=== PATIENT | male | born 1985 | race Caucasian/White ===

== ENCOUNTER 2023-07-31 19:39 | Emergency (ER) | payer MEDICAID, SELFPAY ==
[2023-07-31 19:40] VITALS: BP 127/81; PULSE 75; RESP 16; TEMP 36.4; O2SAT 100; BMI 28.0
--- NOTE | 2023-07-31 20:11 | EKG12_ITS ---
Test Reason : GEN ILLNESS Blood Pressure : / mmHG Vent. Rate : 063 BPM Atrial Rate : 063 BPM P-R Int : 164 ms QRS Dur : 118 ms QT Int : 404 ms P-R-T Axes : 022 049 043 degrees QTc Int : 413 ms Normal sinus rhythm with sinus arrhythmia Incomplete right bundle branch block Borderline ECG Confirmed by Domenic Ceja ([id number]), market editor BEN CLOUD ([id number]) on 08/04/2023 1:11:04 PM Referred By: EFFIE Confirmed By:Domenic Ceja
[2023-07-31] MEDS: Aspirin 81 MG TAB.CHEW 324 MG PO (20:17)
--- NOTE | 2023-07-31 20:25 | RAD_ITS ---
EXAM: XR CHEST, 1 VIEW CLINICAL INDICATION: chest pain TECHNIQUE: Frontal view of the chest. COMPARISON: 10/26/2014 FINDINGS: LUNGS AND PLEURAL SPACES: Right lower lobe pulmonary opacity may be atelectasis or pneumonia. Possible additional airspace disease in the right middle lobe. No pneumothorax. No effusion. HEART: No significant abnormality. Cardiac silhouette not enlarged. MEDIASTINUM: Central airways and mediastinal contour are unremarkable. BONES/JOINTS: No significant abnormality. No acute fracture. SOFT TISSUES: No significant abnormality. RAD/Chest 1 View (Portable) IMPRESSION: Right lower lobe pulmonary opacity may be atelectasis or pneumonia. Possible additional airspace disease in the right middle lobe. Electronically Signed: Edwar Gaines DO at 20:51 EDT ,
[2023-07-31 20:31] LABS: Absolute Lymphocyte Count 2.47 X10^3/uL (0.83-4.51); Absolute Neutrophil Count 3.4 X10^3/uL (2.0-7.7); Basophil# 0.07 X10^3/uL; Eosinophil# 0.56 X10^3/uL; Eosinophils% 7.8 % (0-5); Hematocrit 41.6 % (40-54); Hemoglobin 14.1 g/dL (13.0-16.5); Lymphocyte # 2.47 X10^3/ul (0.83-4.51); Lymphocyte % 34.5 % (19-41); Mean Corp Hgb Conc 33.9 g/dL (32-36); Mean Corpuscular Hgb 31.8 pg (27.0-32.0); Mean Corpuscular Volume 93.9 fL (80-94); Mean Platelet Vol. 9.6 fl (6.2-12.0); Monocyte# 0.61 X10^3/uL; Monocyte% 8.5 % (0-10); NRBC Flagged by Analyzer 0 % (0-5); Neutrophil # 3.43 X10^3/uL (2.7-7.7); Neutrophil % 48.1 % (47-70); Platelet Count 184 K/mm3 (150-450); RBC Distribution Width CV 12.7 % (11.6-14.6); RBC Distribution Width SD 43.8 fl (35.1-43.9); Red Blood Count 4.43 M/mm3 (4.6-6.2); White Blood Count 7.2 K/mm3 (4.4-11.0)
[2023-07-31 20:56] LABS: Anion Gap 5 (5-15); BUN 19 mg/dL (7-18); BUN/Creat Ratio 17.6 RATIO (10-20); Chloride 110 mmol/L (98-107); Creatinine, Serum 1.08 mg/dL (0.70-1.30); EST Glomerular Filtration Rate 82 mL/min (>60); Est Glom Filt Rate - Afr Amer 99 mL/min (>60); Estimated Creatinine Clearance 102.82 ml/min; Glucose 98 mg/dL (74-106); Potassium 3.5 mmol/L (3.5-5.1); Sodium Level 140 mmol/L (136-145); Troponin-I HS (w/2H Reflex) 5 pg/mL (3.0-78.0)
[2023-07-31 21:39] VITALS: BP 111/71; PULSE 65; RESP 20; O2SAT 96
[2023-07-31 22:26] LABS: Reflex Troponin-HS? (from REC) Y
--- NOTE | 2023-07-31 22:35 | EDS_ITS ---
HPI History of Present Illness Chief Complaint: General Illness Informant: patient Onset/Context/Timing Onset: Weeks (2-3) Activity at onset: gradual Timing: Intermittent Quality: Positive for Pressure Location: Left Chest Worsened By: Nothing Relieved By: Nothing Associated Symptoms: Positive for Diaphoresis, Dyspnea, Lightheadedness and Palpitations; Negative for Nausea, Vomiting, Cough, Fever or Acid Reflux Narrative Narrative: Patient presents with chest pain that has been intermittent over the past 2 to 3 weeks. Patient states he has been feeling lightheaded with it. Patient states that his pain is mainly over the left side of his chest. Patient describes it as a pressure and squeezing. Patient states that he did break out into a sweat at 1 point. Patient denies any nausea or vomiting. Patient states it is worse with breathing and sometimes he becomes short of breath. Patient states that other times he has felt his heart racing. Patient states the pain radiates to the back of his neck. Patient denies any fevers or chills. CVD Risk Factors: Positive for Smoking; Negative for Hypertension, Diabetes, Hypercholesterolemia or Family History 1' </=55 PE Risk Factors: Negative for Recent Travel/Surgery, Recent Immobilization, Prior DVT or PE or Cancer [facility] Medical History GERD (gastroesophageal reflux disease) Home Medications ?Medication ?Instructions ?Recorded ?Last Taken ?Type fpqmjrxsav-vfrntliwrfnps-ywrurpzw 2 ea PO TID ##20 07/19/16 Unknown Rx 50 mg-300 mg-40 mg capsule (Fioricet) cephalexin 500 mg capsule 500 mg PO Q6 ##40 08/01/16 Unknown Rx naproxen 500 mg tablet 500 mg PO BID PRN #20 tabs 08/01/16 Unknown Rx sulfamethoxazole 800 1 tab PO BID ##20 08/01/16 Unknown Rx mg-trimethoprim 160 mg tablet ranitidine HCl 300 mg tablet 300 mg PO DAILY #30 tabs 03/24/17 Unknown Rx (Zantac) azithromycin 250 mg tablet 250 mg PO DAILY #4 TABLETS 07/31/23 Unknown Rx Allergy/AdvReac Type Severity Reaction Status Date / Time Penicillins Allergy Hives Verified 07/31/23 19:39 strawberry Allergy Rash Verified 07/31/23 19:39 tomato Allergy Swelling Verified 07/31/23 19:39 Surgical History no surgical history no surgical history Social History (Updated 07/31/23 @ 22:[address] Wesley Wilson, DO) Smoking Status: Current every day smoker tobacco type: cigarettes substance use type: marijuana ROS ROS ED Constitutional Constitutional ED: Reports sweats; Denies chills or fever(s) Eyes Eyes: Reports blurry vision; Denies diplopia ENT ENT ED: Denies rhinorrhea or sore throat Cardiovascular Cardiovascular: Reports as per HPI, chest pain, palpitations and racing heartbeat Respiratory/Chest Respiratory/Chest: Reports dyspnea; Denies cough Gastrointestinal Gastrointestinal: Denies nausea or vomiting Genitourinary Genitourinary ED: Denies dysuria or hematuria Musculoskeletal Musculoskeletal: Reports neck pain; Denies back pain Integumentary Denies abscess or rash Neurologic Neurologic: Denies headache(s) or weakness Allergic/Immunologic Allergic/Immunologic ED: Denies mouth swelling or urticaria EXAM Physical Exam Const Vital Signs: 07/31/23 19:40 07/31/23 20:19 07/31/23 20:24 Temperature 97.5 F L Temperature Source Temporal Pulse Rate 75 Respiratory Rate 16 Respiratory Effort Normal Non-Labored Respiratory Pattern Normal Blood Pressure 127/81 H Blood Pressure Mean 96 Pulse Ox 100 Oxygen Delivery Method Room Air 07/31/23 21:39 Temperature Temperature Source Pulse Rate 65 Respiratory Rate 20 H Respiratory Effort Respiratory Pattern Blood Pressure 111/71 Blood Pressure Mean 84 Pulse Ox 96 Oxygen Delivery Method Room Air Positive well nourished and well developed General Appearance ED: well developed and NAD HEENT Reports moist mucous membranes Neck supple and no JVD Chest Wall inspection of chest normal and palpation of chest normal Resp normal respiratory effort and clear to auscultation bilaterally Cardio regular rate and regular rhythm GI soft to palpation, non-tender and non-distended Extremity normal to inspection Neuro oriented x3, CN's II-XII intact bilaterally and no sensory deficits noted Sensorium / Orientation: awake and alert Motor Exam: strength 5/5 throughout Heart Score History: Slightly/Non-Suspicious ECG: Normal Age: </= 45 years Risk Factors: 1 or 2 Risk Factors Score: 1 MDM MDM MDM Narrative Medical decision making narrative: Differential diagnosis includes cardiac dysrhythmia, cardiac ischemia, electrolyte abnormality, musculoskeletal pain, pneumonia, pneumothorax, and anxiety. EKG will be obtained to assess for cardiac dysrhythmia and cardiac ischemia. CBC will be obtained to assess for leukocytosis and anemia. Basic metabolic profile will be obtained to assess for electrolyte abnormality and renal function. High-sensitivity troponin will be obtained to assess for cardiac ischemia. 2-hour repeat high-sensitivity troponin will be obtained to assess for ongoing cardiac ischemia. Chest x-ray will be obtained to assess for pneumonia and pneumothorax. Lab Data Attestation: I reviewed the patient's lab results. Lab results narrative: CBC was reviewed and was within normal limits. Basic metabolic profile was reviewed and was within normal limits. Initial high-sensitivity troponin was reviewed and was normal at 5. 2-hour repeat high-sensitivity troponin was re viewed and was normal at 6. Labs: Laboratory Results - last 24 hr 07/31/23 07/31/23 20:20 22:30 WBC 7.2 RBC 4.43 L Hgb 14.1 Hct 41.6 MCV 93.9 MCH 31.8 MCHC 33.9 RDW Std Deviation 43.8 RDW Coeff of Betty 12.7 Plt Count 184 MPV 9.6 Immature Gran % (Auto) 0.100 Neut % (Auto) 48.1 Lymph % (Auto) 34.5 [place] % (Auto) 8.5 Eos % (Auto) 7.8 H Baso % (Auto) 1.0 Absolute Neuts (auto) 3.4 Absolute Lymphs (auto) 2.47 Nucleated RBC % 0 Sodium 140 Potassium 3.5 Chloride 110 H Carbon Dioxide 25.0 Anion Gap 5 BUN 19 H Creatinine 1.08 Estim Creat Clear Calc 102.82 Est GFR (MDRD) Af Amer 99 Est GFR (MDRD) Non-Af 82 BUN/Creatinine Ratio 17.6 Glucose 98 Calcium 9.0 Troponin I High Sens 5 6 Radiography Chest X-Ray - ED: 1 View, Read by ED Physician, Read by Radiologist and Right Infiltrate Diagnostic Testing: Clinical Impression(s) from Imaging Studies Chest X-Ray 07/31/23 20:25 IMPRESSION: Right lower lobe pulmonary opacity may be atelectasis or pneumonia. Possible additional airspace disease in the right middle lobe. Electronically Signed: Edwar Gaines DO at 20:51 EDT , Portable chest x-ray was obtained. There is 1 view. On my independent interpretation, there is a questionable atelectasis versus pneumonia in the right lower lobe. There is a possible infiltrate in the right middle lobe. Radiologist also interpreted the x-ray and agrees. EKG Initial EKG: Attestation: I personally reviewed and interpreted this EKG as follows: Interpretation: Sinus Rhythm (63), RBBB (Incomplete) and Non-Specific ST Changes Comments: EKG was obtained. On my independent interpretation, it showed a normal sinus rhythm with a rate of 63. SC interval, QRS interval, and QTc intervals were all normal. [place] was normal. There is an incomplete right bundle branch block pattern noted. There are no acute ST or T wave changes. Prior EKG tracings: available for review Prior: Unchanged (10/26/2014) Treatment and Re-Evaluation :: Patient was given aspirin and nitroglycerin here. Patient was advised of his findings. Patient was given a dose of Zithromax here. Patient was given a pr escription for Zithromax. Patient had a HEART score of 1. Patient was advised that this is low risk for acute cardiac event. Patient was instructed to follow-up with his primary care physician in 5 to 7 days. Patient understood and was agreeable with the plan. All questions were answered. Discharge Plan Triage Chief Complaint: General Illness ED Provider: Wesley Wilson Dx/Rx/DC Orders Clinical Impression: Pneumonia, Chest pain Instructions: ED Pneumonia (Adult) Prescriptions: New azithromycin 250 mg tablet 250 mg PO DAILY Qty: 4 0RF No Action qdjtzeafje-aopobbwlthojo-tlwj [Fioricet] 1 EACH capsule 2 ea PO TID Qty: 20 0RF sulfamethoxazole-trimethoprim 1 TABLET tablet 1 tab PO BID Qty: 20 0RF cephalexin 500 MG capsule 500 mg PO Q6 Qty: 40 0RF naproxen 500 MG tablet 500 mg PO BID PRN Qty: 20 0RF ranitidine HCl [Zantac] 300 MG tablet 300 mg PO DAILY Qty: 30 0RF Stand Alone Forms: ED Work / School Excuse Primary Care Provider: Yobany Miranda Referrals: Yobany Miranda MD [Primary Care Provider] - 3-5 Days Print Language: Solomon Islander Disposition Disposition: Home, Self Care
[2023-07-31 22:55] LABS: Troponin-I HS 6 pg/mL (3.0-78.0)
[2023-07-31] MEDS: Azithromycin 250 MG Tablet 500 MG PO (23:37)
[2023-07-31 23:39] VITALS: BP 93/57; PULSE 58; RESP 14; O2SAT 98
[2023-07-31 23:43] VITALS: BP 93/57; PULSE 58; RESP 14; TEMP 36.4; O2SAT 98
== END 2023-07-31 23:45 | disposition home or self-care (01) ==
PROVIDERS: Emergency Provider Emergency Medicine; PCP Family Medicine; Visit Provider Emergency Medicine
DX: J18.9 Pneumonia, unspecified organism (principal); F17.210 Nicotine dependence, cigarettes, uncomplicated; R07.9 Chest pain, unspecified; K21.9 Gastro-esophageal reflux disease without esophagitis; Z79.899 Other long term (current) drug therapy
CPT/HCPCS: 71045; 80048; 84484; 85025; 93005; 99284; A4216

== ENCOUNTER 2023-08-01 02:51 | Emergency (ER) | payer MEDICAID, SELFPAY ==
[2023-08-01 02:52] VITALS: BP 121/90; PULSE 63; RESP 18; TEMP 36.2; O2SAT 98; BMI 28.2
--- NOTE | 2023-08-01 03:02 | CT_ITS ---
EXAM: CT HEAD WITHOUT INTRAVENOUS CONTRAST CLINICAL INDICATION: headache, vomitting TECHNIQUE: Multiple axial images were obtained of the head without intravenous contrast. CTDIvol = ( 44.99 ) mGy, DLP = ( 762.36 ) mGycm This CT exam was performed using one or more of the following dose reduction techniques: automated exposure control, adjustment of the mA and/or kV according to patient size, and/or use of iterative reconstruction technique. COMPARISON: No relevant prior studies available. FINDINGS: BRAIN AND EXTRA-AXIAL SPACES: Unremarkable. No intra- or extra-axial hemorrhage. No evidence of acute infarct. No intracranial mass or mass effect. There is preservation of the valencia/white matter interface. Posterior fossa structures are unremarkable. Ventricles are appropriate for age. No hydrocephalus. Basal cisterns are patent. BONES/JOINTS: Unremarkable. No discrete lytic or blastic abnormalities. SINUSES: Unremarkable as visualized. Clear. MASTOID AIR CELLS: Unremarkable. Clear. ORBITS: Visualized globes, extraocular muscles, optic nerves and retrobulbar fat appear unremarkable. CT/Brain/Head without Contrast IMPRESSION: Negative head/brain CT without intravenous contrast. AIDOC was utilized to assist in identifying pertinent positive findings. Electronically Signed: Atif Pineda MD at 4:00 EDT ,
--- NOTE | 2023-08-01 03:04 | EX.ED.DYSGE1 ---
HPI History of Present Illness Chief Complaint: General Illness Detail of Chief Complaint: Headache Informant: patient Narrative Narrative: Patient presents with headache and dizziness. Patient was seen in the emergency department last evening for chest pain and had a workup that included lab work and heart enzymes x 2 that were unremarkable. Patient had a chest x-ray that showed possible atelectasis versus pneumonia and was started on Zithromax. Patient was walking back to the [facility] when he had development of headache and dizziness and vomited for 5 times. He and his significant other tell me he has been having headaches for about 2 weeks off-and-on lasting up to a day or 2. Denies any falls or head injuries. He denies fever or cough or sore throat or bodyaches. No family history of brain tumors or aneurysms. Patient does describe photophobia. [facility] Medical History (Updated 08/01/23 @ 05:[address] Magdalene Ty, DO) Cannabis use disorder Tobacco use GERD (gastroesophageal reflux disease) Allergy/AdvReac Type Severity Reaction Status Date / Time Penicillins Allergy Hives Verified 07/31/23 19:39 strawberry Allergy Rash Verified 07/31/23 19:39 tomato Allergy Swelling Verified 07/31/23 19:39 Social History (Updated 07/31/23 @ 22:[address] Wesley Wilson, DO) Smoking Status: Current every day smoker tobacco type: cigarettes substance use type: marijuana ROS ROS ED Review of Systems ROS Unobtainable: other Constitutional Constitutional ED: Reports lethargy; Denies chills, fever(s), sweats or weight loss Eyes Eyes: Denies blurry vision, change in vision or diplopia ENT ENT ED: Denies rhinorrhea or sore throat Cardiovascular Cardiovascular: Reports chest pain; Denies orthopnea or racing heartbeat Respiratory/Chest Respiratory/Chest: Reports dyspnea and dyspnea on exertion; Denies cough, orthopnea or sputum Gastrointestinal Gastrointestinal: Reports nausea and vomiting; Denies abdominal pain or diarrhea Genitourinary Genitourinary ED: Denies dysuria, hematuria or urinary frequency Musculoskeletal Musculoskeletal: Denies arthralgias, back pain, myalgias or neck pain Integumentary Denies abscess, Abrasions or rash Neurologic Neurologic: Reports headache(s); Denies weakness Psychiatric Psychiatric: Denies anxiety, depression or suicidal thoughts Endocrine Endocrinology: Denies polydipsia, polyphagia or polyuria Hematologic/Lymphatic Hematologic/Lymphatic: Denies easy bleeding, easy bruising or lymphadenopathy Allergic/Immunologic Allergic/Immunologic ED: Denies mouth swelling, tongue swelling or urticaria EXAM Physical Exam Const Vital Signs: 08/01/23 02:52 08/01/23 02:58 08/01/23 04:52 Temperature 97.1 F L Temperature Source Oral Pulse Rate 63 Respiratory Rate 18 Respiratory Effort Normal Respiratory Pattern Normal Blood Pressure 121/90 H Blood Pressure Mean 100 Pulse Ox 98 Oxygen Delivery Method Room Air Room Air 08/01/23 04:56 Temperature 98 F Temperature Source Pulse Rate 62 Respiratory Rate 16 Respiratory Effort Respiratory Pattern Blood Pressure 123/73 H Blood Pressure Mean 89 Pulse Ox 99 Oxygen Delivery Method Positive well nourished and well developed General Appearance ED: well developed and NAD HEENT Reports TM's clear and moist mucous membranes normocephalic and atraumatic; Negative for trauma or tenderness Tympanic Membrane ED: Yes TM's clear Eyes PERRL and EOMs intact bilaterally General Eye ED: Negative for pale conjunctiva or scleral icterus Neck no lymphadenopathy, supple and no JVD General: Negative for tenderness Chest Wall inspection of chest normal and palpation of chest normal Chest: Negative for tenderness Resp normal respiratory effort and clear to auscultation bilaterally Effort and Inspection: Negative for respiratory distress or pain with movement Auscultation: Negative for rhonchi, wheezes or diminished lung sounds Cardio regular rate, regular rhythm, S1 normal heart sound, S2 normal heart sound and no murmurs Peripheral Pulses: pulses 2+ throughout GI normal to inspection, nondistended, normoactive bowel sounds, soft to palpation, non-tender, non-distended and no masses Back/Spine no CVA tenderness and no thoracic nor lumbar tenderness Extremity normal to inspection General Extremety ED: Negative for edema General Extremity: Negative for edema Neuro oriented x3, CN's II-XII intact bilaterally, no sensory deficits noted and gait normal Sensorium / Orientation: awake, alert, oriented to person, oriented to place and oriented to time Motor Exam: strength 5/5 throughout and strength abnormal Psych mental status grossly normal Skin no rashes or lesions noted and no wounds MDM MDM MDM Narrative Medical decision making narrative: Patient presents with dizziness and headache and double vision which her symptoms has had off and on for the last 2 weeks. He was seen earlier in the day for complaint of chest pain and worked up and was thought on x-ray might have pneumonia although he has no URI symptoms. There is no family history of brain tumors or aneurysms. He does not have a history of migraines. IV line established. He was treated with Reglan Benadryl and Toradol. He had very little relief with that and his headache improved to a 8 out of 10 from a 10 out of 10. I did not feel any further blood work was indicated as he just several hours ago had significant workup. I did obtain a CT scan of the brain without contrast that was normal. Patient continues to complain of spinning vertiginous like symptoms and I did Hallpike him but did not appreciate any significant nystagmus. I did give him a milligram of Ativan and he continues to complain of double vision and dizziness. This point case was discussed with hospitalist to evaluate patient for admission. Etiology of symptoms unclear. Patient has capacity and able to understand my concerns. Lab Data Attestation: I reviewed the patient's lab results. Radiography Diagnostic Testing: Clinical Impression(s) from Imaging Studies Brain CT 08/01/23 03:02 IMPRESSION: Negative head/brain CT without intravenous contrast. AIDOC was utilized to assist in identifying pertinent positive findings. Electronically Signed: tAif Pineda MD at 4:00 EDT , Discharge Plan Triage Chief Complaint: General Illness ED Provider: Magdalene Ty Dx/Rx/DC Orders Clinical Impression: Headache, Dizziness, Diplopia Instructions: ED Double Vision (Diplopia), ED Dizziness, Uncertain Cause Primary Care Provider: Yobany Miranda Referrals: Yobany Miranda MD [Primary Care Provider] - As soon as possible Activity Restrictions/Additional Instructions: Because of your headache and dizziness and double vision is unclear. I recommended admission to evaluate further. Possible risk of intracranial hemorrhage or stroke or MS that could lead to disability or . You are choosing to be discharged AGAINST MEDICAL ADVICE. Print Language: [place]an Disposition Disposition: Against Medical Advice Capacity Capacity Assessment Tool Patient lacks Decision Making Capacity: unable to understand, reason and deliberate health related choices: No Risk to self and or others?: No Risk of leaving the patient care unit and or hospital?: Yes
[2023-08-01] MEDS: 0.9% Normal Saline (1000mL) 1,000 ML 1000 ML IV (03:19)
[2023-08-01] MEDS: Ketorolac 30 MG/ML Syringe IV (03:20)
[2023-08-01] MEDS: Metoclopramide 10 MG/2 ML Vial IV (03:20)
[2023-08-01] MEDS: DiphenhydrAMINE 50 MG/ML Syringe 25 MG IV (03:20)
[2023-08-01] MEDS: LORazepam 2 MG/ML Syringe 1 MG IV (04:31)
[2023-08-01 04:56] VITALS: BP 123/73; PULSE 62; RESP 16; TEMP 36.6; O2SAT 99
--- NOTE | 2023-08-01 05:00 | ED.RN ---
This RN informed the patient of the visiting hours. The fiance stated I was allowed upstairs before and was getting agitated. This RN informed them that it is 0500 and visiting hours begin at 0800. The fiance stated she has no ride home and this RN apologized. This RN attempted to verify meds with the patient but the patient does not know his iron dosage. The fiance will call later with the dosage.
--- NOTE | 2023-08-01 05:00 | PCM.HP.STD ---
HPI - General General Date of Admission: 08/01/23 Date of Service: 08/01/23 Chief Complaint: Headache, lightheadedness, chest pain, photophobia. HPI Narrative The patient is a 37 y/o M w/ PMHx: GERD, Tobacco use, Chronic cannabis usage, recent 07/31/2023 evaluation for intermittent chest discomfort ongoing for 2 to 3 weeks with lightheadedness noting the discomfort primarily over the last chest described as a pressure and squeezing sensation with occasional diaphoresis with no nausea or emesis with dyspnea associated however his discomfort does become worse with deep inspiratory effort with occasional palpitation and occasional radiation of the discomfort to his neck with no recent fevers or chills prompting ED evaluation at that time with unremarkable CBC, BMP also unremarkable and high-sensitivity troponin obtained noted to be normal at 5 with repeat delta 6 with chest x-ray with right lower lobe opacity possibly atelectasis versus pneumonia with also possible additional airspace disease in the right middle lobe, EKG with sinus rhythm with incomplete right bundle branch block with no acute evidence of ischemia unchanged from previous discharged to home at that time with oral azithromycin regimen who now represents to the [facility] ED on 08/01/2023 secondary to ongoing dizziness and bout of emesis in addition to a headache upon walking home with no improvement since his visit earlier the evening prior prompting ED return. Patient reports headache intermittently for the last 2 weeks lasting up to 1 to 2 days at a time with photophobia. Current workup in the ED included T97.1, heart rate 63, BP 121/90, respiratory rate 18, 98% on room air, CT of the brain with no acute intracranial findings. In the ED patient ministered 1 L normal saline, Benadryl 25 mg IV x 1, Toradol 30 mg IV x 1, Ativan 1 mg IV x 1 as well as Reglan 10 mg IV x 1. [facility] Medical History (Updated 08/01/23 @ 05:[address] Magdalene Ty DO) Cannabis use disorder Tobacco use GERD (gastroesophageal reflux disease) Allergy/AdvReac Type Severity Reaction Status Date / Time Penicillins Allergy Hives Verified 07/31/23 19:39 strawberry Allergy Rash Verified 07/31/23 19:39 tomato Allergy Swelling Verified 07/31/23 19:39 Social History (Updated 07/31/23 @ 22:[address] Wesley Schwiger, DO) Smoking Status: Current every day smoker tobacco type: cigarettes substance use type: marijuana Vital Signs Vital Signs Vital Signs: 08/01/23 02:52 08/01/23 02:58 08/01/23 04:52 Temperature 97.1 F L Temperature Source Oral Pulse Rate 63 Respiratory Rate 18 Respiratory Effort Normal Respiratory Pattern Normal Blood Pressure 121/90 H Blood Pressure Mean 100 Pulse Ox 98 Oxygen Delivery Method Room Air Room Air 08/01/23 04:56 Temperature 98 F Temperature Source Pulse Rate 62 Respiratory Rate 16 Respiratory Effort Respiratory Pattern Blood Pressure 123/73 H Blood Pressure Mean 89 Pulse Ox 99 Oxygen Delivery Method Weight Weight: 191 lb 2.252 oz Body Mass Index (BMI) 28.2 Results Imaging Radiology Impression Brain CT 08/01/23 03:02 IMPRESSION: Negative head/brain CT without intravenous contrast. AIDOC was utilized to assist in identifying pertinent positive findings. Electronically Signed: Atif Pineda MD at 4:00 EDT , Assessment & Plan Assessment/Plan PLAN: Plan The patient is a 37 y/o M w/ PMHx: GERD, Tobacco use, Chronic cannabis usage, recent 07/31/2023 evaluation for intermittent chest discomfort ongoing for 2 to 3 weeks with lightheadedness noting the discomfort primarily over the last chest described as a pressure and squeezing sensation with occasional diaphoresis with no nausea or emesis with dyspnea associated however his discomfort does become worse with deep inspiratory effort with occasional palpitation and occasional radiation seen 07/31/2023 and diagnosed with possible pneumonia at that time discharged on antibiotic therapy who now represents to the [facility] ED on 08/01/2023 secondary to ongoing dizziness and bout of emesis in addition to a ongoing persistent headache. #1. Questionable Community Acquired Pneumonia: CXR in the ED w/ right lower lobe pneumonia. Will admit to [facility], upon presentation patient maintaining appropriate oxygenation at 98% on room air this at this time requiring no oxygen, will maintain on ATC budesonide therapy, PRN albuterol, maintain on IV Rocephin and Azithromycin but lower suspicion for PNA, could certainly be atelectasis, HOB, IS parameters w/ pending sputum cultures, full respiratory viral panel and urine antigens. Will obtain procalcitonin. If findings are less consistent with PNA will de-escalate off abx therapy. #2. Suspected Acute Persistent Intractable Migraine: Will hold narcotic therapy give this may exacerbate migraine, initiate IV VPA 500 mg Q6 hours, IV Decadron 4mg Q6 hours, IV Toradol 30mg Q6 hours x 5 doses, Neurontin 100 mg TID with meals. If patient CAMPBELL does not improve may need to consider MRI of brain with MRA of head. UDS pending. #3. Tobacco Abuse: Encouraged cessation, inpatient consultation per RT, NR if desired. #4. GERD: Will maintain on home ranitidine regimen and will have as needed Mylanta regimen. #5. Chronic cannabis usage: Encourage clean status. #6. DVT prophylaxis: Low risk for type of admission, encourage ambulation.
--- NOTE | 2023-08-01 05:15 | ED.RN ---
This RN discussed with the patient AMA forms because the patient requested them. The patient signed the AMA form and this RN provided the discharge instructions.
== END 2023-08-01 05:18 | disposition left against medical advice (07) ==
PROVIDERS: Emergency Provider Emergency Medicine; PCP Family Medicine; Visit Provider Emergency Medicine
DX: R51.9 Headache, unspecified (principal); R42 Dizziness and giddiness; H53.2 Diplopia; F17.210 Nicotine dependence, cigarettes, uncomplicated
CPT/HCPCS: 70450; 96361; 96374; 96375; 99284; J7030; A4216

== ENCOUNTER 2023-09-25 21:07 | Emergency (ER) | payer MEDICAID, SELFPAY ==
[2023-09-25 21:09] VITALS: BP 121/72; PULSE 71; RESP 16; TEMP 36.4; O2SAT 97; BMI 25.9
[2023-09-25] MEDS: 0.9% Normal Saline (1000mL) 1,000 ML 999 ML IV (22:33)
[2023-09-25 22:37] LABS: Absolute Lymphocyte Count 2.51 X10^3/uL (0.83-4.51); Absolute Neutrophil Count 3.2 X10^3/uL (2.0-7.7); Basophil# 0.06 X10^3/uL; Basophil% 0.9 % (0-1); Eosinophil# 0.39 X10^3/uL; Eosinophils% 5.6 % (0-5); Hemoglobin 14.8 g/dL (13.0-16.5); Lymphocyte # 2.51 X10^3/ul (0.83-4.51); Lymphocyte % 36.1 % (19-41); Mean Corp Hgb Conc 32.9 g/dL (32-36); Mean Corpuscular Hgb 30.6 pg (27.0-32.0); Mean Corpuscular Volume 93.2 fL (80-94); Mean Platelet Vol. 10.5 fl (6.2-12.0); Monocyte# 0.78 X10^3/uL; Monocyte% 11.2 % (0-10); NRBC Flagged by Analyzer 0 % (0-5); Neutrophil % 46.1 % (47-70); Platelet Count 205 K/mm3 (150-450); RBC Distribution Width CV 12.9 % (11.6-14.6); RBC Distribution Width SD 43.8 fl (35.1-43.9); Red Blood Count 4.83 M/mm3 (4.6-6.2)
[2023-09-25 22:39] LABS: Bacteria 0 SEEN /hpf (None Seen); Mucous, Urine 0 SEEN /hpf (<or=2+); Red Blood Cells-Urine 0 SEEN /hpf (0-5); White Blood Cells 0 SEEN /hpf (0-5)
[2023-09-25 22:52] LABS: Color, Urine Yellow (Yellow); Glucose, Dipstick Normal (Normal); Ketone-Dipstick 5 mg/dl (Negative); Leukocyte Esterase-Dipstick Negative /ul (Negative); Nitrite-Dipstick Negative (Negative); Occult Blood-Urine Negative /ul (Negative); Protein-Dipstick 15 mg/dl (Negative); Urine Bilirubin Dipstick Negative (Negative); Urine Clarity Sl. Cloudy (Clear); Urine Urobilinogen 1 mg/dl (Normal)
[2023-09-25 23:05] LABS: AST(SGOT) 39 U/L (15-37); Alanine Aminotransfer ALT/SGPT 83 U/L (16-61); Albumin, Serum 3.4 g/dL (3.2-5.0); Alkaline Phosphatase 33 U/L (45-117); Anion Gap 5 (5-15); BUN 23 mg/dL (7-18); BUN/Creat Ratio 20.9 RATIO (10-20); Bilirubin, Direct 0.09 mg/dL (0.00-0.30); Calcium,Total 8.6 mg/dL (8.5-10.1); Chloride 110 mmol/L (98-107); EST Glomerular Filtration Rate 80 mL/min (>60); Est Glom Filt Rate - Afr Amer 97 mL/min (>60); Estimated Creatinine Clearance 89.82 ml/min; Globulin 2.8 g/dL (2.2-4.2); Glucose 105 mg/dL (74-106); Potassium 3.5 mmol/L (3.5-5.1); Protein, Total 6.2 g/dL (6.4-8.2); Sodium Level 141 mmol/L (136-145); Thyroid Stim Hormone (TSH) 3.45 uIU/mL (0.358-3.74)
[2023-09-25 23:14] VITALS: BP 100/70; PULSE 54; RESP 18; O2SAT 98
[2023-09-25 23:18] LABS: Amorphous Sediment 1+ URATE; Squamous Epithelial Cells - UA 0-5 SEEN /hpf (0-5)
--- NOTE | 2023-09-26 00:07 | EX.ED.DYSGE1 ---
HPI History of Present Illness Chief Complaint: Flank Pain Informant: patient Narrative Narrative: Patient is a 37-year-old male who reports a past medical history of GERD as well as tobacco and cannabis use. He states that he feels like he needs to drink water all the time and despite this is still thirsty. He also states he has had painful urination and has noticed that his urine is dark and/or bloody. He states that both parents have a history of diabetes as well as kidney disease. The patient also reports he feels constantly tired with minimal activity. he states he is concerned he may have developed this based on his symptoms and family history and therefore comes in for evaluation [facility] Medical History (Updated 09/26/23 @ 04:[address] Atif Ennsi, DO) Cannabis use disorder Tobacco use GERD (gastroesophageal reflux disease) Home Medications ?Medication ?Instructions ?Recorded ?Last Taken ?Type NK 09/26/23 Unknown History Allergy/AdvReac Type Severity Reaction Status Date / Time Penicillins Allergy Hives Verified 09/25/23 21:08 strawberry Allergy Rash Verified 09/25/23 21:08 tomato Allergy Swelling Verified 09/25/23 21:08 Social History (Updated 07/31/23 @ 22:[address] Wesley Wilson, DO) Smoking Status: Current every day smoker tobacco type: cigarettes substance use type: marijuana ROS ROS ED Constitutional Constitutional ED: Reports other Details: Positive fatigue ; Denies chills or fever(s) ENT ENT ED: Denies sore throat Cardiovascular Cardiovascular: Denies chest pain Respiratory/Chest Respiratory/Chest: Denies cough or dyspnea Gastrointestinal Gastrointestinal: Denies abdominal pain, diarrhea, nausea or vomiting Genitourinary Genitourinary ED: Reports hematuria; Denies dysuria Musculoskeletal Musculoskeletal: Reports back pain Integumentary Denies rash Neurologic Neurologic: Denies headache(s) Hematologic/Lymphatic Hematologic/Lymphatic: Denies easy bleeding or easy bruising EXAM Physical Exam Const Vital Signs: 09/25/23 21:09 09/25/23 23:14 09/26/23 00:17 Temperature 97.6 F L 97.4 F L Temperature Source Temporal Pulse Rate 71 54 L 71 Respiratory Rate 16 18 18 Blood Pressure 121/72 H 100/70 94/67 Blood Pressure Mean 88 80 76 Pulse Ox 97 98 96 Oxygen Delivery Method Room Air Room Air Positive well nourished and well developed General Appearance ED: well developed; Negative for pallor HEENT Reports moist mucous membranes HEENT Narrative: No tongue or lip swelling no oral lesions no airway edema or compromise Eyes PERRL and EOMs intact bilaterally General Eye ED: Negative for scleral icterus Neck supple Resp normal respiratory effort and clear to auscultation bilaterally Cardio regular rate and regular rhythm Rate: other Other Details: Heart is regular rate and rhythm without murmurs rubs or gallop Radial and carotid pulses are equal and symmetric GI normal to inspection, nondistended, normoactive bowel sounds, non-tender, non-distended and no masses GI Narrative: No voluntary guarding or rigidity No pulsatile mass or fluid wave Auscultation: normoactive bowel sounds Palpation: soft Back/Spine Back/Spine Narrative: Mild bilateral CVA pain/paralumbar tenderness is present Extremity normal to inspection Extremity Narrative: No asymmetric edema no pitting edema negative Homans' sign bilaterally Neuro oriented x3, CN's II-XII intact bilaterally and no sensory deficits noted Sensorium / Orientation: alert Motor Exam: strength 5/5 throughout Psych mental status grossly normal Skin no rashes or lesions noted, no wounds and skin turgor normal General Skin Exam: Negative for jaundice or pallor MDM MDM MDM Narrative Medical decision making narrative: Patient presented to ER with stable vitals and in no acute distress. He reported his symptoms have been ongoing for weeks to months. However as she reports a persistent thirst despite adequate hydration there is concern that he is new onset diabetes and as he does have mild back pain and reports hematuria there is concern for UTI versus pyelonephritis versus kidney stone. There is also concern for liver disease based on his report of dark urine. Secondary to this basic labs and a urine sample were obtained. White count is normal going against infection H&H are stable going against acute blood loss anemia as a cause of reported fatigue. Urine sample shows no blood going against kidney stone or infectious process and there is no bacteria reported as well. Patient also has a normal glucose level and normal kidney function. Liver enzymes are slightly deranged but this is only minimally and not clinically significant and most likely related to fatty liver disease not secondary hepatitis/liver infection. Therefore at this time as patient's labs revealed no signs of acute kidney injury or new onset diabetes or potential infection such as UTI or pyelonephritis and there is no blood to suggest potential kidney stone I do not feel the need for imaging patient is safe for discharge with outpatient follow-up. History & Record Review Discussion w/independent historian: Patient Lab Data Attestation: I reviewed the patient's lab results. Labs: Laboratory Results - last 24 hr 09/25/23 09/25/23 22:02 22:35 WBC 7.0 RBC 4.83 Hgb 14.8 Hct 45.0 MCV 93.2 MCH 30.6 MCHC 32.9 RDW Std Deviation 43.8 RDW Coeff of Betty 12.9 Plt Count 205 MPV 10.5 Immature Gran % (Auto) 0.100 Neut % (Auto) 46.1 L Lymph % (Auto) 36.1 [place] % (Auto) 11.2 H Eos % (Auto) 5.6 H Baso % (Auto) 0.9 Absolute Neuts (auto) 3.2 Absolute Lymphs (auto) 2.51 Nucleated RBC % 0 Sodium 141 Potassium 3.5 Chloride 110 H Carbon Dioxide 26.0 Anion Gap 5 BUN 23 H Creatinine 1.10 Estim Creat Clear Calc 89.82 Est GFR (MDRD) Af Amer 97 Est GFR (MDRD) Non-Af 80 BUN/Creatinine Ratio 20.9 H Glucose 105 Calcium 8.6 Total Bilirubin 0.40 Direct Bilirubin 0.09 AST 39 H ALT 83 H Alkaline Phosphatase 33 L Total Protein 6.2 L Albumin 3.4 Globulin 2.8 TSH 3.45 Urine Color Yellow Urine Clarity Sl. Cloudy Urine pH 6.0 Ur Specific [place] 1.020 Urine Protein 15 H Urine Glucose (UA) Normal Urine Ketones 5 H Urine Occult Blood Negative Urine Nitrite Negative Urine Bilirubin Negative Urine Urobilinogen 1 H Ur Leukocyte Esterase Negative Urine RBC 0 SEEN Urine WBC 0 SEEN Ur Squamous Epith Cells 0-5 SEEN Amorphous Sediment 1+ URATE Urine Bacteria 0 SEEN Urine Mucus 0 SEEN Discharge Plan Triage Chief Complaint: Flank Pain ED Provider: Atif Ennis Dx/Rx/DC Orders Clinical Impression: Proteinuria, Polydipsia, GERD (gastroesophageal reflux disease), Tobacco use Instructions: ED Proteinuria Prescriptions: No Action NK Primary Care Provider: Yobany Miranda Referrals: Yobany Miranda MD [Primary Care Provider] - Activity Restrictions/Additional Instructions: Your workup today showed no signs of urinary tract or kidney infection and no signs of kidney damage. Follow-up with your family doctor to discuss further testing on outpatient basis and return to the ER should you have any further concerns Print Language: Yoruba Disposition Disposition: Home, Self Care Discharge Date/Time: 09/26/23 00:18
[2023-09-26 00:17] VITALS: BP 94/67; PULSE 71; RESP 18; TEMP 36.3; O2SAT 96
== END 2023-09-26 00:18 | disposition home or self-care (01) ==
PROVIDERS: Emergency Provider Emergency Medicine; PCP Family Medicine; Visit Provider Emergency Medicine
DX: R80.9 Proteinuria, unspecified (principal); K21.9 Gastro-esophageal reflux disease without esophagitis; R63.1 Polydipsia; F17.210 Nicotine dependence, cigarettes, uncomplicated
CPT/HCPCS: 80048; 80076; 81001; 84443; 85025; 96360; 99282; J7030; A4216

== ENCOUNTER 2023-12-22 19:47 | Emergency (ER) | payer MEDICAID, SELFPAY ==
[2023-12-22 19:48] VITALS: BP 118/79; PULSE 72; RESP 16; TEMP 36.6; O2SAT 97; BMI 28.9
--- NOTE | 2023-12-22 19:51 | RAD_ITS ---
INDICATION: INJURY EXAMINATION/TECHNIQUE: X-RAY - LEFT XR Hand Min 3 Views 3 VIEWS COMPARISON: No relevant prior comparison study available FINDINGS: SOFT TISSUES: No soft tissue swelling or gas. Rings are present on the 3rd and 4th digits obscuring metadiaphysis of the proximal phalanges. BONES/JOINTS: No acute fracture or subluxation.. Normal alignment. Preservation of the joint space.. No sclerotic or destructive changes observed. RAD/Hand Min 3 Views IMPRESSION: 1. No evidence fracture, malalignment or focal bony or joint space abnormality. 2. Rings are present on the 3rd and 4th digit obscuring the metadiaphysis of the proximal 3rd and 4th phalanx. Electronically Signed: Zay Salamanca MD at 20:18 EDT ,
--- NOTE | 2023-12-22 22:34 | EX.ED.UPPERE ---
HPI History of Present Illness Chief Complaint: Upper Extremity Injury [facility] Medical History Cannabis use disorder Tobacco use GERD (gastroesophageal reflux disease) Home Medications ?Medication ?Instructions ?Recorded ?Last Taken ?Type NK 09/26/23 Unknown History Allergy/AdvReac Type Severity Reaction Status Date / Time Penicillins Allergy Hives Verified 12/22/23 19:51 strawberry Allergy Rash Verified 12/22/23 19:51 tomato Allergy Swelling Verified 12/22/23 19:51 Social History (Updated 07/31/23 @ 22:[address] Wesley Wilson, DO) Smoking Status: Current every day smoker tobacco type: cigarettes substance use type: marijuana EXAM Physical Exam Const Vital Signs: 12/22/23 19:48 Temperature 97.9 F Temperature Source Oral Pulse Rate 72 Respiratory Rate 16 Blood Pressure 118/79 Blood Pressure Mean 92 Pulse Ox 97 Oxygen Delivery Method Room Air MDM MDM MDM Narrative Medical decision making narrative: HISTORY OF PRESENT ILLNESS: 38-year-old male presents with concern for left middle finger pain after getting smashed at work. REVIEW OF SYSTEMS: Pertinent positives: Finger pain Pertinent negatives: Numbness tingling or loss of sensation PHYSICAL EXAM: Nursing triage notes reviewed, Vital signs reviewed Constitutional: please see mdm Extremities: No edema Neuro: Intact 5/5 strength with ok sign (median), intact finger abduction (ulnar) intact wrist extension (radial n). Intact sensation in the radial, ulnar, and median nerve distributions. Skin: No rash or lesions noted MEDICAL DECISION MAKING: Chief Complaint: Finger pain External records reviewed: Reviewed prior imaging studies Factors affecting care: none Social determinants of health: none History obtained from others: none Consults: none [facility] Narrative: Patient was hemodynamically stable, afebrile and nontoxic-appearing. Left upper extremity is neurovascularly intact. Intact pulse and intact radial, median, ulnar nerve sensory and motor distributions. I considered the following differential diagnosis: Finger fracture, dislocation, contusion ALL IMAGES (IF OBTAINED) HAVE BEEN PERSONALLY REVIEWED AND INTERPRETED BY MYSELF. X-ray was obtained in triage per protocol secondary to high-volume high acuity. X-ray was read reviewed personally by myself. It shows no evidence of obvious fracture dislocation however he does have rings over the third and fourth digit which obscures view. Will clinically correlate. There is no tenderness over the proximal third or fourth digit. Tenderness and trauma was noted to the distal third digit. The patient's point for discharge home with a work note and close PCP follow-up. The patient and/or family, caregivers express understanding. The patient and/or family, caregivers agrees with the plan. Shared decision making: I will have a discussion with the patient and or visitors regarding risk/benefits of further testing or admission. They will be made aware of of the risk/benefits inherent in this decision they will be given the opportunity to voice understanding. Total critical care time today provided was at least 0 minutes. This excludes separately billable procedures. Critical care time (if documented) is secondary to the patient having high probability of clinically significant/life threatening deterioration in the patient's condition which required my urgent intervention. Impression: 1. Acute finger pain 2. Acute finger contusion Dispo: discharge home This note was generated with [employer] dictation software. It may contain incorrect words, spelling, and punctuation that were not noted in review of the chart prior to signing. Radiography Diagnostic Testing: Clinical Impression(s) from Imaging Studies Hand X-Ray 12/22/23 19:51 IMPRESSION: 1. No evidence fracture, malalignment or focal bony or joint space abnormality. 2. Rings are present on the 3rd and 4th digit obscuring the metadiaphysis of the proximal 3rd and 4th phalanx. Electronically Signed: Zay Salamanca MD at 20:18 EDT , Discharge Plan Triage Chief Complaint: Upper Extremity Injury ED Provider: Benny Bone Dx/Rx/DC Orders Instructions: ED Finger Contusion Prescriptions: No Action NK Stand Alone Forms: ED Work / School Excuse Primary Care Provider: Yobany Miranda Referrals: Yobany Miranda MD [Primary Care Provider] - Activity Restrictions/Additional Instructions: Thank you for trusting us with your care today! Imaging of your hand was negative for acute fracture or dislocation in the area of most tenderness. Please ice regularly Please take Tylenol (2 pills, 650 mg), ibuprofen (2 pills, 400 mg) every 6 hours as needed for pain and fever control. Please return to the emergency department if your symptoms change or worsen. Please follow with your primary care physician for further outpatient evaluation and management. Print Language: Citizen Of [place] Disposition Disposition: Home, Self Care
[2023-12-22] MEDS: Acetaminophen 325 MG Tablet 650 MG PO (23:22)
[2023-12-22] MEDS: Ibuprofen 200 MG Tablet 400 MG PO (23:22)
--- NOTE | 2023-12-22 23:26 | ED.RN ---
pt. 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 Educated on need to file paperwork at time of first injury, pt. denied again.
== END 2023-12-22 23:28 | disposition home or self-care (01) ==
PROVIDERS: Emergency Provider Emergency Medicine; PCP Family Medicine; Visit Provider Emergency Medicine
DX: S60.032A Contusion of left middle finger without damage to nail, initial encounter (principal); F17.210 Nicotine dependence, cigarettes, uncomplicated; X58.XXXA Exposure to other specified factors, initial encounter; Y92.89 Other specified places as the place of occurrence of the external cause
CPT/HCPCS: 73130; 99283

== ENCOUNTER 2024-08-17 23:31 | Emergency (ER) | payer OTHER, SELFPAY ==
--- NOTE | 2024-08-17 00:15 | RAD_ITS ---
PROCEDURE: CHEST PA AND LATERAL 08/18/2024 REASON FOR EXAM: CHEST PAIN TECHNIQUE: CHEST PA AND LATERAL COMPARISON: 07/31/2023. FINDINGS: The lungs are expanded. There is no demonstrated parenchymal abnormality. There is no demonstrated pleural abnormality. Normal heart and pericardium. Normal mediastinum and marlon. Normal visualized pulmonary arteries. Normal visualized aortic arch and descending thoracic aorta. Normal visualized thoracic spine. Normal visualized ribs, clavicles, and shoulders. There is no demonstrated abnormality of the visualized soft tissue structures of the upper abdomen. RAD/Chest PA and Lateral IMPRESSION: No radiographic evidence of an acute abnormality. Reading Location: [facility]
[2024-08-17 23:32] VITALS: BP 110/74; PULSE 91; RESP 23; TEMP 36.7; O2SAT 97; BMI 32.8
--- NOTE | 2024-08-17 23:48 | EKG12_ITS ---
Test Reason : CP Blood Pressure : */* mmHG Vent. Rate : 85 BPM Atrial Rate : 85 BPM P-R Int : 160 ms QRS Dur : 116 ms QT Int : 364 ms P-R-T Axes : 34 28 39 degrees QTcB Int : 433 ms Normal sinus rhythm Normal ECG Confirmed by OLEG BALDERRAMA, JOIE ([id number]), editorial writer JUANPABLO BENOIT ([id number]) on 08/18/2024 8:29:55 AM Referred By: ZACARIAS Confirmed By: JOIE DEJESUS MD
[2024-08-17 23:59] LABS: Absolute Lymphocyte Count 1.91 X10^3/uL (0.83-4.51); Absolute Neutrophil Count 4.7 X10^3/uL (2.0-7.7); Basophil# 0.05 X10^3/uL; Basophil% 0.6 % (0-1); Eosinophil# 0.45 X10^3/uL; Eosinophils% 5.8 % (0-5); Hematocrit 42.7 % (40-54); Hemoglobin 15.1 g/dL (13.0-16.5); Lymphocyte # 1.91 X10^3/ul (0.83-4.51); Lymphocyte % 24.7 % (19-41); Mean Corp Hgb Conc 35.4 g/dL (32-36); Mean Corpuscular Hgb 31.3 pg (27.0-32.0); Mean Corpuscular Volume 88.6 fL (80-94); Mean Platelet Vol. 9.8 fl (6.2-12.0); Monocyte% 7.8 % (0-10); NRBC Flagged by Analyzer 0 % (0-5); Neutrophil # 4.69 X10^3/uL (2.7-7.7); Neutrophil % 60.7 % (47-70); Platelet Count 198 K/mm3 (150-450); RBC Distribution Width SD 42.1 fl (35.1-43.9); Red Blood Count 4.82 M/mm3 (4.6-6.2); White Blood Count 7.7 K/mm3 (4.4-11.0)
[2024-08-18 00:32] VITALS: BP 128/85; PULSE 72; RESP 24; O2SAT 97
[2024-08-18 01:00] VITALS: BP 119/82; PULSE 67; RESP 19; O2SAT 98
--- OUTSIDE RECORDS SUMMARY | 2024-08-18 01:05 | XMS RPT_ITS | CCD ---
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 Normal kidney function or >=90 normal kindney function with possible kidney damage (ex. Proteinuria) CKD 2 Kidney damage with mild loss 60-89 of kidney function CKD 3a Mild to moderate loss of kidney 45-59 function CKD 3b Moderate to severe loss of 30-44 of kindey function CKD 4 Severe loss of kidney function 15-29 CKD 5 Kidney failure <15 Note: (go live 2024) the eGFR calculation was updated to the 2020 CKD-EPI creatinine equation without a race factor to calculate the eGFR results. Performed By: #### T ROPHS, GFR, CMP, ANEU, ADIFF, CBC, FEDE #### [phone] [place], [place] [address] .MDWon 08-11-2024 Monocyte Distribution Width 17.88 Normal 0.00-20.00 [facility] Comment on above: Result Comment: For ED adult patients suspected of sepsis, MDW<=20.0 does not rule out sepsis or risk of sepsis Performed By: #### T ARTIE, GFR, CMP, ANEU, ADIFF, CBC, FEDE #### [address] [address] .NEUABSon 08-11-2024 Neutrophil, Absolute 4.7 10 3/mcL Normal 2.3-8.1 [facility] Comment on above: Performed By: #### T ARTIE, GFR, CMP, ANEU, ADIFF, CBC, FEDE #### [address] [address] CBCon 08-11-2024 Erythrocyte distribution width (RBC) [Ratio] 13.5 % Normal 11.5-15.5 [facility] Comment on above: Performed By: #### T ARTIE, GFR, CMP, ANEU, ADIFF, CBC, FEDE #### [address] [address] Hematocrit (Bld) [Volume fraction] 46.9 % Normal 40.0-52.0 [facility] Comment on above: Performed By: #### T ARTIE, GFR, CMP, ANEU, ADIFF, CBC, FEDE #### [address] [address] Hgb 16.4 G/dL Normal 13.0-17.5 [facility] Comment on above: Performed By: #### T ARTIE, GFR, CMP, ANEU, ADIFF, CBC, FEDE #### [address] [address] MCH (RBC) [Entitic mass] 31.7 pg Normal 27.0-33.0 [facility] Comment on above: Performed By: #### T ARTIE, GFR, CMP, ANEU, ADIFF, CBC, FEDE #### [address] [address] MCHC 35.0 G/dL Normal 32.0-36.0 [facility] Comment on above: Performed By: #### T ROPHS, GFR, CMP, ANEU, ADIFF, CBC, W #### [address] [address] MCV (RBC) [Entitic vol] 90.5 fL Normal 81.0-100.0 [facility] Comment on above: Performed By: #### T ROPHS, GFR, CMP, ANEU, ADIFF, CBC, W #### [address] [address] Platelet 199 10 3/mcL Normal 150-450 [facility] Comment on above: Performed By: #### T ROPHS, GFR, CMP, ANEU, ADIFF, CBC, FEDE #### [address] [address] Platelet mean volume (Bld) [Entitic vol] 7.5 fL Normal 6.4-10.5 [facility] Comment on above: Performed By: #### T ROPHS, GFR, CMP, ANEU, ADIFF, CBC, FEDE #### [address] [address] RBC 5.18 10 6/mcL Normal 4.50-6.00 [facility] Comment on above: Performed By: #### T ROPHS, GFR, CMP, ANEU, ADIFF, CBC, FEDE #### [address] [address] WBC 8.0 10 3/mcL Normal 4.5-10.8 [facility] Comment on above: Performed By: #### T ROPHS, GFR, CMP, ANEU, ADIFF, CBC, FEDE #### [address] [address] CMPon 08-11-2024 Albumin Level 4.2 G/dL Normal 3.5-5.0 [facility] Comment on above: Performed By: #### T ROPHS, GFR, CMP, ANEU, ADIFF, CBC, FEDE #### [address] [address] Albumin/Globulin [Mass ratio] 1.3 {ratio} Normal 1.1-2.5 [facility] Comment on above: Performed By: #### T ROPHS, GFR, CMP, ANEU, ADIFF, FEDE SMITH #### [address] [address] ALP [Catalytic activity/Vol] 35 U/L Low 40-135 [facility] Comment on above: Performed By: #### T ROPHS, GFR, CMP, ANEU, ADIFF, CBCFEDE #### [address] [address] ALT [Catalytic activity/Vol] 28 U/L Normal 16-63 [facility] Comment on above: Performed By: #### T ROPHS, GFR, CMP, ANEU, ADIFF, FEDE SMITH #### [address] [address] AST [Catalytic activity/Vol] 23 U/L Normal 10-40 [facility] Comment on above: Performed By: #### T ROPHS, GFR, CMP, ANEU, ADIFF, FEDE SMITH #### [address] [address] Bili Total 0.4 mg/dL Normal 0.2-1.0 [facility] Comment on above: Result Comment: Use of this assay is not recommended for patients undergoing treatment with eltrombopag due to the potential for falsely elevated results. Performed By: #### T ROPHS, GFR, CMP, ANEU, ADIFF, FEDE SMITH #### [address] [address] BUN/Creatinine Ratio 16 ratio Normal 7-27 [facility] Comment on above: Performed By: #### T ROPHS, GFR, CMP, ANEU, ADIFF, FEDE SMITH #### [id number] Calcium [Mass/Vol] 9.0 mg/dL Normal 8.4-10.2 [facility] Comment on above: Performed By: #### T ROPHS, GFR, CMP, ANEU, ADIFF, FEDE SMITH #### [address] [address] Chloride [Moles/Vol] 106 mmol/L Normal 98-107 [facility] Comment on above: Performed By: #### T ROPHS, GFR, CMP, ANEU, ADIFF, CBC, W #### [address] [address] CO2 [Moles/Vol] 26 mmol/L Normal 22-29 [facility] Comment on above: Performed By: #### T ROPHS, GFR, CMP, ANEU, ADIFF, CBC, W #### [address] [address] Creatinine [Mass/Vol] 0.93 mg/dL Normal 0.67-1.17 [facility] Comment on above: Performed By: #### T ROPSEAN, GFR, CMP, ANEU, ADIFF, CBC, FEDE #### [address] [address] Electrolyte Balance 7.0 mEq/L Normal 4.0-15.0 [facility] Comment on above: Performed By: #### T ARTIE, GFR, CMP, ANEU, ADIFF, CBC, FEDE #### [address] [address] Globulin 3.2 G/dL Normal 2.7-4.4 [facility] Comment on above: Performed By: #### T ROPSEAN, GFR, CMP, ANEU, ADIFF, CBC, FEDE #### [address] [address] Glucose [Mass/Vol] 100 mg/dL Normal 70-105 [facility] Comment on above: Performed By: #### T ROPHS, GFR, CMP, ANEU, ADIFF, CBC, FEDE #### [address] [address] Potassium [Moles/Vol] 4.1 mmol/L Normal 3.5-5.1 [facility] Comment on above: Performed By: #### T ROPHS, GFR, CMP, ANEU, ADIFF, CBC, W #### [address] [place], [place] [address] Sodium [Moles/Vol] 139 mmol/L Normal 136-145 [facility] Comment on above: Performed By: #### T ARTIE, GFR, CMP, ANEU, ADIFF, CBC, MDW #### [phone] [place], [place] [address] Total Protein 7.4 G/dL Normal 6.4-8.2 [facility] Comment on above: Performed By: #### T ARTIE, GFR, CMP, ANEU, ADIFF, CBC, MDW #### [phone] [place], [place] [address] Urea nitrogen [Mass/Vol] 15 mg/dL Normal 7-18 [facility] Comment on above: Performed By: #### T ARTIE, GFR, CMP, ANEU, ADIFF, CBC, MDW #### [phone] [place], [place] [address] CNOVon 08-11-2024 CNOV Office Visit (UCTR ) STEPHAN ZAMARRIPA ([id number]) 1985 M Date Time Provider Department 08/11/24 3:30 PM MARCELLE STORM [facility] During your visit today, we recorded the following information about you: Marcelle Storm APRN.CNP 08/11/2024 4:13 PM Signed Patient triaged at [facility]. Here today with severe headache, dizzy, light headed for 2 days. I will refer to ER, family to drive pov. Denies wheelchair and squad. Allergies As of Date: 08/11/2024 Noted Allergy Reaction PENICILLINS 10/09/2016 4 - Hives Comments: Other reaction(s): AOF STRAWBERRY 07/05/2016 2 - Rash Comments: Other reaction(s): RASH TOMATO 07/05/2016 7 - Swelling Comments: Other reaction(s): AOF Date Reviewed: 08/29/2023 Reviewed by: Viji Joyce MA - Fully Assessed Primary Visit Diagnosis:Light headed [R42] Prescriptions as of 08/11/2024 - pantoprazole DR (PROTONIX) 40 mg tablet Take 1 tablet by mouth every afternoon. - ALBUTEROL SULFATE HFA INHALATION Inhale as instructed. - omeprazole (PRILOSEC) 40 mg capsule Take 1 capsule by mouth twice daily. - lansoprazole (PREVACID) 30 mg capsule Take 1 capsule by mouth twice daily. - sucralfate (CARAFATE) 1 gram tablet Take 1 tablet by mouth four times daily. Dissolve in one tablespoon of water Problem List As Of Date 08/11/2024 Noted Resolved Cigarette nicotine dependence without complicat*03/30/2021 Oral phase dysphagia [R13.11] 03/30/2021 Encounter for immunization [Z23] 03/30/2021 GERD without esophagitis [K21.9] 03/30/2021 Special screening examination for viral disease*03/30/2021 Chronic vomiting [R11.10] 03/30/2021 Sebaceous cyst [L72.3] 03/30/2021 Encounter Status:Closed by MARCELLE STORM on 08/11/24 Normal [facility] LABORATORYOrdered By: SYSTEM SYSTEM on 08-11-2024 Albumin BCP dye [Mass/Vol] 4.2 G/dL Normal 3.5 - 5.0 G/dL AO ADM SS Albumin/Globulin [Mass ratio] 1.3 {ratio} Normal 1.1 - 2.5 ratio AO ADM SS ALP [Catalytic activity/Vol] 35 U/L Low 40 - 135 U/L AO ADM SS ALT With P-5'-P [Catalytic activity/Vol] 28 U/L Normal 16 - 63 U/L AO ADM SS AST With P-5'-P [Catalytic activity/Vol] 23 U/L Normal 10 - 40 U/L AO ADM SS Basophils (Bld) [#/Vol] 0.1 103/mcL Normal 0.0 - 0.3 10^3/mcL AO Workflow SS Basophils/100 WBC (Bld) 1.3 % Normal 0.0 - 2.5 % AO Workflow SS Bilirubin [Mass/Vol] 0.4 mg/dL Normal 0.2 - 1.0 mg/dL AO ADM SS Comment on above: Interpretive Data: U se of this assay is not recommended for patients undergoing treatment with eltrombopag due to the potential for falsely elevated results. Calcium [Mass/Vol] 9.0 mg/dL Normal 8.4 - 10. 2 mg/dL AO ADM SS Chloride [Moles/Vol] 106 mmol/L Normal 98 - 107 mmol/L AO ADM SS CO2 [Moles/Vol] 26 mmol/L Normal 22 - 29 mmol/L AO AD M SS Creatinine [Mass/Vol] 0.93 mg/dL Normal 0.67 - 1.17 mg/dL AO ADM SS Electrolyte Balance 7.0 mEq/L Normal 4.0 - 15 .0 mEq/L AO ADM SS Eosinophil, Absolute 0.6 103/mcL Normal 0.0 - 0 .7 10^3/mcL AO Workflow SS Eosinophils/100 WBC (Bld) 6.9 % High 0.0 - 6.0 % AO Workflow SS Erythrocyte distribution width (RBC) [Ratio] 13.5 % Normal 11.5 - 15.5 % AO Workflow SS Estimated Glomerular Filtration Rate 108 ml/min/1.73sqm Invalid Interpretation Code AO Chemistry S Comment on above: Interpretive Data: Stages of Chronic Kidney Disease (CKD) Stage Description eGFR(ml/min/1.73 sq.m.) CKD 1 Normal kidney function or >=90 normal kindney function with possible kidney damage (ex. Proteinuria) CKD 2 Kidney damage with mild loss 60-89 of kidney function CKD 3a Mild to moderate loss of kidney 45-59 function CKD 3b Moderate to severe loss of 30-44 of kindey function CKD 4 Severe loss of kidney function 15-29 CKD 5 Kidney failure <15 Note: (go live 2024) the eGFR calculation was updated to the 2020 CKD-EPI creatinine equation without a race factor to calculate the eGFR results. Globulin 3.2 G/dL Normal 2.7 - 4.4 G/dL AO ADM SS Glucose [Mass/Vol] 100 mg/dL Normal 70 - 105 mg/dL AO ADM SS Hematocrit (Bld) [Volume fraction] 46.9 % Normal 40.0 - 52.0 % AO Workflow SS Hemoglobin (Bld) [Mass/Vol] 16.4 G/dL Normal 13.0 - 17.5 G/dL AO Workflow SS Lymphocytes (Bld) [#/Vol] 2.1 103/mcL Normal 0.9 - 4.3 10^3/mcL AO Workflow SS Lymphocytes/100 WBC (Bld) 26.6 % Normal 20.0 - 40.0 % AO Workflow SS MCH (RBC) [Entitic mass] 31.7 pg Normal 27.0 - 33.0 pg AO Workflow SS MCHC 35.0 G/dL Normal 32.0 - 36.0 G/dL AO Workflow SS MCV (RBC) [Entitic vol] 90.5 fL Normal 81.0 - 100.0 fL AO Workflow SS Monocyte distribution width Auto (Bld) [Entitic vol] 17.88 1 Normal 0.00 - 20.00 AO Workflow SS Comment on above: Result Comment: For ED adult patients suspected of sepsis, MDW<=20.0 does not rule out sepsis or risk of sepsis Monocytes (Bld) [#/Vol] 0.5 103/mcL Normal 0.1 - 1.4 10^3/mcL AO Workflow SS Monocytes/100 WBC (Bld) 6.4 % Normal 2.0 - 13.0 % AO Workflow SS Neutrophils (Bld) [#/Vol] 4.7 103/mcL Normal 2.3 - 8.1 10^3/mcL AO Workflow SS Neutrophils/100 WBC (Bld) 58.8 % Normal 50.0 - 75.0 % AO Workflow SS Platelet mean volume (Bld) [Entitic vol] 7.5 fL Normal 6.4 - 10.5 fL AO Workflow SS Platelets (Bld) [#/Vol] 199 103/mcL Normal 150 - 450 10^3/mcL AO Workflow SS Potassium [Moles/Vol] 4.1 mmol/L Normal 3.5 - 5.1 mmol/L AO ADM SS Protein [Mass/Vol] 7.4 G/dL Normal 6.4 - 8.2 G/dL AO ADM SS RBC (Bld) [#/Vol] 5.18 106/mcL Normal 4.50 - 6.0 0 10^6/mcL AO Workflow SS Sodium [Moles/Vol] 139 mmol/L Normal 136 - 145 mmol/L AO ADM SS Troponin I.cardiac DL <= 0.01 ng/mL [Mass/Vol] 4 ng/L Normal 0 - 76 ng/L AO ADM SS Comment on above: Interpretive Data: H igh Sensitive Troponin I Reference Ranges: Female: 0-51 ng/L Male: 0-76 ng/L Testing performed on Dimension EXL using a homogeneous sandwich chemiluminescent immunoassay based on [employer] technology. Urea nitrogen [Mass/Vol] 15 mg/dL Normal 7 - 18 mg/dL AO ADM SS Urea nitrogen/Creatinine [Mass ratio] 16 ratio Normal 7 - 27 ratio AO ADM SS WBC (Bld) [#/Vol] 8.0 103/mcL Normal 4.5 - 10.8 10^3/mcL AO Workflow SS TROPHSon 08-11-2024 High Sensitivity Troponin I 4 ng/L Normal 0-76 [facility] Comment on above: Result Comment: High Sensitive Troponin I Reference Ranges: Female: 0-51 ng/L Male: 0-76 ng/L Testing performed on Dimension EXL using a homogeneous sandwich chemiluminescent immunoassay based on [employer] technology. Performed By: #### T ROPHS, GFR, CMP, ANEU, ADIFF, CBC, MDW #### [id number] [place], [place] [address] XR FINGER 3RD DIGIT 3 VIEWS RIGHTon 06-30-2024 XR FINGER 3RD DIGIT 3 VIEWS RIGHT ORIGINAL EXAMINATION: THREE XRAY VIEWS OF THE RIGHT FINGERS 06/30/2024 6:37 pm COMPARISON: None. HISTORY: ORDERING SYSTEM PROVIDED HISTORY: Reason for Exam: pain FINDINGS: No acute fracture or dislocation. The joint spaces are maintained. No radiopaque retained foreign body or appreciable soft tissue swelling. IMPRESSION: No definite acute traumatic findings by radiograph. I have personally reviewed the images of this examination and agree with the resident's findings and interpretation. Interpreted by: Wojciech Vieira Preliminary Report By: Ricardo Aguirre Electronically signed By Wojciech Vieira Dictated Date: 06/30/2024 7:10:20 PM Prelim Date: 06/30/2024 7:11:16 PM Sign Date: 06/30/2024 8:45:21 PM Ordering Provider: KAYLI Ngo [facility] COMPREHENSIVE METABOLIC PANE L, NON-FASTINGon 04-26-2024 Albumin [Mass/Vol] 4.6 g/dL Normal 3.5-5.0 [facility] Comment on above: Performed By: #### L [id number] #### [facility] [address] [place] [address] [place] Albumin/Globulin [Mass ratio] 1.6 {ratio} Normal 1.5-2.5 [facility] Comment on above: Performed By: #### L [id number] #### [facility] [address] [place] [address] [place] ALP [Catalytic activity/Vol] 42 U/L Normal 38-126 [facility] Comment on above: Performed By: #### L [id number] #### [facility] [address] [place] [address] [place] ALT [Catalytic activity/Vol] 44 U/L Normal <50 [facility] Comment on above: Performed By: #### L [id number] #### [facility] [address] [place] [address] [place] Anion gap [Moles/Vol] 9 mmol/L Normal 5-19 [facility] Comment on above: Performed By: #### L [id number] #### [facility] [address] [place] [address] [place] AST [Catalytic activity/Vol] 45 U/L Normal 17-59 [facility] Comment on above: Performed By: #### L [id number] #### [facility] [address] [place] [address] [place] Bilirubin [Mass/Vol] 0.6 mg/dL Normal 0.2-1.3 [facility] Comment on above: Performed By: #### L [id number] #### [facility] [address] [place] [address] [place] Calcium [Mass/Vol] 9.5 mg/dL Normal 8.4-10.2 [facility] Comment on above: Performed By: #### L [id number] #### [facility] [address] [place] [address] [place] Chloride [Moles/Vol] 106 mmol/L Normal 98-107 [facility] Comment on above: Performed By: #### L [id number] #### [facility] [address] [place] [address] [place] CO2 [Moles/Vol] 24 mmol/L Normal 22-30 [facility] Comment on above: Performed By: #### L [id number] #### [facility] [address] [place] [address] [place] Creatinine [Mass/Vol] 0.87 mg/dL Normal 0.66-1.20 [facility] Comment on above: Performed By: #### L [id number] #### [facility] [address] [place] [address] [place] GFR/1.73 sq M.predicted MDRD (S/P/Bld) [Vol rate/Area] mL/min/{1.73_m2} Normal >60 [facility] Comment on above: Performed By: #### L [id number] #### [facility] [address] [place] [address] [place] Glucose [Mass/Vol] 82 mg/dL Normal 74-106 [facility] Comment on above: Performed By: #### L [id number] #### [facility] [address] [place] [address] [place] Narrative Estimated Glomerular Filtration Rate (eGFR) is calculated using the CKD-EPI (2020) equation, intended for patients 18 years of age and older. If gender is not documented or unknown, there will be no eGFR calculation. Normal [facility] Comment on above: Performed By: #### L [id number] #### [facility] [address] [place] [address] [place] Potassium [Moles/Vol] 4.6 mmol/L Normal 3.5-5.1 [facility] Comment on above: Performed By: #### L [id number] #### [facility] [address] [place] [address] [place] Protein [Mass/Vol] 7.5 g/dL Normal 6.3-8.2 [facility] Comment on above: Performed By: #### L [id number] #### [facility] [address] [place] [address] [place] Sodium [Moles/Vol] 139 mmol/L Normal 137-145 [facility] Comment on above: Performed By: #### L [id number] #### [facility] [address] [place] [address] [place] Urea nitrogen [Mass/Vol] 16 mg/dL Normal 9-20 [facility] Comment on above: Performed By: #### L [id number] #### [facility] [address] [place] [address] [place] Urea nitrogen/Creatinine [Mass ratio] 18 mg/mg Normal 6-20 [facility] Comment on above: Performed By: #### L [id number] #### [facility] [address] [place] [address] [place] CBC WITH DIFFon 04-23-2024 BASOPHIL # 0.10 x10???3/uL Normal 0.00-0.20 [facility] Comment on above: Performed By: #### L [id number] #### [facility] [address] [place] [address] [place] Basophils/100 WBC (Bld) 1 % Normal 0-2 [facility] Comment on above: Performed By: #### L [id number] #### [facility] [address] [place] [address] [place] EOSINOPHIL # 0.70 x10???3/uL High 0.00-0.60 [facility] Comment on above: Performed By: #### L [id number] #### [facility] [address] [place] [address] [place] Eosinophils/100 WBC (Bld) 6 % High 0-5 [facility] Comment on above: Performed By: #### L [id number] #### [facility] [address] [place] [address] [place] Erythrocyte distribution width (RBC) [Ratio] 12.8 % Normal 11.5-14.0 [facility] Comment on above: Performed By: #### L [id number] #### [facility] [address] [place] [address] [place] Hematocrit (Bld) [Volume fraction] 45.3 % Normal 36.0-46.0 [facility] Comment on above: Performed By: #### L [id number] #### [facility] [address] [place] [address] [place] Hemoglobin (Bld) [Mass/Vol] 15.5 g/dL Normal 13.9-16.3 [facility] Comment on above: Performed By: #### L [id number] #### [facility] [address] [place] [address] US LYMPHOCYTE # 3.60 x10???3/uL Normal 1.10-3.80 [facility] Comment on above: Performed By: #### L [id number] #### [facility] [address] [place] [address] [place] Lymphocytes/100 WBC (Bld) 32 % Normal 19-46 [facility] Comment on above: Performed By: #### L [id number] #### [facility] [address] [place] [address] US MCH (RBC) [Entitic mass] 31.3 pg Normal 25.4-34.0 [facility] Comment on above: Performed By: #### L [id number] #### [facility] [address] [place] [address] US MCHC (RBC) [Mass/Vol] 34.2 g/dL Normal 30.0-37.0 [facility] Comment on above: Performed By: #### L [id number] #### [facility] [address] [place] [address] US MCV (RBC) [Entitic vol] 91.7 fL Normal 80.0-100.0 [facility] Comment on above: Performed By: #### L [id number] #### [facility] [address] [place] [address] [place] MONOCYTE # 0.90 x10???3/uL High 0.10-0.80 [facility] Comment on above: Performed By: #### L [id number] #### [facility] [address] [place] [address] [place] Monocytes/100 WBC (Bld) 8 % Normal 4-12 [facility] Comment on above: Performed By: #### L [id number] #### [facility] [address] [place] [address] US NEUTROPHIL # 6.10 x10???3/uL Normal 1.80-7.50 [facility] Comment on above: Performed By: #### L [id number] #### [facility] [address] [place] [address] [place] Neutrophils/100 WBC (Bld) 54 % Normal 41-69 [facility] Comment on above: Performed By: #### L [id number] #### [facility] [address] [place] [address] [place] Platelet mean volume (Bld) [Entitic vol] 8.4 fL Normal 7.5-11.5 [facility] Comment on above: Performed By: #### L [id number] #### [facility] [address] [facility] [place] [place] [address] [place] PLATELETS AUTOMATED 286 x10???3/uL Normal 130-400 [facility] Comment on above: Performed By: #### L [id number] #### [facility] [address] [place] [address] [place] RBC AUTOMATED 4.94 x10???6/uL Normal 4.30-5.90 [facility] Comment on above: Performed By: #### L [id number] #### [facility] [address] [place] [address] US WBC AUTOMATED CORRECTED 11.2 x10???3/uL Normal 4.5-11.5 [facility] Comment on above: Performed By: #### L [id number] #### [facility] [address] [place] [address] [place] COMPREHENSIVE METABOLIC PANE L, NON-FASTINGon 04-23-2024 Albumin [Mass/Vol] 4.9 g/dL Normal 3.5-5.0 [facility] Comment on above: Result Comment: Resu lts are affected by hemolysis. Performed By: #### L [id number] #### [facility] [address] [place] [address] US Albumin/Globulin [Mass ratio] 1.5 {ratio} Normal 1.5-2.5 [facility] Comment on above: Performed By: #### L [id number] #### [facility] [address] [place] [address] US ALP [Catalytic activity/Vol] U/L Low 38-126 [facility] Comment on above: Result Comment: Resu lts are affected by hemolysis. Performed By: #### L [id number] #### [facility] [address] [place] [address] US ALT [Catalytic activity/Vol] 67 U/L High <50 [facility] Comment on above: Performed By: #### L [id number] #### [facility] [address] [place] [address] [place] Anion gap [Moles/Vol] 7 mmol/L Normal 5-19 [facility] Comment on above: Performed By: #### L [id number] #### [facility] [address] [place] [address] US AST [Catalytic activity/Vol] 69 U/L High 17-59 [facility] Comment on above: Result Comment: Resu lts are affected by hemolysis. Performed By: #### L [id number] #### [facility] [address] [place] [address] US Bilirubin [Mass/Vol] 1.1 mg/dL Normal 0.2-1.3 [facility] Comment on above: Result Comment: Resu lts are affected by hemolysis. Performed By: #### L [id number] #### [facility] [address] [place] [address] [place] Calcium [Mass/Vol] 10.5 mg/dL High 8.4-10.2 [facility] Comment on above: Performed By: #### L [id number] #### [facility] [address] [place] [address] [place] Chloride [Moles/Vol] 104 mmol/L Normal 98-107 [facility] Comment on above: Performed By: #### L [id number] #### [facility] [address] [place] [address] [place] CO2 [Moles/Vol] 27 mmol/L Normal 22-30 [facility] Comment on above: Performed By: #### L [id number] #### [facility] [address] [place] [address] [place] Creatinine [Mass/Vol] 0.94 mg/dL Normal 0.66-1.20 [facility] Comment on above: Performed By: #### L [id number] #### [facility] [address] [place] [address] [place] GFR/1.73 sq M.predicted MDRD (S/P/Bld) [Vol rate/Area] mL/min/{1.73_m2} Normal >60 [facility] Comment on above: Performed By: #### L [id number] #### [facility] [address] [place] [address] [place] Glucose [Mass/Vol] 98 mg/dL Normal 74-106 [facility] Comment on above: Performed By: #### L [id number] #### [facility] [address] [place] [address] [place] Narrative Estimated Glomerular Filtration Rate (eGFR) is calculated using the CKD-EPI (2020) equation, intended for patients 18 years of age and older. If gender is not documented or unknown, there will be no eGFR calculation. Abnormal [facility] Comment on above: Performed By: #### L [id number] #### [facility] [address] [place] [address] [place] Potassium [Moles/Vol] 5.5 mmol/L High 3.5-5.1 [facility] Comment on above: Result Comment: Resu lts are affected by hemolysis. Performed By: #### L [id number] #### [facility] [address] [place] [address] [place] Protein [Mass/Vol] 8.1 g/dL Normal 6.3-8.2 [facility] Comment on above: Result Comment: Resu lts are affected by hemolysis. Performed By: #### L [id number] #### [facility] [address] [place] [address] [place] Sodium [Moles/Vol] 138 mmol/L Normal 137-145 [facility] Comment on above: Performed By: #### L [id number] #### [facility] [address] [place] [address] [place] Urea nitrogen [Mass/Vol] 22 mg/dL High - [facility] Comment on above: Performed By: #### L [id number] #### [facility] [address] [place] [address] US Urea nitrogen/Creatinine [Mass ratio] 23 mg/mg High 08-20 [facility] Comment on above: Performed By: #### L [id number] #### [facility] [address] [place] [address] US CBC WITH DIFFon 03-16-2024 BASOPHIL # 0.10 x10???3/uL Normal 0.00-0.20 [facility] Comment on above: Performed By: #### L [id number] #### [facility] [address] [place] [address] US Basophils/100 WBC (Bld) 1 % Normal 0-2 [facility] Comment on above: Performed By: #### L [id number] #### [facility] [address] [place] [address] US EOSINOPHIL # 0.50 x10???3/uL Normal 0.00-0.60 [facility] Comment on above: Performed By: #### L [id number] #### [facility] [address] [place] [address] [place] Eosinophils/100 WBC (Bld) 8 % High 0-5 [facility] Comment on above: Performed By: #### L [id number] #### [facility] [address] [place] [address] [place] Erythrocyte distribution width (RBC) [Ratio] 13.0 % Normal 11.5-14.0 [facility] Comment on above: Performed By: #### L [id number] #### [facility] [address] [place] [address] [place] Hematocrit (Bld) [Volume fraction] 48.3 % High 36.0-46.0 [facility] Comment on above: Performed By: #### L [id number] #### [facility] [address] [place] [address] US Hemoglobin (Bld) [Mass/Vol] 16.4 g/dL High 13.9-16.3 [facility] Comment on above: Performed By: #### L [id number] #### [facility] [address] [place] [address] [place] LYMPHOCYTE # 1.60 x10???3/uL Normal 1.10-3.80 [facility] Comment on above: Performed By: #### L [id number] #### [facility] [address] [place] [address] US Lymphocytes/100 WBC (Bld) 23 % Normal 19-46 [facility] Comment on above: Performed By: #### L [id number] #### [facility] [address] [place] [address] US MCH (RBC) [Entitic mass] 31.6 pg Normal 25.4-34.0 [facility] Comment on above: Performed By: #### L [id number] #### [facility] [address] [place] [address] US MCHC (RBC) [Mass/Vol] 34.0 g/dL Normal 30.0-37.0 [facility] Comment on above: Performed By: #### L [id number] #### [facility] [address] [place] MCV (RBC) [Entitic vol] 92.8 fL Normal 80.0-100.0 [facility] Comment on above: Performed By: #### L [id number] #### [facility] [address] [place] [address] US MONOCYTE # 0.60 x10???3/uL Normal 0.10-0.80 [facility] Comment on above: Performed By: #### L [id number] #### [facility] [address] [place] [address] US Monocytes/100 WBC (Bld) 8 % Normal 4-12 [facility] Comment on above: Performed By: #### L [id number] #### [facility] [address] [place] [address] US NEUTROPHIL # 4.00 x10???3/uL Normal 1.80-7.50 [facility] Comment on above: Performed By: #### L [id number] #### [facility] [address] [place] [address] US Neutrophils/100 WBC (Bld) 59 % Normal 41-69 [facility] Comment on above: Performed By: #### L [id number] #### [facility] [place] [address] [place] Platelet mean volume (Bld) [Entitic vol] 8.2 fL Normal 7.5-11.5 [facility] Comment on above: Performed By: #### L [id number] #### [facility] [address] [place] [address] [place] PLATELETS AUTOMATED 232 x10???3/uL Normal 130-400 [facility] Comment on above: Performed By: #### L [id number] #### [facility] [address] [place] [address] [place] RBC AUTOMATED 5.20 x10???6/uL Normal 4.30-5.90 [facility] Comment on above: Performed By: #### L [id number] #### [facility] [address] [place] [address] US WBC AUTOMATED CORRECTED 6.8 x10???3/uL Normal 4.5-11.5 [facility] Comment on above: Performed By: #### L [id number] #### [facility] [address] [place] [address] [place] COM[facility] Albumin [Mass/Vol] 4.8 g/dL Normal 3.5-5.0 [facility] Comment on above: Performed By: #### L [id number] #### [facility] [address] [place] [address] US Albumin/Globulin [Mass ratio] 1.5 {ratio} Normal 1.5-2.5 [facility] Comment on above: Performed By: #### L [id number] #### [facility] [address] [place] [address] US ALP [Catalytic activity/Vol] 39 U/L Normal 38-126 [facility] Comment on above: Performed By: #### L [id number] #### [facility] [address] [place] [address] US ALT [Catalytic activity/Vol] 24 U/L Normal <50 [facility] Comment on above: Performed By: #### L [id number] #### [facility] [address] [place] [address] US Anion gap [Moles/Vol] 8 mmol/L Normal 5-19 [facility] Comment on above: Performed By: #### L [id number] #### [facility] [address] [place] [address] US AST [Catalytic activity/Vol] 36 U/L Normal 17-59 [facility] Comment on above: Performed By: #### L [id number] #### [facility] [address] [place] [address] [place] Bilirubin [Mass/Vol] 0.8 mg/dL Normal 0.2-1.3 [facility] Comment on above: Performed By: #### L [id number] #### [facility] [address] [place] [address] US Calcium [Mass/Vol] 9.9 mg/dL Normal 8.4-10.2 [facility] Comment on above: Performed By: #### L [id number] #### [facility] [address] [place] [address] US Chloride [Moles/Vol] 106 mmol/L Normal 98-107 [facility] Comment on above: Performed By: #### L [id number] #### [facility] [address] [place] [address] US CO2 [Moles/Vol] 27 mmol/L Normal 22-30 [facility] Comment on above: Performed By: #### L [id number] #### [facility] [address] [place] [address] US Creatinine [Mass/Vol] 0.98 mg/dL Normal 0.66-1.20 [facility] Comment on above: Performed By: #### L [id number] #### [facility] [address] [place] [address] US GFR/1.73 sq M.predicted MDRD (S/P/Bld) [Vol rate/Area] mL/min/{1.73_m2} Normal >60 [facility] Comment on above: Performed By: #### L [id number] #### [facility] [address] [place] [address] US Glucose [Mass/Vol] 91 mg/dL Normal 74-106 [facility] Comment on above: Performed By: #### L [id number] #### [facility] [address] [place] [address] [place] Narrative Estimated Glomerular Filtration Rate (eGFR) is calculated using the CKD-EPI (2020) equation, intended for patients 18 years of age and older. If gender is not documented or unknown, there will be no eGFR calculation. Normal [facility] Comment on above: Performed By: #### L [id number] #### [facility] [address] [place] [address] US Potassium [Moles/Vol] 5.0 mmol/L Normal 3.5-5.1 [facility] Comment on above: Performed By: #### L [id number] #### [facility] [address] [place] [address] [place] Protein [Mass/Vol] 7.9 g/dL Normal 6.3-8.2 [facility] Comment on above: Performed By: #### L [id number] #### [facility] [address] [place] [address] US Sodium [Moles/Vol] 141 mmol/L Normal 137-145 [facility] Comment on above: Performed By: #### L [id number] #### [facility] [address] [place] [address] US Urea nitrogen [Mass/Vol] 16 mg/dL Normal 9-20 [facility] Comment on above: Performed By: #### L [id number] #### [facility] [address] [place] [address] US Urea nitrogen/Creatinine [Mass ratio] 16 mg/mg Normal 6-20 [facility] Comment on above: Performed By: #### L [id number] #### [facility] [address] [place] [address] US HEPATITIS C ANTIBODY SCREEN WITH REFLEX TO HCV PCRon 03-16-2024 HCV ANTIBODY QUALITATIVE Negative Normal Negative [facility] Comment on above: Performed By: #### L [id number] #### [facility] [address] [place] [address] US HIV1/HIV2 SCREEN, COMBINED A NTIGEN AND ANTIBODYon 03-16-2024 HIV ANTIBODIES QUALITATIVE (NAHUM/[facility]/FMT/WHL) Negative Normal Negative [facility] Comment on above: Result Comment: Refe rence range: Negative Sample is negative for anti-HIV-1 (including Group O), anti-HIV-2 and p24 antigen. Performed By: #### L [id number] #### [facility] [address] [place] [address] US LIPID PANELon 03-16-2024 Cholesterol [Mass/Vol] 187 mg/dL Normal 0-200 [facility] Comment on above: Performed By: #### L [id number] #### [facility] [address] [place] [address] US Cholesterol in HDL [Mass/Vol] 50 mg/dL Normal >40 [facility] Comment on above: Performed By: #### L [id number] #### [facility] [address] [place] [address] US Cholesterol in LDL [Mass/Vol] 119 mg/dL High <100 [facility] Comment on above: Performed By: #### L [id number] #### [facility] [address] [place] [address] US Triglyceride [Mass/Vol] 89 mg/dL Normal <150 [facility] Comment on above: Performed By: #### L [id number] #### [facility] [address] [place] [address] US THYROID STIMULATING HORMONE (SENSITIVE TSH)on 03-16-2024 TSH 2.150 uIU/mL Normal 0.465-4.680 [facility] Comment on above: Performed By: #### L [id number] #### [facility] [address] [place] [address] US VITAMIN B12on 03-16-2024 Cobalamin (Vitamin B12) [Mass/Vol] 706 pg/mL Normal 239-931 [facility] Comment on above: Performed By: #### L [id number] #### [facility] [address] [place] [address] US VITAMIN D 25 TOTALon 025 VITAMIN D ANALYTE (UHC/STJ/BRN/HRS/WHL /PRN) 38 ng/mL Normal 20-100 [facility] Comment on above: Result Comment: <10 ng/mL: severe deficiency, could be associated with osteomalacia or rickets 10-19 ng/mL: mild to moderate deficiency, might be associated with increased risk of osteoporosis or secondary hyperparathyroidism >100 ng/mL: toxicity possible, most patients with toxicity have levels >150 ng/mL The optimal levels of vitamin D are not well established and remain controversial. The 2023 Endocrine Society Clinical Practice Guideline no longer considers 25(OH)D levels of 20-29 ng/mL insufficient for generally healthy individuals (PMID: 24979715 and [id number]). Desirable vitamin D levels may differ in those with disorders of calcium homeostasis and/or metabolic bone disease. Performed By: #### L [id number] #### [facility] [address] [place] [address] Emergency Department Summary on 12-22-2023 Emergency Department Summary [facility] Medical Records Department [address] [place] [address] Emergency Department Summary 12/22/23 MR#: [id number] Acct: [id number] Name: STEPHAN ZAMARRIPA Rep #: [id number] : 1985 38 From: Benny Bone DO PCP: Dr. Yobany Castellanos MD Status:[facility] ER Location: ED HPI History of Present Illness Chief Complaint: Upper Extremity Injury [facility] Medical History Cannabis use disorder Tobacco use GERD (gastroesophageal reflux disease) Home Medications ???Medication ???Instructions ???Recorded ???Last Taken ???Type NK 09/26/23 Unknown History Allergy/AdvReac Type Severity Reaction Status Date / Time Penicillins Allergy Hives Verified 12/22/23 19:51 strawberry Allergy Rash Verified 12/22/23 19:51 tomato Allergy Swelling Verified 12/22/23 19:51 Social History (Updated 07/31/23 @ 22:[address] Wesley Wilson DO) Smoking Status: Current every day smoker tobacco type: cigarettes substance use type: marijuana EXAM Physical Exam Const Vital Signs: 12/22/23 19:48 Temperature 97.9 F Temperature Source Oral Pulse Rate 72 Respiratory Rate 16 Blood Pressure 118/79 Blood Pressure Mean 92 Pulse Ox 97 Oxygen Delivery Method Room Air [facility] Narrative Medical decision making narrative: HISTORY OF PRESENT ILLNESS: 38-year-old male presents with concern for left middle finger pain after getting smashed at work. REVIEW OF SYSTEMS: Pertinent positives: Finger pain Pertinent negatives: Numbness tingling or loss of sensation PHYSICAL EXAM: Nursing triage notes reviewed, Vital signs reviewed Constitutional: please see mdm Extremities: No edema Neuro: Intact 5/5 strength with ok sign (median), intact finger abduction (ulnar) intact wrist extension (radial n). Intact sensation in the radial, ulnar, and median nerve distributions. Skin: No rash or lesions noted MEDICAL DECISION MAKING: Chief Complaint: Finger pain External records reviewed: Reviewed prior imaging studies Factors affecting care: none Social determinants of health: none History obtained from others: none Consults: none [facility] Narrative: Patient was hemodynamically stable, afebrile and nontoxic-appearing. Left upper extremity is neurovascularly intact. Intact pulse and intact radial, median, ulnar nerve sensory and motor dis tributions. I considered the following differential diagnosis: Finger fracture, dislocation, contusion ALL IMAGES (IF OBTAINED) HAVE BEEN PERSONALLY REVIEWED AND INTERPRETED BY MYSELF. X-ray was obtained in triage per protocol secondary to high-volume high acuity. X-ray was read reviewed personally by myself. It shows no evidence of obvious fracture dislocation however he does have rings over the third and fourth digit which obscures view. Will clinically correlate. There is no tenderness over the proximal third or fourth digit. Tenderness and trauma was noted to the distal third digit. The patient's point for discharge home with a work note and close PCP follow-up. The patient and/or family, caregivers express understanding. The patient and/or family, caregivers agrees with the plan. Shared decision making: I will have a discussion with the patient and or visitors regarding risk/benefits of further testing or admission. They will be made aware of of the risk/benefits inherent in this decision they will be given the opportunity to voice understanding. Total critical care time today provided was at least 0 minutes. This excludes separately billable procedures. Critical care time (if documented) is secondary to the patient having high probability of clinically significant/life threatening deterioration in the patient's condition which required my urgent intervention. Impression: 1. Acute finger pain 2. Acute finger contusion Dispo: discharge home This note was generated with [employer] dictation software. It may contain incorrect words, spelling, and punctuation that were not noted in review of the chart prior to signing. Radiography Diagnostic Testing: Clinical Impression(s) from Imaging Studies Hand X-Ray 12/22/23 19:51 IMPRESSION: 1. No evidence fracture, malalignment or focal bony or joint space abnormality. 2. Rings are present on the 3rd and 4th digit obscuring the metadiaphysis of the proximal 3rd and 4th phalanx. Electronically Signed: Zay Salamanca MD at 20:18 EDT , Discharge Plan Triage Chief Complaint: Upper Extremity Injury ED Provider: Benny Bone Dx/Rx/DC Orders Instructions: ED Finger Contusion Prescriptions: No Action NK Garth (more content not included)... Normal [facility] Hand Min 3 Viewson 4 Hand Min 3 Views [facility] Imaging Services [address] [place] [id number] Hand Min 3 Views MR#: [id number] Acct: [id number] Name: STEPHAN ZAMARRIPA Rep #: [id number] : 1985 M 38 From: Zay Ayala PCP: Dr. Yobany Castellanos MD Status: PRE ER Study: Hand Min 3 Views Date of Exam: 12/22/23 Exam# [id number] Ordering Dr: Provider,Ed P. [id number] INDICATION: INJURY EXAMINATION/TECHNIQUE: X-RAY - LEFT XR Hand Min 3 Views 3 VIEWS COMPARISON: No relevant prior comparison study available FINDINGS: SOFT TISSUES: No soft tissue swelling or gas. Rings are present on the 3rd and 4th digits obscuring metadiaphysis of the proximal phalanges. BONES/JOINTS: No acute fracture or subluxation.. Normal alignment. Preservation of the joint space.. No sclerotic or destructive changes observed. RAD/Hand Min 3 Views IMPRESSION: 1. No evidence fracture, malalignment or focal bony or joint space abnormality. 2. Rings are present on the 3rd and 4th digit obscuring the metadiaphysis of the proximal 3rd and 4th phalanx. Electronically Signed: Zay Salamanca MD at 20:18 EDT , CC: Dr. Yobany Castellanos MD; ED PHYSICIAN PROVIDER Epitaxial Reactor Operator: Signed Normal [facility] Emergency Department Summary on 09-26-2023 Emergency Department Summary [facility] Medical Records Department [address] [place] [address] Emergency Department Summary 09/26/23 MR#: [id number] Acct: [id number] Name: STEPHAN ZAMARRIPA Rep #: [id number] : 1985 37 From: Atif Ennis DO PCP: Dr. Yobany Castellanos MD Status:DEP ER Location: ED HPI History of Present Illness Chief Complaint: Flank Pain Informant: patient Narrative Narrative: Patient is a 37-year-old male who reports a past medical history of GERD as well as tobacco and cannabis use. He states that he feels like he needs to drink water all the time and despite this is still thirsty. He also states he has had painful urination and has noticed that his urine is dark and/or bloody. He states that both parents have a history of diabetes as well as kidney disease. The patient also reports he feels constantly tired with minimal activity. he states he is concerned he may have developed this based on his symptoms and family history and therefore comes in for evaluation [facility] Medical History (Updated 09/26/23 @ 04:[address] Atif Ennis DO) Cannabis use disorder Tobacco use GERD (gastroesophageal reflux disease) Home Medications ???Medication ???Instructions ???Recorded ???Last Taken ???Type NK 09/26/23 Unknown History Allergy/AdvReac Type Severity Reaction Status Date / Time Penicillins Allergy Hives Verified 09/25/23 21:08 strawberry Allergy Rash Verified 09/25/23 21:08 tomato Allergy Swelling Verified 09/25/23 21:08 Social History (Updated 07/31/23 @ 22:[address] Wesley Wilson, DO) Smoking Status: Current every day smoker tobacco type: cigarettes substance use type: marijuana ROS ROS ED Constitutional Constitutional ED: Reports other Details: Positive fatigue ; Denies chills or fever(s) ENT ENT ED: Denies sore throat Cardiovascular Cardiovascular: Denies chest pain Respiratory/Chest Respiratory/Chest: Denies cough or dyspnea Gastrointestinal Gastrointestinal: Denies abdominal pain, diarrhea, nausea or vomiting Genitourinary Genitourinary ED: Reports hematuria; Denies dysuria Musculoskeletal Musculoskeletal: Reports back pain Integumentary Denies rash Neurologic Neurologic: Denies headache(s) Hematologic/Lymphatic Hematologic/Lymphatic: Denies easy bleeding or easy bruising EXAM Physical Exam Const Vital Signs: 09/25/23 21:09 09/25/23 23:14 09/26/23 00:17 Temperature 97.6 F L 97.4 F L Temperature Source Temporal Pulse Rate 71 54 L 71 Respiratory Rate 16 18 18 Blood Pressure 121/72 H 100/70 94/67 Blood Pressure Mean 88 80 76 Pulse Ox 97 98 96 Oxygen Delivery Method Room Air Room Air Positive well nourished and well developed General Appearance ED: well developed; Negative for pallor HEENT Reports moist mucous membranes HEENT Narrative: No tongue or lip swelling no oral lesions no airway edema or compromise Eyes PERRL and EOMs intact bilaterally General Eye ED: Negative for scleral icterus Neck supple Resp normal respiratory effort and clear to auscultation bilaterally Cardio regular rate and regular rhythm Rate: other Other Details: Heart is regular rate and rhythm without murmurs rubs or gallop Radial and carotid pulses are equal and symmetric GI normal to inspection, nondistended, normoactive bowel sounds, non-tender, non-distended and no masses GI Narrative: No voluntary guarding or rigidity No pulsatile mass or fluid wave Auscultation: normoactive bowel sounds Palpation: soft Back/Spine Back/Spine Narrative: Mild bilateral CVA pain/paralumbar tenderness is present Extremity normal to inspection Extremity Narrative: No asymmetric edema no pitting edema negative Homans' sign bilaterally Neuro oriented x3, CN's II-XII intact bilaterally and no sensory deficits noted Sensorium / Orientation: alert Motor Exam: strength 5/5 throughout Psych mental status grossly normal Skin no rashes or lesions noted, no wounds and skin turgor normal General Skin Exam: Negative for jaundice or pallor MDM MDM MDM Narrative Medical decision making narrative: Patient presented to ER with stable vitals and in no acute distress. He reported his symptoms have been ongoing for weeks to months. However as she reports a persistent thirst despite adequate hydration there is concern that he is new onset diabetes and as he does have mild back pain and reports hematuria there is concern for UTI versus pyelonephritis versus kidney stone. There is also concern for liver disease based on his report of dark urine. Secondary to this basic labs and a urine sample were obtained. White count is normal going against infection H H are stable going against acute blood loss anemia as a cause of reported fatigue. Urine sample shows no blood going against kidney sto (more content not included)... Normal [facility] Basic Metabolic Profile (BMP )on 09-25-2023 BUN/CRE 20.9 RATIO High 10-20 [facility] Comment on above: Performed By: #### L 500.3400, L500.2500, L501.9520 ####[facility] [address] [place], [address] CA,Total 8.6 mg/dL Normal 8.5-10.1 [facility] Comment on above: Performed By: #### L 500.3400, L500.2500, L501.9520 ####[facility] [address] [place], [address] Chloride [Moles/Vol] 110 mmol/L High 98-107 [facility] Comment on above: Performed By: #### L 500.3400, L500.2500, L501.9520 ####[facility] [address] [place], [address] CO2 [Moles/Vol] 26.0 mmol/L Normal 21.0-32.0 [facility] Comment on above: Performed By: #### L 500.3400, L500.2500, L501.9520 ####[facility] [address] [place], [address] Creatinine [Mass/Vol] 1.10 mg/dL Normal 0.70-1.30 [facility] Comment on above: Result Comment: The validity of the calculated GFR GFRAA in patients over 70 years has not been determined. Clinical correlation is essential. Performed By: #### L 500.3400, L500.2500, L501.9520 ####[facility] [address] [place], [address] ECRCL 89.82 ml/min Normal [facility] Comment on above: Performed By: #### L 500.3400, L500.2500, L501.9520 ####[facility] [address] [place], [address] EST GFR - AA 97 mL/min Normal >60 [facility] Comment on above: Result Comment: Afri can Guinean GFR Calc Performed By: #### L 500.3400, L500.2500, L501.9520 ####[facility] [address] [place], [address] GAP 5 Normal 5-15 [facility] Comment on above: Performed By: #### L 500.3400, L500.2500, L501.9520 ####[facility] [address] [place], [address] GFR/1.73 sq M.predicted among non-blacks MDRD (S/P/Bld) [Vol rate/Area] 80 mL/min/{1.73_m2} Normal >60 [facility] Comment on above: Result Comment: Non- GFR Calc Performed By: #### L 500.3400, L500.2500, L501.9520 ####[facility] [address] [place], [address] Glucose [Mass/Vol] 105 mg/dL Normal 74-106 [facility] Comment on above: Result Comment: Fast ing Glucose result from 100 to 125 mg/dL suggests IMPAIRED HOMEOSTASIS per A.D.A. criteria. Performed By: #### L 500.3400, L500.2500, L501.9520 ####[facility] [address] [place], [address] Potassium [Moles/Vol] 3.5 mmol/L Normal 3.5-5.1 [facility] Comment on above: Performed By: #### L 500.3400, L500.2500, L501.9520 ####[facility] [address] [place], [address] Sodium [Moles/Vol] 141 mmol/L Normal 136-145 [facility] Comment on above: Performed By: #### L 500.3400, L500.2500, L501.9520 ####[facility] [address] [place], [address] Urea nitrogen [Mass/Vol] 23 mg/dL High 7-18 [facility] Comment on above: Performed By: #### L 500.3400, L500.2500, L501.9520 ####[facility] [address] [place], [address] CBC W/Diff, Automatedon 07-2 -2023 Absolute Lymph 2.51 X10 3/uL Normal 0.83-4.51 [facility] Comment on above: Performed By: #### L 100.0100 #### [facility] [address] [place], [address] Absolute Neut 3.2 X10 3/uL Normal 2.0-7.7 [facility] Comment on above: Performed By: #### L 100.0100 #### [facility] [address] [place], [address] Basophils/100 WBC (Bld) 0.9 % Normal 0-1 [facility] Comment on above: Performed By: #### L 100.0100 #### [facility] [address] [place], [address] Eosinophils/100 WBC (Bld) 5.6 % High 0-5 [facility] Comment on above: Performed By: #### L 100.0100 #### [facility] [address] [place], [address] Erythrocyte distribution width (RBC) [Ratio] 12.9 % Normal 11.6-14.6 [facility] Comment on above: Performed By: #### L 100.0100 #### [facility] [address] [place], [address] Hematocrit (Bld) [Volume fraction] 45.0 % Normal 40-54 [facility] Comment on above: Performed By: #### L 100.0100 #### [facility] [address] [place], [address] Hemoglobin (Bld) [Mass/Vol] 14.8 g/dL Normal 13.0-16.5 [facility] Comment on above: Performed By: #### L 100.0100 #### [facility] [address] [place], [address] IG% 0.100 Normal 0.0-0.9 [facility] Comment on above: Result Comment: IG% - Immature Granulocytes (promyelocytes, myelocytes and metamyelocytes) > 1% indicates that a LEFT SHIFT is Present. Performed By: #### L 100.0100 #### [facility] [address] [place], [address] Lymphocytes/100 WBC (Bld) 36.1 % Normal 19-41 [facility] Comment on above: Performed By: #### L 100.0100 #### [facility] [address] [place], [address] MCH (RBC) [Entitic mass] 30.6 pg Normal 27.0-32.0 [facility] Comment on above: Performed By: #### L 100.0100 #### [facility] [address] [place], [address] MCHC (RBC) [Mass/Vol] 32.9 g/dL Normal 32-36 [facility] Comment on above: Performed By: #### L 100.0100 #### [facility] [address] [place], [address] MCV (RBC) [Entitic vol] 93.2 fL Normal 80-94 [facility] Comment on above: Performed By: #### L 100.0100 #### [facility] [address] [place], [address] Monocytes/100 WBC (Bld) 11.2 % High 0-10 [facility] Comment on above: Performed By: #### L 100.0100 #### [facility] [address] [place], [address] Neutrophils/100 WBC (Bld) 46.1 % Low 47-70 [facility] Comment on above: Performed By: #### L 100.0100 #### [facility] [address] [place], [address] Nucleated RBC (Bld) [#/Vol] 0 10*3/uL Normal 0-5 [facility] Comment on above: Performed By: #### L 100.0100 #### [facility] [address] [place], [address] Platelet mean volume (Bld) [Entitic vol] 10.5 fL Normal 6.2-12.0 [facility] Comment on above: Performed By: #### L 100.0100 #### [facility] [address] [place], [address] Platelets (Bld) [#/Vol] 205 10*3/uL Normal 150-450 [facility] Comment on above: Performed By: #### L 100.0100 #### [facility] [address] [place], [address] RBC (Bld) [#/Vol] 4.83 10*6/uL Normal 4.6-6.2 [facility] Comment on above: Performed By: #### L 100.0100 #### [facility] [address] [place], [address] RDW SD 43.8 fl Normal 35.1-43.9 [facility] Comment on above: Performed By: #### L 100.0100 #### [facility] [address] [place], [address] WBC (Bld) [#/Vol] 7.0 10*3/uL Normal 4.4-11.0 [facility] Comment on above: Performed By: #### L 100.0100 #### [facility] [address] [place], [address] Liver Profileon 09-25-2023 Albumin [Mass/Vol] 3.4 g/dL Normal 3.2-5.0 [facility] Comment on above: Performed By: #### L 500.3400, L500.2500, L501.9520 ####[facility] [address] [place], [address] ALK P 33 U/L Low 45-117 [facility] Comment on above: Performed By: #### L 500.3400, L500.2500, L501.9520 ####[facility] [address] [place], [address] ALT [Catalytic activity/Vol] 83 U/L High 16-61 [facility] Comment on above: Performed By: #### L 500.3400, L500.2500, L501.9520 ####[facility] [address] [place], [address] AST [Catalytic activity/Vol] 39 U/L High 15-37 [facility] Comment on above: Performed By: #### L 500.3400, L500.2500, L501.9520 ####[facility] [address] [place], [address] Bilirubin [Mass/Vol] 0.40 mg/dL Normal 0.20-1.00 [facility] Comment on above: Result Comment: For patients on eltrombopag therapy, use of Dimension [place] TBIL is not recommended. Performed By: #### L 500.3400, L500.2500, L501.9520 ####[facility] [address] [place], [address] Bilirubin.direct [Mass/Vol] 0.09 mg/dL Normal 0.00-0.30 [facility] Comment on above: Performed By: #### L 500.3400, L500.2500, L501.9520 ####[facility] [address] [place], [address] Globulin (S) [Mass/Vol] 2.8 g/dL Normal 2.2-4.2 [facility] Comment on above: Performed By: #### L 500.3400, L500.2500, L501.9520 ####[facility] [address] [place], [address] T PROT 6.2 g/dL Low 6.4-8.2 [facility] Comment on above: Performed By: #### L 500.3400, L500.2500, L501.9520 ####[facility] [address] [place], [address] Thyroid Stim Hormone (TSH)on 09-25-2023 TSH 3.45 uIU/mL Normal 0.358-3.74 [facility] Comment on above: Performed By: #### L 500.3400, L500.2500, L501.9520 ####[facility] [address] [place], [address] Urinalysis, Completeon 09-24 AMORPHOUS 1+ URATE Normal [facility] Comment on above: Order Comment: JOSE CTOR TO SPECIFY Performed By: #### L 400.0001 #### [facility] [address] [place], [address] EPI,SQUAMOUS 0-5 SEEN Normal 0-5 [facility] Comment on above: Order Comment: JOSE CTOR TO SPECIFY Performed By: #### L 400.0001 #### [facility] [address] [place], [address] BACTERIA 0 SEEN Normal None Seen [facility] Comment on above: Order Comment: JOSE CTOR TO SPECIFY Performed By: #### L 400.0001 #### [facility] [address] [place], [address] Mucus Ql (Urine sed) 0 SEEN Normal [facility] Comment on above: Order Comment: JOSE CTOR TO SPECIFY Performed By: #### L 400.0001 #### [facility] [address] [place], [address] RBC 0 SEEN Normal 0-5 [facility] Comment on above: Order Comment: JOSE CTOR TO SPECIFY Performed By: #### L 400.0001 #### [facility] [address] [place], [address] WBC 0 SEEN Normal 0-5 [facility] Comment on above: Order Comment: JOSE CTOR TO SPECIFY Performed By: #### L 400.0001 #### [facility] [address] [place], [address] CNPNon 08-30-2023 CNPN Telephone ([facility]) MARILOUSTEPHAN ([id number]) 1985 M Date Time Provider Department 08/30/23 MARCELLE STORM [facility] During your visit today, we recorded the following information about you: Marcelle Storm APRN.CRAP SHOOTER 08/30/2023 11:02 AM Signed Notified of positive hsv 1 and 2. Discussed course and contagiousness. Reports never having oral or genital rashes. F/u for any rash. Notified all other labs negative. Allergies As of Date: 08/30/2023 Noted Allergy Reaction PENICILLINS 10/09/2016 4 - Hives Comments: Other reaction(s): AOF STRAWBERRY 07/05/2016 2 - Rash Comments: Other reaction(s): RASH TOMATO 07/05/2016 7 - Swelling Comments: Other reaction(s): AOF Date Reviewed: 08/29/2023 Reviewed by: Viji Joyce MA - Fully Assessed Reason for Visit: Results [95] Prescriptions as of 08/30/2023 - pantoprazole DR (PROTONIX) 40 mg tablet Take 1 tablet by mouth every afternoon. - ALBUTEROL SULFATE HFA INHALATION Inhale as instructed. - omeprazole (PRILOSEC) 40 mg capsule Take 1 capsule by mouth twice daily. - lansoprazole (PREVACID) 30 mg capsule Take 1 capsule by mouth twice daily. - sucralfate (CARAFATE) 1 gram tablet Take 1 tablet by mouth four times daily. Dissolve in one tablespoon of water Problem List As Of Date 08/30/2023 Noted Resolved Cigarette nicotine dependence without complicat*03/30/2021 Oral phase dysphagia [R13.11] 03/30/2021 Encounter for immunization [Z23] 03/30/2021 GERD without esophagitis [K21.9] 03/30/2021 Special screening examination for viral disease*03/30/2021 Chronic vomiting [R11.10] 03/30/2021 Sebaceous cyst [L72.3] 03/30/2021 Encounter Status:Closed by MARCELLE STORM on 08/30/23 [facility] Telephone ([facility]) ANTIONETTESTEPHAN SANTA ([id number]) 1985 M Date Time Provider Department 08/30/23 DHRUV SMITH [facility] During your visit today, we recorded the following information about you: Clau Shin MA 08/30/2023 8:18 AM Signed ----- Message from Dhruv Smith MD sent at 08/30/2023 8:05 AM EDT ----- Negative for gonorrhea and chlamydia. Clau Shin MA 08/30/2023 8:19 AM Signed Unable to reach patient. Mailbox full/Mailbox not set up/ Number incorrect. Please try again later. SALLY Light Melissa, [place] 08/30/2023 8:31 AM Signed Patient given results and verbalized understanding of instructions given. Clau Shin MA Allergies As of Date: 08/30/2023 Noted Allergy Reaction PENICILLINS 10/09/2016 4 - Hives Comments: Other reaction(s): AOF STRAWBERRY 07/05/2016 2 - Rash Comments: Other reaction(s): RASH TOMATO 07/05/2016 7 - Swelling Comments: Other reaction(s): AOF Date Reviewed: 08/29/2023 Reviewed by: Viji Joyce MA - Fully Assessed Reason for Visit: Results [95] Prescriptions as of 08/30/2023 - pantoprazole DR (PROTONIX) 40 mg tablet Take 1 tablet by mouth every afternoon. - ALBUTEROL SULFATE HFA INHALATION Inhale as instructed. - omeprazole (PRILOSEC) 40 mg capsule Take 1 capsule by mouth twice daily. - lansoprazole (PREVACID) 30 mg capsule Take 1 capsule by mouth twice daily. - sucralfate (CARAFATE) 1 gram tablet Take 1 tablet by mouth four times daily. Dissolve in one tablespoon of water Problem List As Of Date 08/30/2023 Noted Resolved Cigarette nicotine dependence without complicat*03/30/2021 Oral phase dysphagia [R13.11] 03/30/2021 Encounter for immunization [Z23] 03/30/2021 GERD without esophagitis [K21.9] 03/30/2021 Special screening examination for viral disease*03/30/2021 Chronic vomiting [R11.10] 03/30/2021 Sebaceous cyst [L72.3] 03/30/2021 Encounter Status:Closed by CLAU SHIN on 08/30/23 Normal [facility] 36on 08-29-2023 36 Spoke to patient, no questions. Normal [facility] 36 We did not do any testing for that. Normal [facility] 36 He states after his daughter Annmarie tested positive, he was tested, states his blood was drawn after he discussed this with you. States it was December or January. Normal [facility] C. trachomatis+N. gonorrhoea e DNA RAIZA+probe Ql (Unsp spec)on 08-29-2023 C. trachomatis rRNA RAIZA+probe Ql (Unsp spec) Negative Normal Negative for Chlamydia trachomatis by amplificaton [facility] Comment on above: Order Comment: Speci men Type: URINE SPECIMEN Ordering Facility: [facility] Address: [address] [place] [address] Performed By: #### 3 6902-5 #### [facility] CLIA [id number] [address] [place] [address] [place] N. gonorrhoeae rRNA RAIZA+probe Ql (Unsp spec) Negative Normal Negative for Neisseria gonorrhoeae by amplification [facility] Comment on above: Order Comment: Speci men Type: URINE SPECIMEN Ordering Facility: [facility] Address: [address] [place] [address] Performed By: #### 3 6902-5 #### [facility] CLIA [id number] [address] [place] [address] OF [facility] CNOVon 08-29-2023 CNOV Office Visit ([facility] ) LOLASTEPHAN Ayala ([id number]) 1985 M Date Time Provider Department 08/29/23 4:15 PM MARCELLE STORM [facility] During your visit today, we recorded the following information about you: Temperature Pulse Respiration Blood pressure 98.4 degrees 68/minute 18/minute 125/86 Weight 82 kg Marcelle Storm APRN.CRAP SHOOTER 08/29/2023 4:48 PM Signed Subjective HPI HPI Stephan Zamarripa is a 37 year old male who presents today for CC of possible std exposure by ex girlfriend, reports possible urinary frequency. Denies current symptoms. Denies penile rash/drainage, testicular pain, abd pain. 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 ALBUTEROL SULFATE HFA INHALATION Inhale as instructed. sucralfate (CARAFATE) 1 gram tablet Take 1 tablet by mouth four times daily. Dissolve in one tablespoon of water omeprazole (PRILOSEC) 40 mg capsule Take 1 capsule by mouth twice daily. (Patient not taking: Reported on 08/29/2023) lansoprazole (PREVACID) 30 mg capsule Take 1 capsule by mouth twice daily. (Patient not taking: Reported on 08/29/2023) FAMILY HISTORY Problem Relation Age of Onset Diabetes Mother Hypertension Mother Heart disease Mother Cancer Mother No Known Problems Father Vertigo Sister Ovarian cancer Sister Social History Tobacco Use Smoking status: Every Day Packs/day: .25 Types: Cigarettes Smokeless tobacco: Never Vaping Use Vaping Use: current everyday user Substances: Nicotine Substance Use Topics Alcohol use: Yes Comment: occasionally Drug use: Not Currently ROS Objective Blood pressure 125/86, pulse 68, temperature 36.9 ?C (98.4 ?F), resp. rate 18, weight 82 kg (180 lb 12.4 oz), SpO2 98%. Physical Exam Constitutional: General: He is not in acute distress. Appearance: Normal appearance. He is not toxic-appearing. Cardiovascular: Rate and Rhythm: Normal rate and regular rhythm. Heart sounds: Normal heart sounds. Pulmonary: Effort: Pulmonary effort is normal. Breath sounds: Normal breath sounds. Abdominal: General: Bowel sounds are normal. Palpations: Abdomen is soft. Tenderness: There is no abdominal tenderness. Skin: General: Skin is warm and dry. ASSESSMENT/PLAN: 1. Possible exposure to STD - ICD9: V01.6, ICD10: Z20.2 (primary diagnosis) Treat or refer per results. 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 Urinary frequency - ICD9: 788.41, ICD10: R35.0 Pos for ket/pro No treatment today. - UA DIP, URINE (POC) - URINE CULTURE Marcelle Storm APRN.CRAP SHOOTER Allergies As of Date: 08/29/2023 Noted Allergy Reaction PENICILLINS 10/09/2016 4 - Hives Comments: Other reaction(s): AOF STRAWBERRY 07/05/2016 2 - Rash Comments: Other reaction(s): RASH TOMATO 07/05/2016 7 - Swelling Comments: Other reaction(s): AOF Date Reviewed: 08/29/2023 Reviewed by: Viji Joyce MA - Fully Assessed Reason for Visit: STD [102] Cmt: Requesting full panel Primary Visit Diagnosis:Possible exposure to STD [Z20.2] Other Visit Diagnosis:Urinary frequency [R35.0] Order(s):UA DIP, URINE (POC) [9052425] Order #: [id number]. #:[id number] SYPHILIS TOTAL W/REFLEX [SQSYPHTX] Order #: [id number] FUTURE HIV 1/2 COMBO WITH REFLEX TO DIFFERENTIATION [SQHIV12] Order #: [id number] FUTURE HEPATITIS C ANTIBODY IA WITH CONFIRMATION [JRMPDN2V] Order #: [id number] FUTURE HEPATITIS B SURFACE ANTIGEN [SQHBSAG] Order #: [id number] FUTURE GONORRHEA/CHLAMYDIA NAAT [SQGCCT] Order #: [id number] FUTURE HERPES SIMPLEX TYPE 1 AND 2 IG [YQOORO10] Order #: [id number] FUTURE GONORRHEA/CHLAMYDIA NAAT [SQGCCT] Order #: [id number]. #:[id number] Prescriptions as of 08/29/2023 - pantoprazole DR (PROTONIX) 40 mg tablet Take 1 tablet by mouth every afternoon. - ALBUTEROL SULFATE HFA INHALATION Inhale as instructed. - omeprazole (PRILOSEC) 40 mg capsule Take 1 capsule by mouth twice daily. - lansoprazole (PREVACID) 30 mg capsule Take 1 capsule by mouth twice daily. - sucralfate (CARAFATE) 1 gram tablet Take 1 tablet by mouth four times daily. Dissolve in one tablespoon of water Problem List As Of Date 08/29/2023 Noted Resolved Cigarette nicotine dependence without complicat*03/30/2021 Oral phase dysphagia [R13.11] 03/30/2021 Encounter for immunization [Z23] 03/30/2021 GERD without esoph (more content not included)... Normal [facility] HBV surface Ag Ser Qlon 08-02 HBV surface Ag Ql (S) Negative Normal Negative [facility] Comment on above: Order Comment: Speci men Type: BLOOD SPECIMEN Ordering Facility: [facility] Address: [address] [place] [address] Performed By: #### 5 195-3, 84236-1, 20581-8 #### [facility] CLIA [id number] [address] [place] [address] [place] HCV Ab Ser Qlon 08-29-2023 HCV Ab Ql (S) Negative Normal Negative [facility] Comment on above: Order Comment: Speci men Type: BLOOD SPECIMEN Ordering Facility: [facility] Address: [address] [place] [address] Result Comment: The result suggests no evidence of active infection with Hepatitis C virus. Should recent infection be suspected, repeat testing may be considered 4-6 weeks after this draw. Performed By: #### 1 6128-1 #### [facility] CLIA [id number] [address] [place] [address] [place] HERPES SIMPLEX TYPE 1 AND 2 IGon 08-29-2023 HSV IGG 1 QUALITATIVE Positive Abnormal Negative [facility] Comment on above: Order Comment: Speci men Type: BLOOD SPECIMEN Ordering Facility: [facility] Address: [address] [place] [address] Result Comment: The result suggests recent or past infection with HSV-1. Performed By: #### H SVG12 #### [facility] CLIA [id number] [address] [place] [address] [place] HSV IGG 2 QUALITATIVE Positive Abnormal Negative [facility] Comment on above: Order Comment: Speci men Type: BLOOD SPECIMEN Ordering Facility: [facility] Address: [address] [place] [address] Result Comment: The result suggests recent or past infection with HSV-2. Performed By: #### H SVG12 #### [facility] CLIA [id number] [address] [place] [address] [place] HIV 1+2 Ab IA Qlon HIV 1 and 2 Ab IA.rapid Nom (S/P/Bld) Normal [facility] Comment on above: Order Comment: Speci men Type: BLOOD SPECIMEN Ordering Facility: [facility] Address: [address] [place] [address] Result Comment: Test not indicated. Performed By: #### 5 195-3, 15279-9, 62792-9 #### [facility] CLIA [id number] [address] [place] [address] [place] HIV 1+2 Ab+HIV1 p24 Ag IA Ql Non-Reactive Normal Nonreactive [facility] Comment on above: Order Comment: Speci men Type: BLOOD SPECIMEN Ordering Facility: [facility] Address: [address] [place] [address] Performed By: #### 5 195-3, 72799-8, 82963-6 #### [facility] CLIA [id number] [address] [place] [address] [place] HIV immunoassay testing algorithm interpretation (S/P/Bld) [Interp] Normal [facility] Comment on above: Order Comment: Speci men Type: BLOOD SPECIMEN Ordering Facility: [facility] Address: [address] [place] [address] Result Comment: No e vidence of HIV-1 or HIV-2 infection. Should recent infection be suspected, repeat testing may be considered 2-3 weeks after this draw. [place] Rev. Code 3701.243(E): This information has been disclosed to you from confidential records protected from disclosure by state law. ???You shall make no further disclosure of this information without the specific, written, and informed release of the individual to whom it pertains or as otherwise permitted by state law. A general authorization for the release of medical or other information is not sufficient for the purpose of the release of HIV test results or diagnoses. Performed By: #### 5 195-3, 17181-4, 17339-8 #### [facility] CLIA [id number] [address] [place] [address] [place] Reagin and Treponema pallidu m IgG and IgM [Interp]on 08-29-2023 T. pallidum IgG+IgM IA Ql (S) Non-Reactive Normal Nonreactive [facility] Comment on above: Order Comment: Neda nur Type: BLOOD SPECIMEN Ordering Facility: [facility] Address: [address] [place] [address] Performed By: #### 5 195-3, 64778-6, 88557-3 #### [facility] CLIA [id number] [address] [place] [address] [place] Reagin+T pallidum IgG+IgM Se rPl-Impon 08-29-2023 Reagin and Treponema pallidum IgG and IgM [Interp] Cannot exclude recent Treponemal infection if specimen collected within 7-10 days after appearance of suspect lesions or 2-3 weeks after an exposure. Clinical correlation is required. Normal [facility] Comment on above: Order Comment: Speci men Type: BLOOD SPECIMEN Ordering Facility: [facility] Address: [address] [place] [address] Performed By: #### 5 195-3, 44301-4, 60100-1 #### [facility] CLIA [id number] [address] [place] [address] [place] [address] [place] UA DIP, URINE (POC)on 2023 BILIRUBIN UA (POCT) Negative Negative [facility] CLARITY UA (POCT) Clear [facility] COLOR UA (POCT) Yellow [facility] GLUCOSE UA (POCT) Negative Negative mg/dL [facility] Hemoglobin Ql (U) Negative Negative [facility] Interpretation and review of laboratory results Abnormal [facility] KETONE UA (POCT) Trace Negative mg/dL [facility] LEUKOCYTES UA (POCT) Negative Negative [facility] NITRITE UA (POCT) Negative Negative [facility] PH UA (POCT) 7.0 4.5 - 8.0 [facility] Protein Ql (U) 30 mg/dL Abnormal Negative [facility] SPECIFIC GRAVITY UA (POCT) 1.025 1.005 - 1.030 [facility] UROBILINOGEN UA (POCT) 0.2 Normal E.U./dL [facility] Location:[address], [place], [place], [address] [place] [address] POINT OF CARE [facility] 08-27-2023 37 JUANCARLOS Armenta CNP You2 minutes ago (3:00 PM) I do not see that we ever did any STD testing for him, nor was it discussed during visits. Called pt, no answer and no vm. Normal [facility] 08-26-2023 37 JUANCARLOS Armenta CNP You2 minutes ago (3:00 PM) I do not see that we ever did any STD testing for him, nor was it discussed during visits. Left a message to return call. [facility] 36 I do not see that we ever did any STD testing for him, nor was it discussed during visits. [facility] 36 Name of caller: stephan Contact phone number: [phone] Relationship to Patient: patient Provider: Dr. Castellnaos Practice: [facility] Chief Complaint/Reason for Call: pt called in, states never received results of a std test from last year (herpes) wants result today by 7pm, very aggitated, please call and advise Best time of day caller can be reached: AM Patient advised that office/PCP has 24-48 business hours to return their call: Yes [facility] CBC + DIFFon 08-10-2023 Baso # 0.02 x10EE3/UL Normal 0.00 - 0.10 [facility] Comment on above: Performed By: #### 2 90963 #### [facility],[address] [place] [address]3215 Basophils/100 WBC (Bld) 0.3 % Normal 0.0 - 2.0 [facility] Comment on above: Performed By: #### 2 51970 #### [facility],[address] [place] [address] CBC + DIFF Normal [facility] Comment on above: Result Comment: CBC- COMPLETE BLOOD COUNT Performed By: #### 2 94099 #### [facility],[address] [place] [address] 86197 EO # 0.24 x10EE3/UL Normal 0.00 - 0.50 [facility] Comment on above: Performed By: #### 2 70464 #### [facility],[address] [place] [address] 02785 Eosinophils/100 WBC (Bld) 4.3 % Normal 0.0 - 7.0 [facility] Comment on above: Performed By: #### 2 71135 #### [facility],[address] [place] [address] Erythrocyte distribution width (RBC) [Ratio] 13.3 % Normal 12.0 - 15.6 [facility] Comment on above: Performed By: #### 2 40495 #### [facility],[address] [place] [address] Hematocrit (Bld) [Volume fraction] 41.7 % Normal 40.0 - 52.0 [facility] Comment on above: Performed By: #### 2 12873 #### [facility],[address] [place] [address] Hemoglobin (Bld) [Mass/Vol] 14.5 g/dL Normal 13.0 - 17.5 [facility] Comment on above: Performed By: #### 2 52753 #### [facility],[address] [place] [address] Lymph # 1.79 x10EE3/UL Normal 0.80 - 2.80 [facility] Comment on above: Performed By: #### 2 53259 #### [facility],[address] [place], [place] [id number] Lymphocytes/100 WBC (Bld) 31.6 % Normal 20.0 - 45.0 [facility] Comment on above: Performed By: #### 2 58648 #### [facility],[address] [place], [place] [id number] MANUAL DIFF N/A Normal [facility] Comment on above: Performed By: #### 2 70413 #### [facility],[address] [place] [address] MCH (RBC) [Entitic mass] 33 pg Normal 27 - 33 [facility] Comment on above: Performed By: #### 2 73880 #### [place] [id number] MCHC 35 X10 3 Normal 32 - 36 [facility] Comment on above: Performed By: #### 2 72773 #### [facility],[address] [place], [place] [id number] MCV (RBC) [Entitic vol] 94 fL Normal 81 - 98 [facility] Comment on above: Performed By: #### 2 76052 #### [facility],[address] [place] [address] Miner # 0.50 x10EE3/UL Normal 0.20 - 1.00 [facility] Comment on above: Performed By: #### 2 77067 #### [facility],[address] [place] [address] MONOS % 8.8 % Normal 0.0 - 10.0 [facility] Comment on above: Performed By: #### 2 87197 #### [facility],[address] [place] [address] Morphology Yfn (Bld) [Interp] N/A Normal [facility] Comment on above: Performed By: #### 2 09537 #### [facility],[address] [place] [address] Neut # 3.12 x10EE3/UL Normal 1.50 - 7.10 [facility] Comment on above: Performed By: #### 2 76693 #### [place] [address] Neutrophils/100 WBC (Bld) 55.1 % Normal 46.0 - 76.0 [facility] Comment on above: Performed By: #### 2 29313 #### [place] [address] PLATELET 168 x10EE3/UL Normal 150 - 450 [facility] Comment on above: Performed By: #### 2 71196 #### [place] [address] Platelet mean volume (Bld) [Entitic vol] 7.7 fL Normal 6.4 - 10.5 [facility] Comment on above: Result Comment: AUTO MATED DIFFERENTIAL Performed By: #### 2 54245 #### [place] [address] RBC 4.45 x 10EE6/UL Low 4.50 - 6.00 [facility] Comment on above: Performed By: #### 2 90950 #### [facility],[address] [place] [address]3310 WBC 5.7 x 10EE3/UL Normal 4.5 - 10.8 [facility] Comment on above: Performed By: #### 2 58354 #### [facility],[address] [place] [address] 26258 CHEST 1 VIEWon 08-10-2023 CHEST 1 VIEW [place] [address] Patient: STEPHAN ZAMARRIPA Phone#: : 1985 Age: 37 Gender: M Pt. Type: ER Account: [id number] Location: [facility] Ordering: FOZIA HU Exam Date: 08/10/2023/14:53 Family Phys: MARIO VEGA Charge Code: 886061 Physician: Yauco Order #: [id number] Dose#: PROCEDURE: X-RAY CHEST 1 VIEW COMPARISON: None. INDICATIONS: Chest pain. FINDINGS: LUNGS: There is hazy increased density in the right lower thorax suspicious for infiltrate. VASCULATURE: Normal. Unremarkable pulmonary vasculature. CARDIAC: Normal. No cardiac silhouette abnormality or cardiomegaly. MEDIASTINUM: Normal. No visible mass or adenopathy. PLEURA: Normal. No effusion or pleural thickening. BONES: Normal. No fracture or visible bony lesion. OTHER: Negative. CONCLUSION: 1. Findings suspicious for right lower lobe infiltrate. Dictated by: Roxie Shaw MD on 08/10/2023 at 16:23 Approved by: Roxie Shaw MD on 08/10/2023 at 16:24 Normal [facility] CMP with eGFRon 08-10-2023 AGE 37 years Normal [facility] Comment on above: Performed By: #### 2 10573 #### [facility],[address] [place] [address] 27432 Albumin [Mass/Vol] 3.9 g/dL Normal 3.4 - 5.0 [facility] Comment on above: Performed By: #### 2 31227 #### [facility],[address] [place] [address] 75191 Albumin/Globulin [Mass ratio] 1.2 {ratio} Normal 0.9 - 1.6 [facility] Comment on above: Performed By: #### 2 33753 #### [facility],[address] [place] [address] 55427 ALK PHOS 36 U/L Low 46 - 116 [facility] Comment on above: Performed By: #### 2 24887 #### [facility],[address] [place] [address] 92856 ALT [Catalytic activity/Vol] 34 U/L Normal 16 - 63 [facility] Comment on above: Performed By: #### 2 05452 #### [facility],[address] [place] [address] 55440 Anion gap [Moles/Vol] 9 mmol/L Low 10 - 20 [facility] Comment on above: Performed By: #### 2 92934 #### [facility],[address] [place] [address] 05439 AST [Catalytic activity/Vol] 37 U/L Normal 15 - 37 [facility] Comment on above: Performed By: #### 2 19182 #### [facility],[address] [place] [address] 03588 B/C RATIO 12 ratio Normal 0 - 30 [facility] Comment on above: Performed By: #### 2 53976 #### [facility],[address] [place] [address] 86774 Bilirubin [Mass/Vol] 0.4 mg/dL Normal 0.2 - 1.0 [facility] Comment on above: Performed By: #### 2 76102 #### [facility],[address] [place] [address] 27975 Calcium [Mass/Vol] 8.7 mg/dL Normal 8.5 - 10.1 [facility] Comment on above: Performed By: #### 2 72336 #### [facility],[address] [place] [address] 47409 Chloride [Moles/Vol] 106 mmol/L Normal 98 - 107 [facility] Comment on above: Performed By: #### 2 83266 #### [facility],[address] [place] [address] 53588 CMP with eGFR Normal [facility] Comment on above: Result Comment: COMP REHENSIVE METABOLIC PANEL Performed By: #### 2 56981 #### [facility],[address] [place] [address] 28300 CO2 [Moles/Vol] 28.9 mmol/L Normal 21.0 - 32.0 [facility] Comment on above: Performed By: #### 2 44109 #### [facility],[address] [place] [address] 80488 Creatinine [Mass/Vol] 0.99 mg/dL Normal 0.70 - 1.30 [facility] Comment on above: Performed By: #### 2 52821 #### [facility],[address] [place] [address] 29110 GFR/1.73 sq M.predicted among non-blacks MDRD (S/P/Bld) [Vol rate/Area] mL/min/{1.73_m2} Normal 60 - 999 [facility] Comment on above: Performed By: #### 2 38387 #### [facility],[address] [place] [address] 30331 Result Comment: ACCO RDING TO THE NATIONAL KIDNEY DISEASE EDUCATION PROGRAM(NKDE), A NORMAL eGFR IS A VALUE GREATER THAN OR EQUAL TO 60 ML/MIN/1.73 SQ METERS. CHRONIC KIDNEY DISEASE: <60mL/MIN/1.73 SQ METERS KIDNEY FAILURE: <15mL/MIN/1.73 SQ METERS THIS TEST SHOULD ONLY BE USED FOR PATIENTS 18 YEARS OF AGE AND OLDER. Globulin (S) [Mass/Vol] 3.2 g/dL Normal 1.5 - 3.8 [facility] Comment on above: Performed By: #### 2 69584 #### [facility],[address] [place] [address] 27882 Glucose [Mass/Vol] 89 mg/dL Normal 74 - 106 [facility] Comment on above: Performed By: #### 2 38339 #### [facility],[address] [place] [address] 96763 Potassium [Moles/Vol] 3.5 mmol/L Normal 3.5 - 5.1 [facility] Comment on above: Performed By: #### 2 96784 #### [facility],[address] [place] [address] 77846 Protein [Mass/Vol] 7.1 g/dL Normal 6.4 - 8.2 [facility] Comment on above: Performed By: #### 2 11953 #### [facility],[address] [place] [address] 78464 Sodium [Moles/Vol] 140 mmol/L Normal 136 - 145 [facility] Comment on above: Performed By: #### 2 17818 #### [facility],[address] [place] [address] 15436 Urea nitrogen [Mass/Vol] 12 mg/dL Normal 7 - 18 [facility] Comment on above: Performed By: #### 2 78266 #### [facility],[address] [place] [address] CHEST (PE PROTOCOL)on CT CHEST (PE PROTOCOL) [place] [address] Patient: STEPHAN ZAMARRIPA Phone#: : 1985 Age: 37 Gender: M Pt. Type: ER Account: [id number] Location: 052 Ordering: FOZIA BLAIRISINGER Exam Date: 08/10/2023/16:35 Family Phys: Charge Code: [id number] Physician: Yauco Order #: [id number] Dose#: 4.9 mGy PROCEDURE: CT CHEST WITH CONTRAST FOR PE COMPARISON: None. INDICATIONS: Chest pain. TECHNIQUE: After obtaining the patient's consent, CT images were obtained with non-ionic intravenous contrast material. Multi-planar images were created to optimize visualization of vascular anatomy with MPR/MIPS and 3D imaging. All CT scans at this facility use dose modulation, iterative reconstruction, and/or weight based dosing when appropriate to reduce radiation dose to as low as reasonably achievable. IV CONTRAST: Omnipaque 350,100ml TOTAL DOSE: 4.9 CTDIvol(mGy) FINDINGS: VASCULATURE: Normal. No visible pulmonary arterial thrombus or attenuation. AORTA: Normal. No aneurysm or dissection. LUNGS: Normal. No visible pulmonary disease. DEMI: Normal. No mass or adenopathy. MEDIASTINUM: Distal esophageal mucosa appears to thickened. Possibility esophagitis is raised.. No mass or adenopathy. CARDIAC: Normal. No enlargement, pericardial thickening, or significant calcification. PLEURA: Normal. No mass or effusion. CHEST WALL: Normal. No mass or axillary adenopathy. LIMITED ABDOMEN: Normal. Limited images of the upper abdomen are unremarkable. BONES: Normal. No bony lesion or fracture. OTHER: Negative. CONCLUSION: 1. There is no evidence of pulmonary embolus. 2. There is no evidence acute pulmonary abnormality. 3. Distal esophageal mucosa appears to be thickened. Correlate with possible esophagitis. [place] [address] Patient: STEPHAN ZAMARRIPA Phone#: : 1985 Age: 37 Gender: M Pt. Type: ER Account: [id number] Location: 052 Ordering: FOZIA MAYTE Exam Date: 08/10/2023/16:35 Family Phys: Charge Code: [id number] Physician: Yauco Order #: [id number] Dose#: 4.9 mGy Dictated by: Roxie Shaw MD on 08/10/2023 at 17:10 Approved by: Roxie Shaw MD on 08/10/2023 at 17:15 Normal [facility] D-DIMER, QUANTITATIVEon 06-0 D-DIMER QUANT <200 Normal 0 - 230 [facility] Comment on above: Performed By: #### 2 00766 #### [facility],[address] [place] [address] 19161 D-DIMER, QUANTITATIVE Normal [facility] Comment on above: Result Comment: YELENA T D-DIMER Performed By: #### 2 71852 #### [facility],[address] [place] [address] 32743 TROPONIN I, HIGH SENSITIVITY on 08-10-2023 HS TROPONIN 5.7 pg/mL Normal 0.0 - 76.2 [facility] Comment on above: Performed By: #### 2 29358 #### [facility],[address] [place] [address] 14293 HS TROPONIN 6.3 pg/mL Normal 0.0 - 76.2 [facility] Comment on above: Performed By: #### 2 68955 #### [facility],[address] [place], [place] [address] ED Nursing Noteon 08-03-2023 ED Nursing Note This RN has discusse d discharge instructions with pt and his at . Pt has no questions or concerns about follow-up and prescriptions that Dr. Warren wrote. Steady gait, IV removed with no bleeding and cannula intact. VSS. Dinora Moyer RN 08/03/[address] [facility] Laboratory - Chemistry and C hemistry - challengeon 08-03-2023 Troponin I.cardiac [Mass/Vol] ng/mL NINF - 0.034 ng/mL [facility] TROPONIN Ion 08-03-2023 Troponin I.cardiac [Mass/Vol] ng/mL Normal <0.[address] [facility] Comment on above: Result Comment: ORDE R COMMENTS: Patients with high levels of Biotin oral intake (ie >5 mg/day) may have falsely decreased Troponin levels. Performed By: #### L [id number] ####Gynecologist: SHEEBA BURNS ([id number])[facility] ASTORGAT[facility] (SWRLAB)[address] [place] [address] [place] Troponin I.cardiac [Mass/Vol ]on 08-03-2023 Interpretation and review of laboratory results Normal [facility] Patients with high levels of Biotin oral intake (ie >5 mg/day) may have falsely decreased Troponin levels. [facility] BASIC METABOLIC PANELon 06- Anion gap [Moles/Vol] 7 mmol/L Normal 3-[address] [facility] Comment on above: Performed By: #### L [id number], LAB15 ####Gynecologist: SHEEBA BURNS ([id number])[facility] ASTORGATMAN (SWRLAB)[address] [place] [address] Calcium [Mass/Vol] 9.4 mg/dL Normal 8.4-10.[address] [facility] Comment on above: Performed By: #### L [id number], LAB15 ####Gynecologist: SHEEBA BURNS ([id number])[facility] MATHEWS RITTMAN (SWRLAB)[address] [place] [address] [place] Chloride [Moles/Vol] 109 mmol/L High 98-107 [facility] Comment on above: Performed By: #### L [id number], LAB15 ####Gynecologist: SHEEBA BURNS ([id number])[facility] MATHEWS RITTMAN (SWRLAB)[address] [place] [address] [place] CO2 [Moles/Vol] 22 mmol/L Normal 22-30 [facility] Comment on above: Performed By: #### L [id number], LAB15 ####Gynecologist: SHEEBA BURNS ([id number])[facility] MATHEWS RITTMAN (SWRLAB)[address] [place] [address] [place] Creatinine [Mass/Vol] 0.83 mg/dL Normal 0.66-1.[address] [facility] Comment on above: Performed By: #### L [id number], LAB15 ####Gynecologist: SHEEBA BURNS ([id number])[facility] BENTLEYREID RITTMAN (SWRLAB)[address] [place] [address] GLOMERULAR FILTRATION RATE ML/MIN/1.73 SQ M.PREDICTED >90.0 Normal >60.[address] [facility] Comment on above: Result Comment: Calc ulation based on the Chronic Kidney Disease Epidemiology Collaboration (CKD-EPI) equation refit without adjustment for race Performed By: #### L [id number], LAB15 ####Gynecologist: SHEEBA BURNS ([id number])[facility] REID RITTMAN (SWRLAB)[address] [place] [address] [place] Glucose [Mass/Vol] 114 mg/dL High 70-[address] [facility] Comment on above: Performed By: #### L [id number], LAB15 ####Gynecologist: SHEEBA BURNS ([id number])[facility] RE[facility]IT[facility] (SWRLAB)[address] [place] [address] [place] Potassium [Moles/Vol] 3.6 mmol/L Normal 3.5-5.[address] [facility] Comment on above: Performed By: #### L [id number], LAB15 ####Gynecologist: SHEEBA BURNS ([id number])[facility] BENTLEYREID RITTMAN (SWRLAB)[address] [place] [address] [place] Sodium [Moles/Vol] 138 mmol/L Normal 135-[address] [facility] Comment on above: Performed By: #### L [id number], LAB15 ####Gynecologist: SHEEBA BURNS ([id number])[facility] RE[facility] (SWRLAB)[address] [place] [address] [place] Urea nitrogen [Mass/Vol] 13 mg/dL Normal 9-[address] [facility] Comment on above: Performed By: #### L [id number], LAB15 ####Gynecologist: SHEEBA BURNS ([id number])[facility] REID RITTMAN (SWRLAB)[address] Basic metabolic 1998 panelon 08-02-2023 Anion gap [Moles/Vol] 7 mmol/L 3 - 13 mmol/L [facility] Calcium [Mass/Vol] 9.4 mg/dL 8.4 - 10. 4 mg/dL [facility] Chloride [Moles/Vol] 109 mmol/L High 98 - 107 mmol/L [facility] CO2 [Moles/Vol] 22 mmol/L 22 - 30 mmol/L [facility] Creatinine [Mass/Vol] 0.83 mg/dL 0.66 - 1.25 mg/dL [facility] GFR/1.73 sq M.predicted MDRD (S/P/Bld) [Vol rate/Area] - PINF [facility] Comment on above: Calculation based on the Chronic Kidney Disease Epidemiology Collaboration (CKD-EPI) equation refit without adjustment for race Glucose [Mass/Vol] 114 mg/dL High 70 - 100 mg/dL [facility] Interpretation and review of laboratory results Abnormal [facility] Potassium [Moles/Vol] 3.6 mmol/L 3.5 - 5.1 mmol/L [facility] Sodium [Moles/Vol] 138 mmol/L 135 - 145 mmol/L [facility] Urea nitrogen [Mass/Vol] 13 mg/dL 9 - 20 mg/dL [facility] ECG 12-LEADon 08-02-2023 ECG 12-LEAD IMPRESSION: Sinus rhythm rate 65 RBBB, old No acute ischemic changes No right heart strain Similar to previous EKG Electronically Signed On 08-02-2023 22:36:32 EDT by Zoltan Warren Normal [facility] ED Provider Noteon ED Provider Note EMERGENCY DEPARTMENT ENCOUNTER Pt Name: Stephan Zamarripa Birthdate 1985 Date of evaluation: 08/02/2023 ED Provider: Zoltan Warren DO CHIEF COMPLAINT Chief Complaint Patient presents with Chest Pain 10/10 L-sided CP that radiates into L arm numbness and SOB since 1pm this afternoon. Pt's at states that pt left [facility] with an Acute MS and a partially collapsed lung4 days ago. Pt A+O, answering questions appropriately, 97% on RA. HISTORY OF PRESENT ILLNESS (Location/Symptom, Timing/Onset, Context/Setting, Quality, Duration, Modifying Factors, Severity) Note limiting factors. HPI Stephan Zamarripa is a 37 y.o. male who presents to the emergency department with chest pain. Also complaining of shortness of breath. Has been constant for least a week. Was seen at [facility] and per the report of his significant other at bedside, he was discharged, then vomited and passed out while walking home, and when he went back they wanted to admit him but he left the hospital AGAINST MEDICAL ADVICE. Pain and shortness of breath is continued. They were walking to get a pizza tonight and he clutched his chest and went down to his knees. The significant other reported to medics and to me that he had had a heart attack and that he was told he had a collapsed lung, maybe pneumonia. Patient states he has not had a cough. He has not had fever. No recent travel, trauma, surgery or hospitalizations. No history of DVT, PE or cancer. No fever, cough or hemoptysis. No hypertension, diabetes or dyslipidemia. He is a smoker. Positive first-degree relatives with early onset coronary disease. Nursing Notes were reviewed. REVIEW OF SYSTEMS All systems reviewed and negative except as noted above. PAST MEDICAL HISTORY Past Medical History: Diagnosis Date Drug abuse ([facility]) ([facility]) 03/19/2022 SURGICAL HISTORY No past surgical history on file. CURRENT MEDICATIONS Discharge Medication List as of 08/02/2023 11:22 PM ALLERGIES Penicillins, [place] extract, and Tomato FAMILY HISTORY Family History Problem Relation Name Age of Onset Diabetes Mother Heart failure Mother Hypertension Mother Diabetes Father estranged No Known Problems Sister Other (vertigo) Sister No Known Problems Sister No Known Problems Sister No Known Problems Sister No Known Problems Sister No Known Problems Sister No Known Problems Sister No Known Problems Sister Cardiomyopathy Brother Other (ashberger) Son Diabetes Mother's Sister Cancer Mother's Sister No Known Problems Mother's Brother No Known Problems Maternal Grandmother Diabetes Maternal Grandfather SOCIAL HISTORY Social History Socioeconomic History Marital status: Single Number of children: 2 Tobacco Use Smoking status: Every Day Packs/day: 0.50 Years: 22.00 Additional pack years: 0.00 Total pack years: 11.00 Types: Cigarettes Smokeless tobacco: Never Vaping Use Vaping Use: Every day Substances: Nicotine, Flavoring Substance and Sexual Activity Alcohol use: Yes Comment: 8-9 beer a month Drug use: Yes Types: Heroin, 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 Sexual activity: Yes Partners: Female Social History Narrative Lives with fiance and daughter, 4 yo. Works at [employer]- 2 months Social Determinants of Health Food Insecurity: No Food Insecurity (07/10/2023) Hunger Vital Sign Worried About Running Out of Food in the Last Year: Never true Ran Out of Food in the Last Year: Never true Transportation Needs: No Transportation Needs (07/10/2023) PRAPARE - Transportation Lack of Transportation (Medical): No Lack of Transportation (Non-Medical): No Physical Activity: Inactive (07/10/2023) Exercise Vital Sign Days of Exercise per Week: 0 days Minutes of Exercise per Session: 0 min Stress: No Stress Concern Present (07/10/2023) [employer] - Occupational Stress Questionnaire Feeling of Stress : Only a little Social Connections: Moderately Isolated (07/10/2023) Social Connection and Isolation Panel [NHANES] Frequency of Communication with Friends and Family: Three times a week Frequency of Social Gatherings with Friends and Family: Three times a week Attends Sabianist Services: Never Active Member of Clubs or Organizations: No Attends Club or Organization Meetings: Never Marital Status: Living with partner Intimate Partner Violence: Not At Risk (07/10/2023) Humiliation, Afraid, Rape, and Kick questionnaire Fear of Current or Ex-Partner: No Emotionally Abused: No Physically Abused: No Sexually Abused: No Housing Stability: Low Risk (07/10/2023) Housing Stability Vital Sign Unable to Pay for Housing in the Last Year: No Number of Places Lived in the Last Year: 1 Unstable Housing in the Last Year: No PHYSICAL EXAM ED Triage Vitals [08/02/238] Temp Heart Rate Resp BP -- 70 20 116/77 SpO2 (more content not included)... Normal [facility] HEMOGLOBINon 08-02-2023 Hemoglobin (Bld) [Mass/Vol] 14.4 g/dL Normal 13.0-18.[address] [facility] Comment on above: Performed By: #### L [id number] ####Gynecologist: SHEEBA BURNS ([id number])DAHIANA ROBLES (SWHarmonyLAB)[address] [place] [address] [place] Hemoglobin (Bld) [Mass/Vol]o n 08-02-2023 Interpretation and review of laboratory results Normal [facility] Laboratory - Chemistry and C hemistry - challengeon 08-02-2023 Troponin I.cardiac [Mass/Vol] ng/mL NINF - 0.034 ng/mL [facility] Laboratory - Hematology and Cell countson 08-02-2023 Hemoglobin (Bld) [Mass/Vol] 14.4 g/dL 13.0 - 18.0 g/dL [facility] No Panel Informationon 08-01 P [place] -14 degrees [facility] CT Interval 176 ms [facility] QRS [place] -20 degrees [facility] QRSD Interval 123 ms [facility]val 383 ms [facility] QTC Interval 398 ms [facility] T Wave [place] 49 degrees [facility] Sinus rhythm rate 65 RBBB, old No acute ischemic changes No right heart strain Similar to previous EKG Electronically Signed On 08-02-2023 22:36:32 EDT by Zoltan Araujo, - 08/02/2023 IMPRESSION: Sinus rhythm rate 65 RBBB, old No acute ischemic changes No right heart strain Similar to previous EKG Electronically Signed On 08-02-2023 22:36:32 EDT by Zoltan Warren [facility] TROPONIN, WITH SERIAL REFLEX on 08-02-2023 Troponin I.cardiac [Mass/Vol] ng/mL Normal <0.[address] [facility] Comment on above: Result Comment: CRISTINA Antunez COMMENTS: Patients with high levels of Biotin oral intake (ie >5 mg/day) may have falsely decreased Troponin levels. Performed By: #### L [id number], [id number] ####Gynecologist: SHEEBA BURNS ([id number])[facility]ITAL[facility] ROBL[facility] (SWRL[facility])[address] Troponin I.cardiac [Mass/Vol ]on 08-02-2023 Interpretation and review of laboratory results Normal [facility] Patients with high levels of Biotin oral intake (ie >5 mg/day) may have falsely decreased Troponin levels. [facility] Vital signson 08-02-2023 Heart rate 65 /min bpm [facility] XR Chest Single viewon 08-01 Possible bronchitis or viral infection. Report Dictated on Electronically Signed By: Howard Mcarthur MD Electronically Signed Date/Time: 08/02/2023 11:18 PM EDT [facility] Name[facility]ILLATORO [facility] 1985 [id number] Exam Date/Time: 08/02/2023 23:12 Procedure: XR CHEST 1 VIEW Ordering Provider: WARREN MICHAEL Reason For Exam: CHEST PAIN AP CHEST X-RAY CLINICAL INDICATION: CHEST PAIN TECHNIQUE: AP portable x-ray of the chest. COMPARISON: 05/07/2021 FINDINGS: Heart/Mediastinum: Within normal limits Lungs: Streaky perihilar opacities bilaterally and mild bronchial wall thickening. No airspace consolidation, pneumothorax or pleural effusion. Bones: Unremarkable [facility] Howard Mcarthur M D - 08/02/2023 Patient Name: STEPHAN [facility]AMARRIPA [facility] 1985 [id number] Exam Date/Time: 08/02/2023 23:12 Procedure: XR CHEST 1 VIEW Ordering Provider: WARREN MICHAEL Reason For Exam: CHEST PAIN AP CHEST X-RAY CLINICAL INDICATION: CHEST PAIN TECHNIQUE: AP portable x-ray of the chest. COMPARISON: 05/07/2021 FINDINGS: Heart/Mediastinum: Within normal limits Lungs: Streaky perihilar opacities bilaterally and mild bronchial wall thickening. No airspace consolidation, pneumothorax or pleural effusion. Bones: Unremarkable IMPRESSION: Possible bronchitis or viral infection. Report Dictated on Electronically Signed By: Howard Mcarthur MD Electronically Signed Date/Time: 08/02/2023 11:18 PM EDT [facility] Radiology Study observation (narrative) [facility] XR Chest Single viewOrdered By: Howard Mcarthur on 08-02-2023 [facility] [employer] Work Phone: 36on 08-01-2023 36 Agree, thank you Normal [facility] Brain/Head without Contrasto n 08-01-2023 Brain/Head without Contrast [facility] Imaging Services Christel GAMBINO [place], [place] [address] Brain/Head without Contrast MR#: [id number] Acct: [id number] Name: STEPHAN ZAMARRIPA Rep #: [id number] : 1985 M 37 From: Atif Pineda MD PCP: Dr. Yobany Castellanos MD Status: REG ER Study: Brain/Head without Contrast Date of Exam: 07/03 03/26 Exam# [id number] Ordering Dr: Magdalene Ty DO [id number] EXAM: CT HEAD WITHOUT INTRAVENOUS CONTRAST CLINICAL INDICATION: headache, vomitting TECHNIQUE: Multiple axial images were obtained of the head without intravenous contrast. CTDIvol = ( 44.99 ) mGy, DLP = ( 762.36 ) mGycm This CT exam was performed using one or more of the following dose reduction techniques: automated exposure control, adjustment of the mA and/or kV according to patient size, and/or use of iterative reconstruction technique. COMPARISON: No relevant prior studies available. FINDINGS: BRAIN AND EXTRA-AXIAL SPACES: Unremarkable. No intra- or extra-axial hemorrhage. No evidence of acute infarct. No intracranial mass or mass effect. There is preservation of the valencia/white matter interface. Posterior fossa structures are unremarkable. Ventricles are appropriate for age. No hydrocephalus. Basal cisterns are patent. BONES/JOINTS: Unremarkable. No discrete lytic or blastic abnormalities. SINUSES: Unremarkable as visualized. Clear. MASTOID AIR CELLS: Unremarkable. Clear. ORBITS: Visualized globes, extraocular muscles, optic nerves and retrobulbar fat appear unremarkable. CT/Brain/Head without Contrast IMPRESSION: Negative head/brain CT without intravenous contrast. AIDOC was utilized to assist in identifying pertinent positive findings. Electronically Signed: Atif Pineda MD at 4:00 EDT , CC: Dr. Yobany Castellanos MD; Dr. 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 Yobany Castellanos MD Status:DEP ER Location: ED HPI History of Present Illness Chief Complaint: General Illness Detail of Chief Complaint: Headache Informant: patient Narrative Narrative: Patient presents with headache and dizziness. Patient was seen in the emergency department last evening for chest pain and had a workup that included lab work and heart enzymes x 2 that were unremarkable. Patient had a chest x-ray that showed possible atelectasis versus pneumonia and was started on Zithromax. Patient was walking back to the [facility] when he had development of headache and dizziness and vomited for 5 times. He and his significant other tell me he has been having headaches for about 2 weeks off-and-on lasting up to a day or 2. Denies any falls or head injuries. He denies fever or cough or sore throat or bodyaches. No family history of brain tumors or aneurysms. Patient does describe photophobia. [facility] Medical History (Updated 08/01/23 @ 05:[address] Magdalene Ty DO) Cannabis use disorder Tobacco use GERD (gastroesophageal reflux disease) Allergy/AdvReac Type Severity Reaction Status Date / Time Penicillins Allergy Hives Verified 07/31/23 19:39 strawberry Allergy Rash Verified 07/31/23 19:39 tomato Allergy Swelling Verified 07/31/23 19:39 Social History (Updated 07/31/23 @ 22:[address] Wesley Wilson DO) Smoking Status: Current every day smoker tobacco type: cigarettes substance use type: marijuana ROS ROS ED Review of Systems ROS Unobtainable: other Constitutional Constitutional ED: Reports lethargy; Denies chills, fever(s), sweats or weight loss Eyes Eyes: Denies blurry vision, change in vision or diplopia ENT ENT ED: Denies rhinorrhea or sore throat Cardiovascular Cardiovascular: Reports chest pain; Denies orthopnea or racing heartbeat Respiratory/Chest Respiratory/Chest: Reports dyspnea and dyspnea on exertion; Denies cough, orthopnea or sputum Gastrointestinal Gastrointestinal: Reports nausea and vomiting; Denies abdominal pain or diarrhea Genitourinary Genitourinary ED: Denies dysuria, hematuria or urinary frequency Musculoskeletal Musculoskeletal: Denies arthralgias, back pain, myalgias or neck pain Integumentary Denies abscess, Abrasions or rash Neurologic Neurologic: Reports headache(s); Denies weakness Psychiatric Psychiatric: Denies anxiety, depression or suicidal thoughts Endocrine Endocrinology: Denies polydipsia, polyphagia or polyuria Hematologic/Lymphatic Hematologic/Lymphatic: Denies easy bleeding, easy bruising or lymphadenopathy Allergic/Immunologic Allergic/Immunologic ED: Denies mouth swelling, tongue swelling or urticaria EXAM Physical Exam Const Vital Signs: 08/01/23 02:52 08/01/23 02:58 08/01/23 04:52 Temperature 97.1 F L Temperature Source Oral Pulse Rate 63 Respiratory Rate 18 Respiratory Effort Normal Respiratory Pattern Normal Blood Pressure 121/90 H Blood Pressure Mean 100 Pulse Ox 98 Oxygen Delivery Method Room Air Room Air 08/01/23 04:56 Temperature 98 F Temperature Source Pulse Rate 62 Respiratory Rate 16 Respiratory Effort Respiratory Pattern Blood Pressure 123/73 H Blood Pressure Mean 89 Pulse Ox 99 Oxygen Delivery Method Positive well nourished and well developed General Appearance ED: well developed and NAD HEENT Reports TM's clear and moist mucous membranes normocephalic and atraumatic; Negative for trauma or tenderness Tympanic Membrane ED: Yes TM's clear Eyes PERRL and EOMs intact bilaterally General Eye ED: Negative for pale conjunctiva or scleral icterus Neck no lymphadenopathy, supple and no JVD General: Negative for tenderness Chest Wall inspection of chest normal and palpation of chest normal Chest: Negative for tenderness Resp normal respiratory effort and clear to auscultation bilaterally Effort and Inspection: Negative for respiratory distress or pain with movement Auscultation: Negative for rhonchi, wheezes or diminished lung sounds Cardio regular rate, regular rhythm, S1 normal heart sound, S2 normal heart sound and no murmurs Peripheral Pulses: pulses 2+ throughout GI normal to inspection, nondistended, normoactive bowel sounds, soft to palpation, non-tender, non- distended and no masses Back/Spine no CVA tenderness and no thoracic nor lumbar tenderness Extremity normal to inspection General Extremety ED: Negative for edema General Extremity: Negative for edema Neuro oriented x3,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 Gatherings with Friends and Family: Three times a week Attends Sabianist Services: Never Active Member of Clubs or Organizations: No Attends Club or Organization Meetings: Never Marital Status: Living with partner Intimate Partner Violence: Not At Risk (07/10/2023) Humiliation, Afraid, Rape, and Kick questionnaire Fear of Current or Ex-Partner: No Emotionally Abused: No Physically Abused: No Sexually Abused: No Housing Stability: Low Risk (07/10/2023) Housing Stability Vital Sign Unable to Pay for Housing in the Last Year: No Number of Places Lived in the Last Year: 1 Unstable Housing in the Last Year: No SCREENINGS PHYSICAL EXAM ED Triage Vitals Temp Pulse Resp BP -- -- -- -- SpO2 Temp src Heart Rate Source Patient Position -- -- -- -- BP Location FiO2 (%) -- -- Physical Exam Vitals and nursing note reviewed. Constitutional: General: He is not in acute distress. Appearance: He is well-developed. Comments: Tearful, jittery HENT: Head: Normocephalic and atraumatic. Eyes: Conjunctiva/sclera: Conjunctivae normal. Cardiovascular: Rate and Rhythm: Normal rate and regular rhythm. Heart sounds: No murmur heard. Pulmonary: Effort: Pulmonary effort is normal. No respiratory distress. Breath sounds: Normal breath sounds. Abdominal: Palpations: Abdomen is soft. Tenderness: There is no abdominal tenderness. (more content not included)... Normal [facility] - Drug toxicology Ordered By: Wojciech Daily on 07-19-2023 Amphetamines Screen method >1000 ng/mL Ql (U) Negative [facility] Barbiturates Screen method >200 ng/mL Ql (U) Negative [facility] Benzodiazepines Ql (U) Negative [facility] Methadone Screen Ql (U) Negative [facility] Opiates Screen Ql (U) Negative [facility] oxyCODONE Ql (U) Negative [facility] alth Phencyclidine Ql (U) Negative [facility] No Panel InformationOrdered By: Wojciech Daily on 07-19-2023 COCAINE METAB. SCREEN Negative [facility] The expected value f or all of the drugs listed above is Negative. The following drugs or drug groups have been screened for by Immunoassay at the following thresholds: Amphetamine class (1000 ng/mL) Barbiturates (200 ng/mL) Benzodiazepines (200 ng/mL) Cocaine (300 ng/mL) Methadone (300 ng/mL) Opiates (300 ng/mL) Oxycodone (100 ng/mL) PCP (25 ng/mL) NOTE: These results are for medical treatment only. Analysis performed using non-forensic procedures. POSITIVE results are NOT confirmed by a more specific alternative method unless requested. If confirmation is needed, request confirmation under separate order. [facility] 36on 07-17-2023 36 S: pt calling [facility] d/ t chest pain B: Symptoms started 3 days A: states that over the last couple of days costello been having pressure on left side of chest that comes and goes. States has feeling like heart is racing and shortness of breath. Pt is talking Current heart rate on phone leslie is 97 R: Pt is going to look for a ride to the ed. Pt advised to call back with worsening of symptoms, concern or questions. Pt verbalized understanding. Reason for Disposition Difficulty breathing Protocols used: Chest Stog-AJDMA-SF Normal [facility] CBC W Auto Differential pane l (Bld)on 07-10-2023 Basophils (Bld) [#/Vol] 0.1 10*3/uL 0.0 - 0.2 10*3/uL [facility] Basophils/100 WBC (Bld) 0.9 % 0.0 - 2.0 % [facility] Eosinophils (Bld) [#/Vol] 0.3 10*3/uL 0.0 - 0.5 10*3/uL [facility] Eosinophils/100 WBC (Bld) 5.1 % 0.0 - 6.0 % [facility] Erythrocyte distribution width (RBC) [Ratio] 12.4 % 11.5 - 15.0 % [facility] Hematocrit (Bld) [Volume fraction] 44.2 % 40.0 - 52.0 % [facility] Hemoglobin (Bld) [Mass/Vol] 15.4 g/dL 13.0 - 18.0 g/dL [facility] Immature granulocytes (Bld) [#/Vol] 0.0 10*3/uL NINF - 0.1 10*3/uL [facility] Immature granulocytes/100 WBC (Bld) 0.2 % 0.0 - 2.0 % [facility] Interpretation and review of laboratory results Normal [facility] Lymphocytes (Bld) [#/Vol] 1.5 10*3/uL 1.0 - 4.3 10*3/uL [facility] Lymphocytes/100 WBC (Bld) 26.1 % 15.0 - 45.0 % [facility] MCH (RBC) [Entitic mass] 31.9 pg 26.0 - 34.0 pg [facility] MCHC (RBC) [Mass/Vol] 34.8 % 30.5 - 36.0 % [facility] MCV (RBC) [Entitic vol] 91.5 fL 77.0 - 99.0 fL [facility] Monocytes (Bld) [#/Vol] 0.5 10*3/uL 0.0 - 0.9 10*3/uL [facility] Monocytes/100 WBC (Bld) 8.3 % 5.0 - 13.0 % [facility] Neutrophils (Bld) [#/Vol] 3.4 10*3/uL 1.8 - 7.5 10*3/uL [facility] Neutrophils/100 WBC (Bld) 59.4 % 38.0 - 82.0 % [facility] [employer] Nucleated RBC/100 WBC (Bld) [Ratio] 0.0 % [facility] Platelet mean volume (Bld) [Entitic vol] 9.3 fL 9.0 - 12.7 fL [facility] Comment on above: MPV is a calculated measurement using platelet volume ratio Platelets (Bld) [#/Vol] 200 10*3/uL 140 - 440 10*3/uL [facility] RBC (Bld) [#/Vol] 4.83 10*6/uL 4.40 - 5.9 0 10*6/uL [facility] WBC (Bld) [#/Vol] 5.7 10*3/uL 3.6 - 10.7 10*3/uL [facility] CBC WITH AUTO DIFFERENTIALon 07-10-2023 Basophils (Bld) [#/Vol] 0.1 10*3/uL Normal 0.0-0.2 [facility] Comment on above: Performed By: #### L [id number] ####Gynecologist: SHEEBA BURNS ([id number])[facility] [place] [address] [place] Basophils/100 WBC (Bld) 0.9 % Normal 0.0-2.0 [facility] Comment on above: Performed By: #### L [id number] ####Gynecologist: SHEEBA BURNS ([id number])[facility] ([facility])[address] [place] [address] [place] Eosinophils (Bld) [#/Vol] 0.3 10*3/uL Normal 0.0-0.5 [facility] Comment on above: Performed By: #### L [id number] ####Gynecologist: SHEEBA BURNS ([id number])[facility] ([facility] [place] [address] [place] Eosinophils/100 WBC (Bld) 5.1 % Normal 0.0-6.0 [facility] Comment on above: Performed By: #### L [id number] ####Gynecologist: SHEEBA BURNS ([id number])[facility] (SWRL[place])[address] [place] [address] Erythrocyte distribution width (RBC) [Ratio] 12.4 % Normal 11.5-15.[address] [facility] Comment on above: Performed By: #### L [id number] ####Gynecologist: SHEEBA BURNS ([id number])[facility] [place] ([place])[address] [place] [address] Hematocrit (Bld) [Volume fraction] 44.2 % Normal 40.0-52.[address] [facility] Comment on above: Performed By: #### L [id number] ####Gynecologist: SHEEBA BURNS ([id number])[facility] ([place])[address] [place] [address] Hemoglobin (Bld) [Mass/Vol] 15.4 g/dL Normal 13.0-18.[address] [facility] Comment on above: Performed By: #### L [id number] ####Gynecologist: SHEEBA BURNS ([id number])[facility] ([place])[address] [place] [address] IMMATURE GRANS % 0.2 % Normal 0.0-2.0 [facility] Comment on above: Performed By: #### L [id number] ####Gynecologist: SHEEBA BURNS ([id number])[facility] ([place])[address] [place] [address] IMMATURE GRANS ABSOLUTE 0.0 10*3/uL Normal <0.1 [facility] Comment on above: Performed By: #### L [id number] ####Gynecologist: SHEEBA BURNS ([id number])[facility] ([place])[address] [place] [address] Lymphocytes (Bld) [#/Vol] 1.5 10*3/uL Normal 1.0-4.3 [facility] Comment on above: Performed By: #### L [id number] ####Gynecologist: SHEEBA BURNS ([id number])[facility] ([place])[address] [place] [address] [place] Lymphocytes/100 WBC (Bld) 26.1 % Normal 15.0-45.0 [facility] Comment on above: Performed By: #### L [id number] ####Gynecologist: SHEEBA BURNS ([id number])[facility] ([place])[address] [place] [address] MCH (RBC) [Entitic mass] 31.9 pg Normal 26.0-34.0 [facility] [facility] Comment on above: Performed By: #### L [id number] ####Gynecologist: SHEEBA BURNS ([id number])[facility] [place] (SWRLAB)[address] [place] [address] MCHC 34.8 % Normal 30.5-36.0 [facility] Comment on above: Performed By: #### L [id number] ####Gynecologist: SHEEBA BURNS ([id number])[facility] [place] (SWRLAB)[address] [place] [address] MCV (RBC) [Entitic vol] 91.5 fL Normal 77.0-99.0 [facility] Comment on above: Performed By: #### L [id number] ####Gynecologist: SHEEBA BURNS ([id number])[facility] [place] (SWRLAB)[address] [place] [address] [place] Monocytes (Bld) [#/Vol] 0.5 10*3/uL Normal 0.0-0.9 [facility] Comment on above: Performed By: #### L [id number] ####Gynecologist: SHEEBA BURNS ([id number])[facility] [place] (SWRLAB)[address] [place] [address] [place] Monocytes/100 WBC (Bld) 8.3 % Normal 5.0-13.[address] [facility] Comment on above: Performed By: #### L [id number] ####Gynecologist: SHEEBA BURNS ([id number])[facility] [place] (SWRLAB)[address] [place] [address] NEUTROPHILS ABSOLUTE 3.4 10*3/uL Normal 1.8-7.5 [facility] Comment on above: Performed By: #### L [id number] ####Gynecologist: SHEEBA BURNS ([id number])[facility] [place] (SWRLAB)[address] [place] [address] Neutrophils/100 WBC (Bld) 59.4 % Normal 38.0-82.[address] [facility] Comment on above: Performed By: #### L [id number] ####Gynecologist: SHEEBA BURNS ([id number])[facility] [place] (SWRLAB)[address] [place] [address] NRBC 0.0 /100 WBCs Normal 0.0-2.0 [facility] Comment on above: Performed By: #### L [id number] ####Gynecologist: SHEEBA BURNS ([id number])[facility] [place] (SWRLAB)[address] [place] [address] Platelet mean volume (Bld) [Entitic vol] 9.3 fL Normal 9.0-12.[address] [facility] Comment on above: Result Comment: MPV is a calculated measurement using platelet volume ratio Performed By: #### L [id number] ####Gynecologist: SHEEBA BURNS ([id number])[facility] [place] (SWRLAB)[address] [place] [address] Platelets (Bld) [#/Vol] 200 10*3/uL Normal 140-[address] [facility] Comment on above: Performed By: #### L [id number] ####Gynecologist: SHEEBA BURNS ([id number])[facility] [place] (SWRLAB)[address] [place] [address] RBC (Bld) [#/Vol] 4.83 10*6/uL Normal 4.40-5.[address] [facility] Comment on above: Performed By: #### L [id number] ####Gynecologist: SHEEBA BURNS ([id number])[facility] [place] (SWRLAB)[address] [place] [address] WBC (Bld) [#/Vol] 5.7 10*3/uL Normal 3.6-10.[address] [facility] Comment on above: Performed By: #### L [id number] ####Gynecologist: SHEEBA BURNS ([id number])[facility] [place] (SWRLAB)[address] [place] [address] COMPREHENSIVE METABOLIC PANE Inderjit 07-10-2023 Albumin [Mass/Vol] 4.0 g/dL Normal 3.5-5.[address] [facility] Comment on above: Performed By: #### Dread AB17, [id number] ####Gynecologist: SHEEBA BURNS ([id number])[facility] [place] (SWRLAB)[address] [place] [address] ALP [Catalytic activity/Vol] 38 U/L Normal 38-[address] [facility] Comment on above: Performed By: #### L AB17, [id number] ####Gynecologist: SHEEBA BURNS ([id number])[facility] [place] (SWRLAB)[address] [place] [address] ALT [Catalytic activity/Vol] 22 U/L Normal 0-49 [facility] Comment on above: Performed By: #### L AB17, [id number] ####Gynecologist: SHEEBA BURNS ([id number])[facility] [place] (SWRLAB)[address] [place] [address] Anion gap [Moles/Vol] 7 mmol/L Normal 3-13 [facility] Comment on above: Performed By: #### L AB17, [id number] ####Gynecologist: SHEEBA BURNS ([id number])[facility] [place] (SWRLAB)[address] [place] [address] [place] AST [Catalytic activity/Vol] 29 U/L Normal 15-[address] [facility] Comment on above: Performed By: #### Dread AB17, [id number] ####Gynecologist: SHEEBA BURNS ([id number])[facility] [place] (SWRLAB)[address] [place] [address] [place] Bilirubin [Mass/Vol] 0.4 mg/dL Normal 0.2-1.3 [facility] Comment on above: Performed By: #### Dread TOMLINSON, [id number] ####Gynecologist: SHEEBA BURNS ([id number])[facility] [place] (SWRLAB)[address] [place] [address] [place] Calcium [Mass/Vol] 9.1 mg/dL Normal 8.4-10.[address] [facility] Comment on above: Performed By: #### Dread TOMLINSON, [id number] ####Gynecologist: SHEEBA BURNS ([id number])[facility] [place]WS RITTMAN (SWRLAB)[address] [place] [address] [place] Chloride [Moles/Vol] 105 mmol/L Normal 98-107 [facility] Comment on above: Performed By: #### Dread AB17, [id number] ####Gynecologist: SHEEBA BURNS ([id number])[facility] [place] (SWRLAB)[address] [place] [address] [place] CO2 [Moles/Vol] 22 mmol/L Normal 22-30 [facility] Comment on above: Performed By: #### L AB17, [id number] ####Gynecologist: SHEEBA BURNS ([id number])[facility] [place] (SWRLAB)[address] [place] [address] [place] Creatinine [Mass/Vol] 0.88 mg/dL Normal 0.66-1.[address] [facility] Comment on above: Performed By: #### L AB17, [id number] ####Gynecologist: SHEEBA BURNS ([id number])[facility] [place] (SWRLAB)[address] [place] [address] [place] GLOMERULAR FILTRATION RATE ML/MIN/1.73 SQ M.PREDICTED >90.0 Normal >60.[address] [facility] Comment on above: Result Comment: Calc ulation based on the Chronic Kidney Disease Epidemiology Collaboration (CKD-EPI) equation refit without adjustment for race Performed By: #### Dread TOMLINSON, [id number] ####Gynecologist: SHEEBA BURNS ([id number])[facility]ITALA REID RITTMAN (SWRLAB)[address] [place] [address] [place] Glucose [Mass/Vol] 98 mg/dL Normal 70-[address] [facility] Comment on above: Performed By: #### Dread TOMLINSON, [id number] ####Gynecologist: SHEEBA BURNS ([id number])[facility] (SWRLAB)[address] [place] [address] [place] Potassium [Moles/Vol] 4.0 mmol/L Normal 3.5-5.[address] [facility] Comment on above: Performed By: #### Dread TOMLINSON, [id number] ####Gynecologist: SHEEBA BURNS ([id number])[facility] BENTLEYREID RITTMAN (SWRLAB)[address] [place] [address] [place] Protein [Mass/Vol] 7.0 g/dL Normal 6.3-8.[address] [facility] Comment on above: Performed By: #### Dread LEON17, [id number] ####Gynecologist: SHEEBA BURNS ([id number])[facility] [place] RITTM[place] (SWRLAB)[address] [place] [address] [place] Sodium [Moles/Vol] 134 mmol/L Low 135-[address] [facility] Comment on above: Performed By: #### Dread TOMLINSON, [id number] ####Gynecologist: SHEEBA BURNS ([id number])[facility] RE[place] (SWRLAB)[address] Urea nitrogen [Mass/Vol] 16 mg/dL Normal 9-[address] [facility] Comment on above: Performed By: #### L AB17, [id number] ####Gynecologist: SHEEBA BURNS ([id number])[facility] JESSICA (SWRLAB)[address] HEAD NECK ANGIO W AND WO IV CONTRASTon 07-10-2023 CT HEAD NECK ANGIO W AND WO IV CONTRAST Patient Name: [facility]PH[facility]IPA [facility] 1985 [id number] Exam Date/Time: 07/10/2023 13:28 Procedure: CT HEAD NECK ANGIO W AND WO IV CONTRAST Ordering Provider: BAEZ NISHIT Reason For Exam: Diplopia CEREBRAL PERFUSION AND CT ANGIOGRAPHY HEAD AND NECK: Indication: Stroke protocol. 37-year-old male. Neck pain. Scan Parameters: CTA head and neck: Multiple axial CT images were obtained of the head and neck after administration of IV contrast with coronal and sagittal reconstructs. The CT angiographic studies of the extracranial vessels were post processed with MIP imaging. Measurement of carotid stenosis is a ratio based on conventional angiographic data from the NASCET trials with the smallest caliber of the internal carotid as the numerator and normal post-stenotic internal carotid caliber as denominator. Dose reduction was employed with automated exposure control. Contrast: 75 mL of Isovue-370 IV contrast Comparison: CT head noncontrast same day Findings: Aortic arch: The aortic arch demonstrates normal caliber. Normal three-vessel takeoff at the aortic arch. Right carotid: No significant atherosclerotic disease. The right internal carotid artery demonstrates minimal stenosis near the origin in the range of less than 30 percent. Patent flow extends into the intracranial circulation. Left carotid: No significant atherosclerotic disease. The left internal carotid artery demonstrates minimal stenosis near the origin in the range of less than 30 percent. Patent flow extends into the intracranial circulation. Vertebral arteries: There is patent antegrade flow noted within the vertebral arteries. Intracranial arteries: Patent flow is identified throughout the anterior, middle and posterior cerebral arteries. No vascular malformation or aneurysm above 3 mm in caliber is identified. The regions of the anterior and posterior communicating arteries are unremarkable. Neck: There is no evidence for cystic or solid mass within the deep or superficial spaces of the neck. The salivary glands and thyroid are unremarkable. There is no evidence for lymphadenopathy. The airway structures demonstrate no abnormality. Lung apices: There is thickening of the interstitium of the lung apices. Osseous structures: The osseous structures are unremarkable. IMPRESSION: No acute large vessel vascular occlusion. Report Dictated on Electronically Signed By: Jessica Cyr MD Electronically Signed Date/Time: 07/10/2023 1:54 PM EDT presents to the ED with c/o 10/10 neck pain since last night worsening since waking up. Pt states he took (2) 650 mg tylenol, 600 mgm Ibuprofen, and 10 mg flexeril with no relief. Pt states he has issues with his neck but never experienced pain like this. [facility] CT HEAD WO IV CONTRASTon CT HEAD WO IV CONTRAST Patient Name: STEPHAN [facility]AMARRIPA [facility] 1985 [id number] Exam Date/Time: 07/10/2023 13:27 Procedure: CT HEAD WO IV CONTRAST Ordering Provider: BAEZ NISHIT Reason For Exam: dizziness CT HEAD: Clinical Indication: 37-year-old male; dizziness; RIGHT neck pain present since this morning Imaging Technique: Multiple axial 3mm CT images of the head were obtained from the skull base to the vertex. Coronal and sagittal reconstructs were rendered. Dose reduction was employed with automated exposure control. Comparison: none FINDINGS: There is no intracranial hemorrhage. There is no extra-axial subdural hematoma. The brain parenchyma and ventricular morphology are within normal limits. The calvarium is intact. There is mucosal wall thickening involving the left maxillary sinus. The mastoid sinuses are pneumatized. IMPRESSION: No acute intracranial process. CTR: I notified Dr. Baez via SECURE CHAT around 1:39pm with immediate confirmed receipt. ASPECTS: 10 Report Dictated on Electronically Signed By: Jessica Cyr MD Electronically Signed Date/Time: 07/10/2023 1:48 PM EDT PT presents to the ED with c/o 10/10 neck pain since last night worsening since waking up. Pt states he took (2) 650 mg tylenol, 600 mgm Ibuprofen, and 10 mg flexeril with no relief. Pt states he has issues with his neck but never experienced pain like this. Normal [facility] CT Head WO contraston 2023 No acute intracrania l process. CTR: I notified Dr. Baez via SECURE CHAT around 1:39pm with immediate confirmed receipt. ASPECTS: 10 Report Dictated on Electronically Signed By: Jessica Cyr MD Electronically Signed Date/Time: 07/10/2023 1:48 PM EDT [facility] Patient Name: STEPHAN VILLATORO : 1985 Exam Date/Time: 07/10/2023 13:27 Procedure: CT HEAD WO IV CONTRAST Ordering Provider: BAEZ NISHIT Reason For Exam: dizziness CT HEAD: Clinical Indication: 37-year-old male; dizziness; RIGHT neck pain present since this morning Imaging Technique: Multiple axial 3mm CT images of the head were obtained from the skull base to the vertex. Coronal and sagittal reconstructs were rendered. Dose reduction was employed with automated exposure control. Comparison: none FINDINGS: There is no intracranial hemorrhage. There is no extra-axial subdural hematoma. The brain parenchyma and ventricular morphology are within normal limits. The calvarium is intact. There is mucosal wall thickening involving the left maxillary sinus. The mastoid sinuses are pneumatized. [facility] Jessica Cyr MD - 07/10/2023 Patient Name: STEPHAN ZAMARRIPA : 1985 Exam Date/Time: 07/10/2023 13:27 Procedure: CT HEAD WO IV CONTRAST Ordering Provider: BAEZ NISHIT Reason For Exam: dizziness CT HEAD: Clinical Indication: 37-year-old male; dizziness; RIGHT neck pain present since this morning Imaging Technique: Multiple axial 3mm CT images of the head were obtained from the skull base to the vertex. Coronal and sagittal reconstructs were rendered. Dose reduction was employed with automated exposure control. Comparison: none FINDINGS: There is no intracranial hemorrhage. There is no extra-axial subdural hematoma. The brain parenchyma and ventricular morphology are within normal limits. The calvarium is intact. There is mucosal wall thickening involving the left maxillary sinus. The mastoid sinuses are pneumatized. IMPRESSION: No acute intracranial process. CTR: I notified Dr. Baez via SECURE CHAT around 1:39pm with immediate confirmed receipt. ASPECTS: 10 Report Dictated on Electronically Signed By: Jessica Cyr MD Electronically Signed Date/Time: 07/10/2023 1:48 PM EDT [employer] Radiology Study observation (narrative) [employer] CT Head WO contrastOrdered B y: Jessica Cyr on 07-10-2023 [employer] Work Phone: CTA Head vessels and Neck ve ssels WO and W contrast Theodore 07-10-2023 No acute large vesse l vascular occlusion. Report Dictated on Electronically Signed By: Jessica Cyr MD Electronically Signed Date/Time: 07/10/2023 1:54 PM EDT [facility] Patient Name: STEPHAN [facility]ILLATORO [facility] 1985 [id number] Exam Date/Time: 07/10/2023 13:28 Procedure: CT HEAD NECK ANGIO W AND WO IV CONTRAST Ordering Provider: BAEZ NISHIT Reason For Exam: Diplopia CEREBRAL PERFUSION AND CT ANGIOGRAPHY HEAD AND NECK: Indication: Stroke protocol. 37-year-old male. Neck pain. Scan Parameters: CTA head and neck: Multiple axial CT images were obtained of the head and neck after administration of IV contrast with coronal and sagittal reconstructs. The CT angiographic studies of the extracranial vessels were post processed with MIP imaging. Measurement of carotid stenosis is a ratio based on conventional angiographic data from the NASCET trials with the smallest caliber of the internal carotid as the numerator and normal post-stenotic internal carotid caliber as denominator. Dose reduction was employed with automated exposure control. Contrast: 75 mL of Isovue-370 IV contrast Comparison: CT head noncontrast same day Findings: Aortic arch: The aortic arch demonstrates normal caliber. Normal three-vessel takeoff at the aortic arch. Right carotid: No significant atherosclerotic disease. The right internal carotid artery demonstrates minimal stenosis near the origin in the range of less than 30 percent. Patent flow extends into the intracranial circulation. Left carotid: No significant atherosclerotic disease. The left internal carotid artery demonstrates minimal stenosis near the origin in the range of less than 30 percent. Patent flow extends into the intracranial circulation. Vertebral arteries: There is patent antegrade flow noted within the vertebral arteries. Intracranial arteries: Patent flow is identified throughout the anterior, middle and posterior cerebral arteries. No vascular malformation or aneurysm above 3 mm in caliber is identified. The regions of the anterior and posterior communicating arteries are unremarkable. Neck: There is no evidence for cystic or solid mass within the deep or superficial spaces of the neck. The salivary glands and thyroid are unremarkable. There is no evidence for lymphadenopathy. The airway structures demonstrate no abnormality. Lung apices: There is thickening of the interstitium of the lung apices. Osseous structures: The osseous structures are unremarkable. [facility] Jessica Cyr MD - 07/10/2023 Patient Name: STEPHAN [facility]AMARRIPA [facility] 1985 [id number] Exam Date/Time: 07/10/2023 13:28 Procedure: CT HEAD NECK ANGIO W AND WO IV CONTRAST Ordering Provider: BAEZ NISHIT Reason For Exam: Diplopia CEREBRAL PERFUSION AND CT ANGIOGRAPHY HEAD AND NECK: Indication: Stroke protocol. 37-year-old male. Neck pain. Scan Parameters: CTA head and neck: Multiple axial CT images were obtained of the head and neck after administration of IV contrast with coronal and sagittal reconstructs. The CT angiographic studies of the extracranial vessels were post processed with MIP imaging. Measurement of carotid stenosis is a ratio based on conventional angiographic data from the NASCET trials with the smallest caliber of the internal carotid as the numerator and normal post-stenotic internal carotid caliber as denominator. Dose reduction was employed with automated exposure control. Contrast: 75 mL of Isovue-370 IV contrast Comparison: CT head noncontrast same day Findings: Aortic arch: The aortic arch demonstrates normal caliber. Normal three-vessel takeoff at the aortic arch. Right carotid: No significant atherosclerotic disease. The right internal carotid artery demonstrates minimal stenosis near the origin in the range of less than 30 percent. Patent flow extends into the intracranial circulation. Left carotid: No significant atherosclerotic disease. The left internal carotid artery demonstrates minimal stenosis near the origin in the range of less than 30 percent. Patent flow extends into the intracranial circulation. Vertebral arteries: There is patent antegrade flow noted within the vertebral arteries. Intracranial arteries: Patent flow is identified throughout the anterior, middle and posterior cerebral arteries. No vascular malformation or aneurysm above 3 mm in caliber is identified. The regions of the anterior and posterior communicating arteries are unremarkable. Neck: There is no evidence for cystic or solid mass within the deep or superficial spaces of the neck. The salivary glands and thyroid are unremarkable. There is no evidence for lymphadenopathy. The airway structures demonstrate no abnormality. Lung apices: There is thickening of the interstitium of the lung apices. Osseous structures: The osseous structures are unremarkable. IMPRESSION: No acute large vessel vascular occlusion. Report Dictated on Electronically Signed By: Jessica Cyr MD Electronically Signed Date/Time: 07/10/2023 1:54 PM EDT [facility] Radiology Study observation (narrative) [facility] Comprehensive metabolic 1998 panelon 07-10-2023 Albumin [Mass/Vol] 4.0 g/dL 3.5 - 5.0 g/dL [facility] ALP [Catalytic activity/Vol] 38 U/L 38 - 126 U/L [facility] ALT [Catalytic activity/Vol] 22 U/L 0 - 49 U/L [facility] Anion gap [Moles/Vol] 7 mmol/L 3 - 13 mmol/L [facility] AST [Catalytic activity/Vol] 29 U/L 15 - 46 U/L [facility] Bilirubin [Mass/Vol] 0.4 mg/dL 0.2 - 1.3 mg/dL [facility] Calcium [Mass/Vol] 9.1 mg/dL 8.4 - 10. 4 mg/dL [facility] Chloride [Moles/Vol] 105 mmol/L 98 - 107 mmol/L [facility] CO2 [Moles/Vol] 22 mmol/L 22 - 30 mmol/L [facility] Creatinine [Mass/Vol] 0.88 mg/dL 0.66 - 1.25 mg/dL [facility] GFR/1.73 sq M.predicted MDRD (S/P/Bld) [Vol rate/Area] - PINF [facility] Comment on above: Calculation based on the Chronic Kidney Disease Epidemiology Collaboration (CKD-EPI) equation refit without adjustment for race Glucose [Mass/Vol] 98 mg/dL 70 - 100 mg/dL [facility] Interpretation and review of laboratory results Abnormal [facility] Potassium [Moles/Vol] 4.0 mmol/L 3.5 - 5.1 mmol/L [facility] Protein [Mass/Vol] 7.0 g/dL 6.3 - 8.2 g/dL [facility] Sodium [Moles/Vol] 134 mmol/L Low 135 - 145 mmol/L [facility] Urea nitrogen [Mass/Vol] 16 mg/dL 9 - 20 mg/dL [facility] ECG 12-LEADon 07-10-2023 ECG 12-LEAD IMPRESSION: Sinus rhythm IVCD, consider RBBB ST elev, probable normal early repol pattern Electronically Signed On 07-10-2023 22:48:21 EDT by Clari Venegas Normal [facility] ECG 12-LEAD IMPRESSION: Sinus rhythm Nonspecific intraventricular conduction delay ST elev, probable normal early repol pattern Electronically Signed On 07-10-2023 14:49:36 EDT by Iraj Baez [facility] ED Nursing Noteon 07-10-2023 ED Nursing Note Transfer consent signed. [facility] Chart to them for Tiffanie ELISEU. Report called to [facility] ANGELA Cruz RN 07/10/23 1714 [facility] ED Nursing Note Phoned [facility] for transport after 15 minute wait. ETA [id number] Yasmin Aguirre RN 07/10/23 1633 [facility] ED Nursing Note Pt presents to the E D with c/o 10/10 neck pain since last night worsening since waking up. Pt states he took (2) 650 mg tylenol, 600 mgm Ibuprofen, and 10 mg flexeril with no relief. Pt states he has issues with his neck but never experienced pain like this. Normal [facility] ED Provider Noteon ED Provider Note EMERGENCY DEPARTMENT ENCOUNTER Pt Name: Stephan Zamarripa Birthdate 1985 Date of evaluation: 07/10/2023 CHIEF COMPLAINT Chief Complaint Patient presents with Neck Pain HISTORY OF PRESENT ILLNESS HPI Stephan Zamarripa is a 37 y.o. male who presents to the emergency department with neck pain, dizziness. He reports dizziness started when he woke up. Last normal date was July 09, 2023 last known well time was 2300 approximately 14 hours ago.. He has had neck pain chronically. Decreased rom of neck. Tried ibuprofen, flexeril. REVIEW OF SYSTEMS Review of Systems Patient Active Problem List Diagnosis Chronic pain of right knee Cigarette nicotine dependence without complication GERD without esophagitis Oral phase dysphagia Navarro's esophagus with dysplasia Dizziness Nausea and vomiting Neck strain, initial encounter Second degree burn of right forearm Pes planus of both feet CURRENT MEDICATIONS Previous Medications SUCRALFATE (CARAFATE) 1 GM/10ML SUSPENSION Take 1 g by mouth. TIZANIDINE (ZANAFLEX) 4 MG CAPSULE Take 1 capsule (4 mg) by mouth 3 times daily for 7 days. ALLERGIES Penicillins, [place] extract, and Tomato FAMILY HISTORY Family History Problem Relation Name Age of Onset Diabetes Mother Heart failure Mother Hypertension Mother Diabetes Father estranged No Known Problems Sister Other (vertigo) Sister No Known Problems Sister No Known Problems Sister No Known Problems Sister No Known Problems Sister No Known Problems Sister No Known Problems Sister No Known Problems Sister Cardiomyopathy Brother Other (ashberger) Son Diabetes Mother's Sister Cancer Mother's Sister No Known Problems Mother's Brother No Known Problems Maternal Grandmother Diabetes Maternal Grandfather SOCIAL HISTORY Social History Socioeconomic History Marital status: Single Number of children: 2 Tobacco Use Smoking status: Every Day Years: 23 Types: Cigarettes Smokeless tobacco: Never Vaping Use Vaping Use: Every day Substances: Nicotine, Flavoring Substance and Sexual Activity Alcohol use: Yes Comment: 8-9 beer a month Drug use: Not 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 Sexual activity: Yes Partners: Female Social History Narrative Lives with fiance and daughter, 4 yo. Works at [employer]- 2 months Social Determinants of Health Tobacco Use: High Risk (07/01/2023) Patient History Smoking Tobacco Use: Every Day Smokeless Tobacco Use: Never Passive Exposure: Not on file Alcohol Use: Not on file Financial Resource Strain: Not on file Food Insecurity: Not on file Transportation Needs: Not on file Physical Activity: Not on file Stress: Not on file Social Connections: Not on file Intimate Partner Violence: Not on file Depression: Not at risk (07/01/2023) PHQ-2 PHQ-2 Score: 0 Housing Stability: Not on file Utilities: Not on file PHYSICAL EXAM Vitals: 07/10/23 1246 07/10/23 1343 07/10/23 1512 07/10/23 1621 BP: (!) 134/96 119/82 (!) 143/89 115/84 BP Location: Right arm Right arm Left arm Left arm Patient Position: Sitting Sitting Lying Lying Pulse: 78 64 59 54 Resp: 16 14 14 14 Temp: 36.8 ?C (98.2 ?F) TempSrc: Oral SpO2: 100% 99% 100% Weight: 88 kg (194 lb) Height: 1.727 m (5' 8) Physical Exam Vitals and nursing note reviewed. Constitutional: Appearance: He is normal weight. He is not toxic-appearing. Eyes: Extraocular Movements: Extraocular movements intact. Pupils: Pupils are equal, round, and reactive to light. Neck: Musculoskeletal: Cervical back: Muscular tenderness present. Skin: General: Skin is warm. Coloration: Skin is not jaundiced. Neurological: Mental Status: He is alert and oriented to person, place, and time. Sensory: Sensation is intact. Motor: Motor function is intact. Coordination: Nekowl-Nifn-Xcjzat Test and Heel to Pelletier Test normal. Deep Tendon Reflexes: Reflexes are normal and symmetric. Comments: Nihss=0 Psychiatric: Mood and Affect: Mood is anxious. Affect is tearful. SCREENINGS NIH Stroke Scale 1A. Level of Consciousness: Alert, Keenly Responsive 1B. Ask Month and Age: Both Questions Right 1C. Blink Eyes & Squeeze Hands: Performs Both Tasks 2. Best Gaze: Normal 3. Visual: No Visual Loss 4. Facial Palsy: Normal Symmetrical Movements 5A. Motor - Left Arm: No Drift 5B. Motor - Right Arm: No Drift 6B. Motor - Right Leg: No Drift 7. Limb Ataxia: Absent 8. Sensory Loss: Normal 9. Best Language: No Aphasia 10. Dysarthria: Normal 11. Extinction and Inattention: No Abnormality Medical decision making Medical Decision Making Problems Addressed: Dizziness: complicated acute illness or injury Amount and/or Complexity of Data Reviewed Labs: ordered. Decision-making details documented in ED Course. Radiology: ordered. Decision-making details documented in ED Course. ECG/medicine test (more content not included)... Normal [facility] [employer] [facility] Laboratory - Chemistry and C hemistry - challengeon 07-10-2023 Troponin I.cardiac [Mass/Vol] ng/mL BANNER - 0.034 ng/mL [facility] Troponin I.cardiac [Mass/Vol] ng/mL BANNER - 0.034 ng/mL [facility] Laboratory - CoagulationOrde red By: Larissa Leon on 07-10-2023 aPTT Coag (PPP) [Time] 24.1 s 20.0 - 30.5 s [facility] INR Coag (PPP) [Relative time] Low 0.9 - 1.1 [facility] Comment on above: Recommended Anticoag ulant Therapy: SEE BELOW ----- INR of 2.0 - 3.0 : - Prophylaxis of Venous Thrombosis (high-risk surgery) - Treatment of Venous Thrombosis - Treatment of Pulmonary Embolism (Includes tissue heart valves, Acute Myocardial Infarction to prevent systemic embolism, Valvular Heart Disease, and Atrial Fibrillation) ----- INR of 2.5 - 3.5 : - Mechanical Prosthetic Valves (high risk) - If oral anticoagulant therapy is used to prevent Myocardial Infarction PT Coag (Bld) [Time] 9.9 s 9.0 - 12.0 s [facility] No Panel InformationOrdered By: Clari Venegas on 07-10-2023 P [place] 10 degrees [facility] Work Phone: CT Interval 187 ms [facility] Work Phone: QRS [place] 55 degrees [facility] [employer] Work Phone: QRSD Interval 126 ms [facility] [employer] Work Phone: QT Interval 397 ms [facility] Work Phone: QTC Interval 382 ms [facility] [employer] Work Phone: T Wave [place] 50 degrees [facility] [employer] Work Phone: [facility] Work Phone: No Panel Informationon 07-09 Sinus rhythm IVCD, consider RBBB ST elev, probable normal early repol pattern Electronically Signed On 07-10-2023 22:48:21 EDT by Clari Venegas Clari Ugalde MD - 07/10/2023 IMPRESSION: Sinus rhythm IVCD, consider RBBB ST elev, probable normal early repol pattern Electronically Signed On 07-10-2023 22:48:21 EDT by Clari Venegas [facility] Heart Rate 70 bpm [facility] P [place] 10 degrees [facility] CT Interval 161 ms [facility] QRS [place] -26 degrees [facility] QRSD Interval 127 ms [facility] Interval 388 ms [facility] QTC Interval 419 ms [facility] T Wave [place] 48 degrees [facility] Sinus rhythm Nonspecific intraventricular conduction delay ST elev, probable normal early repol pattern Electronically Signed On 07-10-2023 14:49:36 EDT by Iraj Rich MD - 07/10/2023 IMPRESSION: Sinus rhythm Nonspecific intraventricular conduction delay ST elev, probable normal early repol pattern Electronically Signed On 07-10-2023 14:49:36 EDT by Iraj Lópezhta [facility] No Panel InformationOrdered By: Larissa Leon on 07-10-2023 Interpretation and review of laboratory results Abnormal [facility] PROTIME AND APTTon aPTT Coag (Bld) [Time] 24.1 s Normal 20.0-30.[address] [facility] Comment on above: Performed By: #### L [id number] ####Gynecologist: SHEEBA BURNS ([id number])[facility] ([address] INR Coag (PPP) [Relative time] {INR} Low 0.9-1.[address] [facility] Comment on above: Result Comment: Juan Pablo mmended Anticoagulant Therapy: SEE BELOW ----- INR of 2.0 - 3.0 : - Prophylaxis of Venous Thrombosis (high-risk surgery) - Treatment of Venous Thrombosis - Treatment of Pulmonary Embolism (Includes tissue heart valves, Acute Myocardial Infarction to prevent systemic embolism, Valvular Heart Disease, and Atrial Fibrillation) ----- INR of 2.5 - 3.5 : - Mechanical Prosthetic Valves (high risk) - If oral anticoagulant therapy is used to prevent Myocardial Infarction Performed By: #### L [id number] ####Gynecologist: SHEEBA BURNS ([id number])[facility] VELASQUEZAN (SWRLAB)[address] [place] [address] PT Coag (PPP) [Time] 9.9 s Normal 9.0-12.0 [facility] Comment on above: Performed By: #### L [id number] ####Gynecologist: SHEEBA BURNS ([id number])[facility]ENTER[facility]ID[facility]JIT VELASQUEZAN (SWRLAB)[address] [place] [address] [place] TROPONIN Ion 07-10-2023 Troponin I.cardiac [Mass/Vol] ng/mL Normal <0.[address] [facility] Comment on above: Result Comment: CRISTINA Antunez COMMENTS: Patients with high levels of Biotin oral intake (ie >5 mg/day) may have falsely decreased Troponin levels. Performed By: #### L [id number] ####Gynecologist: LELO ORTA ([id number])[facility] (SBHLAB)[address] [place] [address] TROPONIN, WITH SERIAL REFLEX on 07-10-2023 Troponin I.cardiac [Mass/Vol] ng/mL Normal <0.[address] [facility] Comment on above: Result Comment: CRISTINA Antunez COMMENTS: Patients with high levels of Biotin oral intake (ie >5 mg/day) may have falsely decreased Troponin levels. Performed By: #### L [id number], [id number] ####Gynecologist: SHEEBA BURNS ([id number])[facility] REID VELASQUEZAN (SWRLAB)[address] [place] [address] [place] Troponin I.cardiac [Mass/Vol ]on 07-10-2023 Interpretation and review of laboratory results Normal [facility] Patients with high levels of Biotin oral intake (ie >5 mg/day) may have falsely decreased Troponin levels. [facility] Interpretation and review of laboratory results Normal [facility] Patients with high levels of Biotin oral intake (ie >5 mg/day) may have falsely decreased Troponin levels. [facility] Vital signsOrdered By: Clari Venegas on 07-10-2023 Heart rate 56 /min bpm [facility] Work Phone: Office Visiton 07-01-2023 Follow-up visit [id number] Ej Zamarripa 1985 M Date Provider Department Center 07/01/2023 [id number] CASTELLANOS [facility] Family History Problem Relation Age of Onset Diabetes Mother Heart failure Mother Hypertension Mother Diabetes Father Comments: estranged No Known Problems Sister Other Sister No Known Problems Sister No Known Problems Sister No Known Problems Sister No Known Problems Sister No Known Problems Sister No Known Problems Sister No Known Problems Sister Cardiomyopathy Brother Other Son Diabetes Mother's Sister Cancer Mother's Sister No Known Problems Mother's Brother No Known Problems Maternal Grandmother Diabetes Maternal Grandfather Family Status - Relation Status Age at Mother Alive Father Other Sister Alive Sister Alive Sister Alive Sister Alive Sister Alive Sister Alive Sister Alive Sister Alive Sister Alive Brother Brother Alive Daughter Alive Son Alive Mother's Sister Mother's Brother Alive Maternal Grandmother Maternal Grandfather Level of Service:62879 CT OFFICE/OUTPATIENT ESTABLISHED SF MDM 10 MIN Reason for Visit and Comments: ER Follow-up [831] - [facility] Ed 06/26/23 burn right arm Normal [facility] Progress Noteon 07-01-2023 Progress Note Healing well, contin ue bacitracin twice a day and watch for worsening signs Normal [facility] Progress Note encouraged patient t o get arch supports for his shoes to wear at all times, when he does buy new shoes he needs to make sure that he has good arch support in his shoes themselves. Normal [facility] Progress Note Patient verified by last name and date of . Normal [facility] Progress Note 07/01/2023 Stephan Zamarripa (: 1985) is a 37 y.o. male , Established patient, here for evaluation of the following chief complaint(s): ER Follow-[facility] ([facility] Ed 06/26/23 burn right arm ) ASSESSMENT/PLAN: 1. Partial thickness burn of right forearm, initial encounter Assessment & Plan: Healing well, continue bacitracin twice a day and watch for worsening signs 2. Pes planus of both feet Assessment & Plan: encouraged patient to get arch supports for his shoes to wear at all times, when he does buy new shoes he needs to make sure that he has good arch support in his shoes themselves. Follow up if symptoms worsen or fail to improve. SUBJECTIVE/OBJECTIVE: NEGRITA Magallanes comes in today for follow-up on a burn that he received on a grill about a week ago. Said has been putting back straits none and he was seen in the emergency room and is here for follow-up. He did have some green drainage but that has since resolved. He also is complaining of some pain across the arch of his foot and the dorsum he says he is flatfoot and he walks 9 miles to work every day, he is shoes that he has on do not look like they are very good for arch support. Review of Systems Musculoskeletal: Positive for gait problem. Negative for arthralgias and myalgias. Skin: Positive for wound. Neurological: Negative for weakness and numbness. Vitals: 07/01/23 0708 BP: 110/72 Pulse: 62 SpO2: 98% Weight: 192 lb 6.4 oz (87.3 kg) Height: 5' 9.5 (1.765 m) Physical Exam Vitals and nursing note reviewed. Constitutional: General: He is not in acute distress. Appearance: Normal appearance. Musculoskeletal: Comments: Feet with fallen arches, he has some tenderness across the dorsum of the medial aspect of the foot over the arch bilateral Skin: General: Skin is warm and dry. Comments: 2 small scabby lesions on his right forearm there is some mild erythema around them but nothing significant he has minimal tenderness to touch and no drainage. Neurological: Mental Status: He is alert. An electronic signature was used to authenticate this note. Yobany Castellanos MD 07/01/2023 7:[address] [facility] Progress Noteon 06-30-2023 Progress Note Chart reviewed of ED follow up Seen in [facility] ED on 06/26/23 Reason: Superficial burn of right forearm, initial encounter Discharge instructions: Follow up with PCP as needed I work with JUANCARLOS Armenta CNP's office. We received notice you were in the ED recently and wanted to ask some questions to see how you are doing. This should only take a few minutes. According to ER notes you were there for burn to forearm. Is that correct?Yes How are your symptoms now? better Slow healing. Still has a burning sensation. Has yellowish/greenish color. Using Bacitracin but doesn't seem to be helping much. Scheduled for follow up with Dr. Castellanos 07/01/23 at 7:15 a.m. Any questions about the instructions the emergency department gave you?No Have you picked up the medication prescribed by ED and taking as prescribed? yes Are there any other concerns I can help you with today?No Normal [facility] ED Nursing Noteon 06-26-2023 ED Nursing Note Pt presents to the E D with acute burn on the right forearm that happened while at work. Pt states he touched his arm the grill and states pain is 8/10. Pt states he does not want to file workercomp. Pt was able to walk back to the unit without any difficulty and call light is within reach Normal [facility] ED Provider Noteon ED Provider Note EMERGENCY DEPARTMENT ENCOUNTER Pt Name: Stephan Zamarripa Birthdate 1985 Date of evaluation: 06/26/2023 ED Provider: Saturnino Soto MD CHIEF COMPLAINT No chief complaint on file. HISTORY OF PRESENT ILLNESS (Location/Symptom, Timing/Onset, Context/Setting, Quality, Duration, Modifying Factors, Severity) Note limiting factors. I wore appropriate PPE for the entirety of this encounter. HPI Stephan Zamarripa is a 37 y.o. who presents to the emergency department with a superficial burn to the right forearm 3 days ago, he went to work today and they told him he could not work without a work note, has some pain in the forearm, no signs of infection, has been putting peroxide on it for the past 3 days Nursing Notes were reviewed. Limitations to history: None Outside historians: None REVIEW OF SYSTEMS Review of Systems Pertinent positives and negatives as per HPI PAST MEDICAL HISTORY Past Medical History: Diagnosis Date Drug abuse ([facility]) ([facility]) 03/19/2022 SURGICAL HISTORY No past surgical history on file. CURRENT MEDICATIONS Previous Medications ONDANSETRON (ZOFRAN) 4 MG TABLET Take by mouth every 8 hours as needed for nausea or vomiting. SUCRALFATE (CARAFATE) 1 GM/10ML SUSPENSION Take 1 g by mouth. TIZANIDINE (ZANAFLEX) 4 MG CAPSULE Take 1 capsule (4 mg) by mouth 3 times daily for 7 days. ALLERGIES Penicillins, [place] extract, and Tomato FAMILY HISTORY Family History Problem Relation Name Age of Onset Diabetes Mother Heart failure Mother Hypertension Mother Diabetes Father estranged No Known Problems Sister Other (vertigo) Sister No Known Problems Sister No Known Problems Sister No Known Problems Sister No Known Problems Sister No Known Problems Sister No Known Problems Sister No Known Problems Sister Cardiomyopathy Brother Other (ashberger) Son Diabetes Mother's Sister Cancer Mother's Sister No Known Problems Mother's Brother No Known Problems Maternal Grandmother Diabetes Maternal Grandfather SOCIAL HISTORY Social History Socioeconomic History Marital status: Single Number of children: 2 Tobacco Use Smoking status: Every Day Years: 23 Types: Cigarettes Smokeless tobacco: Never Vaping Use Vaping Use: Every day Substances: Nicotine, Flavoring Substance and Sexual Activity Alcohol use: Yes Comment: 8-9 beer a month Drug use: Not 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 Sexual activity: Yes Partners: Female Social History Narrative Lives with bart and daughter, 4 yo. Works at [employer]- 2 months PHYSICAL EXAM ED Triage Vitals Temp Pulse Resp BP -- -- -- -- SpO2 Temp src Heart Rate Source Patient Position -- -- -- -- BP Location FiO2 (%) -- -- Physical Exam Wound appears to be in normal healing stages but it is dried out from the peroxide, no surrounding erythema or warmth, no purulent drainage DIAGNOSTIC RESULTS RADIOLOGY (Per Emergency Physician): Interpretation per the Radiologist below, if available at the time of this note: No orders to display LABS: Labs Reviewed - No data to display All other labs were within normal range or not returned as of this dictation. EMERGENCY DEPARTMENT COURSE and DIFFERENTIAL DIAGNOSIS/MDM: Vitals: There were no vitals filed for this visit. Medications bacitracin ointment (has no administration in time range) SCREENINGS MDM elements: The patient presented with chief complaint of with a first-degree burn to the right forearm 3 days ago on a grill, no signs of infection at this time, told him to stop the peroxide, gave him bacitracin, okay to return to work tomorrow. The differential diagnosis associated with this patient's presentation includes first-degree burn, infection. Our workup consisted of ordering/reviewing: No need for imaging or labs, given bacitracin, discharged with follow-up as needed. The patient will be Discharged. Patient is in agreement with this plan. PROCEDURES: Unless otherwise noted below, none Procedures CRITICAL CARE TIME None FINAL IMPRESSION 1. Superficial burn of right forearm, initial encounter DISPOSITION Discharge 06/26/2023 03:54:03 PM PATIENT REFERRED TO: Yobany Castellanos MD [address] [place] [address], [address] [facility] [phone] As needed DISCHARGE MEDICATIONS: New Prescriptions No medications on file (Comment: Please note this report has been produced using speech recognition software and may contain errors related to that system including errors in grammar, punctuation, and spelling, as well as words and phrases that may be inappropriate. If there are any questions or concerns please feel free to contact the dictating provider for clarification.) Saturnino Soto MD (electronically signed) Emergency Medicine Provider Saturnino Soto MD 06/26/23 1555 [facility] XR HAND AND WRIST 6 VIEWS [facility] 05-07-2023 XR HAND AND WRIST 6 VIEWS RIGHT ORIGINAL EXAMINATION: 6XRAY VIEWS OF THE RIGHT HAND AND WRIST 05/07/2023 12:38 am COMPARISON: None. HISTORY: ORDERING SYSTEM PROVIDED HISTORY: Reason for Exam: pain, injury FINDINGS: No acute fracture or dislocation. The joint spaces are maintained. No acute abnormality visualized at the 3rd MCP joint. There is mild soft tissue swelling of the dorsal hand. No radiopaque foreign body. IMPRESSION: Mild soft tissue swelling of the dorsal hand. No acute osseous abnormality. I have personally reviewed the images of this examination, and agree with the resident's findings and interpretation. Interpreted by: Bari Rodriguez MD Preliminary Report By: Ciera Yoon Electronically signed By Bari Rodriguez MD Dictated Date: 05/07/2023 12:40:51 AM Prelim Date: 05/07/2023 12:45:28 AM Sign Date: 05/07/2023 12:48:52 AM Ordering Provider: RAYNE EDGAR [facility] ([place]) 36on 03-13-2023 36 Noted. Agree with disposition. [facility] 36 S: Patient spoke wit h CAC nurse regarding neck pain. B: Onset of symptoms/concern 2 days. A: Patient reports trying to put on hoodie two days ago, heard pop in back of neck. Reports back of neck is swollen, cannot turn his head, cannot touch chin to chest, severe headache. Denies chest pain, difficulty breathing/swallowing, fever, chills,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 SYSTEM on 02-03-2022 GFR 107 ml/min/1.73sqm Invalid Interpretation Code AO Chemistry S GFR Non- 88 ml/min/1.73sqm Invalid Interpretation Code AO Chemistry S EGD - THERAPEUTIC, EUS, OR T UBE INTERVENTIONSon 06-18-2021 [facility] LABORATORYOrdered By: Martha Do on 05-08-2021 Basophil, Absolute 0.00 103/mcL Invalid Interpretation Code 0.00 - 0.19 10^3/mcL AO Auto Heme SS Basophils/100 WBC (Bld) 0.9 % Invalid Interpretation Code 0.0 - 2.5 % AO Auto Heme SS Eosinophil, Absolute 0.20 103/mcL Invalid Interpretation Code 0.00 - 0.40 10^3/mcL AO Auto Heme SS Eosinophils/100 WBC (Bld) 3.1 % Invalid Interpretation Code 0.0 - 7.0 % AO Auto Heme SS Erythrocyte distribution width (RBC) [Ratio] 13.2 % Invalid Interpretation Code 11.5 - 14.5 % AO Auto Heme SS Hematocrit (Bld) [Volume fraction] 48.3 % Invalid Interpretation Code 42.0 - 52.0 % AO Auto Heme SS Hemoglobin (Bld) [Mass/Vol] 16.7 G/dL Invalid Interpretation Code 14.0 - 18.0 G/dL AO Auto Heme SS Lymphocyte, Absolute 1.90 103/mcL Invalid Interpretation Code 0.77 - 3.85 10^3/mcL AO Auto Heme SS Lymphocytes/100 WBC (Bld) 35.2 % Invalid Interpretation Code 10.0 - 50.0 % AO Auto Heme SS MCH (RBC) [Entitic mass] 31.7 pg Invalid Interpretation Code 27.0 - 31.2 pg AO Auto Heme SS MCHC (RBC) [Mass/Vol] 34.5 G/dL Invalid Interpretation Code 31.8 - 35.4 G/dL AO Auto Heme SS MCV (RBC) [Entitic vol] 91.8 fL Invalid Interpretation Code 80.0 - 94.0 fL AO Auto Heme SS Monocyte, Absolute 0.70 103/mcL Invalid Interpretation Code 0.15 - 1.00 10^3/mcL AO Auto Heme SS Monocytes/100 WBC (Bld) 12.7 % Invalid Interpretation Code 1.7 - 13.0 % AO Auto Heme SS Neutrophil, Absolute 2.60 103/mcL Invalid Interpretation Code 2.85 - 6.16 10^3/mcL AO Auto Heme SS Neutrophils/100 WBC (Bld) 48.1 % Invalid Interpretation Code 37.0 - 80.0 % AO Auto Heme SS Platelet mean volume (Bld) [Entitic vol] 7.8 fL Invalid Interpretation Code 7.4 - 10.4 fL AO Auto Heme SS Platelets (Bld) [#/Vol] 180 103/mcL Invalid Interpretation Code 130 - 400 10^3/mcL AO Auto Heme SS RBC (Bld) [#/Vol] 5.26 106/mcL Invalid Interpretation Code 4.04 - 6.13 10^6/mcL AO Auto Heme SS WBC (Bld) [#/Vol] 5.40 103/mcL Invalid Interpretation Code 4.60 - 10.80 10^3/mcL AO Auto Heme SS COVID-19, Flu A/B, and RSV C omboon 05-07-2021 Influenza A by PCR Not detected SUMM A Influenza B by PCR Not detected SUMM A RSV PCR Not Detected. Expected Result: Not Detected _ Method: Real-time, RT-PCR This assay was developed by [employer] and distributed under an Emergency Use Authorization (EUA) granted by the FDA for the qualitative detection of nucleic acids from SARS-CoV-2, Influenza A, Influenza B, and Respiratory Syncytial Virus. Provider and patient fact sheets can be found at https://www.fda.gov/al javier/944069/download and https://www.fda.gov/al javier/872891/download. [facility] SARS-CoV-2 (COVID-19) RNA RAIZA+probe Ql (Unsp spec) Not detected [facility] Test Performed by [facility], [address] [place] [address]. [address] LAB [facility] CR Chest Portableon 05-08-19 22 CR Chest Portable Patient Name: STEPHAN VILLATORO Diagnostic Radiology ACCESSION EXAM DATE/TIME PROCEDURE ORDERING PROVIDER [id number] 05/07/2021 17:56 EST CR Chest Portable [id number] -[place] CPT code 17611 Reason For Exam (CR Chest Portable) cough Report Portable upright AP view of the chest, 05/07/2021. Reason for examination: Cough. COMPARISON: None available. FINDINGS: Cardiac size is within normal limits. Pulmonary vasculature is mildly prominent. There are mild perihilar infiltrates with mild reticulonodular interstitial prominence No pleural effusion or pneumothorax is identified. IMPRESSION: Mild pulmonary venous congestion and mild perihilar infiltrates. Report Dictated on Final Dictating Physician: MD SARAVIA JOE M Signed Date and Time: 05/07/2021 6:07 pm Signed by: MD SARAVIA JOE M Transcribed Date and Time: 05/07/2021 6:08 Normal [facility] SARS-CoV-2, Flu A/B and RSVo n 05-07-2021 SARS-CoV-2 (COVID-19) RNA RAIZA+probe Ql (Unsp spec) SARS-CoV-2 --> Status: F Not Detected. Flu A PCR --> Status: F Not Detected. Flu B PCR --> Status: F Not Detected. RSV PCR --> Status: F Not Detected. Expected Result: Not Detected _ Method: Real-time, RT-PCR This assay was developed by [employer] and distributed under an Emergency Use Authorization (EUA) granted by the FDA for the qualitative detection of nucleic acids from SARS-CoV-2, Influenza A, Influenza B, and Respiratory Syncytial Virus. Provider and patient fact sheets can be found at https://www.fda.gov/me javier/635284/download and https://www.fda.gov/al javier/714758/download. Expected Result: Not Detected _ Method: Real-time, RT-PCR This assay was developed by [employer] and distributed under an Emergency Use Authorization (EUA) granted by the FDA for the qualitative detection of nucleic acids from SARS-CoV-2, Influenza A, Influenza B, and Respiratory Syncytial Virus. Provider and patient fact sheets can be found at https://www.fda.gov/al javier/228928/download and https://www.fda.gov/al javier/061899/download. [facility] Comment on above: Performed By: #### C VF #### [facility] [address] [place] [address] , [id number] XR CHEST PORTABLEon 05-08-19 Patient Name: STEPHAN VILLATORO Diagnostic Radiology ACCESSION EXAM DATE/TIME PROCEDURE ORDERING PROVIDER [id number] 05/07/2021 17:56 EST CR Chest Portable [id number] -[place], LOW CPT code 74436 Reason For Exam (CR Chest Portable) cough Report Portable upright AP view of the chest, 05/07/2021. Reason for examination: Cough. COMPARISON: None available. FINDINGS: Cardiac size is within normal limits. Pulmonary vasculature is mildly prominent. There are mild perihilar infiltrates with mild reticulonodular interstitial prominence No pleural effusion or pneumothorax is identified. IMPRESSION: Mild pulmonary venous congestion and mild perihilar infiltrates. Report Dictated on --- Final --- Dictating Physician: MD SARAVIA JOE M Signed Date and Time: 05/07/2021 6:07 pm Signed by: MD SARAVIA JOE M Transcribed Date and Time: 05/07/2021 6:08 [facility] Johnny Saravia MD - 05/07/2021 Patient Name: STEPHAN ZAMARRIPA Diagnostic Radiology ACCESSION EXAM DATE/TIME PROCEDURE ORDERING PROVIDER [id number] 05/07/2021 17:56 EST CR Chest Portable [id number] -[place], LOW CPT code 17912 Reason For Exam (CR Chest Portable) cough Report Portable upright AP view of the chest, 05/07/2021. Reason for examination: Cough. COMPARISON: None available. FINDINGS: Cardiac size is within normal limits. Pulmonary vasculature is mildly prominent. There are mild perihilar infiltrates with mild reticulonodular interstitial prominence No pleural effusion or pneumothorax is identified. IMPRESSION: Mild pulmonary venous congestion and mild perihilar infiltrates. Report Dictated on --- Final --- Dictating Physician: MD SARAVIA JOE M Signed Date and Time: 05/07/2021 6:07 pm Signed by: MD SARAVIA JOE M Transcribed Date and Time: 05/07/2021 6:08 [employer] Work Phone: Radiology Study observation (narrative) [employer] Work Phone: XR CHEST PORTABLEOrdered By: Johnny Saravia on 05-07-2021 [employer] Work Phone: CNPNon 04-04-2021 CNPN Telephone (FPDOYL) STEPHAN ZAMARRIPA ([id number]) 1985 M Date Time Provider Department 04/04/21 EBONIE COLEMAN During your visit today, we recorded the following information about you: Janae James LPN 04/04/2021 1:43 PM Signed ----- Message from Ebonie Coleman DO sent at 04/04/2021 12:56 PM EST ----- Hiv neg Janae James LPN 04/04/2021 1:44 PM Signed Patient advised Allergies As of Date: 04/04/2021 Noted Allergy Reaction PENICILLINS 10/09/2016 4 - Hives Comments: Other reaction(s): AOF STRAWBERRY 07/05/2016 2 - Rash Comments: Other reaction(s): RASH TOMATO 07/05/2016 7 - Swelling Comments: Other reaction(s): AOF Date Reviewed: 04/03/2021 Reviewed by: Jennifer Finch PA-C - Fully Assessed Reason for Visit: Results [95] Prescriptions as of 04/04/2021 - sucralfate (CARAFATE) 1 gram tablet Take 1 tablet by mouth four times daily. Dissolve in one tablespoon of water - lansoprazole (PREVACID) 30 mg capsule Take 1 capsule by mouth once daily. Problem List As Of Date 04/04/2021 Noted Resolved Cigarette nicotine dependence without complicat*03/30/2021 Oral phase dysphagia [R13.11] 03/30/2021 Encounter for immunization [Z23] 03/30/2021 GERD without esophagitis [K21.9] 03/30/2021 Special screening examination for viral disease*03/30/2021 Chronic vomiting [R11.10] 03/30/2021 Sebaceous cyst [L72.3] 03/30/2021 Encounter Status:Closed by JANAE JAMES on 04/04/21 [facility] Susi 04-03-2021 CNPN Telephone (ENOCDOYL) STEPHAN ZAMARRIPA ([id number]) 1985 M Date Time Provider Department 04/03/21 EBONIE COLEMAN During your visit today, we recorded the following information about you: Janae James LPN 04/03/2021 1:41 PM Signed ----- Message from Ebonie Coleman DO sent at 04/03/2021 11:12 AM EST ----- Don James LPN 04/03/2021 1:42 PM Signed Patient advised Allergies As of Date: 04/03/2021 Noted Allergy Reaction PENICILLINS 10/09/2016 4 - Hives Comments: Other reaction(s): AOF STRAWBERRY 07/05/2016 2 - Rash Comments: Other reaction(s): RASH TOMATO 07/05/2016 7 - Swelling Comments: Other reaction(s): AOF Date Reviewed: 03/30/2021 Reviewed by: Ebonie Coleman DO - Fully Assessed Reason for Visit: Results [95] Prescriptions as of 04/03/2021 - lansoprazole (PREVACID) 30 mg capsule Take 1 capsule by mouth once daily. Problem List As Of Date 04/03/2021 Noted Resolved Cigarette nicotine dependence without complicat*03/30/2021 Oral phase dysphagia [R13.11] 03/30/2021 Encounter for immunization [Z23] 03/30/2021 GERD without esophagitis [K21.9] 03/30/2021 Special screening examination for viral disease*03/30/2021 Chronic vomiting [R11.10] 03/30/2021 Sebaceous cyst [L72.3] 03/30/2021 Encounter Status:Closed by JANAE JAMES on 04/03/21 Normal [facility] CBC W Auto Differential pane l (Bld)on 03-30-2021 Basophils (Bld) [#/Vol] 0.06 10*3/uL Normal <0.11 [facility] Comment on above: Order Comment: Speci men Type: BLOOD SPECIMEN Performed By: #### 2 4322-8, LIPAmanda, 3015-05 #### [facility] CLIA [id number] [address] [place] [address] STATES [facility] #### HIV12C #### [facility] CLIA [id number] [address] [place] Basophils/100 WBC (Bld) 1.0 % Normal [facility] Comment on above: Order Comment: Speci men Type: BLOOD SPECIMEN Performed By: #### 2 4328, LIPAmanda, 3015-05 #### [facility] CLIA [id number] [address] [place] #### HIV12C #### [facility] CLIA [id number] [address] [place] Differential cell count method Nom (Bld) Auto Normal [facility] Comment on above: Order Comment: Speci men Type: BLOOD SPECIMEN Performed By: #### 2 432-8, LIPB, 3015- #### [facility] CLIA [id number] [address] [place] #### HIV12C #### [facility] CLIA [id number] [address] [place] Eosinophils (Bld) [#/Vol] 0.58 10*3/uL High <0.46 [facility] Comment on above: Order Comment: Speci men Type: BLOOD SPECIMEN Performed By: #### 2 4323-8, LIPB, 3015-3 #### [facility] CLIA [id number] [address] #### HIV12C #### [facility] CLIA [id number] [address] Eosinophils/100 WBC (Bld) 9.4 % Normal [facility] Comment on above: Order Comment: Speci men Type: BLOOD SPECIMEN Performed By: #### 2 432-8, LIPB, 3015-3 #### [facility] CLIA [id number] [address] #### HIV12C #### [facility] CLIA [id number] [address] [place] Erythrocyte distribution width (RBC) [Ratio] 12.6 % Normal 11.5-15.0 [facility] Comment on above: Order Comment: Speci men Type: BLOOD SPECIMEN Performed By: #### 2 4323-8, LIPB, 3015-3 #### [facility] CLIA [id number] [address] #### HIV12C #### [facility] CLIA [id number] [address] [place] Hematocrit (Bld) [Volume fraction] 46.3 % Normal 39.0-51.0 [facility] Comment on above: Order Comment: Speci men Type: BLOOD SPECIMEN Performed By: #### 2 4323-8, LIPB, 3015-3 #### [facility] CLIA [id number] [address] #### HIV12C #### [facility] CLIA [id number] [address] [place] Hemoglobin (Bld) [Mass/Vol] 15.5 g/dL Normal 13.0-17.0 [facility] Comment on above: Order Comment: Speci men Type: BLOOD SPECIMEN Performed By: #### 2 4328, LIPB, 3015-3 #### [facility] CLIA [id number] [address] [place] #### HIV12C #### [facility] CLIA [id number] [address] [place] IMMATURE GRAN % 0.2 % Normal [facility] Comment on above: Order Comment: Speci men Type: BLOOD SPECIMEN Performed By: #### 2 8, LIPB, 3015- #### [facility] CLIA [id number] [address] [place] #### HIV12C #### [facility] CLIA [id number] [address] [place] IMMATURE GRAN ABS <0.03 Normal <0.10 [facility] Comment on above: Order Comment: Speci men Type: BLOOD SPECIMEN Performed By: #### 2 4328, LIPB, 3015- #### [facility] CLIA [id number] [address] [place] #### HIV12C #### [facility] CLIA [id number] [address] [place] Lymphocytes (Bld) [#/Vol] 1.94 10*3/uL Normal 1.00-4.00 [facility] Comment on above: Order Comment: Speci men Type: BLOOD SPECIMEN Performed By: #### 2 4322-8, LIPB, 3015-3 #### [facility] CLIA [id number] [address] #### HIV12C #### [facility] CLIA [id number] [address] [place] Lymphocytes/100 WBC (Bld) 31.4 % Normal [facility] Comment on above: Order Comment: Speci men Type: BLOOD SPECIMEN Performed By: #### 2 4322-8, LIPB, 3015- #### [facility] CLIA [id number] [address] #### HIV12C #### [facility] CLIA [id number] [address] [place] MCH (RBC) [Entitic mass] 32.4 pg Normal 26.0-34.0 [facility] Comment on above: Order Comment: Speci men Type: BLOOD SPECIMEN Performed By: #### 2 8, LIPB, 3015-05 #### [facility] CLIA [id number] [address] #### HIV12C #### [facility] CLIA [id number] [address] [place] MCHC (RBC) [Mass/Vol] 33.5 g/dL Normal 30.5-36.0 [facility] Comment on above: Order Comment: Speci men Type: BLOOD SPECIMEN Performed By: #### 2 4322-8, LIPB, 3015- #### [facility] CLIA [id number] [address] #### HIV12C #### [facility] CLIA [id number] [id number] [place] MCV (RBC) [Entitic vol] 96.9 fL Normal 80.0-100.0 [facility] Comment on above: Order Comment: Speci men Type: BLOOD SPECIMEN Performed By: #### 2 4323-8, LIPB, 3015-3 #### [facility] CLIA [id number] [address] #### HIV12C #### [facility] CLIA [id number] [address] [place] [address] [place] Monocytes (Bld) [#/Vol] 0.58 10*3/uL Normal <0.87 [facility] Comment on above: Order Comment: Speci men Type: BLOOD SPECIMEN Performed By: #### 2 4328, LIPB, 3015-3 #### [facility] CLIA [id number] [address] #### HIV12C #### [facility] CLIA [id number] [address] [place] Monocytes/100 WBC (Bld) 9.4 % Normal [facility] Comment on above: Order Comment: Speci men Type: BLOOD SPECIMEN Performed By: #### 2 4328, LIPB, 3015-3 #### [facility] CLIA [id number] [address] #### HIV12C #### [facility] CLIA [id number] [address] [place] [id number] [place] Neutrophils (Bld) [#/Vol] 3.00 10*3/uL Normal 1.45-7.50 [facility] Comment on above: Order Comment: Speci men Type: BLOOD SPECIMEN Performed By: #### 2 432-8, LIPB, 3015-3 #### [facility] CLIA [id number] [address] #### HIV12C #### [facility] CLIA [id number] [address] [place] Neutrophils/100 WBC (Bld) 48.6 % Normal [facility] Comment on above: Order Comment: Speci men Type: BLOOD SPECIMEN Performed By: #### 2 432-8, LIPB, 6-3 #### [facility] CLIA [id number] [address] #### HIV12C #### [facility] CLIA [id number] [address] [place] Nucleated RBC (Bld) [#/Vol] 10*3/uL Normal <0.01 [facility] Comment on above: Order Comment: Speci men Type: BLOOD SPECIMEN Performed By: #### 2 4328, LIPB, 3015-3 #### [facility] CLIA [id number] [address] #### HIV12C #### [facility] CLIA [id number] [address] [place] Nucleated RBC/100 WBC (Bld) [Ratio] 0.0 /100 WBC Normal 0.0 [facility] Comment on above: Order Comment: Speci men Type: BLOOD SPECIMEN Performed By: #### 2 432-8, LIPB, 3015-3 #### [facility] CLIA [id number] [address] [place] #### HIV12C #### [facility] CLIA [id number] [address] [place] Platelet mean volume (Bld) [Entitic vol] 10.4 fL Normal 9.0-12.7 [facility] Comment on above: Order Comment: Speci men Type: BLOOD SPECIMEN Performed By: #### 2 4322-8, LIPB, 3015-3 #### [facility] CLIA [id number] [address] #### HIV12C #### [facility] CLIA [id number] [address] [place] [id number] [place] Platelets (Bld) [#/Vol] 231 10*3/uL Normal 150-400 [facility] Comment on above: Order Comment: Speci men Type: BLOOD SPECIMEN Performed By: #### 2 8, LIPB, 3015- #### [facility] CLIA [id number] [address] #### HIV12C #### [facility] CLIA [id number] [address] [place] RBC (Bld) [#/Vol] 4.78 10*6/uL Normal 4.20-6.00 [facility] Comment on above: Order Comment: Speci men Type: BLOOD SPECIMEN Performed By: #### 2 8, LIPB, 3015-3 #### [facility] CLIA [id number] [address] #### HIV12C #### [facility] CLIA [id number] [address] [place] WBC (Bld) [#/Vol] 6.17 10*3/uL Normal 3.70-11.00 [facility] Comment on above: Order Comment: Speci men Type: BLOOD SPECIMEN Performed By: #### 2 4322-8, LIPB, 6-3 #### [facility] CLIA [id number] [address] #### HIV12C #### [facility] CLIA [id number] [address] [id number] [address] [facility] CNOVon 03-30-2021 CNOV Office Visit (SHELTONYL ) STEPHAN ZAMARRIPA ([id number]) 1985 M Date Time Provider Department 03/30/21 9:30 AM EBONIE COLEMAN During your visit today, we recorded the following information about you: Temperature Pulse Blood pressure Weight 97 degrees 69/minute 120/84 90.7 kg Height 1.778 m Ebonie Coleman DO 04/09/2021 8:26 PM Signed [facility] [place] Ebonie Coleman DO [address] [place] [address] Date of Evaluation: 03/30/2021 Patient Name: Stephan Zamarripa : 1985 Chief Complaint: Patient presents with: Vomiting: in the mornings for years Nursing Intake: There are no exam notes on file for this visit. Subjective Mr. Zamarripa is a 35 year old male who presents with the following complaint(s): The history is provided by the patient. No medical language specialist was used. Vomiting This is a chronic problem. The current episode started more than 1 week ago. The problem occurs 2 to 4 times per day (First thing in the morning ). The problem has not changed since onset.The emesis has an appearance of stomach contents. There has been no fever. Pertinent negatives include no cough and no headaches. GERD He complains of heartburn. He reports no chest pain or no coughing. This is a chronic problem. The current episode started more than 1 year ago. The problem has been rapidly worsening. The heartburn is of severe intensity. The heartburn wakes him from sleep. The symptoms are aggravated by certain foods. Pertinent negatives include no fatigue. He has tried an antacid for the symptoms. The treatment provided no relief. Review of Systems Constitutional: Negative for fatigue and unexpected weight change. HENT: Negative for nosebleeds. Eyes: Negative for redness and visual disturbance. Respiratory: Negative for apnea, cough and shortness of breath. Cardiovascular: Negative for chest pain, palpitations and leg swelling. Gastrointestinal: Positive for heartburn and vomiting. Genitourinary: Negative for hematuria. Neurological: Negative for dizziness, weakness, light-headedness, numbness and headaches. Hematological: Does not bruise/bleed easily. Psychiatric/Behavioral : The patient is not nervous/anxious. 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 PAST SURGICAL HISTORY Procedure Laterality Date - CYST/MOLE REMOVAL 1996 from neck FAMILY HISTORY Problem Relation Age of Onset - Diabetes Mother - Hypertension Mother - Heart disease Mother - No Known Problems Father - Vertigo Sister - Ovarian cancer Sister Social History Tobacco Use - Smoking status: Current Every Day Smoker Packs/day: 0.25 Types: Cigarettes - Smokeless tobacco: Never Used Vaping Use - Vaping Use: current everyday user Substance Use Topics - Alcohol use: Yes Comment: occasionally - Drug use: Not Currently Current Medications lansoprazole (PREVACID) 30 mg capsule Take 1 capsule by mouth once daily. I have confirmed and edited as necessary the past medical, family and social histories, HPI, and ROS obtained by others. Objective BP 120/84 Pulse 69 Temp 97 Ht 5' 10 (1.78m) Wt 200 lb (90.7kg) SpO2 96% BMI 28.70 kg/(m2). Physical Exam Vitals and nursing note reviewed. Constitutional: General: He is not in acute distress. Appearance: Normal appearance. He is well-developed. He is not ill-appearing. HENT: Head: Normocephalic. Right Ear: Tympanic membrane, ear canal and external ear normal. There is no impacted cerumen. Left Ear: Tympanic membrane, ear canal and external ear normal. There is no impacted cerumen. Nose: Nose normal. Mouth/Throat: Mouth: Mucous membranes are moist. Pharynx: Oropharynx is clear. Uvula midline. No oropharyngeal exudate or posterior oropharyngeal erythema. Eyes: General: Lids are normal. Vision grossly intact. Gaze aligned appropriately. No scleral icterus. Right eye: No discharge. Left eye: No discharge. Extraocular Movements: Extraocular movements intact. Conjunctiva/sclera: Conjunctivae normal. Pupils: Pupils are equal, round, and reactive to light. Neck: Thyroid: No thyroid mass, thyromegaly or thyroid tenderness. Vascular: No carotid bruit. Trachea: Trachea and phonation normal. Cardiovascular: Rate and Rhythm: Normal rate and regular rhythm. Pulses: Normal pulses. Heart sounds: Normal heart sounds. Pulmonary: Effort: Pulmonary effort is normal. Breath sounds: Normal breath sounds. Abdominal: General: Abdomen is flat. Bowel sounds are normal. Palpations: Abdomen is soft. Musculoskeletal: General: Normal range of motion. Right shoulder: Normal. Left shoulder: Normal. Cervical back: Normal, full passive range o (more content not included)... Normal [facility] Comprehensive metabolic 2000 panelon 03-30-2021 Albumin [Mass/Vol] 4.8 g/dL Normal 3.9-4.9 [facility] Comment on above: Order Comment: Speci men Type: BLOOD SPECIMEN Performed By: #### 2 4323-8, LIPB, 3016-3 #### [facility] CLIA [id number] 1 [place] [address] [place] #### HIV12C #### [facility] CLIA [id number] [address] [place] [address] [place] ALP [Catalytic activity/Vol] 38 U/L Normal 38-113 [facility] Comment on above: Order Comment: Speci men Type: BLOOD SPECIMEN Performed By: #### 2 4323-8, LIPB, 3016-3 #### [facility] CLIA [id number] 1 [place] [address] [place] #### HIV12C #### [facility] CLIA [id number] [address] [place] [address] [place] ALT With P-5'-P [Catalytic activity/Vol] 18 U/L Normal 10-54 [facility] Comment on above: Order Comment: Speci men Type: BLOOD SPECIMEN Performed By: #### 2 4322-8, LIPB, 3015-05 #### [facility] CLIA [id number] [address] #### [id number] #### [facility] CLIA [id number] [address] Anion gap [Moles/Vol] 10 mmol/L Normal 9-18 [facility] Comment on above: Order Comment: Speci men Type: BLOOD SPECIMEN Performed By: #### 2 8, LIPB, 3015-05 #### [facility] CLIA [id number] [address] #### [id number] #### [facility] CLIA [id number] [address] [place] AST With P-5'-P [Catalytic activity/Vol] 30 U/L Normal 14-40 [facility] Comment on above: Order Comment: Speci men Type: BLOOD SPECIMEN Performed By: #### 2 8, LIPB, 3015-05 #### [facility] CLIA [id number] [address] [place] #### [id number] #### [facility] CLIA [id number] [address] [place] Bilirubin [Mass/Vol] 0.5 mg/dL Normal 0.2-1.3 [facility] Comment on above: Order Comment: Speci men Type: BLOOD SPECIMEN Performed By: #### 2 4322-8, LIPB, 3015-05 #### [facility] CLIA [id number] [address] [place] #### [id number] #### [facility] CLIA [id number] [address] [address] [place] Calcium [Mass/Vol] 9.4 mg/dL Normal 8.5-10.2 [facility] Comment on above: Order Comment: Speci men Type: BLOOD SPECIMEN Performed By: #### 2 4323-8, LIPB, 3016-3 #### [facility] CLIA [id number] [address] [place] #### [id number] #### [facility] CLIA [id number] [address] [place] [id number] [place] Chloride [Moles/Vol] 105 mmol/L Normal 97-105 [facility] Comment on above: Order Comment: Speci men Type: BLOOD SPECIMEN Performed By: #### 2 4323-8, LIPB, 6-3 #### [facility] CLIA [id number] [address] #### [id number] #### [facility] CLIA [id number] [address] [place] [address] [place] CO2 [Moles/Vol] 27 mmol/L Normal 22-30 [facility] Comment on above: Order Comment: Speci men Type: BLOOD SPECIMEN Performed By: #### 2 4323-8, LIPB, 6-3 #### [facility] CLIA [id number] [address] #### HIV12C #### [facility] CLIA [id number] [address] [place] [address] [place] Creatinine [Mass/Vol] 0.97 mg/dL Normal 0.73-1.22 [facility] Comment on above: Order Comment: Speci men Type: BLOOD SPECIMEN Performed By: #### 2 4323-8, LIPB, 6-3 #### [facility] CLIA [id number] [address] #### HIV12C #### [facility] CLIA [id number] [address] [place] [id number] [place] GFR/1.73 sq M.predicted MDRD (S/P/Bld) [Vol rate/Area] mL/min/{1.73_m2} Normal [facility] Comment on above: Order Comment: Speci men Type: BLOOD SPECIMEN Result Comment: >60 eGFR (Estimated GFR) Units of measure: mL/min/1.73 meters squared eGFR is derived from the reexpressed MDRD Study equation using the following parameters: serum creatinine, age, gender and race. The creatinine assay has been calibrated to be traceable to IDMS. An eGFR <60 mL/min/1.73m2 for >3 months is consistent with chronic kidney disease. Refer to KDOQI guidelines for clinical interpretation. In patients with unstable renal function, e.g. those with acute kidney injury, the eGFR may not accurately reflect actual GFR. Performed By: #### 2 4323-8, LIPB, 3016-3 #### [facility] CLIA [id number] [address] #### HIV12C #### [facility] CLIA [id number] [address] [place] [id number] [place] Glucose [Mass/Vol] 82 mg/dL Normal 74-99 [facility] Comment on above: Order Comment: Speci men Type: BLOOD SPECIMEN Result Comment: The [place] Diabetes Association (ADA) provides guidance for cutoff values for fasting glucose and random glucose. The ADA defines fasting as no caloric intake for at least 8 hours. Fasting plasma glucose results between 100 to 125 mg/dL indicate increased risk for diabetes (prediabetes). Fasting plasma glucose results greater than or equal to 126 mg/dL meet the criteria for diagnosis of diabetes. In the absence of unequivocal hyperglycemia, results should be confirmed by repeat testing. In a patient with classic symptoms of hyperglycemia or hyperglycemic crisis, random plasma glucose results greater than or equal to 200 mg/dL meet the criteria for diagnosis of diabetes. Reference: Standards of Medical Care in Diabetes 2016, [place] [employer] Association. Diabetes Care. 2016.39(Suppl 1). Performed By: #### 2 4322-8, LIPB, 3015-3 #### [facility] CLIA [id number] [address] #### HIV12C #### [facility] CLIA [id number] [address] [place] Potassium [Moles/Vol] 4.6 mmol/L Normal 3.7-5.1 [facility] Comment on above: Order Comment: Speci men Type: BLOOD SPECIMEN Performed By: #### 2 4322-8, LIPB, 3015-05 #### [facility] CLIA [id number] [address] #### HIV12C #### [facility] CLIA [id number] [address] [place] Protein [Mass/Vol] 7.1 g/dL Normal 6.3-8.0 [facility] Comment on above: Order Comment: Speci men Type: BLOOD SPECIMEN Performed By: #### 2 8, LIPB, 3015-05 #### [facility] CLIA [id number] [address] [place] #### HIV12C #### [facility] CLIA [id number] [address] [place] [address] [place] Sodium [Moles/Vol] 142 mmol/L Normal 136-144 [facility] Comment on above: Order Comment: Speci men Type: BLOOD SPECIMEN Performed By: #### 2 4322-8, LIPB, 3015-05 #### [facility] CLIA [id number] [address] [place] #### HIV12C #### [facility] CLIA [id number] [address] [place] [address] [place] Urea nitrogen [Mass/Vol] 15 mg/dL Normal 9-24 [facility] Comment on above: Order Comment: Speci men Type: BLOOD SPECIMEN Performed By: #### 2 4323-8, LIPB, 6-3 #### [facility] CLIA [id number] [address] [place] #### HIV12C #### [facility] CLIA [id number] [address] [place] [address] [place] HEP C AB IA W/CONF SCRNon HCV Ab Ql (S) Negative Normal NEGAT [facility] Comment on above: Order Comment: Speci men Type: BLOOD SPECIMEN Performed By: #### A HCV1B #### [facility] CLIA [id number] [address] [place] [address] [place] HIV 1 2 COMBO(AG/AB),WITH RE FLEX TO DIFFERENTIATIONon 03-30-2021 HIV 1 and 2 Ab IA.rapid Nom Normal [facility] Comment on above: Order Comment: Speci men Type: BLOOD SPECIMEN Result Comment: Test Not Indicated Negative No evidence of HIV-1 or HIV-2 infection. Should recent infection be suspected, repeat testing may be considered 2-3 weeks after this draw. HIV Information: [place] Rev. Code 3701.243(E): This information has been disclosed to you from confidential records protected from disclosure by state law. You shall make no further disclosure of this information without the specific, written, and informed release of the individual to whom it pertains or as otherwise permitted by state law. A general authorization for the release of medical or other information is not sufficient for the purpose of the release of HIV test results or diagnoses. Performed By: #### 2 4323-8, LIPB, 6-3 #### [facility] CLIA [id number] [address] [place] #### HIV12C #### [facility] CLIA [id number] [address] [place] HIV 1+2 Ab+HIV1 p24 Ag IA Ql Non-Reactive Normal NR [facility] Comment on above: Order Comment: Speci men Type: BLOOD SPECIMEN Performed By: #### 2 4323-8, LIPB, 3016-3 #### [facility] CLIA [id number] [address] [place] #### HIV12C #### [facility] CLIA [id number] [address] OF [facility] LIPID PANEL BASICon 03-30-19 22 Cholesterol [Mass/Vol] 161 mg/dL Normal <200 [facility] Comment on above: Order Comment: Speci men Type: BLOOD SPECIMEN Result Comment: <200 mg/dL, Desirable 200-239 mg/dL, Borderline high >239 mg/dL, High Performed By: #### 2 432-8, LIPB, 6-3 #### [facility] CLIA [id number] [address] #### HIV12C #### [facility] CLIA [id number] [address] [place] Cholesterol in HDL [Mass/Vol] 48 mg/dL Normal >39 [facility] Comment on above: Order Comment: Speci men Type: BLOOD SPECIMEN Result Comment: 40-5 9 mg/dL, Acceptable >59 mg/dL, High: Negative risk factor for coronary heart disease <40 mg/dL, Low: Positive risk factor for coronary heart disease Performed By: #### 2 4323-8, LIPB, 6-3 #### [facility] CLIA [id number] [address] [place] #### HIV12C #### [facility] CLIA [id number] [address] [place] Cholesterol in LDL [Mass/Vol] 96 mg/dL Normal <100 [facility] Comment on above: Order Comment: Speci men Type: BLOOD SPECIMEN Result Comment: <100 mg/dL, Optimal 100-129 mg/dL, Near optimal/above optimal 130-159 mg/dL, Borderline high 160-189 mg/dL, High >189 mg/dL, Very high Secondary prevention optimal LDL Cholesterol levels are recommended to be < 70 mg/dL Performed By: #### 2 4323-8, LIPB, 3015-3 #### [facility] CLIA [id number] [address] #### HIV12C #### [facility] CLIA [id number] [address] [place] Cholesterol in LDL/Cholesterol in HDL [Mass ratio] 2.00 {ratio} Normal <2.54 [facility] Comment on above: Order Comment: Speci men Type: BLOOD SPECIMEN Result Comment: Refe rence: 1. National Cholesterol Education Program ATP III Guideline At-A-Glance Quick Desk Reference: National Heart, Lung, and Blood Astor. National Institutes of Health. 2001: NIH Publication No. 01-3305. 2. An International Atherosclerosis Society position paper: global recommendations for the management of dyslipidemia: executive summary, Atherosclerosis. 2014: 232(2):410-413. Performed By: #### 2 4323-8, LIPB, 3015-3 #### [facility] CLIA [id number] [address] #### HIV12C #### [facility] CLIA [id number] [address] [place] Cholesterol in VLDL [Mass/Vol] 17 mg/dL Normal <30 [facility] Comment on above: Order Comment: Speci men Type: BLOOD SPECIMEN Performed By: #### 2 4323-8, LIPB, 3015-3 #### [facility] CLIA [id number] [address] #### HIV12C #### [facility] CLIA [id number] [address] [place] Cholesterol non HDL [Mass/Vol] 113 mg/dL Normal <130 [facility] Comment on above: Order Comment: Speci men Type: BLOOD SPECIMEN Result Comment: <130 mg/dL, Optimal 130-159 mg/dL, Near optimal/above optimal 160-189 mg/dL, Borderline high 190-219 mg/dL, High >219 mg/dL, Very high Secondary prevention optimal non HDL Cholesterol levels are recommended to be <100 mg/dL Performed By: #### 2 3-8, LIPB, 3015-3 #### [facility] CLIA [id number] [address] #### HIV12C #### [facility] CLIA [id number] [address] [place] Cholesterol.total/Ch olesterol in HDL [Mass ratio] 3.35 {ratio} Normal <5.10 [facility] Comment on above: Order Comment: Speci men Type: BLOOD SPECIMEN Performed By: #### 2 4322-8, LIPB, 3015-3 #### [facility] CLIA [id number] [address] [place] #### HIV12C #### [facility] CLIA [id number] [address] [place] FASTING TIME 12 hrs Normal [facility] Comment on above: Order Comment: Speci men Type: BLOOD SPECIMEN Performed By: #### 2 3-8, LIPB, 3015-3 #### [facility] CLIA [id number] [address] [place] #### HIV12C #### [facility] CLIA [id number] [address] STATES [facility] Triglyceride [Mass/Vol] 87 mg/dL Normal <150 [facility] Comment on above: Order Comment: Speci men Type: BLOOD SPECIMEN Result Comment: <150 mg/dL, Normal 150-199 mg/dL, Borderline high 200-499 mg/dL, High >499 mg/dL, Very high Performed By: #### 2 4323-8, LIPB, 3016-3 #### [facility] CLIA [id number] [address] #### HIV12C #### [facility] CLIA [id number] [address] [place] TSH SerPl-aCncon 03-30-2021 TSH Qn 1.630 m[IU]/L Normal 0.270-4.200 [facility] Comment on above: Order Comment: Speci men Type: BLOOD SPECIMEN Performed By: #### 2 4323-8, LIPB, 3016-3 #### [facility] CLIA [id number] [address] #### HIV12C #### [facility] CLIA [id number] [address] [place] Urinalysis complete panel (U )on 03-30-2021 Bacteria LM.HPF (Urine sed) [#/Area] None Seen Normal None Seen [facility] Comment on above: Order Comment: Speci men Type: URINE SPECIMEN Performed By: #### 2 4356-8 #### [facility] CLIA [id number] [address] Bilirubin Ql (U) Negative Normal Negative [facility] Comment on above: Order Comment: Speci men Type: URINE SPECIMEN Performed By: #### 2 4356-8 #### [facility] CLIA [id number] [address] Clarity (Unsp spec) Turbid Abnormal Clear [facility] Comment on above: Order Comment: Speci men Type: URINE SPECIMEN Performed By: #### 2 4356-8 #### [facility] CLIA [id number] [address] Color (U) Yellow Normal Yellow [facility] Comment on above: Order Comment: Speci men Type: URINE SPECIMEN Performed By: #### 2 4356-8 #### [facility] CLIA [id number] [address] Epithelial cells LM.HPF (Urine sed) [#/Area] 0.4 /[HPF] Normal [facility] Comment on above: Order Comment: Speci men Type: URINE SPECIMEN Performed By: #### 2 4356-8 #### [facility] CLIA [id number] [address] Glucose Test strip (U) [Mass/Vol] Negative Normal Negative [facility] Comment on above: Order Comment: Speci men Type: URINE SPECIMEN Performed By: #### 2 4356-8 #### [facility] CLIA [id number] [address] Hemoglobin Ql (U) Negative Normal Negative [facility] Comment on above: Order Comment: Speci men Type: URINE SPECIMEN Performed By: #### 2 4356-8 #### [facility] CLIA [id number] [address] Hyaline casts (Urine sed) [#/Area] 0 /[LPF] Normal 0 /LPF [facility] Comment on above: Order Comment: Speci men Type: URINE SPECIMEN Performed By: #### 2 4356-8 #### [facility] CLIA [id number] [address] Ketones Ql (U) Negative Normal Negative [facility] Comment on above: Order Comment: Speci men Type: URINE SPECIMEN Performed By: #### 2 4356-8 #### [facility] CLIA [id number] [address] Leukocyte esterase Test strip Ql (U) Negative Normal Negative [facility] Comment on above: Order Comment: Speci men Type: URINE SPECIMEN Performed By: #### 2 4356-8 #### [facility] CLIA [id number] [address] Nitrite Ql (U) Negative Normal Negative [facility] Comment on above: Order Comment: Speci men Type: URINE SPECIMEN Performed By: #### 2 4356-8 #### [facility] CLIA [id number] [address] pH (U) 7.5 [pH] Normal 5.0-8.0 [facility] Comment on above: Order Comment: Speci men Type: URINE SPECIMEN Performed By: #### 2 4356-8 #### [facility] CLIA [id number] [address] Protein (U) [Mass/Vol] Trace Abnormal Negative [facility] Comment on above: Order Comment: Speci men Type: URINE SPECIMEN Performed By: #### 2 4356-8 #### [facility] CLIA [id number] [address] RBC LM.HPF (Urine sed) [#/Area] 0-3 /HPF Normal 0-3 /HPF [facility] Comment on above: Order Comment: Speci men Type: URINE SPECIMEN Performed By: #### 2 4356-8 #### [facility] CLIA [id number] [address] Specific gravity (U) [Rel density] 1.029 Normal 1.005-1.030 [facility] Comment on above: Order Comment: Speci men Type: URINE SPECIMEN Performed By: #### 2 4356-8 #### [facility] CLIA [id number] [address] OF [facility] Urobilinogen Ql (U) 1.0 EU/dL Normal 0.2-1.0 EU/dL [facility] Comment on above: Order Comment: Speci men Type: URINE SPECIMEN Performed By: #### 2 4356-8 #### [facility] CLIA [id number] [address] WBC LM.HPF (Urine sed) [#/Area] 0-5 /HPF Normal 0-5 /HPF [facility] Comment on above: Order Comment: Speci men Type: URINE SPECIMEN Performed By: #### 2 4356-8 #### [facility] CLIA [id number] [address] LABORATORYOrdered By: Denise Gastelum on 02-12-2021 ADMITTED TO INTENSIVE CARE UNIT FOR CONDITION OF INTEREST:FIND:PT:^PA TIENT:ORD: No (02/12/21 4:43 AM) Invalid Interpretation Code AO Auto Urine SS EMPLOYED IN A HEALTHCARE SETTING:FIND:PT:^PAT IENT:ORD: No (02/12/21 4:43 AM) Invalid Interpretation Code AO Auto Urine SS FIRST TEST FOR CONDITION OF INTEREST:FIND:PT:^PA TIENT:ORD: No (02/12/21 4:43 AM) Invalid Interpretation Code AO Auto Urine SS HAS SYMPTOMS RELATED TO CONDITION OF INTEREST:FIND:PT:^PA TIENT:ORD: Yes (02/12/21 4:43 AM) Invalid Interpretation Code AO Auto Urine SS Illness or injury onset date and time 20210212 Invalid Interpretation Code AO Auto Urine SS Patient was hospitalized because of this condition No (02/12/21 4:43 AM) Invalid Interpretation Code AO Auto Urine SS status Not (02/12/21 4:43 AM) Invalid Interpretation Code AO Auto Urine SS RESIDES IN A CONGREGATE CARE SETTING:FIND:PT:^PAT IENT:ORD: No (02/12/21 4:43 AM) Invalid Interpretation Code AO Auto Urine SS SARS-CoV-2 (COVID-19) RNA RAIZA+probe Ql (Resp) Negative (02/12/21 4:43 AM) Invalid Interpretation Code Negative AO Auto Urine SS SARS-CoV-2 (COVID-19) RNA RAIZA+probe Ql (Unsp spec) Negative results do not preclude SARS-CoV-2 infection and should not be used as the sole basis for patient management decisions. Negative results must be combined with clinical observations, patient history, and epidemiological information.There is a risk of false negative values resulting from improperly collected, transported, or handled specimens.There is a risk of false negative values due to the presence of sequence variants in the pathogen targets of the assay, procedural errors, amplification inhibitors in specimens, or inadequate numbers of organisms for amplification.DON SARS-CoV-2 Assay is a Real-Time reverse-transcriptase polymerase chain reaction (RT-PCR) based qualitative in vitro diagnostic test intended for the qualitative detection of nucleic acid from the SARS-CoV-2 in nasopharyngeal swab specimens collected from individuals suspected of COVID-19 by their healthcare provider. Testing is limited to laboratories certified under the Clinical Laboratory Improvement Amendments of 1988 (CLIA), 42 U.S.C. 263a, to perform moderate and high complexity tests. Invalid Interpretation Code AO Auto Urine SS Basic Metabolic Profon 10-15 (cont.) Normal [facility] Comment on above: Result Comment: Aver age GFR for 20-29 years old: 116 mL/min/1.73sq mChronic Kidney Disease: <60 mL/min/1.73sq mKidney failure: <15 mL/min/1.73sq meGFR calculated using average adult body mass. Additional eGFR calculator available at:[email or web address] at [facility] [address] [place] [address] (579) Performed By: #### C DP, BMP, LIP, LIVP ####[place] [address] [place] [address] Anion gap 8 mmol/L Low 9-17 [facility] Comment on above: Performed By: #### C DP, BMP, LIP, LIVP ####[place] [address] [facility] [place] [address](393) BUN/CRE Ratio 13 Normal - [facility] Comment on above: Performed By: #### C DP, BMP, LIP, LIVP ####[place] [address] [place] [address] Calcium 9.3 mg/dL Normal 8.6-10.4 [facility] Comment on above: Performed By: #### C DP, BMP, LIP, LIVP ####[facility] [place] [address] Chloride 103 mmol/L Normal 98-107 [facility] Comment on above: Performed By: #### C DP, BMP, LIP, LIVP ####[address] [place] [address] CO2 27 mmol/L Normal 20-31 [facility] Comment on above: Performed By: #### C DP, BMP, LIP, LIVP ####[place] [address] [place] [address] Creatinine 0.91 mg/dL Normal 0.70-1.20 [facility] Comment on above: Performed By: #### C DP, BMP, LIP, LIVP ####[address] [place] [address] eGFR (non-black) mL/min/{1.73_m2} Normal >60 [facility] Comment on above: Performed By: #### C DP, BMP, LIP, LIVP ####[address] [place] [address] Glucose mass conc 101 mg/dL High 70-99 [facility] Comment on above: Performed By: #### C DP, BMP, LIP, LIVP ####[place] [address] [place] [address] Potassium molar conc 4.4 mmol/L Normal 3.7-5.3 [facility] Comment on above: Performed By: #### C DP, BMP, LIP, LIVP ####[place] [address] [place] [address] Sodium 138 mmol/L Normal 135-144 [facility] Comment on above: Performed By: #### C DP, BMP, LIP, LIVP ####[facility] [place] [address] Urea nitrogen 12 mg/dL Normal 6-20 [facility] Comment on above: Performed By: #### C DP, BMP, LIP, LIVP ####[place] [address] [place] [place] [address] Staging: NOT REPORTED Normal [facility] Comment on above: Performed By: #### C DP, BMP, LIP, LIVP ####[place] [address] [place] [place] [address] CBC with Diffon 10-15-2016 Abs. Basophil 0.10 k/uL Normal 0.0-0.2 [facility] Comment on above: Result Comment: Perf ormed at [facility] [address] [facility] [place] [address] Performed By: #### C DP, BMP, LIP, LIVP ####[place] [address] [facility] [place] [address] Abs.Neutrophil (Seg) 3.10 k/uL Normal 2.1-6.5 [facility] Comment on above: Performed By: #### C DP, BMP, LIP, LIVP ####[address] [place] [address] Auto Diff Performed YES Normal [facility] Comment on above: Performed By: #### C DP, BMP, LIP, LIVP ####[place] [address] [facility] [place] [address] Basophils/100 WBC Auto (Bld) 1 % Normal [facility] Comment on above: Performed By: #### C DP, BMP, LIP, LIVP ####[place] [id number] [place] [address] Eosinophils 0.40 10*3/uL Normal 0.0-0.4 [facility] Comment on above: Performed By: #### C DP, BMP, LIP, LIVP ####[facility] [place] [address] Eosinophils/100 leukocytes 6 % Normal [facility] Comment on above: Performed By: #### C DP, BMP, LIP, LIVP ####[facility] [place] [address] Erythrocyte distribution width Auto Ratio (RBC) 12.9 % Normal 12.1-15.2 [facility] Comment on above: Performed By: #### C DP, BMP, LIP, LIVP ####[facility] [place] [address] Erythrocytes (RBC) 5.15 10*6/uL Normal 4.5-5.9 [facility] Comment on above: Performed By: #### C DP, BMP, LIP, LIVP ####[facility] [place] [address] Hematocrit (HCT) 48.0 % Normal 41-53 [facility] Comment on above: Performed By: #### C DP, BMP, LIP, LIVP ####[facility] [place] [address] Hemoglobin mass conc (Bld) 16.1 g/dL Normal 13.5-17.5 [facility] Comment on above: Performed By: #### C DP, BMP, LIP, LIVP ####[facility] [place] [address] Lymphocytes 2.50 10*3/uL Normal 0.9-2.5 [facility] Comment on above: Performed By: #### C DP, BMP, LIP, LIVP ####[facility] [place] [address] Lymphocytes/100 leukocytes 38 % Normal [facility] Comment on above: Performed By: #### C DP, BMP, LIP, LIVP ####[address] [place] [address] MCH 31.4 pg Normal 26-34 [facility] Comment on above: Performed By: #### C DP, BMP, LIP, LIVP ####[address] [place] [address] MCHC mass conc (RBC) 33.7 g/dL Normal 31-37 [facility] Comment on above: Performed By: #### C DP, BMP, LIP, LIVP ####[address] [place] [address] MCV 93.2 fL Normal 80-100 [facility] Comment on above: Performed By: #### C DP, BMP, LIP, LIVP ####[address] [place] [address] Monocytes 0.50 10*3/uL Normal 0.0-1.0 [facility] Comment on above: Performed By: #### C DP, BMP, LIP, LIVP ####[address] [place] [address] Monocytes/100 leukocytes 7 % Normal [facility] Comment on above: Performed By: #### C DP, BMP, LIP, LIVP ####[address] [place] [address] Neutrophil (Seg) 48 % Normal [facility] Comment on above: Performed By: #### C DP, BMP, LIP, LIVP ####[address] [place] [address] Platelets 184 10*3/uL Normal 140-450 [facility] Comment on above: Performed By: #### C DP, BMP, LIP, LIVP ####[address] [place] [address] WBC (Leukocytes) 6.5 10*3/uL Normal 3.5-11.0 [facility] Comment on above: Performed By: #### C DP, BMP, LIP, LIVP ####[facility] [place] [address] Erythrocyte morphology NOT REPORTED Normal [facility] Comment on above: Performed By: #### C DP, BMP, LIP, LIVP ####[facility] [place] [place] [address] Platelet mean volume (PMV) NOT REPORTED Normal 6.0-12.0 [facility] Comment on above: Performed By: #### C DP, BMP, LIP, LIVP ####[facility] [facility] [place] [address] Platelets NOT REPORTED Normal [facility] Comment on above: Performed By: #### C DP, BMP, LIP, LIVP ####[facility] [facility] [place] [address] WBC Morphology NOT REPORTED Normal [facility] Comment on above: Performed By: #### C DP, BMP, LIP, LIVP ####[place] [address] [facility] [place] [address] ED Provider Noteon 7 HIM IP Note OR Artificial Intelligence Specialist Normal [facility] Lipaseon 10-15-2016 Lipase 23 U/L Normal 13-60 [facility] Comment on above: Result Comment: Perf ormed at [facility] [address] [facility] [place] [address] [phone] Performed By: #### C DP, BMP, LIP, LIVP ####[facility] [facility] [place] [phone] Liver Profileon 10-15-2016 Alanine aminotransferase (ALT) 20 U/L Normal 5-41 [facility] Comment on above: Performed By: #### C DP, BMP, LIP, LIVP ####[facility] [place] [place] [address] Albumin 4.6 g/dL Normal 3.5-5.2 [facility] Comment on above: Performed By: #### C DP, BMP, LIP, LIVP ####[place] [address] [place] [place] [address] Alkaline Phos 38 U/L Low 40-129 [facility] Comment on above: Performed By: #### C DP, BMP, LIP, LIVP ####[place] [address] [facility] [place] [address] Aspartate aminotransferase (AST) 24 U/L Normal <40 [facility] Comment on above: Performed By: #### C DP, BMP, LIP, LIVP ####[address] [place] [address] Bilirubin (direct) mg/dL Normal <0.31 [facility] Comment on above: Performed By: #### C DP, BMP, LIP, LIVP ####[place] [address] [facility] [place] [address] Bilirubin Ql (U) 0.30 mg/dL Normal 0.3-1.2 [facility] Comment on above: Performed By: #### C DP, BMP, LIP, LIVP ####[place] [address] [facility] [place] [address] Bilirubin, Indirect CANNOT BE CALCULATED Normal 0.00-1 .00 [facility] Comment on above: Performed By: #### C DP, BMP, LIP, LIVP ####[place] [address] [facility] [place] [address] Protein 7.4 g/dL Normal 6.4-8.3 [facility] Comment on above: Result Comment: Perf ormed at [facility] [address] [facility] [place] [address] Performed By: #### C DP, BMP, LIP, LIVP ####[facility] [place] [address] Albumin/Globulin Ratio NOT REPORTED Normal 1.0-2.5 [facility] Comment on above: Performed By: #### C DP, BMP, LIP, LIVP ####[facility] [place] [address] Globulin NOT REPORTED Normal 1.5-3.8 [facility] Comment on above: Performed By: #### C DP, BMP, LIP, LIVP ####[facility] [place] [address] ED Noteon 10-09-2016 HIM IP Note OR Artificial Intelligence Specialist Normal [facility] Vital Signs Date Time Vital Sign Value Performing Clinician Facility 06-30-2024 18:18-0400 Body height 172.7 cm NIDAL CHOUJAA DO [facility] 06-30-2024 18:18-0400 Body temperature 98.6 [degF] NIDAL CHOUJAA DO [facility] 06-30-2024 18:18-0400 [facility].2 [facility] 06-30-2024 18:18-0400 Diastolic Blood Pressure Non-Invasive 81 mm[Hg] [facility] 06-30-2024 18:18-0400 Heart rate 98 /min NIDAL CHOUJAA DO [facility] 06-30-2024 18:18-0400 Respiratory rate 16 /min [facility] 06-30-2024 18:18-0400 Systolic Blood Pressure Non-Invasive 123 mm[Hg] JUMA FONSECA DO [facility] 08-29-2023 16:19-0400 Body mass index (BMI) [Ratio] 25.94 kg/m2 Marcelle Storm DISPATCHER SERVICE.[employer] Work Phone: [facility] 08-29-2023 16:19-0400 Body temperature 98.4 [degF] Marcelle Storm DISPATCHER SERVICE.[employer]ER Work Phone: [facility] 08-29-2023 16:19-0400 Body weight 82 kg Marcelle Storm DISPATCHER SERVICE.[employer]ER Work Phone: [facility] 08-29-2023 16:19-0400 Diastolic blood pressure 86 mm[Hg] Marcelle Storm DISPATCHER SERVICE.[employer]ER Work Phone: [facility] 08-29-2023 16:19-0400 Heart rate 68 /min Marcelle Storm DISPATCHER SERVICE.[employer]ER Work Phone: [facility] 08-29-2023 16:19-0400 Respiratory rate 18 /min Marcelle Storm DISPATCHER SERVICE.[employer] SH[employer]ER Work Phone: [facility] 08-29-2023 16:19-0400 SaO2% (BldA) [Mass fraction] 98 % Marcelle Storm DISPATCHER SERVICE.[employer] SHO[employer]ER Work Phone: [facility] 08-29-2023 16:19-0400 Systolic blood pressure 125 mm[Hg] Marcelle Storm DISPATCHER SERVICE.[employer]ER Work Phone: [facility] 08-03-2023 01:30-0400 Heart rate 62 /min Zoltan Warren DO Work Phone: [facility] [employer] 08-03-2023 01:30-0400 Respiratory rate 20 /min Zoltan Warren DO Work Phone: [facility] 08-03-2023 01:30-0400 SaO2% (BldA) [Mass fraction] 97 % Zoltan Warren DO Work Phone: [facility] [employer] 08-02-2023 23:45-0400 Diastolic blood pressure 57 mm[Hg] Zoltan Warren DO Work Phone: [facility] [employer] 08-02-2023 23:45-0400 Systolic blood pressure 107 mm[Hg] Zoltan Warren DO Work Phone: [facility] [employer] 08-02-2023 22:08-0400 Body height 172.7 cm Zoltan Warren DO Work Phone: [facility] [employer] 08-02-2023 22:08-0400 Body mass index (BMI) [Ratio] 28.74 kg/m2 Zoltan Warren DO Work Phone: [facility] [employer] 08-02-2023 22:08-0400 Body weight 85.73 kg Zoltan Warren DO Work Phone: [facility] [employer] 07-19-2023 03:42-0400 Diastolic blood pressure 88 mm[Hg] David Jaffe MD Work Phone: [facility] [employer] 07-19-2023 03:42-0400 Heart rate 73 /min David Jaffe MD Work Phone: [facility] [employer] 07-19-2023 03:42-0400 Respiratory rate 18 /min David Jaffe MD Work Phone: [facility] [employer] 07-19-2023 03:42-0400 SaO2% (BldA) [Mass fraction] 100 % David Jaffe MD Work Phone: [facility] [employer] 07-19-2023 03:42-0400 Systolic blood pressure 119 mm[Hg] David Jaffe MD Work Phone: [facility] [employer] 07-19-2023 02:15-0400 Body mass index (BMI) [Ratio] 29.5 kg/m2 David Jaffe MD Work Phone: [facility] [employer] 07-19-2023 02:15-0400 Body temperature 97.7 [degF] David Jaffe MD Work Phone: [facility] [employer] 07-19-2023 02:15-0400 Body weight 88 kg David Jaffe MD Work Phone: [facility] [employer] 07-10-2023 19:23-0400 Body temperature 97.7 [degF] Iraj Baez MD Work Phone: [facility] [employer] 07-10-2023 19:23-0400 Diastolic blood pressure 70 mm[Hg] Iraj Baez MD Work Phone: [facility] [employer] 07-10-2023 19:23-0400 Heart rate 62 /min Iraj Baez MD Work Phone: [facility] [employer] 07-10-2023 19:23-0400 Respiratory rate 18 /min Iraj Baez MD Work Phone: [facility] [employer] 07-10-2023 19:23-0400 SaO2% (BldA) [Mass fraction] 97 % Iraj Baez MD Work Phone: [facility] [employer] 07-10-2023 19:23-0400 Systolic blood pressure 112 mm[Hg] Iraj Baez MD Work Phone: [facility] [employer] 07-10-2023 12:46-0400 Body height 172.7 cm Iraj Baez MD Work Phone: [facility] [employer] 07-10-2023 12:46-0400 Body mass index (BMI) [Ratio] 29.5 kg/m2 Iraj Baez MD Work Phone: [facility] [employer] 07-10-2023 12:46-0400 Body weight 88 kg Iraj Baez MD Work Phone: [facility] [employer] 07-01-2023 07:08-0400 Body height 176.5 cm Yobany Castellanos MD Work Phone: [employer] 07-01-2023 07:08-0400 Body mass index (BMI) [Ratio] 28.01 kg/m2 Yobany Castellanos MD Work Phone: [employer] 07-01-2023 07:08-0400 Body weight 87.27 kg Yobany Castellanos MD Work Phone: [facility] [employer] 07-01-2023 07:08-0400 Diastolic blood pressure 72 mm[Hg] Yobany Castellanos MD Work Phone: [facility] [employer] 07-01-2023 07:08-0400 Heart rate 62 /min Yobany Castellanos MD Work Phone: [facility] [employer] 07-01-2023 07:08-0400 SaO2% (BldA) [Mass fraction] 98 % Yobany Castellanos MD Work Phone: [facility] [employer] 07-01-2023 07:08-0400 Systolic blood pressure 110 mm[Hg] Yobany Castellanos MD Work Phone: [facility] [employer] 06-26-2023 15:56-0400 Body temperature 98.2 [degF] Saturnino Soto MD Work Phone: [facility] [employer] 06-26-2023 15:56-0400 Diastolic blood pressure 96 mm[Hg] Saturnino Soto MD Work Phone: [facility] [employer] 06-26-2023 15:56-0400 Heart rate 75 /min Saturnino Soto MD Work Phone: [facility] [employer] 06-26-2023 15:56-0400 Respiratory rate 16 /min Saturnino Soto MD Work Phone: [facility] [employer] 06-26-2023 15:56-0400 SaO2% (BldA) [Mass fraction] 100 % Saturnino Soto MD Work Phone: [facility] [employer] 06-26-2023 15:56-0400 Systolic blood pressure 114 mm[Hg] Saturnino Soto MD Work Phone: [facility] 05-20-2023 00:26-0400 Body temperature 98.24 [degF] DR WILL QUEVEDO DO [facility] 05-20-2023 00:26-0400 Diastolic Blood Pressure Non-Invasive 86 mm[Hg] DR WILL QUEVEDO DO [facility] 05-20-2023 00:26-0400 Heart rate 85 /min DR WILL QUEVEDO DO [facility] 05-20-2023 00:26-0400 Respiratory rate 18 /min DR WILL QUEVEDO DO [facility] 05-20-2023 00:26-0400 Systolic Blood Pressure Non-Invasive 145 mm[Hg] DR WILL QUEVEDO DO [facility] 05-07-2023 00:21-0500 Blood Pressure Cuff Size RAYNE REICHFIELD DO [facility] 05-07-2023 00:21-0500 Blood Pressure Location RAYNE REICHFIELD DO [facility] 05-07-2023 00:21-0500 Blood Pressure Method RAYNE REICHFIELD D O [facility] 05-07-2023 00:21-0500 Body height 175.3 cm RAYNE REICHFIELD DO [facility] 05-07-2023 00:21-0500 Body temperature 97.52 [degF] RAYNE REICHFIELD DO [facility] 05-07-2023 00:21-0500 Body weight 96 kg RAYNE REICHFIELD DO [facility] 05-07-2023 00:21-0500 Diastolic Blood Pressure Non-Invasive 82 mm[Hg] RAYNE REICHFIELD DO [facility] 05-07-2023 00:21-0500 Heart rate 73 /min RAYNE REICHFIELD DO [facility] 05-07-2023 00:21-0500 Reason For Taking VItal Signs RAYNE REICHFIELD DO [facility] 05-07-2023 00:21-0500 Respiratory rate 18 /min RAYNE REICHFIELD DO [facility] 05-07-2023 00:21-0500 Systolic Blood Pressure Non-Invasive 129 mm[Hg] RAYNE EDGAR DO [facility] 03-13-2023 13:16-0500 Body temperature 98.2 [degF] Nehal Bridenthal DISPATCHER SERVICE - [employer]ER Work Phone: [facility] [employer] 03-13-2023 13:16-0500 Body weight 81.38 kg Nehal Bridenthal DISPATCHER SERVICE - [employer]ER Work Phone: [facility] [employer] 03-13-2023 13:16-0500 Diastolic blood pressure 79 mm[Hg] Nehal Bridenthal DISPATCHER SERVICE - [employer]AP SHOOTER Work Phone: [facility] [employer] 03-13-2023 13:16-0500 Heart rate 95 /min Nehal Bridenthal DISPATCHER SERVICE - [employer]AP SHO[employer]ER Work Phone: [facility] [employer] 03-13-2023 13:16-0500 Respiratory rate 14 /min Nehal Bridenthal DISPATCHER SERVICE - [employer]AP SHO[employer]ER Work Phone: [facility] [employer] 03-13-2023 13:16-0500 SaO2% (BldA) [Mass fraction] 96 % Nehal Bridenthal DISPATCHER SERVICE - [employer] SH[employer]ER Work Phone: [facility] [employer] 03-13-2023 13:16-0500 Systolic blood pressure 118 mm[Hg] Nehal Bridenthal DISPATCHER SERVICE - CRAP SHOOTER Work Phone: [facility] [employer] 02-26-2023 11:06-0500 Body temperature 97.7 [degF] Nehal Bridenthal DISPATCHER SERVICE - [employer]AP SHOOTER Work Phone: [facility] [employer] 02-26-2023 11:06-0500 Body weight 84.37 kg Nehal Bridenthal DISPATCHER SERVICE - [employer] SHO[employer]ER Work Phone: [facility] [employer] 02-26-2023 11:06-0500 Diastolic blood pressure 71 mm[Hg] Nehal Bridenthal DISPATCHER SERVICE - [employer]AP SHOOTER Work Phone: [facility] 02-26-2023 11:06-0500 Heart rate 79 /min Nehal Bridenthal DISPATCHER SERVICE - CRAP SHOOTER Work Phone: [facility] 02-26-2023 11:06-0500 Respiratory rate 24 /min Nehal Bridenthal DISPATCHER SERVICE - CRAP SHOOTER Work Phone: [facility] 02-26-2023 11:06-0500 SaO2% (BldA) [Mass fraction] 98 % Nehal Bridenthal DISPATCHER SERVICE - CRAP SHOOTER Work Phone: [facility] 02-26-2023 11:06-0500 Systolic blood pressure 107 mm[Hg] Nehal Bridenthal DISPATCHER SERVICE - [employer]AP SHOOTER Work Phone: [facility] 05-28-2022 11:28-0400 Body height 177.8 cm Tasha Noguera MD Work Phone: [facility] 05-28-2022 11:28-0400 Body temperature 98.01 [degF] Tasha Noguera MD Work Phone: [facility] 05-28-2022 11:28-0400 Body weight 85.73 kg Tasha Noguera MD Work Phone: [facility] 05-28-2022 11:28-0400 Diastolic blood pressure 72 mm[Hg] Tasha Noguera MD Work Phone: [facility] 05-28-2022 11:28-0400 Heart rate 60 /min Tasha Noguera MD Work Phone: [facility] 05-28-2022 11:28-0400 Respiratory rate 12 /min Tasha Noguera MD Work Phone: [facility] 05-28-2022 11:28-0400 SaO2% (BldA) [Mass fraction] 97 % Tasha Noguera MD Work Phone: [facility] 05-28-2022 11:28-0400 Systolic blood pressure 127 mm[Hg] Tasha Noguera MD Work Phone: [facility] 03-19-2022 15:40-0500 Diastolic blood pressure 84 mm[Hg] Nehal Bridenthal DISPATCHER SERVICE - [employer]AP SHOOTER Work Phone: [facility] [employer] 03-19-2022 15:40-0500 Systolic blood pressure 120 mm[Hg] Nehal Bridenthal DISPATCHER SERVICE - [employer]AP SH[employer]ER Work Phone: [facility] [employer] 03-19-2022 14:23-0500 Body temperature 97.9 [degF] Nehal Bridenthal DISPATCHER SERVICE - [employer]AP SHOOTER Work Phone: [facility] [employer] 03-19-2022 14:23-0500 Body weight 86.46 kg Nehal Bridenthal DISPATCHER SERVICE - [employer] SHOOTER Work Phone: [facility] [employer] 03-19-2022 14:23-0500 Heart rate 100 /min Nehal Bridenthal DISPATCHER SERVICE - CRAP SHOOTER Work Phone: [facility] [employer] 03-19-2022 14:23-0500 Respiratory rate 20 /min Nehal Bridenthal DISPATCHER SERVICE - [employer]AP SHOOTER Work Phone: [facility] [employer] 03-19-2022 14:23-0500 SaO2% (BldA) [Mass fraction] 96 % Nehal Bridenthal DISPATCHER SERVICE - [employer] SH[employer]ER Work Phone: [facility] [employer] 02-03-2022 10:37-0500 Body temperature 97.7 [degF] RAYNE REICHFIELD DO [facility] 02-03-2022 10:37-0500 Diastolic Blood Pressure Non-Invasive 94 1 RAYNE REICHFIELD DO [facility] 02-03-2022 10:37-0500 Heart rate 96 /min RAYNE REICHFIELD DO [facility] 02-03-2022 10:37-0500 Respiratory rate 18 /min RAYNE REICHFIELD DO [facility] 02-03-2022 10:37-0500 Systolic Blood Pressure Non-Invasive 136 1 RAYNE EDGAR DO [facility] 07-02-2021 12:56-0400 Body height 177.8 cm Jennifer Stef PA-C Work Phone: [facility] 07-02-2021 12:56-0400 Body weight 91.17 kg Jennifer Stef PA-C Work Phone: [facility] 07-02-2021 12:56-0400 Diastolic blood pressure 76 mm[Hg] Jennifer Stef PA-C Work Phone: [facility] 07-02-2021 12:56-0400 Heart rate 79 /min Jennifer Stef PA-C Work Phone: [facility] 07-02-2021 12:56-0400 Systolic blood pressure 128 mm[Hg] Jennifer Stef PA-C Work Phone: [facility] 06-18-2021 09:31-0400 Diastolic blood pressure 69 mm[Hg] Grace Martinez MD Work Phone: [facility] 06-18-2021 09:31-0400 Heart rate 71 /min Grace Martinez MD Work Phone: [facility] 06-18-2021 09:31-0400 Respiratory rate 18 /min Grace Martinez MD Work Phone: [facility] 06-18-2021 09:31-0400 SaO2% (BldA) [Mass fraction] 98 % Grace Martinez MD Work Phone: [facility] 06-18-2021 09:31-0400 Systolic blood pressure 108 mm[Hg] Grace Martinez MD Work Phone: [facility] 06-18-2021 09:15-0400 Body temperature 97.9 [degF] Grace Martinez MD Work Phone: [facility] 06-18-2021 08:45-0400 Body height 177.8 cm Grace Martinez MD Work Phone: [facility] 06-18-2021 08:45-0400 Body weight 90.72 kg Grace Martinez MD Work Phone: [facility] 05-09-2021 00:00-0500 Diastolic blood pressure 80 mm[Hg] DR YAQUELIN SCHULER MD [facility] 05-09-2021 00:00-0500 Heart rate 89 /min DR YAQUELIN SCHULER MD [facility] 05-09-2021 00:00-0500 Systolic blood pressure 113 mm[Hg] DR YAQUELIN SCHULER MD [facility] 05-08-2021 22:02-0500 Heart rate 92 /min DR YAQUELIN SCHULER MD [facility] 05-08-2021 22:02-0500 Respiratory rate 18 /min DR YAQUELIN SCHULER MD [facility] 05-08-2021 21:30-0500 Body temperature 97.7 [degF] DR YAQUELIN SCHULER MD [facility] 05-08-2021 21:30-0500 Diastolic blood pressure 84 mm[Hg] DR YAQUELIN SCHULER MD [facility] 05-08-2021 21:30-0500 Heart rate 91 /min DR YAQUELIN SCHULER MD [facility] 05-08-2021 21:30-0500 Systolic blood pressure 134 mm[Hg] DR YAQUELIN SCHULER MD [facility] 05-07-2021 18:48-0500 Diastolic blood pressure 74 mm[Hg] Low Nesheim DO Work Phone: [facility] 05-07-2021 18:48-0500 Heart rate 80 /min Low Nesheim DO Work Phone: [facility] 05-07-2021 18:48-0500 Respiratory rate 14 /min Low Nesheim DO Work Phone: [facility] 05-07-2021 18:48-0500 SaO2% (BldA) [Mass fraction] 98 % Low Nesheim DO Work Phone: [facility] 05-07-2021 18:48-0500 Systolic blood pressure 127 mm[Hg] Low Nesheim DO Work Phone: [facility] 05-07-2021 17:28-0500 Body temperature 100.4 [degF] Low Nesheim DO Work Phone: [facility] 02-12-2021 04:21-0500 Body height 177.8 cm PENNIE MOHAMUD MD [facility] 02-12-2021 04:21-0500 Body temperature 98.24 [degF] PENNIE MOHAMUD MD [facility] 02-12-2021 04:21-0500 Body weight 84.6 kg PENNIE MOHAMUD MD [facility] 02-12-2021 04:21-0500 Diastolic blood pressure 92 mm[Hg] PENNIE MOHAMUD MD [facility] 12-13-2021 04:21-0500 Heart rate 86 /min PENNIE MOHAMUD MD [facility] 02-12-2021 04:21-0500 Respiratory rate 20 /min PENNIE MOHAMUD MD [facility] 02-12-2021 04:21-0500 Systolic blood pressure 135 mm[Hg] PENNIE MOHAMUD MD [facility] Encounters Encounter Date Encounter Type Care Provider Facility Start: 08-11-2024 End: 08-11-2024 Emergency department patient visit RAYNE EDGAR DO [facility] Start: 08-11-2024 End: 08-11-2024 Patient encounter procedure Marcelle Storm DISPATCHER SERVICE.CRAP SHO[employer]ER Work Phone: [facility] Comment on above: Light headed (Primar y Dx) Start: 08-11-2024 End: 08-11-2024 ambulatory MARCELLE STORM Facility:[facility] Start: 06-30-2024 End: 06-30-2024 Emergency department patient visit JUMA FONSECA DO [facility] Start: 05-31-2024 End: 05-31-2024 ambulatory [facility] Start: 04-26-2024 End: 04-26-2024 [facility] Start: 04-22-2024 End: 04-23-2024 Emergency department patient visit [facility] Start: 04-16-2024 End: 04-16-2024 ambulatory [facility] Start: 03-16-2024 [facility] Start: 03-16-2024 End: 03-16-2024 [facility] Start: 03-16-2024 Encounter for genera l adult medical examination without abnormal findings [facility]ef[facility] Start: 01-25-2024 End: 01-25-2024 [facility] Start: 12-22-2023 End: 12-22-2023 Emergency department patient visit Benny Bone Facility:[facility] Start: 09-25-2023 End: 09-26-2023 Emergency department patient visit Yob[facility] Facility:[facility] Start: 08-30-2023 ambulatory Melony Rocha RN NURSE GENERAL WAREHOUSE ASSOCIATE Comment on above: Results, Lab Start: 08-30-2023 Telephone encounter Dhruv Chu MD Work Phone: [facility] [employer] [facility] Comment on above: Results Start: 08-29-2023 End: 08-29-2023 ambulatory MARCELLE KING Facility:[facility] Start: 08-29-2023 End: 08-29-2023 Patient encounter procedure Marcelle Storm DISPATCHER SERVICE.CRAP SHOOTER Work Phone: [facility] [employer] [facility] Comment on above: Possible exposure to STD (Primary Dx); Urinary frequency Start: 08-10-2023 End: 08-10-2023 Emergency department patient visit FOZIA Mac MAYTE [facility] Start: 08-02-2023 End: 08-02-2023 Subsequent hospital visit by physician [facility] Xr Portable [facility] Radiology Comment on above: Arrived Start: 08-02-2023 End: 08-03-2023 Emergency department patient visit Zoltan Warren DO Work Phone: [facility] ED Comment on above: Chest pain, unspecif ied type (Primary Dx); Acute bronchitis, unspecified organism; Anxiety Start: 08-01-2023 End: 08-01-2023 Emergency department patient visit Magdalene Ty Facility:[facility] Start: 07-31-2023 End: 07-31-2023 Emergency department patient visit Yobany Emanuel Facility:[facility] Start: 07-19-2023 End: 07-19-2023 Emergency department patient visit David Jaffe MD Work Phone: [facility] ED Comment on above: Drug ingestion, acci dental or unintentional, initial encounter (Primary Dx) Start: 07-10-2023 End: 07-10-2023 Subsequent hospital visit by physician [facility] Ct Exam Room [address] [facility] [address] Comment on above: Arrived Start: 07-10-2023 End: 07-10-2023 ambulatory [facility] Start: 07-10-2023 End: 07-10-2023 Emergency department patient visit Iraj Baez MD Work Phone: [facility] Clinical Decision Unit CDU Comment on above: Dizziness (Primary D x) Start: 07-01-2023 End: 07-01-2023 Office outpatient visit 10 minutes Yobany Castellanos MD Work Phone: [facility] Family Medicine Comment on above: Partial thickness bu rn of right forearm, initial encounter (Primary Dx); Pes planus of both feet Start: 07-01-2023 End: 07-01-2023 ambulatory [facility] Start: 06-26-2023 End: 06-26-2023 Emergency department patient visit Saturnino Soto MD Work Phone: [facility] ED Comment on above: Superficial burn of right forearm, initial encounter (Primary Dx) Start: 05-20-2023 End: 05-20-2023 Emergency department patient visit DR WILL QUEVEDO DO [facility] Start: 05-07-2023 End: 05-07-2023 Emergency department patient visit RAYNE EDGAR DO [facility] Start: 03-13-2023 End: 03-13-2023 ambulatory Taryn Martinez Clinical Communication Start: 03-13-2023 Patient encounter procedure Taryn Martinez Clinical Communication Start: 03-13-2023 End: 03-13-2023 Office outpatient visit 15 minutes Nehal Duron DISPATCHER SERVICE - CRAP SHOOTER Work Phone: [facility] Family Medicine Comment on above: Neck strain, initial encounter (Primary Dx); Acute diffuse otitis externa of right ear Start: 03-13-2023 End: 03-13-2023 Office outpatient visit 25 minutes Nehal Sandraenthal DISPATCHER SERVICE - CRAP SHOOTER Work Phone: [facility] Comment on above: Neck strain, initial encounter (Primary Dx); Acute diffuse otitis externa of right ear Start: 02-26-2023 End: 02-26-2023 ambulatory NEHAL SANDRAENTHAL [facility] Start: 02-26-2023 End: 02-26-2023 Office outpatient visit 15 minutes Nehal Sandraenthal DISPATCHER SERVICE - CRAP SHOOTER Work Phone: [facility] Comment on above: Acute otitis media w ith effusion of right ear (Primary Dx) Start: 10-28-2022 ambulatory Kia Srinivasan RN [facility] C linical Communication Start: 10-28-2022 Patient encounter procedure [facility] Start: 05-28-2022 End: 05-28-2022 ambulatory Pulm J-1 [facility] Comment on above: Spirometry Start: 05-28-2022 End: 05-28-2022 Patient encounter procedure Pulm Fct Lab J-1 [facility] Comment on above: Dysphagia, unspecifi ed type (Primary Dx) Start: 05-28-2022 End: 05-28-2022 Subsequent hospital visit by physician [facility] Qb1 (I-Stat) Radiology Comment on above: Gastroesophageal ref lux disease, unspecified whether esophagitis present [K21.9] Start: 03-19-2022 End: 03-19-2022 Office outpatient new 45 minutes Nehal Bridenthal DISPATCHER SERVICE - CRAP SHOOTER Work Phone: [facility] Comment on above: GERD without esophag itis (Primary Dx); Navarro's esophagus with dysplasia; Non-recurrent acute suppurative otitis media of right ear without spontaneous rupture of tympanic membrane; Dizziness; Nausea and vomiting, unspecified vomiting type Start: 02-03-2022 End: 02-03-2022 Emergency department patient visit RAYNE EDGAR DO [facility] Start: 07-03-2021 Telephone encounter Hvi Thorac ic Surg [facility] Comment on above: Consult (Internal : Esophagitis with Barretts esophagus) Start: 07-02-2021 End: 07-02-2021 Patient encounter procedure Jennifer Finch PA-C [facility] Comment on above: Esophagitis, [place] grade C (Primary Dx); Acute esophagitis; Hiatal hernia; Long-segment Navarro's esophagus Start: 06-22-2021 Telephone encounter Jennifer Finch PA-C [facility] Comment on above: Results Start: 06-18-2021 End: 06-18-2021 Subsequent hospital visit by physician Grace Martinez MD Work Phone: Ambulatory Surgery Comment on above: Esophagitis, [place] grade C [K20.80] Start: 06-11-2021 ambulatory Grace Martinez MD Work Phone: Ambulatory Surgery Start: 05-08-2021 End: 05-09-2021 Emergency department patient visit DR YAQUELIN SCHULER MD [facility] Start: 05-07-2021 End: 05-07-2021 Emergency department patient visit Low Marley DO Work Phone: [facility] ED Comment on above: Pneumonia due to inf ectious organism, unspecified laterality, unspecified part of lung (Primary Dx) Start: 02-12-2021 End: 02-12-2021 Emergency department patient visit PENNIE MOHAMUD MD [facility] Start: 10-15-2016 End: 10-16-2016 Emergency department patient visit JULIET MARTÍNEZ [facility] Start: 10-09-2016 End: 10-09-2016 Emergency department patient visit POP MARQUEZ [facility] Procedures Date Procedure Procedure Detail Performing Clinician Start: 03-16-2024 Lipid 1996 panel - S drew or Plasma Marcelle Storm APRN.CNP Work Phone: Start: 08-29-2023 Urnls dip stick/tabl et rgnt auto w/o microscopy Marcelle Storm APRN.CRAP SHOOTER Work Phone: Start: 08-03-2023 Assay of troponin quantitative Zoltan Warren DO Work Phone: Start: 08-02-2023 Radiologic exam ches t single view Zoltan Warren DO Work Phone: Start: 08-02-2023 Basic metabolic pane l calcium total Zoltan Warren DO Work Phone: Start: 08-02-2023 Ecg routine ecg w/le ast 12 lds trcg only w/o i&r Zoltan Warren DO Work Phone: Start: 07-19-2023 Drug tst prsmv instr mnt chem analyzers pr date David Jaffe MD Work Phone: Start: 07-10-2023 Assay of troponin quantitative Iraj Baez MD Work Phone: Start: 07-10-2023 Ecg routine ecg w/le ast 12 lds trcg only w/o i&r Iraj Baez MD Work Phone: Start: 07-10-2023 Prothrombin time Iraj Baez MD Work Phone: Start: 07-10-2023 Ecg routine ecg w/le ast 12 lds trcg only w/o i&r Iraj Baez MD Work Phone: Start: 07-10-2023 Comprehensive metabo lic panel Irja Baez MD Work Phone: Start: 07-10-2023 End: 07-10-2023 Ct angiography head w/contrast/noncontrast Iraj Baez MD Work Phone: Start: 07-01-2023 Adult depression scr eening assessment Yobany Castellanos MD Work Phone: Start: 05-28-2022 Co diffusing capacity M izzy Noguera MD Work Phone: Start: 05-28-2022 Radiologic exam esop hagus single contrast study Tasha Noguera MD Work Phone: Start: 03-19-2022 Complete blood count with white cell differential, automated Nehal Duron DISPATCHER SERVICE - CRAP SHOOTER Work Phone: Start: 03-19-2022 Comprehensive metabo lic panel Nehaladrien Duron DISPATCHER SERVICE - CRAP SHOOTER Work Phone: Start: 06-18-2021 Esophagoscp rig winter soral hypopharynx crv esoph Jennifer Finch PA-C Work Phone: Start: 05-07-2021 Radiologic exam ches t single view Low G Nesheim DO Work Phone: Start: 05-07-2021 COVID-19, FLU A/B, A ND RSV COMBO Low G Nesheim DO Work Phone: Start: 03-30-2021 Adult depression scr eening assessment Grace Martinez MD Work Phone: Start: 03-30-2021 Lipid 1996 panel - S drew or Plasma Marcelle Storm DISPATCHER SERVICE.CRAP SHOOTER Work Phone: Start: 10-16-2016 ED NURSING COMMUNICATION POP MARQUEZ Start: 10-15-2016 BASIC METABOLIC PANEL Bill MARQUEZ Start: 10-15-2016 CBC WITH AUTO DIFFERENTIAL POP MARQUEZ Start: 10-15-2016 HEPATIC FUNCTION PANEL POP MARQUEZ Start: 10-15-2016 LIPASE POP FISH Start: 10-15-2016 CULTURE STOOL POP HDEZ Start: 10-15-2016 INSERT PERIPHERAL IV JE STEPHEN MARQUEZ Tonsillectomy PENNIE MOHAMUD MD Plan of Treatment Date Care Activity Detail Author Start: 2046 RSV Immunization age d 60 or older (1 - 1-dose 60+ series) RSV Immunization aged 60 or older (1 - 1-dose 60+ series) [facility] [employer] Start: 2036 Zoster Vaccines (1 o f 2) Zoster Vaccines (1 of 2) [facility] Start: 03-16-2029 Lipid panel Lipid Screening [facility] Start: 07-09-2028 DTaP/Tdap/Td Vaccine s (2 - Td or Tdap) DTaP/Tdap/Td Vaccines (2 - Td or Tdap) [facility] Start: 07-09-2028 Urine microalbumin profile [facility] Start: 03-30-2026 Lipid panel Lipid Screening [facility] Start: 03-30-2026 LIPID SCREEN LIPID SCREEN [facility] Start: 11-01-2024 Influenza vaccination Influenz a Vaccine (Season Ended) [facility] Start: 06-30-2024 Depression Screening Depression Scre ening [facility] Start: 11-02-2023 Covid-19 Vaccine ( season) Covid-19 Vaccine () [facility] Start: 11-02-2023 Influenza vaccination Influenz a Vaccine (Season Ended) [facility] Start: 08-29-2023 End: 11-28-2023 Chlamydia trachomatis+Neisseria gonorrhoeae DNA [Presence] in Unspecified specimen by RAIZA with probe detection GONORRHEA/CHLAMYDIA NAAT Lab Routine Possible exposure to STD Expected: 08/29/2023, Expires: 11/28/2023 [facility] Comment on above: Expected: 08/29/2023 , Expires: 11/28/2023 Start: 08-29-2023 End: 11-28-2023 Hepatitis B virus surface Ag [Presence] in Serum [facility] Comment on above: Expected: 08/29/2023 , Expires: 11/28/2023 Start: 08-29-2023 End: 11-28-2023 Hepatitis C virus Ab [Presence] in Serum [facility] Comment on above: Expected: 08/29/2023 , Expires: 11/28/2023 Start: 08-29-2023 End: 11-28-2023 HERPES SIMPLEX TYPE 1 AND 2 IG [facility] Comment on above: Expected: 08/29/2023 , Expires: 11/28/2023 Start: 08-29-2023 End: 11-28-2023 HIV 1+2 Ab [Presence] in Serum or Plasma by Immunoassay [facility] Comment on above: Expected: 08/29/2023 , Expires: 11/28/2023 Start: 08-29-2023 End: 09-27-2024 SYPHILIS TOTAL W/REFLEX [facility] Work Phone: Comment on above: Expected: 08/29/2023 , Expires: 11/28/2023 Start: 08-05-2023 End: 08-05-2023 Patient encounter procedure 08/05/2023 2:30 PM EDT Office Visit [facility] [address] [place] [address] [place] [address] Yobany Castellanos MD [address] [place] [address] [place] [address] [facility] Start: 03-20-2023 End: 03-20-2023 Patient encounter procedure 03/20/2023 10:00 AM EST Office Visit [address] [place] [address] [place] [address] Nehal Duron, DISPATCHER SERVICE - CRAP SHOOTER [address] [facility] [place] [address] [facility] Start: 03-03-2023 Behavioral Health Screening Behavioral Health Screening [facility] Start: 11-01-2022 COVID-19 Vaccine ( season) COVID-19 Vaccine ( season) [facility] Start: 11-01-2022 Covid-19 Vaccine ( season) Covid-19 Vaccine ( season) [facility] Start: 11-01-2022 Influenza vaccination Influenza Vacc ine (#1) [facility] Start: 10-29-2022 End: 10-29-2022 Patient encounter procedure 10/29/2022 8:20 AM EDT Office Visit [facility] [address] [facility] [place] [address] BridenthNehal corbett, DISPATCHER SERVICE - CRAP SHOOTER [address] [place] [address] [facility] Start: 03-30-2022 Adult depression screening assessment DEPRESSION SCREENING [facility] Start: 03-26-2022 End: 03-26-2022 Patient encounter procedure 03/26/2022 Office Visit Family Medicine Nehal Duron, DISPATCHER SERVICE - CRAP SHOOTER [address] [facility] [place] [address] [facility] Start: 03-03-2022 DEPRESSION ASSESSMENT DEPRESSION ASS ESSMENT [facility] Start: 11-01-2021 Influenza vaccination [facility] Start: 08-30-2021 COVID-19 VACCINE (3 - Booster for Moderna series) COVID-19 VACCINE (3 - Booster for Moderna series) [facility] Start: 05-28-2021 COVID-19 VACCINE (3 - Booster for Moderna series) COVID-19 VACCINE (3 - Booster for Moderna series) [facility] Start: 11-01-2020 Influenza vaccination Flu vaccine (# 1) [facility] Start: 12-25-2016 PNEUMOCOCCAL (2 - PCV) PNEUMOCOCCAL (2 - PCV) [facility] Start: 12-25-2016 Pneumococcal vaccination Pneumococcal Vaccine (2 of 2 - PCV) [facility] Start: 12-25-2016 Pneumococcal Vaccine : Pediatrics (0 to 5 Years) and At-Risk Patients (6 to 64 Years) (2 - PCV) Pneumococcal Vaccine: Pediatrics (0 to 5 Years) and At-Risk Patients (6 to 64 Years) (2 - PCV) [facility] Start: 12-25-2016 Pneumococcal Vaccine : Pediatrics (0 to 5 Years) and At-Risk Patients (6 to 64 Years) (2 of 2 - PCV) Pneumococcal Vaccine: Pediatrics (0 to 5 Years) and At-Risk Patients (6 to 64 Years) (2 of 2 - PCV) [facility] Start: 2005 Hepatitis B Vaccine (1 of 3 - 19+ 3-dose series) Hepatitis B Vaccine (1 of 3 - 19+ 3-dose series) [facility] Start: 2005 Hepatitis B Vaccines (1 of 3 - 19+ 3-dose series) Hepatitis B Vaccines (1 of 3 - 19+ 3-dose series) [facility] Start: 2005 ONE PNEUMOVAX PRIOR TO AGE 65 ONE PNEUMOVAX PRIOR TO AGE 65 [facility] Start: 2004 Anxiety Screening Anxiety Screening [facility] Start: 2004 Depression Screening Depression Scre ening [facility] Start: 2004 Diabetes mellitus screening Diabetes Screening [facility] Start: 2004 Hepatitis C screening Hepatitis C Sc reening [facility] Start: 11-05-1999 Varicella vaccination Varicell a Vaccines (1 of 2 - 13+ 2-dose series) [facility] Start: 1998 Depression Screening Depression Scre ening [facility] Start: 1992 Pneumococcal Vaccine : Pediatrics (0 to 5 Years) and At-Risk Patients (6 to 64 Years) (1 - PCV) Pneumococcal Vaccine: Pediatrics (0 to 5 Years) and At-Risk Patients (6 to 64 Years) (1 - PCV) [facility] Start: 11-05-1991 COVID-19 Vaccine (1) COVID-19 Vaccin e (1) [facility] Start: 11-05-1987 MMR Vaccines (1 of 1 - Standard series) MMR Vaccines (1 of 1 - Standard series) [facility] Start: 11-05-1987 Varicella vaccination Varicell a Vaccines (1 of 2 - 2-dose childhood series) [facility] Start: 05-05-1987 COVID-19 Vaccine (#1) COVID-19 Vacci ne (#1) [facility] Start: 1986 HEPATITIS B (1 of 3 - 3-dose series) HEPATITIS B (1 of 3 - 3-dose series) [facility] Start: 1986 Hepatitis B Vaccines (1 of 3 - 3-dose series) Hepatitis B Vaccines (1 of 3 - 3-dose series) [facility] Start: 1986 HIV screening HIV Screening [facility] Start: 1986 Lipid panel Lipid Panel [facility] End: 08-02-2022 LUNG DIFFUSION CAPACITY (DLCO) LUNG DIFFUSION CAPACITY (DLCO) PFT Routine Gastroesophageal reflux disease, unspecified whether esophagitis present Hiatal hernia 1 Occurrences starting 07/03/2021 until 08/02/2022 [facility] Work Phone: Comment on above: 1 Occurrences starti ng 07/03/2021 until 08/02/2022 LUNG DIFFUSION CAPACITY (DLCO) LUNG DIFFUSION CAPACITY (DLCO) PFT Routine Gastroesophageal reflux disease, unspecified whether esophagitis present Hiatal hernia 05/28/2022 10:58 AM EDT [facility] Work Phone: End: 08-02-2022 Radiologic exam esophagus single contrast study XR ESOPHAGRAM Radiology Routine Gastroesophageal reflux disease, unspecified whether esophagitis present Hiatal hernia 1 Occurrences starting 07/03/2021 until 08/02/2022 [facility] Work Phone: Comment on above: 1 Occurrences starti ng 07/03/2021 until 08/02/2022 End: 08-02-2022 SPIROMETRY WITH DILATOR IF OBSTRUCTED SPIROMETRY WITH DILATOR IF OBSTRUCTED PFT Routine Gastroesophageal reflux disease, unspecified whether esophagitis present Hiatal hernia 1 Occurrences starting 07/03/2021 until 08/02/2022 [facility] Work Phone: Comment on above: 1 Occurrences starti ng 07/03/2021 until 08/02/2022 SURGICAL PATHOLOGY [facility] Work Phone: Comment on above: Release Upon Orderin g for 1 Occurrences starting 06/18/2021, 1 completed [facility] Immunizations Immunization Date Immunization Notes Care Provider Fa [facility] 03-30-2021 influenza, injectabl e, quadrivalent, contains preservative Grace Martinez MD Work Phone: [facility] 03-30-2021 influenza virus vacc ine, unspecified formulation Kia Srinivasan RN [facility] 07-09-2018 tetanus toxoid, redu bebeto diphtheria toxoid, and acellular pertussis vaccine, adsorbed; Translations: [Boostrix (Tdap)] PENNIE MOHAMUD MD [facility] 12-26-2015 influenza, seasonal, injectable, preservative free Pulm J-1 [facility] 12-26-2015 pneumococcal polysaccharide vaccine, 23 valent Pulm J-1 [facility] 05-30-2015 influenza, seasonal, injectable Pulm J-1 [facility] 05-30-2015 pneumococcal polysaccharide vaccine, 23 valent Pulm J-1 [facility] Payers Date Payer Category Payer Unknown [id number] 2023 Unknown [id number] 2023 Private Health Insurance [id number] 2022 Unknown [id number] 2019 Unknown [id number] 2019 Medicaid [id number] 2019 Medicaid [employer] [id number] 2019-Present [phone] [address] [place] [address] Medicaid [id number] 2017 Self-pay 1986 Unknown [id number] 1986 Unknown [id number] 1986 Unknown [id number] 1986 Unknown [id number] 1986 Unknown [id number] 1963 Unknown [id number] Unknown [id number] Unknown [id number] Unknown [id number] Unknown [id number] Unknown [id number] Social History Date Type Detail Facility Start: 07-04-2018 Heavy tobacco smoker (finding) [facility]igned At [facility] Start: 05-07-2021 Tobacco smoking stat us NHIS Never smoked tobacco [employer] Work Phone: Start: 05-07-2021 End: 05-28-2022 Tobacco use and exposure Smokeless tobacco non-user [employer] Work Phone: Start: 05-07-2021 Alcohol intake Lifetime non-d milly (finding) [employer] Work Phone: Start: 05-07-2021 History SDOH Alcohol Frequency 1 [employer] Work Phone: Start: 1985 Sex Assigned At Not on file [facility] [place] Work Phone: Start: 12-29-2019 End: 05-28-2022 Tobacco smoking status NHIS Smokes tobacco daily [facility] History of tobacco use Cigarette Smoker C [facility] Start: 12-29-2019 End: 03-15-2022 Cigarettes smoked current (pack per day) - Reported 0.25 [facility] Start: 04-16-2021 End: 08-29-2023 Alcohol intake Current drinker of alcohol (finding) [facility] Start: 03-30-2021 History SDOH Alcohol Comment occasionally [facility] Start: 1986 Sex Assigned At Male C [facility] Start: 06-08-2021 End: 03-19-2022 Exposure to SARS-CoV-2 (event) Not sure [facility] Start: 03-15-2022 End: 03-19-2022 Tobacco use panel [facility] Start: 03-19-2022 Alcohol Comment 8-9 beer a month [facility] Has the [employer], or [employer] threatened to shut off services in your home in past 12Mo No [facility] Are you now , , , , never or living with a partner? Living with partner [facility] How often to you hav e a drink containing alcohol? Never [facility] How many standard drinks containing alcohol do you have on a typical day? Patient does not drink [facility] Do you feel stress - tense, restless, nervous, or anxious, or unable to sleep at night because your mind is troubled all the time - these days [OSQ] Only a little [facility] (I/We) worried wheth er (my/our) food would run out before (I/we) got money to buy more. Never true [facility] Start: 04-10-2021 Gender identity Identifies as male gender (finding) [facility] Start: 04-10-2021 Sexual orientation Heterosexual (kaylin león) [facility] Start: 04-21-2008 Sex Male (finding) [facility] Functional Status Date Assessment Result Facility 06-30-2024 Functional Status Standard Safet y ID band on, Allergy Band on, Call device within reach, Bed in low position, Wheels locked, Bedside Cart Locked, Safety level maintained [facility] 05-20-2023 Functional Status ID band on, Call device within reach, Bed in low position [facility] 05-07-2023 Functional Status Awake, Resting [facility] 02-03-2022 Functional Status Independent [facility] Mental Status Date Assessment Result Facility 06-30-2024 Mental Status Orientation Oriented x 4 [facility] 05-20-2023 Mental Status Oriented x 4 [facility] 05-07-2023 Mental Status Oriented x 4 [facility] 02-03-2022 Mental Status Orientation Oriented x 4 [facility] Clinical Notes 02-12-2021 to 08-11-2024 Note Date & Type Note Facility 08-11-2024 Hospital Discharg e instructions Patient Education 08/11/2024 21:15:51 Dizziness, Uncertain Cause Dizziness (Uncertain Cause) Dizziness is a common symptom. It may be described as lightheadedness, spinning, or feeling like you are going to faint. Dizziness can have many causes. Be sure to tell the healthcare provider about: All medicines you take, including prescription, poma-guu-ikyvrfb, herbs, and supplements Any other symptoms you have Any health problems you are being treated for Any past major health problems you've had, such as a heart attack, balance issues, hearing problems, or blood pressure problems Anything that causes the dizziness to get worse or better Today's exam did not show an exact cause for your dizziness. Other tests may be needed. Follow up with your healthcare provider. Home care Dizziness that occurs with sudden standing may be a sign of mild dehydration. Drink extra fluids for the next few days. If you recently started a new medicine, stopped a medicine, or had the dose of a current medicine changed, talk with the prescribing healthcare provider. Your medicine plan may need adjustment. If dizziness lasts more than a few seconds, sit or lie down until it passes. This may help prevent injury in case you pass out. Get up slowly when you feel better. Don't drive or use power tools or dangerous equipment until you have had no dizziness for at least 48 hours. Follow-up care Follow up with your healthcare provider for further evaluation within the next 7 days or as advised. When to seek medical advice Call your healthcare provider for any of the following: Worsening of symptoms or new symptoms Passing out or seizure Repeated vomiting Headache Palpitations (the sense that your heart is fluttering or beating fast or hard) Shortness of breath Blood in vomit or stool (black or red color) Weakness of an arm or leg or 1 side of the face Vision or hearing changes Trouble walking or speaking Chest, arm, neck, back, or jaw pain 3426-3261 [employer]. [address] [place] [address]. All rights reserved. This information is not intended as a substitute for professional medical care. Always follow your healthcare professional's instructions. Follow Up Care 08/11/2024 18:41:33 With:Go to emergency room if symptoms worsen Address:Unknown When:2-4 days With:Follow up with primary care provider Address:Unknown When:2-4 days [facility] 08-11-2024 Emergency department Discharge summary Discharge Instructions Thank you for allowing [facility] to assist you with your healthcare needs. The following is important discharge information regarding your hospital visit. Diagnosis from Today's Visit Lightheadedness Nausea What to Do Next Instructions from Your Care Team Discharge Return to Work, School, or Sports (Return to Work, School, or Sports) - Ordered -- 08/12/24, May return to: work, 08/11/24 21:18:00 EDT Post Acute Orders No qualifying data available. You Need to Schedule the Following Appointments Follow Up with Go to emergency room if symptoms worsen When:Within 2-4 days Follow Up with Follow up with primary care provider When:Within 2-4 days Allergies penicillin Medications Please ask your primary doctor or pharmacist before taking any other medication not listed, including over the counter drugs, herbal medications, vitamins and or supplements as they may interact with your home medications. What How Much When Why Instructions Last Dose Unchanged azithromycin (Zithromax Z-Calos 250 mg oral tablet) Take two (2) tablets day 1-then one (1) tablet by mouth Every day Cough Atypical pneumonia Duration: 5 Days Unchanged baclofen (baclofen 20 mg oral tablet) 1 tab(s) by mouth Three (3) times a day Duration: 5 Days Unchanged benzonatate (Tessalon Perles 100 mg oral capsule) 1 cap by mouth Three (3) times a day as needed for as needed for cough Cough Atypical pneumonia Duration: 7 Days Unchanged dicyclomine (dicyclomine 10 mg oral capsule) 1 cap by mouth Four (4) times a day Abdominal pain Duration: 5 Days Please take this list to your next doctor s visit. Bring all medications you take, including over the counter medications, herbals and other supplements with you to your doctor s visit. Patients and families are reminded to discard old lists and to update any records with all medication providers or retail pharmacies. Education Materials Dizziness (Uncertain Cause) Dizziness is a common symptom. It may be described as lightheadedness, spinning, or feeling like you are going to faint. Dizziness can have many causes. Be sure to tell the healthcare provider about: All medicines you take, including prescription, fpxf-jio-ewybylt, herbs, and supplements Any other symptoms you have Any health problems you are being treated for Any past major health problems you've had, such as a heart attack, balance issues, hearing problems, or blood pressure problems Anything that causes the dizziness to get worse or better Today's exam did not show an exact cause for your dizziness. Other tests may be needed. Follow up with your healthcare provider. Home care Dizziness that occurs with sudden standing may be a sign of mild dehydration. Drink extra fluids for the next few days. If you recently started a new medicine, stopped a medicine, or had the dose of a current medicine changed, talk with the prescribing healthcare provider. Your medicine plan may need adjustment. If dizziness lasts more than a few seconds, sit or lie down until it passes. This may help prevent injury in case you pass out. Get up slowly when you feel better. Don't drive or use power tools or dangerous equipment until you have had no dizziness for at least 48 hours. Follow-up care Follow up with your healthcare provider for further evaluation within the next 7 days or as advised. When to seek medical advice Call your healthcare provider for any of the following: Worsening of symptoms or new symptoms Passing out or seizure Repeated vomiting Headache Palpitations (the sense that your heart is fluttering or beating fast or hard) Shortness of breath Blood in vomit or stool (black or red color) Weakness of an arm or leg or 1 side of the face Vision or hearing changes Trouble walking or speaking Chest, arm, neck, back, or jaw pain 3616-3124 [employer]. [address] [place] [address]. All rights reserved. This information is not intended as a substitute for professional medical care. Always follow your healthcare professional's instructions. Additional Information VACCINATE! IT SAVES LIVES! Members of the community who have not yet received the COVID-19 vaccine and would like to receive it can visit one of [facility] vaccine clinics. There are many vaccine clinic locations within the [facility]. For locations and available times, please visit [email or web address]. [email or web address] It is important to note that some COVID mobile vaccine clinics are held outdoors and may be canceled in rainy or stormy conditions. To learn more about pediatric vaccinations (ages 5-11), we invite you to visit the [facility] webpage. https://www.[facility].org/p ages/5985-Txmsg-Xjfivjpjtmd-Freq letkos-[email or web address]-Bovujedrv.html To learn more about the COVID-19 vaccine, we invite you to visit the CDC website for a list of frequently asked questions. https://www.cdc.gov/coronavirus/ 2019-ncov/vaccines/faq.html [employer] Patient Portal Access Instructions: Stay connected with your healthcare team and access your personal medical information anytime with the [employer] Patient Portal. If you would like a full copy of your medical records please contact the [facility] Medical Records Department Friday through Friday between 8a.m. and 4:30p.m. Please follow the directions below to access the portal: 1.Access the email account you provided upon registration to the [facility].2.Look for an invitation email from [facility].3.Open the email and access the invitation link: Accept Invitation to [email or web address].Fill in the required mireles to create your account. Sign into [email or web address] with your username and password that you created in the above steps to stay up to date. You can then view a summary of results, a summary of your visits, and the ability to download your summaries to your computer or send the information securely to a physician. Remember that your healthcare information is confidential, so carefully consider who you will allow to register on the [facility] Patient Portal for access to your information. You can also access the [email or web address] Patient Portal on the [email or web address] leslie. Simply click on Health Records under Health Data and then click on the Lu logo. HOW TO SAFELY DISPOSE OF PRESCRIPTION MEDICATIONS Please use one of the following methods to safely dispose of your unused medications. 1.Use a drug disposal kit: the drug disposal pouch allows you to safely discard your old and unused drugs. Ask your nurse to give you one when you are discharged.2.Visit a local take-back location: Many local pharmacies and police departments have programs that collect old and unwanted prescription drugs. Call your local pharmacy or go to http://Ad.IQ.Tideway/9Y3Lq0z to find one close to you.3.Make use of household items: Use cat litter or old coffee grounds to dispose medications if other options are not available. Mix your drugs with these household products, seal them in an airtight container and throw it into the garbage. Call [facility]: [phone] to be sure your drugs can be disposed of in this way. Some medicines may require a different approach.4.Never flush your medications down the toilet. IF YOU HAVE BEEN PRESCRIBED AN OPIOIDS FOR PAIN If you have been prescribed an opioid (such as hydrocodone, oxycodone or morphine), it is critical to understand the possible side effects and risks of opioid pain medications. Even when taken as directed, opioids can have several side effects including: Tolerance, meaning you might need to take more of a medication for the same pain relief. Nausea, vomiting and/or constipation. Sleepiness, dizziness, dry mouth, confusion, depression or itching. Physical dependence, meaning you have withdrawal symptoms when a medication is stopped ? this can develop within a few days. KNOW YOUR RESPONSIBILITIES It is important to know exactly how much and how often to take the opioid pain medications you are prescribed. Never take opioids in higher amounts or more often than prescribed. Do not combine opioids with alcohol or other drugs that cause drowsiness, such as benzodiazepines, also known as benzos, including diazepam and alprazolam, muscle relaxants or sleep aids. Never sell or share prescription opioids. This is illegal. Store opioids in a secure place and out of reach of others (including children, family, friends and visitors). The last page(s) of this document has been signed and retained as a CHART COPY Signatures Patient Education Materials Dizziness, Uncertain Cause Medication Leaflets My discharge plan and instructions have been reviewed and explained to me and I,STEPHAN ZAMARRIPA understand my current condition and have read and understand these discharge instructions. I have received a written copy of the plan/instructions. If I have questions, I am aware that I should contact my doctor. 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 Author Type: Nurse Practitioner Type: Progress Notes Filed: 08/11/2024 16:13 Note Text: Patient triaged at [facility]. Here today with severe headache, dizzy, light headed for 2 days. I will refer to ER, family to drive pov. Denies wheelchair and squad.[facility]06-11-2025 History of Present illness Narrative* Marcelle Storm APRN.LENARD - 08/11/2024 4:12 PM EDT Patient triaged at [facility]. Here today with severe headache, dizzy, light headed for 2 days. Iwill refer to ER, family to drive pov. Denies wheelchair and squad. [facility] Discharge instructions Patient Education 06/30/2024 20:14:21 Finger Contusion Finger Contusion You have a contusion. This is also called a bruise. There is swelling and some bleeding under the skin, but no broken bones. This injury generally takes a few days to a few weeks to heal. During thattime, the bruise will typically change in color from reddish, to purple-blue, to greenish-yellow, then to yellow-brown. A finger contusion may be treated with a splint or joseph tape (taping the injured finger to the onenext to it for support). Minor contusions likely will need no other treatment. Home care Elevate the hand to reduce pain and swelling. As much as possible, sit or lie down with the hand raised about the level of your heart. This is especially important during the first 48 hours. Ice the finger to help reduce pain and swelling. Wrap a cold source (ice pack or ice cubes in a plastic bag) in a thin towel. Apply to the bruised finger for 20 minutes every 1 to 2 hours the first day. Continue this 3 to 4 times a day until the pain and swelling goes away. If joseph tape was applied and it becomes wet or dirty, change it. You may replace it with paper, plastic, or cloth tape. Before taping, put a thin strip of cotton or gauze between the fingers to absorb sweat. This will help prevent any breakdown of skin or fungal infections. Unless another medicine was prescribed, you can take acetaminophen, ibuprofen, or naproxen to control pain. (If you have chronic liver or kidney disease or ever had a stomach ulcer or gastrointestinal bleeding, talk with your doctor before using these medicines.) Follow up Follow up with your healthcare provider, or as advised. Call if you are not improving within 1 to 2weeks. When to seek medical advice Call your healthcare provider right away if you have any of the following: Increased pain or swelling Hand or arm becomes cold, blue, numb or tingly Signs of infection: Warmth, drainage, or increased redness or pain around the bruise Inability to move the injured finger or hand Frequent bruising for unknown reasons Your fingernail becomes raised and it appears that there is blood accumulating under the nail. Thismay need to be drained. 6117-8049 [employer]. [address] [place] [address]. All rights reserved. This information is not intended as a substitute for professional medical care. Always follow yourhealthcare professional's instructions. Follow Up Care 06/30/2024 18:14:18 With:Call Physician Referral Address:Unknown When:2-4 days [facility] 04-30-2025 Emergency department Discharge summary Discharge Instructions Thank you for allowing [facility] to assist you with your healthcare needs. The following is importantdischarge information regarding your hospital visit. Diagnosis from Today's Visit Injury of right middle finger What to Do Next Instructions from Your Care Team Discharge Return to Work, School, or Sports (Return to Work, School, or Sports) - Ordered -- 07/02/24, May return to: work, 06/30/24 20:14:00 EDT Post Acute Orders No qualifying data available. You Need to Schedule the Following Appointments Follow Up with Call Physician Referral When:Within 2-4 days Allergies penicillin Medications Please ask your primary doctor or pharmacist before taking any other medication not listed, including over the counter drugs, herbal medications, vitamins and or supplements as they may interact withyour home medications. What How Much When Why Instructions Last Dose Unchanged azithromycin (Zithromax Z-Calos 250 mg oral tablet) Take two (2) tablets day 1-then one (1) tablet by mouth Every day Cough Atypical pneumonia Duration: 5 Days Unchanged baclofen (baclofen 20 mg oral tablet) 1 tab(s) by mouth Three (3) times a day Duration: 5 Days Unchanged benzonatate (Tessalon Perles 100 mg oral capsule) 1 cap by mouth Three (3) times a day as needed for as needed for cough Cough Atypical pneumonia Duration: 7 Days Unchanged dicyclomine (dicyclomine 10 mg oral capsule) 1 cap by mouth Four (4) times a day Abdominal pain Duration: 5 Days Please take this list to your next doctor s visit. Bring all medications you take, including over the counter medications, herbals and other supplements with you to your doctor s visit. Patients and families are reminded to discard old lists and to update any records with all medication providers or retail pharmacies. Education Materials Finger Contusion You have a contusion. This is also called a bruise. There is swelling and some bleeding under the skin, but no broken bones. This injury generally takes a few days to a few weeks to heal. During thattime, the bruise will typically change in color from reddish, to purple-blue, to greenish-yellow, then to yellow-brown. A finger contusion may be treated with a splint or joseph tape (taping the injured finger to the onenext to it for support). Minor contusions likely will need no other treatment. Home care Elevate the hand to reduce pain and swelling. As much as possible, sit or lie down with the hand raised about the level of your heart. This is especially important during the first 48 hours. Ice the finger to help reduce pain and swelling. Wrap a cold source (ice pack or ice cubes in a plastic bag) in a thin towel. Apply to the bruised finger for 20 minutes every 1 to 2 hours the first day. Continue this 3 to 4 times a day until the pain and swelling goes away. If joseph tape was applied and it becomes wet or dirty, change it. You may replace it with paper, plastic, or cloth tape. Before taping, put a thin strip of cotton or gauze between the fingers to absorb sweat. This will help prevent any breakdown of skin or fungal infections. Unless another medicine was prescribed, you can take acetaminophen, ibuprofen, or naproxen to control pain. (If you have chronic liver or kidney disease or ever had a stomach ulcer or gastrointestinal bleeding, talk with your doctor before using these medicines.) Follow up Follow up with your healthcare provider, or as advised. Call if you are not improving within 1 to 2weeks. When to seek medical advice Call your healthcare provider right away if you have any of the following: Increased pain or swelling Hand or arm becomes cold, blue, numb or tingly Signs of infection: Warmth, drainage, or increased redness or pain around the bruise Inability to move the injured finger or hand Frequent bruising for unknown reasons Your fingernail becomes raised and it appears that there is blood accumulating under the nail. Thismay need to be drained. [phone] [employer]. [address] [place] [address]. All rights reserved. This information is not intended as a substitute for professional medical care. Always follow yourhealthcare professional's instructions. Additional Information VACCINATE! IT SAVES LIVES! Members of the community who have not yet received the COVID-19 vaccine and would like to receive it can visit one of [facility] vaccine clinics. There are many vaccine clinic locations within the [facility]. For locations and available times, please visit www.gettheshot.[email or web address].[place].gov/. It is important to note that some COVID mobile vaccine clinics are held outdoors and may be canceled in rainy or stormy conditions. To learn more about pediatric vaccinations (ages 5-11), we invite you to visit the [facility] webpage. https://www.[facility].org/pages/7313-Vrzih-Vwrjjccxnri-Zujwmrdqij-Bvmut-Mvm stions.htmlTo learn more about the COVID-19 vaccine, we invite you to visit the CDC website for a list of frequently asked questions. https://www.cdc.gov/coronavirus/2019-ncov/vaccines/faq.html [employer] Patient Portal Access Instructions: Stay connected with your healthcare team and access your personal medical information anytime with the [employer] Patient Portal. If you would like a full copy of your medical records please contact the [facility] Medical Records Department Friday through Friday between 8a.m. and 4:30p.m. Please follow the directions below to access the portal: 1.Access the email account you provided upon [facility] the [facility].2.Look for an invitation email from [facility].3.Open the email and access the invitation link: Accept Invitation to [email or web address].Fill in the required mireles to create your account. Sign into [email or web address] with your username and password that you created in the above steps to stay up to date. You can then view a summary of results, a summary of your visits, and the ability to download your summaries to your computer or send the information securely to a physician. Remember that your healthcare information is confidential, so carefully consider who you will allow to register on the [facility] Patient Portal for access to your information. You can also access the [facility] Patient Portal on the [employer] Simply click on Health Records under [employer] and then click on the Lu logo. HOW TO SAFELY DISPOSE OF PRESCRIPTION MEDICATIONS Please use one of the following methods to safely dispose of your unused medications. 1.Use a drug disposal kit: the drug disposal pouch allows you to safely discard your old and unuseddrugs. Ask your nurse to give you one when you are discharged.2.Visit a local take-back location: Many local pharmacies and police departments have programs that collect old and unwanted prescriptiondrugs. Call your local pharmacy or go to http://bit.Tideway/2B5Yp3x to find one close to you.3.Make use of household items: Use cat litter or old coffee grounds to dispose medications if other options arenot available. Mix your drugs with these household products, seal them in an airtight container andthrow it into the garbage. Call [facility]: [phone] to be sure your drugs can be disposed of in this way. Some medicines may require a different approach.4.Never flush your medications down the toilet. IF YOU HAVE BEEN PRESCRIBED AN OPIOIDS FOR PAIN If you have been prescribed an opioid (such as hydrocodone, oxycodone or morphine), it is critical to understand the possible side effects and risks of opioid pain medications. Even when taken as directed, opioids can have several side effects including: Tolerance, meaning you might need to take more of a medication for the same pain relief. Nausea, vomiting and/or constipation. Sleepiness, dizziness, dry mouth, confusion, depression or itching. Physical dependence, meaning you have withdrawal symptoms when a medication is stopped ? this can develop within a few days. KNOW YOUR RESPONSIBILITIES It is important to know exactly how much and how often to take the opioid pain medications you are prescribed. Never take opioids in higher amounts or more often than prescribed. Do not combine opioids with alcohol or other drugs that cause drowsiness, such as benzodiazepines, also known as benzos,including diazepam and alprazolam, muscle relaxants or sleep aids. Never sell or share prescriptionopioids. This is illegal. Store opioids in a secure place and out of reach of others (including children, family, friends and visitors). The last page(s) of this document has been signed and retained as a CHART COPY Signatures Patient Education Materials Finger Contusion Medication Leaflets My discharge plan and instructions have been reviewed and explained to me and IMARILOU CORY A understand my current condition and have read and understand these discharge instructions. I have received a written copy of the plan/instructions. If I have questions, I am aware that I should contact my doctor. 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 HISTORY: ORDERING SYSTEM PROVIDED HISTORY: Reason for Exam: pain FINDINGS: No acute fracture or dislocation. The joint spaces are maintained. No radiopaque retained foreign body or appreciable soft tissue swelling. IMPRESSION: No definite acute traumatic findings by radiograph. I have personally reviewed the images of this examination and agree with the resident's findings and interpretation. Interpreted by: Wojciech Vieira Preliminary Report By: Ricardo Aguirre Electronically signed By Wojciech Vieira Dictated Date: 06/30/2024 7:10:20 PM Prelim Date: 06/30/2024 7:11:16 PM Sign Date: 06/30/2024 8:45:21 PM [facility]ing [facility] Tele[facility] encounter Note* Telephone Encounter - Marcelle Storm APRN.CNP - 08/30/2023 11:02 AM EDT Notified of positive hsv 1 and 2. Discussed course and contagiousness. Reports never having oral orgenital rashes. F/u for any rash. Notified all other labs negative. [facility] Work Phone: [phone]) 958-565406-29-2024 Miscellaneous Notes* Telephone Encounter - Marcelle Storm APRN.CNP - 08/30/2023 11:02 AM EDT Notified of positive hsv 1 and 2. Discussed course and contagiousness. Reports never having oral orgenital rashes. F/u for any rash. Notified all other labs negative. documented in this encounterC[facility]06-[facility]24 Telephone encounter Note * Telephone Encounter - Clau Shin MA - 08/30/2023 8:27 AM EDT Patient given results and verbalized understanding of instructions given. Clau Shin MA [facility]06-29-2024 Miscellaneous Notes* Telephone Encounter - Clau Shin MA - 08/30/2023 8:27 AM EDT Patient given results and verbalized understanding of instructions given. Clau Shin MA * Telephone Encounter - Clau Shin MA - 08/30/2023 8:18 AM EDT Unable to reach patient. Mailbox full/Mailbox not set up/ Number incorrect. Please try again later. Clau Shin MA * Telephone Encounter - Clau Shin MA - 08/30/2023 8:18 AM EDT ----- Message from Dhruv Smith MD sent at 08/30/2023 8:05 AM EDT ----- Negative for gonorrhea and chlamydia. documented in this encounterC[facility]06-[facility] Telephone encounter Note * Telephone Encounter - Clau Shin MA - 08/30/2023 8:18 AM EDT Unable to reach patient. Mailbox full/Mailbox not set up/ Number incorrect. Please try again later. Clau Shin MA [facility]06-29-2024 Telephone encounter Note* Telephone Encounter - Clau Shin MA - 08/30/2023 8:18 AM EDT ----- Message from Dhruv Smith MD sent at 08/30/2023 8:05 AM EDT ----- Negative for gonorrhea and chlamydia. [facility]06-29-2024 Telephone encounter Note* Telephone Encounter - Melony Rocha RN - 08/30/2023 8:09 AM EDT Patient calling with request for lab results from 08/29/23. Patient denies any new or worsening symptoms of which a provider is not aware: Yes. Advised patient that lab tests are still in process and GO TO THE EMERGENCY ROOM OR CALL 911 IF:* You develop any new symptoms* Your condition worsens* You are concerned or anxious about your condition for any other reason. [facility]06-29-2024 Miscellaneous Notes* Telephone Encounter - Melony Rocha RN - 08/30/2023 8:09 AM EDT Patient calling with request for lab results from 08/29/23. Patient denies any new or worsening symptoms of which a provider is not aware: Yes. Advised patient that lab tests are still in process and GO TO THE EMERGENCY ROOM OR CALL 911 IF:* You develop any new symptoms* Your condition worsens* You are concerned or anxious about your condition for any other reason. documented in this encounterC[facility]06-28-2024 NoteHNO ID: [id number] Author: MARCELLE STORM APRN.CRAP SHOOTER Service: ? Author Type: Nurse Practitioner Type: Progress Notes Filed: 08/29/2023 16:48 Note Text: Subjective HPI HPI Stephan Zamarripa is a 37 year old male who presents today for CC of possible std exposure by ex girlfriend, reports possible urinary frequency. Denies current symptoms. Denies penile rash/drainage, testicular pain, abd pain. 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 ALBUTEROL SULFATE HFA INHALATION Inhale as instructed. sucralfate (CARAFATE) 1 gram tablet Take 1 tablet by mouth four times daily. Dissolve in one tablespoon of water omeprazole (PRILOSEC) 40 mg capsule Take 1 capsule by mouth twice daily. (Patient not taking: Reported on 08/29/2023) lansoprazole (PREVACID) 30 mg capsule Take 1 capsule by mouth twice daily. (Patient not taking: Reported on 08/29/2023) FAMILY HISTORY Problem Relation Age of Onset Diabetes Mother Hypertension Mother Heart disease Mother Cancer Mother No Known Problems Father Vertigo Sister Ovarian cancer Sister Social History Tobacco Use Smoking status: Every Day Packs/day: .25 Types: Cigarettes Smokeless tobacco: Never Vaping Use Vaping Use: current everyday user Substances: Nicotine Substance Use Topics Alcohol use: Yes Comment: occasionally Drug use: Not Currently ROS Objective Blood pressure 125/86, pulse 68, temperature 36.9 ?C (98.4 ?F), resp. rate 18, weight 82 kg (180 lb 12.4 oz), SpO2 98%. Physical Exam Constitutional: General: He is not in acute distress. Appearance: Normal appearance. He is not toxic-appearing. Cardiovascular: Rate and Rhythm: Normal rate and regular rhythm. Heart sounds: Normal heart sounds. Pulmonary: Effort: Pulmonary effort is normal. Breath sounds: Normal breath sounds. Abdominal: General: Bowel sounds are normal. Palpations: Abdomen is soft. Tenderness: There is no abdominal tenderness. Skin: General: Skin is warm and dry. ASSESSMENT/PLAN: 1. Possible exposure to STD - ICD9: V01.6, ICD10: Z20.2 (primary diagnosis) Treat or refer per results. 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 Urinary frequency - ICD9: 788.41, ICD10: R35.0 Pos for ket/pro No treatment today. - UA DIP, URINE (POC) - URINE CULTURE Marcelle Storm APRN.[facility] History of Present illness Narrative* Marcelle Storm APRN.CRAP SHOOTER - 08/29/2023 4:45 PM EDT Subjective HPI HPI Stephan Zamarripa is a 37 year old male who presents today for CC of possible std exposure by ex girlfriend, reports possible urinary frequency. Denies current symptoms. Denies penile rash/drainage,testicular pain, abd pain. 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 ALBUTEROL SULFATE HFA INHALATION Inhale as instructed. sucralfate (CARAFATE) 1 gram tablet Take 1 tablet by mouth four times daily. Dissolve in one tablespoon of water omeprazole (PRILOSEC) 40 mg capsule Take 1 capsule by mouth twice daily. (Patient not taking: Reported on 08/29/2023) lansoprazole (PREVACID) 30 mg capsule Take 1 capsule by mouth twice daily. (Patient not taking: Reported on 08/29/2023) FAMILY HISTORY Problem Relation Age of Onset Diabetes Mother Hypertension Mother Heart disease Mother Cancer Mother No Known Problems Father Vertigo Sister Ovarian cancer Sister Social History Tobacco Use Smoking status: Every Day Packs/day: .25 Types: Cigarettes Smokeless tobacco: Never Vaping Use Vaping Use: current everyday user Substances: Nicotine Substance Use Topics Alcohol use: Yes Comment: occasionally Drug use: Not Currently ROS Objective Blood pressure 125/86, pulse 68, temperature 36.9 C (98.4 F), resp. rate 18, weight 82 kg (180 lb 12.4 oz), SpO2 98%. Physical Exam Constitutional: General: He is not in acute distress. Appearance: Normal appearance. He is not toxic-appearing. Cardiovascular: Rate and Rhythm: Normal rate and regular rhythm. Heart sounds: Normal heart sounds. Pulmonary: Effort: Pulmonary effort is normal. Breath sounds: Normal breath sounds. Abdominal: General: Bowel sounds are normal. Palpations: Abdomen is soft. Tenderness: There is no abdominal tenderness. Skin: General: Skin is warm and dry. ASSESSMENT/PLAN: 1. Possible exposure to STD - ICD9: V01.6, ICD10: Z20.2 (primary diagnosis) Treat or refer per results. 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 Urinary frequency - ICD9: 788.41, ICD10: R35.0 Pos for ket/pro No treatment today. - UA DIP, URINE (POC) - URINE CULTURE Marcelle Storm APRN.CRAP SHOOTER documented in this encounterC[facility]06-[facility] Emergency department Note * Dinora Moyer RN - 08/03/2023 1:53 AM EDT This RN has discussed discharge instructions with pt and his at BS. Pt has no questions or concerns about follow-up and prescriptions that Dr. Warren wrote. Steady gait, IV removed with no bleeding and cannula intact. VSS. Dinora Moyer RN 08/03/23153 [id number] Emergency department Note* Dinora Moyer RN - 08/03/2023 1:53 AM EDT This RN has discussed discharge instructions with pt and his at . Pt has no questions or concerns about follow-up and prescriptions that Dr. Warren wrote. Steady gait, IV removed with no bleeding and cannula intact. VSS. Dinora Moyer RN 08/03/23153 documented in this [facility]06-01-2024 Hospital Discharge instructions* Discharge Instructions* Zoltan Warren DO - 08/02/2023 11:21 PM EDT Call your doctor on Friday to schedule follow up. Use prescribed albuterol every 4 hours while awake for the next few days, then only as needed. Consuming honey has been shown to decrease cough. Use prescribed meloxicam on a schedule, not just as needed. Use this instead of, not in addition to, ibuprofen and other [id number]-zjq-[id number] anti-inflammatories. Use acetaminophen 1000 mg up to 4 times dailyas needed for pain. Continue your other medications as prescribed. Return to the ED for symptoms that persist, change or worsen, or if any other problems arise. * Discharge Instr - ANGELA* Dinora Moyer RN - 08/03/2023 1:50 AM EDT Continuity of Care Form Patient Name: Stephan Zamarripa : 1985 Admit date: 08/02/2023 Discharge date: Code Status Order: Prior Advance Directives: N Admitting Physician: No admitting provider for patient encounter. PCP: Yobany Castellanos MD Discharging Nurse: Discharging Hospital Unit/Room#: 09/06 Discharging Unit Phone Number: Emergency Contact: Extended Emergency Contact Information Primary Emergency Contact: FrancisGladys Mobile Relation: Friend Preferred language: [place] [facility] Picking Technician needed? No Past Surgical History: No past surgical history on file. Immunization History: Immunization History Administered Date(s) Administered Influenza, injectable, quadrivalent 03/30/2021 Influenza, seasonal, injectable 05/30/2015 Influenza, seasonal, injectable, preservative free 12/26/2015 Pneumococcal Polysaccharide PPSV23 05/30/2015, 12/26/2015 Tdap 07/09/2018 Active Problems: Medical Problems Problem List Chronic pain of right knee Cigarette nicotine dependence without complication GERD without esophagitis Oral phase dysphagia Navarro's esophagus with dysplasia Dizziness Nausea and vomiting Neck strain, initial encounter Second degree burn of right forearm Pes planus of both feet Isolation/Infection: No active isolations No active infections Nurse Assessment: Last Vital Signs: BP 107/57 (BP Location: Left arm, Patient Position: Lying) Pulse 62 Resp 20 Ht 1.727 m (5' 8) Wt 85.7 kg (189 lb) SpO2 97% BMI 28.74 kg/m Last documented pain score (0-10 scale): Last Weight: Wt Readings from Last 1 Encounters: 08/02/23 85.7 kg (189 lb) Mental Status: {ANGELA Patient Mental Status:87431} IV Access: {ANGELA IV Access:56552} Nursing Mobility/ADLs: Walking {SIMON ADL:::Independent} Transfer {SIMON ADL:::Independent} Bathing {SIMON ADL:::Independent} Dressing {SIMON ADL:::Independent} Toileting {SIMON ADL:::Independent} Feeding {SIMON ADL:::Independent} Inspector Watch Train {SIMON ADL:::Independent} Med Delivery {yes/no:12035} Wound Care Documentation and Therapy: Elimination: Continence: Bowel: {yes/no:} Bladder: {yes/no:} Urinary Catheter: {ANGELA Urinary Catheter:85811} Colostomy/Ileostomy/Ileal Conduit: {YES / NO:} Date of Last BM: No intake or output data in the 24 hours ending 08/03/23 0149 No intake/output data recorded. Safety Concerns: {ANGELA Safety Concerns:25138} Impairments/Disabilities: {ANGELA Impairments/Disabilities:55045} Nutrition Therapy: Current Nutrition Therapy: {ANGELA Diet List:12767} Routes of Feeding: {routes of feedin} Liquids: {liquid consistency:45683} Daily Fluid Restriction: {daily fluid restriction:41369} Last Modified Barium Swallow with Video (Video Swallowing Test): {done not done:90426} Treatments at the Time of Hospital Discharge: Respiratory Treatments: Oxygen Therapy: {Therapy; copd oxygen:91208} Ventilator: {ANGELA Ventilator:22851} Rehab Therapies: {GEN THERAPY DISCIPLINE SCAL:3638530} Weight Bearing Status/Restrictions: {POD WEIGHT BEARIN} Other Medical Equipment (for information only, NOT a DME order): {Assistive Devices DME:55458} Other Treatments: Patient's personal belongings (please select all that are sent with patient): {ANGELA Patient Belongings:30977} RN SIGNATURE: {E-signature:35290} CASE MANAGEMENT/SOCIAL WORK SECTION Inpatient Status Date: Readmission Risk Assessment Score: @READMISSIONRISKDETAILS@ Discharging to Facility/ Agency Name: Address: Phone: Fax: Dialysis Facility (if applicable) Name: Address: Dialysis Schedule: Phone: Fax: Chocolate 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 Update Admission H&P: {ANGELA Changes in H&P:06037} PHYSICIAN SIGNATURE: {E-signature:56820} documented in this [facility]05-18-2024 Emergency department Note* Katie Verde RN - 07/19/2023 3:46 AM EDT Reviewed discharge instructions and patient verbalized understanding. No further questions. Patientambulated out of ED with strong steady gait. Respirations even and non labored. No acute distress. A&O x4. Patient waiting in lobby for transportation set up under fiance's roundtrip request Katie Verde RN 07/19/23 0346 [id number] Emergency department Note* Katie Verde RN - 07/19/2023 3:46 AM EDT Reviewed discharge instructions and patient verbalized understanding. No further questions. Patientambulated out of ED with strong steady gait. Respirations even and non labored. No acute distress. A&O x4. Patient waiting in lobby for transportation set up under fiance's roundtrip request Katie Verde RN 07/19/23 0346 * David Jaffe MD - 07/19/2023 1:55 AM EDT EMERGENCY DEPARTMENT ENCOUNTER Pt Name: Stephan Zamarripa Birthdate 1985 Date of evaluation: 07/19/2023 ED Provider: David Jaffe MD CHIEF COMPLAINT Chief Complaint Patient presents with Ingestion HISTORY OF PRESENT ILLNESS I wore appropriate PPE for the entirety of this encounter. HPI Stephan Zamarripa is a 37 y.o. person who presents to the emergency department with concern for possible unintentional ingestion of drugs. States he had a alliance party this evening did not drink any alcohol ordo any drugs although his a smoking cigarette was not feeling well and he put it to his tonguewhen he started feeling jittery and his tongue went numb. He states now he feels like his heart is racing and he is scared at the sensation that he is feeling. He feels jittery all around. Denies anychest pain or vomiting but does feel nauseated. Was feeling well prior to this and symptoms occurred starting around 1 AM Nursing Notes were reviewed. Limitations to history: None Outside historians: None REVIEW OF SYSTEMS Review of Systems Neurological: Positive for tremors. PAST MEDICAL HISTORY Past Medical History: Diagnosis Date Drug abuse ([facility] ([facility]) 03/19/2022 SURGICAL HISTORY History reviewed. No pertinent surgical history. CURRENT MEDICATIONS Previous Medications No medications on file ALLERGIES Penicillins, [place] extract, and Tomato FAMILY HISTORY Family History Problem Relation Name Age of Onset Diabetes Mother Heart failure Mother Hypertension Mother Diabetes Father estranged No Known Problems Sister Other (vertigo) Sister No Known Problems Sister No Known Problems Sister No Known Problems Sister No Known Problems Sister No Known Problems Sister No Known Problems Sister No Known Problems Sister Cardiomyopathy Brother Other (ashberger) Son Diabetes Mother's Sister Cancer Mother's Sister No Known Problems Mother's Brother No Known Problems Maternal Grandmother Diabetes Maternal Grandfather SOCIAL HISTORY Social History Socioeconomic History Marital status: Single Number of children: 2 Tobacco Use Smoking status: Every Day Packs/day: 0.50 Years: 22.00 Additional pack years: 0.00 Total pack years: 11.00 Types: Cigarettes Smokeless tobacco: Never Vaping Use Vaping Use: Every day Substances: Nicotine, Flavoring Substance and Sexual Activity Alcohol use: Yes Comment: 8-9 beer a month Drug use: Yes Types: Heroin, 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 Sexual activity: Yes Partners: Female Social History Narrative Lives with bart and daughter, 4 yo. Works at [employer]- 2 months Social Determinants of Health Food Insecurity: No Food Insecurity (07/10/2023) Hunger Vital Sign Worried About Running Out of Food in the Last Year: Never true Ran Out of Food in the Last Year: Never true Transportation Needs: No Transportation Needs (07/10/2023) PRAPARE - Transportation Lack of Transportation (Medical): No Lack of Transportation (Non-Medical): No Physical Activity: Inactive (07/10/2023) Exercise Vital Sign Days of Exercise per Week: 0 days Minutes of Exercise per Session: 0 min Stress: No Stress Concern Present (07/10/2023) [employer] - Occupational Stress Questionnaire Feeling of Stress : Only a little Social Connections: Moderately Isolated (07/10/2023) Social Connection and Isolation Panel [NHANES] Frequency of Communication with Friends and Family: Three times a week Frequency of Social Gatherings with Friends and Family: Three times a week Attends Sabianist Services: Never Active Member of Clubs or Organizations: No Attends Club or Organization Meetings: Never Marital Status: Living with partner Intimate Partner Violence: Not At Risk (07/10/2023) Humiliation, Afraid, Rape, and Kick questionnaire Fear of Current or Ex-Partner: No Emotionally Abused: No Physically Abused: No Sexually Abused: No Housing Stability: Low Risk (07/10/2023) Housing Stability Vital Sign Unable to Pay for Housing in the Last Year: No Number of Places Lived in the Last Year: 1 Unstable Housing in the Last Year: No SCREENINGS PHYSICAL EXAM ED Triage Vitals Temp Pulse Resp BP -- -- -- -- SpO2 Temp src Heart Rate Source Patient Position -- -- -- -- BP Location FiO2 (%) -- -- Physical Exam Vitals and nursing note reviewed. Constitutional: General: He is not in acute distress. Appearance: He is well-developed. Comments: Tearful, jittery HENT: Head: Normocephalic and atraumatic. Eyes: Conjunctiva/sclera: Conjunctivae normal. Cardiovascular: Rate and Rhythm: Normal rate and regular rhythm. Heart sounds: No murmur heard. Pulmonary: Effort: Pulmonary effort is normal. No respiratory distress. Breath sounds: Normal breath sounds. Abdominal: Palpations: Abdomen is soft. Tenderness: There is no abdominal tenderness. Musculoskeletal: General: No swelling. Cervical back: Neck supple. Skin: General: Skin is warm and dry. Capillary Refill: Capillary refill takes less than 2 seconds. Neurological: Mental Status: He is alert. Psychiatric: Mood and Affect: Mood normal. DIAGNOSTIC RESULTS RADIOLOGY (Per Emergency Physician): Interpretation per the Radiologist below, if available at the time of this note: No orders to display EKG Interpretation: LABS: Labs Reviewed DRUGS OF ABUSE Result Value AMPHETAMINE SCREEN Negative BARBITURATES SCREEN Negative BENZODIAZEPINE SCREEN Negative COCAINE METAB. SCREEN Negative METHADONE SCREEN Negative OPIATES SCREEN Negative OXYCODONE SCREEN Negative PHENCYCLIDINE SCREEN Negative Narrative: The expected value for all of the drugs listed above is Negative. The following drugs or drug groups have been screened for by Immunoassay at the following thresholds: Amphetamine class (1000 ng/mL) Barbiturates (200 ng/mL) Benzodiazepines (200 ng/mL) Cocaine (300 ng/mL) Methadone (300 ng/mL) Opiates (300 ng/mL) Oxycodone (100 ng/mL) PCP (25 ng/mL) NOTE: These results are for medical treatment only. Analysis performed using non-forensic procedures. POSITIVE results are NOT confirmed by a more specific alternative method unless requested. If confirmation is needed, request confirmation under separateorder. All other labs were within normal range or not returned as of this dictation. EMERGENCY DEPARTMENT COURSE and DIFFERENTIAL DIAGNOSIS/MDM: Vitals: Vitals: 07/19/23 0215 07/19/23 0304 BP: 124/84 126/86 BP Location: Right arm Right arm Patient Position: Sitting Sitting Pulse: 81 81 Resp: 18 22 Temp: 36.5 C (97.7 F) TempSrc: Oral SpO2: 99% 100% Weight: 88 kg (194 lb) Medications Administered in the ED: Medications ondansetron ODT (Zofran-ODT) disintegrating tablet 4 mg (4 mg Oral Given 07/19/23 0207) With concern for unintentional drug use PROCEDURES: Unless otherwise noted below, none Procedures Differential Diagnosis Considerations: Drug use Sources of History: Patient ED Course: Vital signs on arrival normal and stable does not tachycardia hypotension or hypoxia. He does not appear in any acute distress although is tearful at the situation. He would want to be tested for anydrugs that may be in his system as he states he is 15 years clean from opiates and states does not feel like that. He is likely under the influence of cocaine and methamphetamines as that is the mostcommon drugs that would cause similar symptoms. Will give him Zofran for nausea control and reassess. If he is doing well after period of observation may be safe for discharge Reassessment: UDS was negative although could be related to synthetic drugs versus not enough time for urinary excretion. Regardless patient is feeling improved and remains hemodynamically stable and will be discharged Consideration of Admission/Observation: Independent Interpretation of Tests: Diagnostic Tests Considered but not Performed: Prescription Medications Considered but not Prescribed: Chronic Conditions Affecting Care: FINAL IMPRESSION 1. Drug ingestion, accidental or unintentional, initial encounter DISPOSITION Discharge 07/19/2023 03:14:23 AM PATIENT REFERRED TO: No follow-up provider specified. DISCHARGE MEDICATIONS: New Prescriptions No medications on file (Comment: Please note this report has been produced using speech recognition software and may contain errors related to that system including errors in grammar, punctuation, and spelling, as well as words and phrases that may be inappropriate. If there are any questions or concerns please feel freeto contact the dictating provider for clarification.) David Jaffe MD (electronically signed) Emergency Medicine Provider [facility] David Jaffe MD 07/19/236 * Yasmin Aguirre RN - 07/19/2023 1:55 AM EDT Patient arrived via [place] [facility] to room 7. Patient states he had some unknown people over to his house earlier this evening. After they left, he was going to smoke a cigarette that they had left. Patient thinks cigarette was laced with something because when he put cigarette to tongue, his tonguewent numb. Patient complains of nausea and dry heaves. Patient A&O x4. Respirations even and unl abored. Patient tearful during triage. Physician at bedside. Patient placed on nurse monitoring. documented in this [facility]05-18-2024 Hospital Discharge instructions* Discharge Instructions* David Jaffe MD - 07/19/2023 3:14 AM EDT Recommend getting adequate rest and monitoring for any changes to your symptoms. You should have improvement in the current symptoms you are experiencing in the next 24 hours. documented in this [facility]05-18-2024 Emergency department Triage note* Yasmin Aguirre RN - 07/19/2023 1:55 AM EDT Patient arrived via [place] [facility] to room 7. Patient states he had some unknown people over to his house earlier this evening. After they left, he was going to smoke a cigarette that they had left. Patient thinks cigarette was laced with something because when he put cigarette to tongue, his tonguewent numb. Patient complains of nausea and dry heaves. Patient A&O x4. Respirations even and unl abored. Patient tearful during triage. Physician at bedside. Patient placed on nurse monitoring. [id number] Phys[facility] Emergency department Note* David Jaffe MD - 07/19/2023 1:55 AM EDT EMERGENCY DEPARTMENT ENCOUNTER Pt Name: Stephan Zamarripa Birthdate 1985 Date of evaluation: 07/19/2023 ED Provider: David Jaffe MD CHIEF COMPLAINT Chief Complaint Patient presents with Ingestion HISTORY OF PRESENT ILLNESS I wore appropriate PPE for the entirety of this encounter. HPI Stephan Zamarripa is a 37 y.o. person who presents to the emergency department with concern for possible unintentional ingestion of drugs. States he had a alliance party this evening did not drink any alcohol ordo any drugs although his a smoking cigarette was not feeling well and he put it to his tonguewhen he started feeling jittery and his tongue went numb. He states now he feels like his heart is racing and he is scared at the sensation that he is feeling. He feels jittery all around. Denies anychest pain or vomiting but does feel nauseated. Was feeling well prior to this and symptoms occurred starting around 1 AM Nursing Notes were reviewed. Limitations to history: None Outside historians: None REVIEW OF SYSTEMS Review of Systems Neurological: Positive for tremors. PAST MEDICAL HISTORY Past Medical History: Diagnosis Date Drug abuse ([facility]) ([facility]) 03/19/2022 SURGICAL HISTORY History reviewed. No pertinent surgical history. CURRENT MEDICATIONS Previous Medications No medications on file ALLERGIES Penicillins, [place] extract, and Tomato FAMILY HISTORY Family History Problem Relation Name Age of Onset Diabetes Mother Heart failure Mother Hypertension Mother Diabetes Father estranged No Known Problems Sister Other (vertigo) Sister No Known Problems Sister No Known Problems Sister No Known Problems Sister No Known Problems Sister No Known Problems Sister No Known Problems Sister No Known Problems Sister Cardiomyopathy Brother Other (ashberger) Son Diabetes Mother's Sister Cancer Mother's Sister No Known Problems Mother's Brother No Known Problems Maternal Grandmother Diabetes Maternal Grandfather SOCIAL HISTORY Social History Socioeconomic History Marital status: Single Number of children: 2 Tobacco Use Smoking status: Every Day Packs/day: 0.50 Years: 22.00 Additional pack years: 0.00 Total pack years: 11.00 Types: Cigarettes Smokeless tobacco: Never Vaping Use Vaping Use: Every day Substances: Nicotine, Flavoring Substance and Sexual Activity Alcohol use: Yes Comment: 8-9 beer a month Drug use: Yes Types: Heroin, 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 Sexual activity: Yes Partners: Female Social History Narrative Lives with ficindi and daughter, 4 yo. Works at [employer]- 2 months Social Determinants of Health Food Insecurity: No Food Insecurity (07/10/2023) Hunger Vital Sign Worried About Running Out of Food in the Last Year: Never true Ran Out of Food in the Last Year: Never true Transportation Needs: No Transportation Needs (07/10/2023) PRAPARE - Transportation Lack of Transportation (Medical): No Lack of Transportation (Non-Medical): No Physical Activity: Inactive (07/10/2023) Exercise Vital Sign Days of Exercise per Week: 0 days Minutes of Exercise per Session: 0 min Stress: No Stress Concern Present (07/10/2023) [employer] - Occupational Stress Questionnaire Feeling of Stress : Only a little Social Connections: Moderately Isolated (07/10/2023) Social Connection and Isolation Panel [NHANES] Frequency of Communication with Friends and Family: Three times a week Frequency of Social Gatherings with Friends and Family: Three times a week Attends Sabianist Services: Never Active Member of Clubs or Organizations: No Attends Club or Organization Meetings: Never Marital Status: Living with partner Intimate Partner Violence: Not At Risk (07/10/2023) Humiliation, Afraid, Rape, and Kick questionnaire Fear of Current or Ex-Partner: No Emotionally Abused: No Physically Abused: No Sexually Abused: No Housing Stability: Low Risk (07/10/2023) Housing Stability Vital Sign Unable to Pay for Housing in the Last Year: No Number of Places Lived in the Last Year: 1 Unstable Housing in the Last Year: No SCREENINGS PHYSICAL EXAM ED Triage Vitals Temp Pulse Resp BP -- -- -- -- SpO2 Temp src Heart Rate Source Patient Position -- -- -- -- BP Location FiO2 (%) -- -- Physical Exam Vitals and nursing note reviewed. Constitutional: General: He is not in acute distress. Appearance: He is well-developed. Comments: Tearful, jittery HENT: Head: Normocephalic and atraumatic. Eyes: Conjunctiva/sclera: Conjunctivae normal. Cardiovascular: Rate and Rhythm: Normal rate and regular rhythm. Heart sounds: No murmur heard. Pulmonary: Effort: Pulmonary effort is normal. No respiratory distress. Breath sounds: Normal breath sounds. Abdominal: Palpations: Abdomen is soft. Tenderness: There is no abdominal tenderness. Musculoskeletal: General: No swelling. Cervical back: Neck supple. Skin: General: Skin is warm and dry. Capillary Refill: Capillary refill takes less than 2 seconds. Neurological: Mental Status: He is alert. Psychiatric: Mood and Affect: Mood normal. DIAGNOSTIC RESULTS RADIOLOGY (Per Emergency Physician): Interpretation per the Radiologist below, if available at the time of this note: No orders to display EKG Interpretation: LABS: Labs Reviewed DRUGS OF ABUSE Result Value AMPHETAMINE SCREEN Negative BARBITURATES SCREEN Negative BENZODIAZEPINE SCREEN Negative COCAINE METAB. SCREEN Negative METHADONE SCREEN Negative OPIATES SCREEN Negative OXYCODONE SCREEN Negative PHENCYCLIDINE SCREEN Negative Narrative: The expected value for all of the drugs listed above is Negative. The following drugs or drug groups have been screened for by Immunoassay at the following thresholds: Amphetamine class (1000 ng/mL) Barbiturates (200 ng/mL) Benzodiazepines (200 ng/mL) Cocaine (300 ng/mL) Methadone (300 ng/mL) Opiates (300 ng/mL) Oxycodone (100 ng/mL) PCP (25 ng/mL) NOTE: These results are for medical treatment only. Analysis performed using non-forensic procedures. POSITIVE results are NOT confirmed by a more specific alternative method unless requested. If confirmation is needed, request confirmation under separateorder. All other labs were within normal range or not returned as of this dictation. EMERGENCY DEPARTMENT COURSE and DIFFERENTIAL DIAGNOSIS/MDM: Vitals: Vitals: 07/19/23 0215 07/19/23 0304 BP: 124/84 126/86 BP Location: Right arm Right arm Patient Position: Sitting Sitting Pulse: 81 81 Resp: 18 22 Temp: 36.5 C (97.7 F) TempSrc: Oral SpO2: 99% 100% Weight: 88 kg (194 lb) Medications Administered in the ED: Medications ondansetron ODT (Zofran-ODT) disintegrating tablet 4 mg (4 mg Oral Given 07/19/23 0207) With concern for unintentional drug use PROCEDURES: Unless otherwise noted below, none Procedures Differential Diagnosis Considerations: Drug use Sources of History: Patient ED Course: Vital signs on arrival normal and stable does not tachycardia hypotension or hypoxia. He does not appear in any acute distress although is tearful at the situation. He would want to be tested for anydrugs that may be in his system as he states he is 15 years clean from opiates and states does not feel like that. He is likely under the influence of cocaine and methamphetamines as that is the mostcommon drugs that would cause similar symptoms. Will give him Zofran for nausea control and reassess. If he is doing well after period of observation may be safe for discharge Reassessment: UDS was negative although could be related to synthetic drugs versus not enough time for urinary excretion. Regardless patient is feeling improved and remains hemodynamically stable and will be discharged Consideration of Admission/Observation: Independent Interpretation of Tests: Diagnostic Tests Considered but not Performed: Prescription Medications Considered but not Prescribed: Chronic Conditions Affecting Care: FINAL IMPRESSION 1. Drug ingestion, accidental or unintentional, initial encounter DISPOSITION Discharge 07/19/2023 03:14:23 AM PATIENT REFERRED TO: No follow-up provider specified. DISCHARGE MEDICATIONS: New Prescriptions No medications on file (Comment: Please note this report has been produced using speech recognition software and may contain errors related to that system including errors in grammar, punctuation, and spelling, as well as words and phrases that may be inappropriate. If there are any questions or concerns please feel freeto contact the dictating provider for clarification.) David Jaffe MD (electronically signed) Emergency Medicine Provider [facility] David Jaffe MD 07/19/23 0316 [id number] NoteAgree with recommendation for ED evaluation.[facility]05-09-2024 NoteDischarge Summary Stephan Zamarripa : 1985 ADMIT DATE: 07/10/2023 DISCHARGE DATE: 07/10/2023 PRIMARY CARE PHYSICIAN: Yobany Castellanos VISIT STATUS: Observation CODE STATUS: Full Code DISCHARGE DIAGNOSES: Principal Problem: Dizziness HOSPITAL COURSE: Stephan is a 37 y.o. male with past medical history below who presents with dizziness, neck pain. Patient stated that he woke up this morning and was unable to turn his head. Patient then proceeded to get up and felt dizziness. States that at first he felt as if the room was spinning but then felt as if the room was moving up and down. Patient also had nausea without vomiting. Patient reported to the [facility] ED for evaluation and was transported to [facility] CDU for observation. Patient's fiancee came to nurse's station and stated that patient wanted to leave. Patient is feeling better, dizziness has resolved, and she feels that he had used stronger concentration of THC earlier which could have caused the dizziness. Patient was educated on importance of staying and having scheduled procedures and to be seen by Neurology consult, but patient was adamant about leaving. Patient was advised to follow up with PCP and return to the ED if above symptoms return and/or are worse. SIGNIFICANT DIAGNOSTIC STUDIES: CT head, CTA head/neck, EKG CONSULTANTS: None RECOMMENDED NEXT STEPS: Patient was advised to follow up with PCP and return to the ED if above symptoms return and/or are worse DISCHARGE MEDICATIONS: Medication List You have not been prescribed any medications. DIET: Adult diet Regular ACTIVITY: No restriction. COMPLEXITY OF FOLLOW UP: [x] Moderate Complexity: follow up within 7-14 calendar days (30258) [] Severe Complexity: follow up within 7 calendar days (06134) FOLLOW UP TESTING, PENDING RESULTS OR REFERRALS AT TRANSITIONAL CARE VISIT: [] Yes [x] No PENDING STUDIES: none DISPOSITION: AMA FACILITY/HOME CARE AGENCY NAME: N/A Follow up with PCP INSTRUCTIONS TO MA/SW: Please call patient on day after discharge (must document patient contacted within 2 business days of discharge). FOLLOW UP QUESTIONS FOR MA/SW: 1. Did you get medications filled and taking them as instructed from discharge? 2. Are you following your discharge instructions from your hospital stay? 3. Please confirm patient is scheduled for a follow up appointment within the above time frame. DISCHARGE TIME: > 30 minutes SIGNED: JUANCARLOS CAMPOS CNP 07/10/2023, 7:41 [facility]05-09-2024 NoteCDU History and Physical Admit Date: 07/10/2023 PCP: Yobany Castellanos MD CHIEF COMPLAINT: dizziness Limitations to history: None Outside historians: None HISTORY OF PRESENT ILLNESS: Stephan is a 37 y.o. male with past medical history below who presents with dizziness, neck pain. Patient stated that he woke up this morning and was unable to turn his head. Patient then proceeded to get up and felt dizziness. States that at first he felt as if the room was spinning but then felt as if the room was moving up and down. Patient also had nausea without vomiting. Patient reported to the [facility] ED for evaluation and was transported to [facility] CDU for observation. Patient was seen and evaluated at bedside. Main concern is neck pain. Appears to be a chronic issue, as he has been on muscle relaxers in the past. Patient admits to tobacco use, and occasional marijuana use. Denies alcohol use. Denies any recent fevers or chills. REVIEW OF SYSTEMS A focused review of systems was performed and is negative except as stated in above HPI. Past Medical & Social History Past Medical History: Diagnosis Date Drug abuse (CMS/HCC) ([facility]) 03/19/2022 History reviewed. No pertinent surgical history. Family History Problem Relation Name Age of Onset Diabetes Mother Heart failure Mother Hypertension Mother Diabetes Father estranged No Known Problems Sister Other (vertigo) Sister No Known Problems Sister No Known Problems Sister No Known Problems Sister No Known Problems Sister No Known Problems Sister No Known Problems Sister No Known Problems Sister Cardiomyopathy Brother Other (ashberger) Son Diabetes Mother's Sister Cancer Mother's Sister No Known Problems Mother's Brother No Known Problems Maternal Grandmother Diabetes Maternal Grandfather Social History Socioeconomic History Marital status: Single Spouse name: Not on file Number of children: 2 Years of education: Not on file Highest education level: Not on file Occupational History Not on file Tobacco Use Smoking status: Every Day Packs/day: 0.25 Years: 22.00 Additional pack years: 0.00 Total pack years: 5.50 Types: Cigarettes Smokeless tobacco: Never Vaping Use Vaping Use: Every day Substances: Nicotine, Flavoring Substance and Sexual Activity Alcohol use: Yes Comment: 8-9 beer a month Drug use: Not 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 Sexual activity: Yes Partners: Female Other Topics Concern Not on file Social History Narrative Lives with bart and daughter, 4 yo. Works at [employer]- 2 months Social Determinants of Health Financial Resource Strain: Not on file Food Insecurity: No Food Insecurity (07/10/2023) Hunger Vital Sign Worried About Running Out of Food in the Last Year: Never true Ran Out of Food in the Last Year: Never true Transportation Needs: No Transportation Needs (07/10/2023) PRAPARE - Transportation Lack of Transportation (Medical): No Lack of Transportation (Non-Medical): No Physical Activity: Inactive (07/10/2023) Exercise Vital Sign Days of Exercise per Week: 0 days Minutes of Exercise per Session: 0 min Stress: No Stress Concern Present (07/10/2023) [employer] - Occupational Stress Questionnaire Feeling of Stress : Only a little Social Connections: Moderately Isolated (07/10/2023) Social Connection and Isolation Panel [NHANES] Frequency of Communication with Friends and Family: Three times a week Frequency of Social Gatherings with Friends and Family: Three times a week Attends Sabianist Services: Never Active Member of Clubs or Organizations: No Attends Club or Organization Meetings: Never Marital Status: Living with partner Intimate Partner Violence: Not At Risk (07/10/2023) Humiliation, Afraid, Rape, and Kick questionnaire Fear of Current or Ex-Partner: No Emotionally Abused: No Physically Abused: No Sexually Abused: No Housing Stability: Low Risk (07/10/2023) Housing Stability Vital Sign Unable to Pay for Housing in the Last Year: No Number of Places Lived in the Last Year: 1 Unstable Housing in the Last Year: No Current Facility-Administered Medications Medication Dose Route Frequency Provider Last Rate Last Admin acetaminophen (Tylenol) tablet 650 mg 650 mg Oral q6h PRN JUANCARLOS aCmpos CNP Or acetaminophen (Tylenol) suppository 650 mg 650 mg Rectal q6h PRN Viji Quintero APRN - [facility] [START ON 07/11/2023] aspirin EC tablet 81 mg 81 mg Oral Daily Viji Quintero APRN - [facility] Or [START ON 07/11/2023] aspirin suppository 300 mg 300 mg Rectal Daily Viji Quintero APRN - [facility] bisacodyl (Dulcolax) suppository 10 mg 10 mg Rectal Daily PRN Viji Quintero APRN - [employer] Lidocaine 4 % patch 1 patch 1 patch TransDERmal Once Iraj Baez MD 1 patch at 07/10/23 1340 ondansetron ODT (Zofran-ODT) disintegrating tablet 4 mg 4 mg Oral q8h PRN Rodrigo (more content not included)...[facility]05-09-2024 Emergency department Note* Ame Abdalla RN - 07/10/2023 5:17 PM EDT Transfer consent signed. Report to [facility] crew. Chart to them for Tiffanie INIGUEZ. Reportcalled to CDU ANGELA Cruz RN 07/10/23 3682 [id number] Emergency department Note* Ame Abdalla RN - 07/10/2023 5:17 PM EDT Transfer consent signed. Report to [facility] crew. Chart to them for [facility]. Reportcalled to CDU ANGELA Cruz RN 07/10/23 1718 * Yasmin Aguirre RN - 07/10/2023 4:32 PM EDT Phoned [facility] for transport after 15 minute wait. ETA [id number] Yasmin Aguirre RN 07/10/23 1633 * Iraj Baez MD - 07/10/2023 12:40 PM EDT Images from the original note were not included. EMERGENCY DEPARTMENT ENCOUNTER Pt Name: Stephan Zamarripa Birthdate 1985 Date of evaluation: 07/10/2023 CHIEF COMPLAINT Chief Complaint Patient presents with Neck Pain HISTORY OF PRESENT ILLNESS HPI Stephan Zamarripa is a 37 y.o. male who presents to the emergency department with neck pain, dizziness. He reports dizziness started when he woke up. Last normal date was July 09, 2023 last known well time was 2300 approximately 14 hours ago.. He has had neck pain chronically. Decreased rom of neck. Tried ibuprofen, flexeril. REVIEW OF SYSTEMS Review of Systems Patient Active Problem List Diagnosis Chronic pain of right knee Cigarette nicotine dependence without complication GERD without esophagitis Oral phase dysphagia Navarro's esophagus with dysplasia Dizziness Nausea and vomiting Neck strain, initial encounter Second degree burn of right forearm Pes planus of both feet CURRENT MEDICATIONS Previous Medications SUCRALFATE (CARAFATE) 1 GM/10ML SUSPENSION Take 1 g by mouth. TIZANIDINE (ZANAFLEX) 4 MG CAPSULE Take 1 capsule (4 mg) by mouth 3 times daily for 7 days. ALLERGIES Penicillins, [place] extract, and Tomato FAMILY HISTORY Family History Problem Relation Name Age of Onset Diabetes Mother Heart failure Mother Hypertension Mother Diabetes Father estranged No Known Problems Sister Other (vertigo) Sister No Known Problems Sister No Known Problems Sister No Known Problems Sister No Known Problems Sister No Known Problems Sister No Known Problems Sister No Known Problems Sister Cardiomyopathy Brother Other (ashberger) Son Diabetes Mother's Sister Cancer Mother's Sister No Known Problems Mother's Brother No Known Problems Maternal Grandmother Diabetes Maternal Grandfather SOCIAL HISTORY Social History Socioeconomic History Marital status: Single Number of children: 2 Tobacco Use Smoking status: Every Day Years: 22 Types: Cigarettes Smokeless tobacco: Never Vaping Use Vaping Use: Every day Substances: Nicotine, Flavoring Substance and Sexual Activity Alcohol use: Yes Comment: 8-9 beer a month Drug use: Not 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 Sexual activity: Yes Partners: Female Social History Narrative Lives with fiance and daughter, 4 yo. Works at [employer]- 2 months Social Determinants of Health Tobacco Use: High Risk (07/01/2023) Patient History Smoking Tobacco Use: Every Day Smokeless Tobacco Use: Never Passive Exposure: Not on file Alcohol Use: Not on file Financial Resource Strain: Not on file Food Insecurity: Not on file Transportation Needs: Not on file Physical Activity: Not on file Stress: Not on file Social Connections: Not on file Intimate Partner Violence: Not on file Depression: Not at risk (07/01/2023) PHQ-2 PHQ-2 Score: 0 Housing Stability: Not on file Utilities: Not on file PHYSICAL EXAM Vitals: 07/10/23 1246 07/10/23 1343 07/10/23 1512 07/10/23 1621 BP: (!) 134/96 119/82 (!) 143/89 115/84 BP Location: Right arm Right arm Left arm Left arm Patient Position: Sitting Sitting Lying Lying Pulse: 78 64 59 54 Resp: 16 14 14 14 Temp: 36.8 C (98.2 F) TempSrc: Oral SpO2: 100% 99% 100% Weight: 88 kg (194 lb) Height: 1.727 m (5' 8) Physical Exam Vitals and nursing note reviewed. Constitutional: Appearance: He is normal weight. He is not toxic-appearing. Eyes: Extraocular Movements: Extraocular movements intact. Pupils: Pupils are equal, round, and reactive to light. Neck: Musculoskeletal: Cervical back: Muscular tenderness present. Skin: General: Skin is warm. Coloration: Skin is not jaundiced. Neurological: Mental Status: He is alert and oriented to person, place, and time. Sensory: Sensation is intact. Motor: Motor function is intact. Coordination: Yalyuo-Pszq-Pxgdjk Test and Heel to Pelletier Test normal. Deep Tendon Reflexes: Reflexes are normal and symmetric. Comments: Nihss=0 Psychiatric: Mood and Affect: Mood is anxious. Affect is tearful. SCREENINGS NIH Stroke Scale 1A. Level of Consciousness: Alert, Keenly Responsive 1B. Ask Month and Age: Both Questions Right 1C. Blink Eyes & Squeeze Hands: Performs Both Tasks 2. Best Gaze: Normal 3. Visual: No Visual Loss 4. Facial Palsy: Normal Symmetrical Movements 5A. Motor - Left Arm: No Drift 5B. Motor - Right Arm: No Drift 6B. Motor - Right Leg: No Drift 7. Limb Ataxia: Absent 8. Sensory Loss: Normal 9. Best Language: No Aphasia 10. Dysarthria: Normal 11. Extinction and Inattention: No Abnormality Medical decision making Medical Decision Making Problems Addressed: Dizziness: complicated acute illness or injury Amount and/or Complexity of Data Reviewed Labs: ordered. Decision-making details documented in ED Course. Radiology: ordered. Decision-making details documented in ED Course. ECG/medicine tests: ordered. Risk OTC drugs. Prescription drug management. DIAGNOSTIC RESULTS Procedures/EKG: Physician EKG interpretation can be found in [facility] if done RADIOLOGY (Per Emergency Physician): Interpretation per the Radiologist below, if available at the time of this note: CTA head neck angio w and wo IV contrast Final Result No acute large vessel vascular occlusion. Report Dictated on Electronically Signed By: Jessica Cyr MD Electronically Signed Date/Time: 07/10/2023 1:[address] head wo IV contrast Final Result No acute intracranial process. CTR: I notified Dr. Baez via SECURE CHAT around 1:39pm with immediate confirmed receipt. ASPECTS: 10 Report Dictated on Electronically Signed By: Jessica Cyr MD Electronically Signed Date/Time: 07/10/2023 1:48 PM EDT LABS: Labs Reviewed PROTIME & APTT - Abnormal Result Value PROTHROMBIN TIME 9.9 INR <0.9 (*) APTT 24.1 COMPREHENSIVE METABOLIC PANEL - Abnormal SODIUM 134 (*) POTASSIUM 4.0 CHLORIDE 105 CARBON DIOXIDE 22 ANION GAP 7 UREA NITROGEN 16 CREATININE 0.88 GLUCOSE 98 CALCIUM 9.1 AST (SGOT) 29 ALT 22 ALKALINE PHOSPHATASE 38 ALBUMIN 4.0 BILIRUBIN, TOTAL 0.4 TOTAL PROTEIN 7.0 eGFR >90.0 CBC WITH AUTO DIFFERENTIAL - Normal Auto WBC 5.7 RBC 4.83 Hemoglobin 15.4 Hematocrit 44.2 MCV 91.5 MCH 31.9 MCHC 34.8 RDW 12.4 Platelets 200 MPV 9.3 nRBC 0.0 Neutrophils Relative 59.4 Lymphocytes Relative 26.1 Monocytes Relative 8.3 Eosinophils Relative 5.1 Basophils Relative 0.9 Immature Grans % 0.2 Neutrophils Absolute 3.4 Lymphocytes Absolute 1.5 Monocytes Absolute 0.5 Eosinophils Absolute 0.3 Basophils Absolute 0.1 Immature Grans Absolute 0.0 TROPONIN, WITH SERIAL REFLEX - Normal TROPONIN I <0.012 Narrative: Patients with high levels of Biotin oral intake (ie >5 mg/day) may have falsely decreased Troponin levels. COMPREHENSIVE METABOLIC PANEL WITH MG REFLEX Narrative: The following orders were created for panel order Comprehensive Metabolic Panel with Mg Reflex. Procedure Abnormality Status --------- ------ Comprehensive metabolic p...[[id number]] Abnormal Final result Please view results for these tests on the individual orders. TROPONIN I POCT GLUCOSE METER Medications ordered: Medications Lidocaine 4 % patch 1 patch (1 patch TransDERmal Medication Applied 07/10/23 1340) sodium chloride 0.9 % bolus 500 mL mL IntraVENous Stopped 07/10/23 1440) ketamine injection 10 mg (10 mg IntraVENous Given 07/10/23 1417) sodium chloride 0.9 % bolus 500 mL mL IntraVENous Stopped 07/10/23 1545) aspirin chewable tablet 162 mg (162 mg Oral Given 07/10/23 1533) ED Course as of 07/10/23 1714 Emelyn July 10, 2023 1245 HEP C AB IA W/CONF SCRN (02/20/23 1234) Prior medical records were reviewed: -ve [NM] 1441 CT head wo IV contrast Reviewed and discussed with radiologist , nad [NM] 1442 CTA head neck angio w and wo IV contrast nad [NM] ED Course User Index [NM] Iraj Baez MD Diagnoses as of 07/10/23 171 Dizziness * No order type specified * MDM: 37 y.o. presented with complaint of dizziness. The differential diagnosis considered: Stroke, infection, inflammation, electrolyte problems, arrhythmia, pain syndrome. Our workup consisted of ordering/reviewing: Orders Placed This Encounter Procedures CT head wo IV contrast CTA head neck angio w and wo IV contrast CBC auto differential Comprehensive Metabolic Panel with Mg Reflex PROTIME/INR & PTT Comprehensive metabolic panel Troponin, with Serial Reflex Troponin I Troponin I Nursing swallow assessment NIH Stroke Scale (NIHSS), Vital signs and pupil checks Adjust Head of Bed (specify) Other; 20-30 degress unless other puentes specified ECG 12 lead if not already done by Squad ECG 12 lead Initiate observation status . Diagnostic tests considered but not performed: Ultrasound duplex as the services not available Consideration for escalation of care with: Admission/observation for dizziness as He is still dizzy. REVAL: CRITICAL CARE TIME PROCEDURES: Procedures FINAL IMPRESSION 1. Dizziness DISPOSITION/PLAN DISPOSITION Observation 07/10/2023 03:56:28 PM Case was discussed with advanced practice provider Odalis and patient was accepted for hospitalization to [place] clinical decision unit PATIENT REFERRED TO: No follow-up provider specified. I prescribed: New Prescriptions No medications on file (Comment: this report has been produced using speech recognition software and may contain errors related to that system including errors in grammar, punctuation, and spelling, as well as words and phrases that may be inappropriate) IRAJ BAEZ MD (electronically signed) Iraj Baez MD 07/10/23 171 * Jaqueline Aguirre RN - 07/10/2023 12:40 PM EDT Pt presents to the ED with c/o 10/10 neck pain since last night worsening since waking up. Pt states he took (2) 650 mg tylenol, 600 mgm Ibuprofen, and 10 mg flexeril with no relief. Pt states he hasissues with his neck but never experienced pain like this. documented in this [facility]05-09-2024 Emergency department Note* Yasmin Aguirre RN - 07/10/2023 4:32 PM EDT Phoned [facility] for transport after 15 minute wait. ETA [id number] Yasmin Aguirre RN 07/10/23 1633 [id number] Emergency [facility] Triage note* Jaqueline Aguirre RN - 07/10/2023 12:40 PM EDT Pt presents to the ED with c/o 10/10 neck pain since last night worsening since waking up. Pt states he took (2) 650 mg tylenol, 600 mgm Ibuprofen, and 10 mg flexeril with no relief. Pt states he hasissues with his neck but never experienced pain like this. [id number] Physician Emergency department Note* Iraj Baez MD - 07/10/2023 12:40 PM EDT Images from the original note were not included. EMERGENCY DEPARTMENT ENCOUNTER Pt Name: Stephan Zamarripa Birthdate 1985 Date of evaluation: 07/10/2023 CHIEF COMPLAINT Chief Complaint Patient presents with Neck Pain HISTORY OF PRESENT ILLNESS HPI Stephan Zamarripa is a 37 y.o. male who presents to the emergency department with neck pain, dizziness. He reports dizziness started when he woke up. Last normal date was July 09, 2023 last known well time was 2300 approximately 14 hours ago.. He has had neck pain chronically. Decreased rom of neck. Tried ibuprofen, flexeril. REVIEW OF SYSTEMS Review of Systems Patient Active Problem List Diagnosis Chronic pain of right knee Cigarette nicotine dependence without complication GERD without esophagitis Oral phase dysphagia Navarro's esophagus with dysplasia Dizziness Nausea and vomiting Neck strain, initial encounter Second degree burn of right forearm Pes planus of both feet CURRENT MEDICATIONS Previous Medications SUCRALFATE (CARAFATE) 1 GM/10ML SUSPENSION Take 1 g by mouth. TIZANIDINE (ZANAFLEX) 4 MG CAPSULE Take 1 capsule (4 mg) by mouth 3 times daily for 7 days. ALLERGIES Penicillins, [place] extract, and Tomato FAMILY HISTORY Family History Problem Relation Name Age of Onset Diabetes Mother Heart failure Mother Hypertension Mother Diabetes Father estranged No Known Problems Sister Other (vertigo) Sister No Known Problems Sister No Known Problems Sister No Known Problems Sister No Known Problems Sister No Known Problems Sister No Known Problems Sister No Known Problems Sister Cardiomyopathy Brother Other (ashberger) Son Diabetes Mother's Sister Cancer Mother's Sister No Known Problems Mother's Brother No Known Problems Maternal Grandmother Diabetes Maternal Grandfather SOCIAL HISTORY Social History Socioeconomic History Marital status: Single Number of children: 2 Tobacco Use Smoking status: Every Day Years: 22 Types: Cigarettes Smokeless tobacco: Never Vaping Use Vaping Use: Every day Substances: Nicotine, Flavoring Substance and Sexual Activity Alcohol use: Yes Comment: 8-9 beer a month Drug use: Not 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 Sexual activity: Yes Partners: Female Social History Narrative Lives with bart and daughter, 4 yo. Works at [employer]- 2 months Social Determinants of Health Tobacco Use: High Risk (07/01/2023) Patient History Smoking Tobacco Use: Every Day Smokeless Tobacco Use: Never Passive Exposure: Not on file Alcohol Use: Not on file Financial Resource Strain: Not on file Food Insecurity: Not on file Transportation Needs: Not on file Physical Activity: Not on file Stress: Not on file Social Connections: Not on file Intimate Partner Violence: Not on file Depression: Not at risk (07/01/2023) PHQ-2 PHQ-2 Score: 0 Housing Stability: Not on file Utilities: Not on file PHYSICAL EXAM Vitals: 07/10/23 1246 07/10/23 1343 07/10/23 1512 07/10/23 1621 BP: (!) 134/96 119/82 (!) 143/89 115/84 BP Location: Right arm Right arm Left arm Left arm Patient Position: Sitting Sitting Lying Lying Pulse: 78 64 59 54 Resp: 16 14 14 14 Temp: 36.8 C (98.2 F) TempSrc: Oral SpO2: 100% 99% 100% Weight: 88 kg (194 lb) Height: 1.727 m (5' 8) Physical Exam Vitals and nursing note reviewed. Constitutional: Appearance: He is normal weight. He is not toxic-appearing. Eyes: Extraocular Movements: Extraocular movements intact. Pupils: Pupils are equal, round, and reactive to light. Neck: Musculoskeletal: Cervical back: Muscular tenderness present. Skin: General: Skin is warm. Coloration: Skin is not jaundiced. Neurological: Mental Status: He is alert and oriented to person, place, and time. Sensory: Sensation is intact. Motor: Motor function is intact. Coordination: [id number]-[id number]-Mpedeb Test and Heel to [place]ier Test normal. Deep Tendon Reflexes: Reflexes are normal and symmetric. Comments: Nihss=0 Psychiatric: Mood and Affect: Mood is anxious. Affect is tearful. SCREENINGS NIH Stroke Scale 1A. Level of Consciousness: Alert, Keenly Responsive 1B. Ask Month and Age: Both Questions Right 1C. Blink Eyes & Squeeze Hands: Performs Both Tasks 2. Best Gaze: Normal 3. Visual: No Visual Loss 4. Facial Palsy: Normal Symmetrical Movements 5A. Motor - Left Arm: No Drift 5B. Motor - Right Arm: No Drift 6B. Motor - Right Leg: No Drift 7. Limb Ataxia: Absent 8. Sensory Loss: Normal 9. Best Language: No Aphasia 10. Dysarthria: Normal 11. Extinction and Inattention: No Abnormality Medical decision making Medical Decision Making Problems Addressed: Dizziness: complicated acute illness or injury Amount and/or Complexity of Data Reviewed Labs: ordered. Decision-making details documented in ED Course. Radiology: ordered. Decision-making details documented in ED Course. ECG/medicine tests: ordered. Risk OTC drugs. Prescription drug management. DIAGNOSTIC RESULTS Procedures/EKG: Physician EKG interpretation can be found in [facility] if done RADIOLOGY (Per Emergency Physician): Interpretation per the Radiologist below, if available at the time of this note: CTA head neck angio w and wo IV contrast Final Result No acute large vessel vascular occlusion. Report Dictated on Electronically Signed By: Jessica Cyr MD Electronically Signed Date/Time: 07/10/2023 1:[address] head wo IV contrast Final Result No acute intracranial process. CTR: I notified Dr. Baez via SECURE CHAT around 1:39pm with immediate confirmed receipt. ASPECTS: 10 Report Dictated on Electronically Signed By: Jessica Cyr MD Electronically Signed Date/Time: 07/10/2023 1:48 PM EDT LABS: Labs Reviewed PROTIME & APTT - Abnormal Result Value PROTHROMBIN TIME 9.9 INR <0.9 (*) APTT 24.1 COMPREHENSIVE METABOLIC PANEL - Abnormal SODIUM 134 (*) POTASSIUM 4.0 CHLORIDE 105 CARBON DIOXIDE 22 ANION GAP 7 UREA NITROGEN 16 CREATININE 0.88 GLUCOSE 98 CALCIUM 9.1 AST (SGOT) 29 ALT 22 ALKALINE PHOSPHATASE 38 ALBUMIN 4.0 BILIRUBIN, TOTAL 0.4 TOTAL PROTEIN 7.0 eGFR >90.0 CBC WITH AUTO DIFFERENTIAL - Normal Auto WBC 5.7 RBC 4.83 Hemoglobin 15.4 Hematocrit 44.2 MCV 91.5 MCH 31.9 MCHC 34.8 RDW 12.4 Platelets 200 MPV 9.3 nRBC 0.0 Neutrophils Relative 59.4 Lymphocytes Relative 26.1 Monocytes Relative 8.3 Eosinophils Relative 5.1 Basophils Relative 0.9 Immature Grans % 0.2 Neutrophils Absolute 3.4 Lymphocytes Absolute 1.5 Monocytes Absolute 0.5 Eosinophils Absolute 0.3 Basophils Absolute 0.1 Immature Grans Absolute 0.0 TROPONIN, WITH SERIAL REFLEX - Normal TROPONIN I <0.012 Narrative: Patients with high levels of Biotin oral intake (ie >5 mg/day) may have falsely decreased Troponin levels. COMPREHENSIVE METABOLIC PANEL WITH MG REFLEX Narrative: The following orders were created for panel order Comprehensive Metabolic Panel with Mg Reflex. Procedure Abnormality Status --------- ------ Comprehensive metabolic p...[[id number]] Abnormal Final result Please view results for these tests on the individual orders. TROPONIN I POCT GLUCOSE METER Medications ordered: Medications Lidocaine 4 % patch 1 patch (1 patch TransDERmal Medication Applied 07/10/23 1340) sodium chloride 0.9 % bolus 500 mL mL IntraVENous Stopped 07/10/23 1440) ketamine injection 10 mg (10 mg IntraVENous Given 07/10/23 1417) sodium chloride 0.9 % bolus 500 mL mL IntraVENous Stopped 07/10/23 1545) aspirin chewable tablet 162 mg (162 mg Oral Given 07/10/23 1533) ED Course as of 07/10/23 1714 Emelyn July 10, 2023 1245 HEP C AB IA W/CONF SCRN (02/20/23 1234) Prior medical records were reviewed: -ve [NM] 1441 CT head wo IV contrast Reviewed and discussed with radiologist , nad [NM] 1442 CTA head neck angio w and wo IV contrast nad [NM] ED Course User Index [NM] Iraj Baez MD Diagnoses as of 07/10/23 171 Dizziness * No order type specified * MDM: 37 y.o. presented with complaint of dizziness. The differential diagnosis considered: Stroke, infection, inflammation, electrolyte problems, arrhythmia, pain syndrome. Our workup consisted of ordering/reviewing: Orders Placed This Encounter Procedures CT head wo IV contrast CTA head neck angio w and wo IV contrast CBC auto differential Comprehensive Metabolic Panel with Mg Reflex PROTIME/INR & PTT Comprehensive metabolic panel Troponin, with Serial Reflex Troponin I Troponin I Nursing swallow assessment NIH Stroke Scale (NIHSS), Vital signs and pupil checks Adjust Head of Bed (specify) Other; 20-30 degress unless other puentes specified ECG 12 lead if not already done by Squad ECG 12 lead Initiate observation status . Diagnostic tests considered but not performed: Ultrasound duplex as the services not available Consideration for escalation of care with: Admission/observation for dizziness as He is still dizzy. REVAL: CRITICAL CARE TIME PROCEDURES: Procedures FINAL IMPRESSION 1. Dizziness DISPOSITION/PLAN DISPOSITION Observation 07/10/2023 03:56:28 PM Case was discussed with advanced practice provider Odalis and patient was accepted for hospitalization to [facility] clinical decision unit PATIENT REFERRED TO: No follow-up provider specified. I prescribed: New Prescriptions No medications on file (Comment: this report has been produced using speech recognition software and may contain errors related to that system including errors in grammar, punctuation, and spelling, as well as words and phrases that may be inappropriate) IRAJ BAEZ MD (electronically signed) Iraj Baez MD 07/10/231714 [id number] Evaluation + Plan note* Assessment & Plan Note - Yobany Castellanos MD - 07/01/2023 7:32 AM EDTAssociated Problem(s): Second degree burn of right forearm Healing well, continue bacitracin twice a day and watch for worsening signs [id number] Evaluation + Plan note* Assessment & Plan Note - Yobany Castellanos MD - 07/01/2023 7:32 AM EDTAssociated Problem(s): Pes planus of both feet encouraged patient to get arch supports for his shoes to wear at all times, when he does buy new shoes he needs to make sure that he has good arch support in his shoes themselves. [id number] Miscellaneous Notes* Assessment & Plan Note - Yobany Castellanos MD - 07/01/2023 7:32 AM EDTAssociated Problem(s): Second degree burn of right forearm Healing well, continue bacitracin twice a day and watch for worsening signs * Assessment & Plan Note - Yobany Castellanos MD - 07/01/2023 7:32 AM EDT Associated Problem(s): Pes planus of both feet encouraged patient to get arch supports for his shoes to wear at all times, when he does buy new shoes he needs to make sure that he has good arch support in his shoes themselves. documented in this [facility]04-30-2024 History of Present illness Narrative* Monica Lockett MA - 07/01/2023 7:15 AM EDT Patient verified by last name and date of . * Yobany Castellanos MD - 07/01/2023 7:15 AM EDT Images from the original note were not included. 07/01/2023 Stephan Zamarripa (: 1985) is a 37 y.o. male , Established patient, here for evaluation of the following chief complaint(s): ER Follow[facility] 06[facility]26[facility]23 burn right arm ) ASSESSMENT/PLAN: 1. Partial thickness burn of right forearm, initial encounter Assessment & Plan: Healing well, continue bacitracin twice a day and watch for worsening signs 2. Pes planus of both feet Assessment & Plan: encouraged patient to get arch supports for his shoes to wear at all times, when he does buy new shoes he needs to make sure that he has good arch support in his shoes themselves. Follow up if symptoms worsen or fail to improve. SUBJECTIVE/OBJECTIVE: NEGRITA Magallanes comes in today for follow-up on a burn that he received on a grill about a week ago. Said has been putting back straits none and he was seen in the emergency room and is here for follow-up. He did have some green drainage but that has since resolved. He also is complaining of some pain across the arch of his foot and the dorsum he says he is flatfoot and he walks 9 miles to work every day, he is shoes that he has on do not look like they are very good for arch support. Review of Systems Musculoskeletal: Positive for gait problem. Negative for arthralgias and myalgias. Skin: Positive for wound. Neurological: Negative for weakness and numbness. Vitals: 07/01/23 0708 BP: 110/72 Pulse: 62 SpO2: 98% Weight: 192 lb 6.4 oz (87.3 kg) Height: 5' 9.5 (1.765 m) Physical Exam Vitals and nursing note reviewed. Constitutional: General: He is not in acute distress. Appearance: Normal appearance. Musculoskeletal: Comments: Feet with fallen arches, he has some tenderness across the dorsum of the medial aspect ofthe foot over the arch bilateral Skin: General: Skin is warm and dry. Comments: 2 small scabby lesions on his right forearm there is some mild erythema around them but nothing significant he has minimal tenderness to touch and no drainage. Neurological: Mental Status: He is alert. An electronic signature was used to authenticate this note. Yobany Castellanos MD 07/01/2023 7:32 AM documented in this [facility]04-25-2024 Emergency department Note* Saturnino Soto MD - 06/26/2023 3:46 PM EDT EMERGENCY DEPARTMENT ENCOUNTER Pt Name: Stephan Zamarripa Birthdate 1985 Date of evaluation: 06/26/2023 ED Provider: Saturnino Soto MD CHIEF COMPLAINT No chief complaint on file. HISTORY OF PRESENT ILLNESS (Location/Symptom, Timing/Onset, Context/Setting, Quality, Duration, Modifying Factors, Severity) Note limiting factors. I wore appropriate PPE for the entirety of this encounter. HPI Stephan Zamarripa is a 37 y.o. who presents to the emergency department with a superficial burn to theright forearm 3 days ago, he went to work today and they told him he could not work without a work note, has some pain in the forearm, no signs of infection, has been putting peroxide on it for the past 3 days Nursing Notes were reviewed. Limitations to history: None Outside historians: None REVIEW OF SYSTEMS Review of Systems Pertinent positives and negatives as per HPI PAST MEDICAL HISTORY Past Medical History: Diagnosis Date Drug abuse ([facility] ([facility]) 03/19/2022 SURGICAL HISTORY No past surgical history on file. CURRENT MEDICATIONS Previous Medications ONDANSETRON (ZOFRAN) 4 MG TABLET Take by mouth every 8 hours as needed for nausea or vomiting. SUCRALFATE (CARAFATE) 1 GM/10ML SUSPENSION Take 1 g by mouth. TIZANIDINE (ZANAFLEX) 4 MG CAPSULE Take 1 capsule (4 mg) by mouth 3 times daily for 7 days. ALLERGIES Penicillins, [place] extract, and Tomato FAMILY HISTORY Family History Problem Relation Name Age of Onset Diabetes Mother Heart failure Mother Hypertension Mother Diabetes Father estranged No Known Problems Sister Other (vertigo) Sister No Known Problems Sister No Known Problems Sister No Known Problems Sister No Known Problems Sister No Known Problems Sister No Known Problems Sister No Known Problems Sister Cardiomyopathy Brother Other (ashberger) Son Diabetes Mother's Sister Cancer Mother's Sister No Known Problems Mother's Brother No Known Problems Maternal Grandmother Diabetes Maternal Grandfather SOCIAL HISTORY Social History Socioeconomic History Marital status: Single Number of children: 2 Tobacco Use Smoking status: Every Day Years: 22 Types: Cigarettes Smokeless tobacco: Never Vaping Use Vaping Use: Every day Substances: Nicotine, Flavoring Substance and Sexual Activity Alcohol use: Yes Comment: 8-9 beer a month Drug use: Not 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 Sexual activity: Yes Partners: Female Social History Narrative Lives with bart and daughter, 4 yo. Works at [employer]- 2 months PHYSICAL EXAM ED Triage Vitals Temp Pulse Resp BP -- -- -- -- SpO2 Temp src Heart Rate Source Patient Position -- -- -- -- BP Location FiO2 (%) -- -- Physical Exam Wound appears to be in normal healing stages but it is dried out from the peroxide, no surrounding erythema or warmth, no purulent drainage DIAGNOSTIC RESULTS RADIOLOGY (Per Emergency Physician): Interpretation per the Radiologist below, if available at the time of this note: No orders to display LABS: Labs Reviewed - No data to display All other labs were within normal range or not returned as of this dictation. EMERGENCY DEPARTMENT COURSE and DIFFERENTIAL DIAGNOSIS/MDM: Vitals: There were no vitals filed for this visit. Medications bacitracin ointment (has no administration in time range) SCREENINGS MDM elements: The patient presented with chief complaint of with a first-degree burn to the right forearm 3 days ago on a grill, no signs of infection at this time, told him to stop the peroxide, gave him bacitracin, okay to return to work tomorrow. The differential diagnosis associated with this patient's presentation includes first-degree burn, infection. Our workup consisted of ordering/reviewing: No need for imaging or labs, given bacitracin, discharged with follow-up as needed. The patient will be Discharged. Patient is in agreement with this plan. PROCEDURES: Unless otherwise noted below, none Procedures CRITICAL CARE TIME None FINAL IMPRESSION 1. Superficial burn of right forearm, initial encounter DISPOSITION Discharge 06/26/2023 03:54:03 PM PATIENT REFERRED TO: Yobany Castellanos MD [address] [facility], [address] [facility] [phone] As needed DISCHARGE MEDICATIONS: New Prescriptions No medications on file (Comment: Please note this report has been produced using speech recognition software and may contain errors related to that system including errors in grammar, punctuation, and spelling, as well as words and phrases that may be inappropriate. If there are any questions or concerns please feel freeto contact the dictating provider for clarification.) Saturnino Soto MD (electronically signed) Emergency Medicine Provider Saturnino Soto MD 06/26/23 1555 * Laverne Miranda LPN - 06/26/2023 3:46 PM EDT Pt presents to the ED with acute burn on the right forearm that happened while at work. Pt states he touched his arm the grill and states pain is 8/10. Pt states he does not want to file workercomp. Pt was able to walk back to the unit without any difficulty and call light is within reach documented in this [facility]04-25-2024 Emergency department Triage note* Laverne Miranda LPN - 06/26/2023 3:46 PM EDT Pt presents to the ED with acute burn on the right forearm that happened while at work. Pt states he touched his arm the grill and states pain is 8/10. Pt states he does not want to file workercomp. Pt was able to walk back to the unit without any difficulty and call light is within [id number] Phys[facility] Emergency department Note* Saturnino Soto MD - 06/26/2023 3:46 PM EDT EMERGENCY DEPARTMENT ENCOUNTER Pt Name: Stephan Zamarripa Birthdate 1985 Date of evaluation: 06/26/2023 ED Provider: Saturnino Soto MD CHIEF COMPLAINT No chief complaint on file. HISTORY OF PRESENT ILLNESS (Location/Symptom, Timing/Onset, Context/Setting, Quality, Duration, Modifying Factors, Severity) Note limiting factors. I wore appropriate PPE for the entirety of this encounter. HPI Stephan Zamarripa is a 37 y.o. who presents to the emergency department with a superficial burn to theright forearm 3 days ago, he went to work today and they told him he could not work without a work note, has some pain in the forearm, no signs of infection, has been putting peroxide on it for the past 3 days Nursing Notes were reviewed. Limitations to history: None Outside historians: None REVIEW OF SYSTEMS Review of Systems Pertinent positives and negatives as per HPI PAST MEDICAL HISTORY Past Medical History: Diagnosis Date Drug abuse ([facility]) ([facility]) 03/19/2022 SURGICAL HISTORY No past surgical history on file. CURRENT MEDICATIONS Previous Medications ONDANSETRON (ZOFRAN) 4 MG TABLET Take by mouth every 8 hours as needed for nausea or vomiting. SUCRALFATE (CARAFATE) 1 GM/10ML SUSPENSION Take 1 g by mouth. TIZANIDINE (ZANAFLEX) 4 MG CAPSULE Take 1 capsule (4 mg) by mouth 3 times daily for 7 days. ALLERGIES Penicillins, [place] extract, and Tomato FAMILY HISTORY Family History Problem Relation Name Age of Onset Diabetes Mother Heart failure Mother Hypertension Mother Diabetes Father estranged No Known Problems Sister Other (vertigo) Sister No Known Problems Sister No Known Problems Sister No Known Problems Sister No Known Problems Sister No Known Problems Sister No Known Problems Sister No Known Problems Sister Cardiomyopathy Brother Other (ashberger) Son Diabetes Mother's Sister Cancer Mother's Sister No Known Problems Mother's Brother No Known Problems Maternal Grandmother Diabetes Maternal Grandfather SOCIAL HISTORY Social History Socioeconomic History Marital status: Single Number of children: 2 Tobacco Use Smoking status: Every Day Years: 22 Types: Cigarettes Smokeless tobacco: Never Vaping Use Vaping Use: Every day Substances: Nicotine, Flavoring Substance and Sexual Activity Alcohol use: Yes Comment: 8-9 beer a month Drug use: Not 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 Sexual activity: Yes Partners: Female Social History Narrative Lives with fiance and daughter, 4 yo. Works at [employer]- 2 months PHYSICAL EXAM ED Triage Vitals Temp Pulse Resp BP -- -- -- -- SpO2 Temp src Heart Rate Source Patient Position -- -- -- -- BP Location FiO2 (%) -- -- Physical Exam Wound appears to be in normal healing stages but it is dried out from the peroxide, no surrounding erythema or warmth, no purulent drainage DIAGNOSTIC RESULTS RADIOLOGY (Per Emergency Physician): Interpretation per the Radiologist below, if available at the time of this note: No orders to display LABS: Labs Reviewed - No data to display All other labs were within normal range or not returned as of this dictation. EMERGENCY DEPARTMENT COURSE and DIFFERENTIAL DIAGNOSIS/MDM: Vitals: There were no vitals filed for this visit. Medications bacitracin ointment (has no administration in time range) SCREENINGS MDM elements: The patient presented with chief complaint of with a first-degree burn to the right forearm 3 days ago on a grill, no signs of infection at this time, told him to stop the peroxide, gave him bacitracin, okay to return to work tomorrow. The differential diagnosis associated with this patient's presentation includes first-degree burn, infection. Our workup consisted of ordering/reviewing: No need for imaging or labs, given bacitracin, discharged with follow-up as needed. The patient will be Discharged. Patient is in agreement with this plan. PROCEDURES: Unless otherwise noted below, none Procedures CRITICAL CARE TIME None FINAL IMPRESSION 1. Superficial burn of right forearm, initial encounter DISPOSITION Discharge 06/26/2023 03:54:03 PM PATIENT REFERRED TO: Yobany Castellanos MD [address] [place] [address], [facility] [place] [phone] As needed DISCHARGE MEDICATIONS: New Prescriptions No medications on file (Comment: Please note this report has been produced using speech recognition software and may contain errors related to that system including errors in grammar, punctuation, and spelling, as well as words and phrases that may be inappropriate. If there are any questions or concerns please feel freeto contact the dictating provider for clarification.) Saturnino Soto MD (electronically signed) Emergency Medicine Provider Saturnino Soto MD 06/26/23 3269 [id number] Hospital Discharge instructions Patient Education 05/20/2023 00:43:40 R.I.C.E. RICE RICE stands for rest, ice, compression, and elevation. Doing these things helps limit pain and swelling after an injury. RICE also helps injuries heal faster. Use RICE for sprains, strains, and severe bruises or bumps. Follow the tips on this handout and begin RICE as soon as possible after an injury. Rest Pain is your body s way of telling you to rest an injured area. Whether you have hurt an elbow, hand, foot, or knee, limiting its use will prevent further injury and help you heal. Ice Applying ice right after an injury helps prevent swelling and reduce pain. Don t place ice directlyon your skin. Wrap a cold pack or bag of ice in a thin cloth. Place it over the injured area. Ice for 10 minutes every 3 hours. Don t ice for more than 20 minutes at a time. Compression Putting pressure (compression) on an injury helps prevent swelling and provides support. Wrap the injured area firmly with an elastic bandage. If your hand or foot tingles, becomes discolored, or feels cold to the touch, the bandage may be too tight. Rewrap it more loosely. If your bandage becomes too loose, rewrap it. Do not wear an elastic bandage overnight. Elevation Keeping an injury elevated helps reduce swelling, pain, and throbbing. Elevation is most effective when the injury is kept elevated higher than the heart. Call your healthcare provider if you notice any of the following: Fingers or toes feel numb, are cold to the touch, or change color. Skin looks shiny or tight. Pain, swelling, or bruising worsens and is not improved with elevation. 2727-68[address] [employer]. [address] [place] [address]. All rights reserved. This information is not intended as a substitute for professional medical care. Always follow yourhealthcare professional's instructions. Follow Up Care 05/20/2023 00:25:03 With:NEHAL DURON APRN/CRAP SHOOTER Address: [address] [place] [phone] When:2-4 days [facility] 03-19-2024 Note Discharge Instructions Thank you for allowing [facility] to assist you with your healthcare needs. The following is importantdischarge information regarding your hospital visit. Diagnosis from Today's Visit Hip pain-swelling What to Do Next Instructions from Your Care Team No qualifying data available. Post Acute Orders No qualifying data available. You Need to Schedule the Following Appointments Follow Up with NEHAL DURON APRN/LENARD When Within 2-4 days Where: [address] [phone] [phone] Allergies penicillin Medications Please ask your primary doctor or pharmacist before taking any other medication not listed, including over the counter drugs, herbal medications, vitamins and or supplements as they may interact withyour home medications. What How Much When Why Instructions Last Dose New baclofen (baclofen 20 mg oral tablet) 1 tab(s) by mouth Three (3) times a day Duration: 5 Days Printed Prescription New naproxen (naproxen 250 mg oral tablet) 2 tab(s) by mouth Two (2) times a day Duration: 7 Days with food Printed Prescription Unchanged azithromycin (Zithromax Z-Calos 250 mg oral tablet) Take two (2) tablets day 1-then one (1) tablet by mouth Every day Cough Atypical pneumonia Duration: 5 Days Unchanged benzonatate (Tessalon Perles 100 mg oral capsule) 1 cap by mouth Three (3) times a day as needed for as needed for cough Cough Atypical pneumonia Duration: 7 Days Unchanged dicyclomine (dicyclomine 10 mg oral capsule) 1 cap by mouth Four (4) times a day Abdominal pain Duration: 5 Days Please take this list to your next doctor s visit. Bring all medications you take, including over the counter medications, herbals and other supplements with you to your doctor s visit. Patients and families are reminded to discard old lists and to update any records with all medication providers or retail pharmacies. Education Materials RICE RICE stands for rest, ice, compression, and elevation. Doing these things helps limit pain and swelling after an injury. RICE also helps injuries heal faster. Use RICE for sprains, strains, and severe bruises or bumps. Follow the tips on this handout and begin RICE as soon as possible after an injury. Rest Pain is your body s way of telling you to rest an injured area. Whether you have hurt an elbow, hand, foot, or knee, limiting its use will prevent further injury and help you heal. Ice Applying ice right after an injury helps prevent swelling and reduce pain. Don t place ice directlyon your skin. Wrap a cold pack or bag of ice in a thin cloth. Place it over the injured area. Ice for 10 minutes every 3 hours. Don t ice for more than 20 minutes at a time. Compression Putting pressure (compression) on an injury helps prevent swelling and provides support. Wrap the injured area firmly with an elastic bandage. If your hand or foot tingles, becomes discolored, or feels cold to the touch, the bandage may be too tight. Rewrap it more loosely. If your bandage becomes too loose, rewrap it. Do not wear an elastic bandage overnight. Elevation Keeping an injury elevated helps reduce swelling, pain, and throbbing. Elevation is most effective when the injury is kept elevated higher than the heart. Call your healthcare provider if you notice any of the following: Fingers or toes feel numb, are cold to the touch, or change color. Skin looks shiny or tight. Pain, swelling, or bruising worsens and is not improved with elevation. 4183-4856 [employer]. [address] [place] [address]. All rights reserved. This information is not intended as a substitute for professional medical care. Always follow yourhealthcare professional's instructions. Additional Information VACCINATE! IT SAVES LIVES! Members of the community who have not yet received the COVID-19 vaccine and would like to receive it can visit one of [facility] vaccine clinics. There are many vaccine clinic locations within the [facility]. For locations and available times, please visit www.[email or web address].[place].gov/. It is important to note that some COVID mobile vaccine clinics are held outdoors and may be canceled in rainy or stormy conditions. To learn more about pediatric vaccinations (ages 5-11), we invite you to visit the [facility] webpage. https://www.[facility].org/pages/3837-Gdvld-Tytlzndqaww-Mwylceerga-Djbmr-Dyq stions.htmlTo learn more about the COVID-19 vaccine, we invite you to visit the CDC website for a list of frequently asked questions. https://www.cdc.gov/coronavirus/2019-ncov/vaccines/faq.html [employer] Patient Portal Access Instructions: Stay connected with your healthcare team and access your personal medical information anytime with the [employer] Patient Portal. If you would like a full copy of your medical records please contact the [facility] Medical Records Department Friday through Friday between 8a.m. and 4:30p.m. Please follow the directions below to access the portal: 1.Access the email account you provided upon registration to the [facility].2.Look for an invitation email from [facility].3.Open the email and access the invitation link: Accept Invitation to [email or web address].Fill in the required mireles to create your account. Sign into [email or web address] with your username and password that you created in the above steps to stay up to date. You can then view a summary of results, a summary of your visits, and the ability to download your summaries to your computer or send the information securely to a physician. Remember that your healthcare information is confidential, so carefully consider who you will allow to register on the [facility] Patient Portal for access to your information. You can also access the [email or web address] Patient Portal on the [email or web address] leslie. Simply click on Health Records under HealthData and then click on the [facility] logo. HOW TO SAFELY DISPOSE OF PRESCRIPTION MEDICATIONS Please use one of the following methods to safely dispose of your unused medications. 1.Use a drug disposal kit: the drug disposal pouch allows you to safely discard your old and unuseddrugs. Ask your nurse to give you one when you are discharged.2.Visit a local take-back location: Many local pharmacies and police departments have programs that collect old and unwanted prescriptiondrugs. Call your local pharmacy or go to http://bit.ly/5Z2Io9x to find one close to you.3.Make use of household items: Use cat litter or old coffee grounds to dispose medications if other options arenot available. Mix your drugs with these household products, seal them in an airtight container andthrow it into the garbage. Call [facility]: [phone] to be sure your drugs can be disposed of in this way. Some medicines may require a different approach.4.Never flush your medications down the toilet. IF YOU HAVE BEEN PRESCRIBED AN OPIOIDS FOR PAIN If you have been prescribed an opioid (such as hydrocodone, oxycodone or morphine), it is critical to understand the possible side effects and risks of opioid pain medications. Even when taken as directed, opioids can have several side effects including: Tolerance, meaning you might need to take more of a medication for the same pain relief. Nausea, vomiting and/or constipation. Sleepiness, dizziness, dry mouth, confusion, depression or itching. Physical dependence, meaning you have withdrawal symptoms when a medication is stopped ? this can develop within a few days. KNOW YOUR RESPONSIBILITIES It is important to know exactly how much and how often to take the opioid pain medications you are prescribed. Never take opioids in higher amounts or more often than prescribed. Do not combine opioids with alcohol or other drugs that cause drowsiness, such as benzodiazepines, also known as benzos,including diazepam and alprazolam, muscle relaxants or sleep aids. Never sell or share prescriptionopioids. This is illegal. Store opioids in a secure place and out of reach of others (including children, family, friends and visitors). The last page(s) of this document has been signed and retained as a CHART COPY Signatures Patient Education Materials R.I.C.E. Medication Leaflets My discharge plan and instructions have been reviewed and explained to me and IMARILOU CORY A understand my current condition and have read and understand these discharge instructions. I have received a written copy of the plan/instructions. If I have questions, I am aware that I should contact my doctor. 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 This is also called a bruise. There is swelling and some bleeding under the skin, but no broken bones. This injury generally takes a few days to a few weeks to heal. During thattime, the bruise will typically change in color from reddish, to purple-blue, to greenish-yellow, then to yellow-brown. Home care Elevate the hand to reduce pain and swelling. As much as possible, sit or lie down with the hand raised about the level of your heart. This is especially important during the first 48 hours. Ice the hand to help reduce pain and swelling. Wrap a cold source (ice pack or ice cubes in a plastic bag) in a thin towel. Apply to the bruised area for 20 minutes every 1 to 2 hours the first day. Continue this 3 to 4 times a day until the pain and swelling goes away. Unless another medicine was prescribed, you can take acetaminophen, ibuprofen, or naproxen to control pain. (If you have chronic liver or kidney disease or ever had a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 - Taryn Castorena RN - 03/13/2023 11:17 AM EST S: Patient spoke with [facility] nurse regarding neck pain. B: Onset of symptoms/concern 2 days. A: Patient reports trying to put on hoodie two days ago, heard pop in back of neck. Reports back ofneck is swollen, cannot turn his head, cannot touch chin to chest, severe headache. Denies chest pain, difficulty breathing/swallowing, fever, chills, shakiness. R: Patient advised to go to ED at this time. Patient verbalized understanding, requesting second level triage due to transportation issues. Second level triage performed with Cira Duron, advised patient come to office today at 1:20 pm, and if any symptoms change or worsen between now and appointment patient needs to go to ED. Patient advised, verbalized understanding. Office visit scheduled for today with Cira Duron at 1:20 pm. Insurance verified per policy. No further needs at this time.Patient instructed to call back or go to ED with new or worsening symptoms. Reason for Disposition Stiff neck (can't touch chin to chest) and has headache Protocols used: Neck Pain or [id number] documented in this [facility]01-11-2024 Telephone encounter Note* Telephone Encounter - Taryn Castorena RN - 03/13/2023 11:17 AM EST S: Patient spoke with [facility] nurse regarding neck pain. B: Onset of symptoms/concern 2 days. A: Patient reports trying to put on hoodie two days ago, heard pop in back of neck. Reports back ofneck is swollen, cannot turn his head, cannot touch chin to chest, severe headache. Denies chest pain, difficulty breathing/swallowing, fever, chills, shakiness. R: Patient advised to go to ED at this time. Patient verbalized understanding, requesting second level triage due to transportation issues. Second level triage performed with Cira Duron, advised patient come to office today at 1:20 pm, and if any symptoms change or worsen between now and appointment patient needs to go to ED. Patient advised, verbalized understanding. Office visit scheduled for today with Cira Duron at 1:20 pm. Insurance verified per policy. No further needs at this time.Patient instructed to call back or go to ED with new or worsening symptoms. Reason for Disposition Stiff neck (can't touch chin to chest) and has headache Protocols used: Neck Pain or [id number] [id number] Evaluation + Plan note* Assessment & Plan Note - JUANCARLOS Armenta CNP - 02/26/2023 11:22 AM ESTAssociated Problem(s): Acute otitis media with effusion of right ear Patient with penicillin allergy. Start doxycycline twice daily x 10 days. [id number] Miscellaneous Notes* Assessment & Plan Note - JUANCARLOS Armenta CNP - 02/26/2023 11:22 AM ESTAssociated Problem(s): Acute otitis media with effusion of right ear Patient with penicillin allergy. Start doxycycline twice daily x 10 days. documented in this [facility]12-27-2023 History of Present illness Narrative* Ade Rodriguez - 02/26/2023 11:00 AM EST Patient was identified by name and Date of . * Nehal Duron, DISPATCHER SERVICE - [employer] - 02/26/2023 11:00 AM EST Images from the original note were not included. 02/26/2023 Stephan Zamarripa (: 1985) is a 37 y.o. male , Established patient, here for evaluation of the following chief complaint(s): Earache (Right ear started X1.5 wks ago) ASSESSMENT/PLAN: 1. Acute otitis media with effusion of right ear Assessment & Plan: Patient with penicillin allergy. Start doxycycline twice daily x 10 days. Orders: - doxycycline (Vibramycin) 100 MG capsule; Take 1 capsule (100 mg) by mouth 2 times daily for 10 days. Take with at least 8 ounces (large glass) of water, do not lie down for 30 minutes after, Starting 02/26/2023, Until 03/08/2023, Normal - ibuprofen 600 MG tablet; Take 1 tablet (600 mg) by mouth every 8 hours as needed for moderate pain (4-6) (pain) for up to 10 days., Starting Fri02/26/2023, Until 03/08/2023 at 2359, Normal Reviewed and provided written patient education/instructions regarding diagnosis and management. Reviewed symptom management with non-pharmacological interventions and appropriate use of otc medications for relief of symptoms. Follow up for worsening or no improvement in symptoms. Follow up if symptoms worsen or fail to improve. SUBJECTIVE/OBJECTIVE: HPI - Stephan Zamarripa (: 1985) is a 37 y.o. male , Established patient, here for the evaluation of the following chief complaint(s): Earache (Right ear started X1.5 wks ago) Reports right ear pain worsening. No drainage but feels pressure. No fever or chills. No preceding upper respiratory symptoms. States he has a history of ear infections. Prior to Admission medications Medication Sig Start Date End Date Taking? Authorizing Provider meclizine (Antivert) 25 MG tablet Take 1 tablet (25 mg) by mouth 3 times daily as needed for dizziness. 03/19/22 03/19/23 Yes JUANCARLOS Armenta CNP ondansetron (Zofran) 4 MG tablet Take by mouth every 8 hours as needed for nausea or vomiting. Yes Historical Provider, sucralfate (Carafate) 1 GM/10ML suspension Take 1 g by mouth. Yes Historical Provider, lansoprazole (Prevacid) [address] capsule Take 1 capsule (30 mg) by mouth 2 times daily. Do not crush or chew. 03/19/22 05/18/22 JUANCARLOS Armenta CNP Review of Systems Constitutional: Negative. HENT: Positive for ear pain and hearing loss (right ear). Negative for congestion, dental problem, ear discharge, postnasal drip, rhinorrhea, sinus pressure, sore throat, tinnitus and trouble swallowing. Respiratory: Negative. Cardiovascular: Negative. Neurological: Positive for dizziness (due to ear.). Vitals: 02/26/23 1106 BP: 107/71 Pulse: 79 Resp: 24 Temp: 36.5 C (97.7 F) TempSrc: Infrared SpO2: 98% Weight: 186 lb (84.4 kg) Physical Exam Constitutional: General: He is not in acute distress. Appearance: Normal appearance. He is not ill-appearing. HENT: Head: Normocephalic and atraumatic. Right Ear: Decreased hearing noted. Drainage, swelling and tenderness present. A middle ear effusion is present. No mastoid tenderness. Left Ear: Tympanic membrane normal. Cardiovascular: Rate and Rhythm: Normal rate and regular rhythm. Pulses: Normal pulses. Pulmonary: Effort: Pulmonary effort is normal. Breath sounds: Normal breath sounds. Skin: General: Skin is warm and dry. Neurological: Mental Status: He is alert and oriented to person, place, and time. An electronic signature was used to authenticate this note. JUANCARLOS Armenta CNP 02/26/2023 11:23 AM documented in this [facility]08-28-2023 Telephone encounter Note* Telephone Encounter - Kia Srinivasan RN - 10/28/2022 1:21 PM EDT S: Patient spoke with [facility] nurse regarding right ear pain B: Onset of symptoms/concern last A: Calls with concern of right ear popped last , and is painful since then, and has been taking Tylenol with no relief. Rates his ear pain with this call as 8/10 and endorses decreased hearing, with occasional headaches and dizziness since . Denies fever, stiff neck, vomiting, upper respiratory symptoms. R: Insurance verified. Appointment scheduled for tomorrow at 8:20 AM with Cira Duron. Advised tobring ID and insurance cards and list of current medications. Given home care advice to include useof ice. Patient understands care advice. No further needs at this time. Patient instructed to call back with new or worsening symptoms. [id number] Miscellaneous Notes* Telephone Encounter - Kia Srinivasan RN - 10/28/2022 1:21 PM EDT S: Patient spoke with [facility] nurse regarding right ear pain B: Onset of symptoms/concern last A: Calls with concern of right ear popped last , and is painful since then, and has been taking Tylenol with no relief. Rates his ear pain with this call as 8/10 and endorses decreased hearing, with occasional headaches and dizziness since . Denies fever, stiff neck, vomiting, upper respiratory symptoms. R: Insurance verified. Appointment scheduled for tomorrow at 8:20 AM with Cira Duron. Advised tobring ID and insurance cards and list of current medications. Given home care advice to include useof ice. Patient understands care advice. No further needs at this time. Patient instructed to call back with new or worsening symptoms. * Telephone Encounter - Kia Srinivasan RN - 10/28/2022 1:15 PM EDT S: Patient calling [facility] regarding right ear popping, feels swollen shut per PAL note B: no contact made with return call R: No contact made with return call. Patient instructed to call back with new or worsening symptoms. Reason for Disposition Message left on unidentified voice mail. Phone number verified. Severe earache pain Answer Assessment - Initial Assessment Questions 1. LOCATION: Which ear is involved? Right ear 2. ONSET: When did the ear start hurting Last 3. SEVERITY: How bad is the pain? (Scale 1-10; mild, moderate or severe) - MILD (1-3): doesn't interfere with normal activities - MODERATE (4-7): interferes with normal activities or awakens from sleep - SEVERE (8-10): excruciating pain, unable to do any normal activities 10/10-tylenol with no relief 4. URI SYMPTOMS: Do you have a runny nose or cough? no 5. FEVER: Do you have a fever? If Yes, ask: What is your temperature, how was it measured, and when did it start? no 6. CAUSE: Have you been swimming recently?, How often do you use Q-TIPS?, Have you had any recent air travel or scuba diving? no 7. OTHER SYMPTOMS: Do you have any other symptoms? (e.g., headache, stiff neck, dizziness, vomiting, runny nose, decreased hearing) Occasional headache, dizziness at times, decreased hearing 8. : Is there any chance you are ? When was your last menstrual period? Protocols used: No Contact or Duplicate Contact [id number], [id number] documented in this [facility]08-28-2023 Telephone encounter Note* Telephone Encounter - Kia Srinivasan RN - 10/28/2022 1:15 PM EDT S: Patient calling [facility] regarding right ear popping, feels swollen shut per [facility] note B: no contact made with return call R: No contact made with return call. Patient instructed to call back with new or worsening symptoms. Reason for Disposition Message left on unidentified voice mail. Phone number verified. Severe earache pain Answer Assessment - Initial Assessment Questions 1. LOCATION: Which ear is involved? Right ear 2. ONSET: When did the ear start hurting Last 3. SEVERITY: How bad is the pain? (Scale 1-10; mild, moderate or severe) - MILD (1-3): doesn't interfere with normal activities - MODERATE (4-7): interferes with normal activities or awakens from sleep - SEVERE (8-10): excruciating pain, unable to do any normal activities 10/10-tylenol with no relief 4. URI SYMPTOMS: Do you have a runny nose or cough? no 5. FEVER: Do you have a fever? If Yes, ask: What is your temperature, how was it measured, and when did it start? no 6. CAUSE: Have you been swimming recently?, How often do you use Q-TIPS?, Have you had any recent air travel or scuba diving? no 7. OTHER SYMPTOMS: Do you have any other symptoms? (e.g., headache, stiff neck, dizziness, vomiting, runny nose, decreased hearing) Occasional headache, dizziness at times, decreased hearing 8. : Is there any chance you are ? When was your last menstrual period? Protocols used: No Contact or Duplicate Contact [id number], [id number] [facility] [id number] History of Present illness Narrative* Tasha Noguera MD - 05/28/2022 12:00 PM EDT Images from the original note were not included. [facility] THORACIC SURGERY OUTPATIENT CONSULT NOTE [facility] STAFF PHYSICIAN NOTE OF PERSONAL INVOLVEMENT IN CARE IMPRESSION: I had the pleasure of meeting Mr. Zamarripa today. Patient is a 36 year old male with several esophageal symptoms including dysphagia, reflux, early satiety, and chest/abdominal pain. His EGD last year demonstrated grade C esophagitis. It commented on a hernia which he does not haveon today's esophagogram. His esophagogram today demonstrates no hernia, no reflux, no regurgitation and a subtle distal esophageal stricture. We discussed that it is as yet unclear the etiology of his symptoms. He does not have a hernia and he does not meet criteria for a surgical fundoplication. I think he would benefit from a GI visit, repeat EGD, manometry, CT scan, gastric emptying study, possible dilation of distal stricture. PLAN: Referral to GI Counseled to quit smoking - he continues to reduce the amount each week Patient was in agreement with the plan. Return to thoracic clinic PRN I have reviewed the documentation obtained and documented by the Resident and I have personally performed a face to face assessment of the patient and have personally participated in the veliz components of the visit which includes medical decision making.. I have discussed the case and management ofthe patient's care. STAFF PHYSICIAN: Tasha Noguera MD DATE OF SERVICE: May 28, 2022 [facility] THORAC[facility] SURGERY OUTPATIENT CONSULT NOTE Stephan Zamarripa [id number] Requesting Provider: Jennifer Finch PA-C Thoracic Physician: Tasha Noguera MD Chief Complaint: Hiatal Hernia + Navarro's Esophagus Impression: Stephan Zamarripa is a 36M active smoker (~20 Pack-Years) referred by Jennifer Vieraor an opinion regarding management of Navarro's esophagus discovered on EGD last year. Unfortunately, he has had progressive severe symptoms of chest/abdominal pain, dyspepsia, dysphagia, odynophagia, reflux, regurgitation, early satiety, and vomiting. MBS today without evidence of reflux, mild low amplitude motility with retrograde escape, and subtle narrowing of distal esophagus without evidence of hiatal hernia. At this juncture, no clear diagnosis to explain above findings/symptoms based on available testing. Plan: - GI Consult for additional work-up - Repeat EGD - Esophageal manometry - Gastric emptying study HPI: Stephan Zamarripa is a 36M active smoker (~20 Pack-Years) referred by Jennifer Finch PA-C for anopinion regarding management of Hiatal Hernia. States for last 2-3 years, he has had progressive trouble with eating due to chest/abdominal pain, dyspepsia, dysphagia, odynophagia, reflux, and regurgitation. States that nearly every time he eats now he has aforementioned symptoms. States he has early satiety and frequently throws up after mealsand throws up nearly every AM when he wakes up. Endorses ~30 lbs weight loss since January 2022. No fevers, chills, night sweats. No hematemesis. ? Melena. He has been taking Prilosec 40 mg daily, Prevacid 30 mg daily, and Carafate daily for the past ~12 months without significant relief. Underwent EGD 04/16/21 which revealed a 5 cm hiatal hernia, LA Grade C esophagitis, mucosal changes c/f long-segment Navarro's esophagus, and gastritis. Underwent repeat EGD 06/18/21 which confirmed aforementioned findings. Biopsies from stomach negative for H pylori. Biopsies from distal esophagus wi th active esophagitis and gastric-type mucosal changes without dysplasia. MBS today without evidence of reflux, mild low amplitude motility with retrograde escape, and subtle narrowing of distal esophagus without evidence of hiatal hernia. Surgical history significant for L neck cyst removal in 1994. No previous abdominal surgeries. Not on any blood thinners. Location: Esophagus Quality: Cramping Severity: Severe Duration: 2-3 Years Timing: Constant Modifying Factors: Improves with Heating Pad. Aggravated by Eating. 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 PAST SURGICAL HISTORY: PAST SURGICAL HISTORY Procedure Laterality Date CYST/MOLE REMOVAL 1996 from neck EGD 06/18/2021 EGD 04/16/2021 FAMILY HISTORY: FAMILY HISTORY Problem Relation Age of Onset Diabetes Mother Hypertension Mother Heart disease Mother Cancer Mother No Known Problems Father Vertigo Sister Ovarian cancer Sister SOCIAL HISTORY: Social History Tobacco Use Smoking status: Every Day Packs/day: 0.25 Types: Cigarettes Smokeless tobacco: Never Vaping Use Vaping Use: current everyday user Substances: Nicotine Substance Use Topics Alcohol use: Yes Comment: occasionally Drug use: Not Currently MEDICATIONS: Prior to Admission Medications: omeprazole (PRILOSEC) 40 mg capsule Take 1 capsule by mouth twice daily. lansoprazole (PREVACID) 30 mg capsule Take 1 capsule by mouth twice daily. sucralfate (CARAFATE) 1 gram tablet Take 1 tablet by mouth four times daily. Dissolve in one tablespoon of water ALLERGIES: ALLERGIES Allergen Reactions Penicillins Hives Other reaction(s): AOF [place] Rash Other reaction(s): RASH Tomato Swelling Other reaction(s): AOF Chemical Exposure: No Asbestos Exposure No COMPLETE REVIEW OF SYSTEMS Constitutional: See HPI HEENT: No changes in vision/hearing. Resp: No cough, wheezing, SOB. Cardiovascular: No chest pain, palpitations, YAP. GI: See HPI : No dysuria, urgency, frequency. Heme/Lymph: No easy bruising/prolonged bleeding. Integumentary: No lesions/rashes. MSK: No joint pain/swelling. Neurologic: No headaches, dizziness, syncope. Additional systems reviewed: No additional systems reviewed. PHYSICAL EXAM BP 127/72 Pulse 60 Temp (Src) 98 (Oral) Resp 12 Ht 5' 10 (1.78m) Wt 189 lb (85.7kg) SpO2 97% BMI 27.12 kg/(m^2). Constitutional: Sitting in exam chair. Uncomfortable but non toxic/NAD. Well developed and well nourished. HEENT: EOMI. Well-healed collar incision. Resp: Normal respiratory effort on RA. Cardiovascular: RRR. GI: Abdomen soft, tender to palpation over epigastrium and LUQ, non-distended. Integumentary: Warm and Dry. Musculoskeletal: No deformities. Neurological/Psychiatric: Alert and Oriented. Additional systems reviewed: No additional systems reviewed. DATA: Radiology: MBS 05/28/22: IMPRESSION: SUBTLE DISTAL ESOPHAGEAL STRICTURE. Pulmonary Function Testing: PFT/DLCO 05/28/22: FEV1 104% and DLCO 72%. I have personally reviewed the following images/data: EGD and Esophagram Outside Paper Medical Records Review personally performed by: ANGELA Ren MD Resident Thoracic Surgery [facility] this [facility]03[facility] History of Present illness Narrative* Rosey Smith, RT(R) - 05/28/2022 8:40 AM EDT Radiology Service Progress Note PATIENT NAME: Stephan Zamarripa DATE OF SERVICE: May 28, 2022 TIME: 9:03 AM PATIENT IDENTITY VERIFICATION COMPLETED USING TWO (2) IDENTIFIERS: Name and Date of confirmedby patient verbally. FALL SCREENING: Has the patient had 2 falls in the last year or 1 fall with injury or currently using an Ambulatory Assistive Device (Walker, Cane, Wheelchair, Crutches, etc.)? No PATIENT GENDER DATA: Male PATIENT RELEVANT IMPLANT DATA REVIEWED: Yes RADIOLOGY DEPARTMENT: General X-ray: Exam(s) Completed: GI/ Procedure(s): Esophogram with barium contrast PERIPHERAL IV DATA: Not applicable SIGNED BY: RT Emy(R) May 28, 2022 9:03 AM documented in this encounterC[facility]01-18-2023 Evaluation + Plan note* Assessment & Plan Note - JUACNARLOS Armenta CNP - 03/20/2022 6:31 AM ESTAssociated Problem(s): GERD without esophagitis Poorly controlled. Restart prevacid, carafate. [facility] with [id number] Evaluation + Plan note* Assessment & Plan Note - JUANCARLOS Armenta CNP - 03/20/2022 6:31 AM ESTAssociated Problem(s): Navarro's esophagus with dysplasia Restart prevacid. carafate- follow up with GI [id number] Miscellaneous Notes* Assessment & Plan Note - JUANCARLOS Armenta CNP - 03/20/2022 6:31 AM ESTAssociated Problem(s): GERD without esophagitis Poorly controlled. Restart prevacid, carafate. Follow up with GI * Assessment & Plan Note - JUANCARLOS Armenta CNP - 03/20/2022 6:31 AM ESTAssociated Problem(s): Navarro's esophagus with dysplasia Restart prevacid. carafate- follow up with GI * Assessment & Plan Note - JUANCARLOS Armenta CNP - 03/20/2022 6:30 AM ESTAssociated Problem(s): Nausea and vomiting Antiemetic. Vs stable. No concern for acute abdomen. Has poorly controlled gerd- possible gastritis.Restart carafate, prevacid- follow up with GI * Assessment & Plan Note - JUANCARLOS Armenta CNP - 03/20/2022 6:28 AM ESTAssociated Problem(s): Dizziness Vs stable. Intermittent. Neuro exam non focal. Will check cbc, cmp. Trial antivert for symptoms * Assessment & Plan Note - JUANCARLOS Armenta CNP - 03/20/2022 6:27 AM ESTAssociated Problem(s): Non-recurrent acute suppurative otitis media of right ear without spontaneous rupture of tympanic membrane Consistent with otitis media, will treat with doxycycline 100 mg bid x 7 d. documented in this [facility]01-18-2023 Evaluation + Plan note* Assessment & Plan Note - JUANCARLOS Armenta CNP - 03/20/2022 6:30 AM ESTAssociated Problem(s): Nausea and vomiting Antiemetic. Vs stable. No concern for acute abdomen. Has poorly controlled gerd- possible gastritis.Restart carafate, prevacid- follow up with GI [id number] Evaluation + Plan note* Assessment & Plan Note - JUANCARLOS Armenta CNP - 03/20/2022 6:28 AM ESTAssociated Problem(s): Dizziness Vs stable. Intermittent. Neuro exam non focal. Will check cbc, cmp. Trial antivert for symptoms [facility] [id number] Evaluation + Plan note* Assessment & Plan Note - JUANCARLOS Armenta CNP - 03/20/2022 6:27 AM ESTAssociated Problem(s): Non- recurrent acute suppurative otitis media of right ear without spontaneous rupture of tympanic membrane Consistent with otitis media, will treat with doxycycline 100 mg bid x 7 d. [facility] [id number] History of Present illness Narrative* Ade Rodriguez - 03/19/2022 2:20 PM EST Contact Center Manager for Intimate and Non Intimate Exam Contact Center Manager was declined Contact Center Manager: na * JUANCARLOS Armenta CNP - 03/19/2022 2:20 PM EST Images from the original note were not included. 03/19/2022 Stephan Zamarripa (: 1985) is a 36 y.o. male , Established patient, here for evaluation of the following chief complaint(s): Headache and Vomiting ASSESSMENT/PLAN: 1. GERD without esophagitis Assessment & Plan: Poorly controlled. Restart prevacid, carafate. Follow up with GI Orders: - sucralfate (Carafate) 1 g tablet; Take 1 tablet (1 g) by mouth 4 times daily (before meals and nightly)., Starting Fri03/19/2022, Until 03/19/2023, Normal - lansoprazole (Prevacid) [address] capsule; Take 1 capsule (30 mg) by mouth 2 times daily. Do not crush or chew., Starting Fri03/19/2022, Until 05/18/2022, Normal 2. Navarro's esophagus with dysplasia Assessment & Plan: Restart prevacid. carafate- follow up with GI 3. Non-recurrent acute suppurative otitis media of right ear without spontaneous rupture of tympanic membrane Assessment & Plan: Consistent with otitis media, will treat with doxycycline 100 mg bid x 7 d. Orders: - doxycycline (Vibramycin) 100 MG capsule; Take 1 capsule (100 mg) by mouth 2 times daily for 7 days. Take with at least 8 ounces (large glass) of water, do not lie down for 30 minutes after, Starting Fri03/19/2022, Until Tu03/26/2022, Normal 4. Dizziness Assessment & Plan: Vs stable. Intermittent. Neuro exam non focal. Will check cbc, cmp. Trial antivert for symptoms Orders: - Comprehensive metabolic panel - CBC auto differential - meclizine (Antivert) 25 MG tablet; Take 1 tablet (25 mg) by mouth 3 times daily as needed for dizziness., Starting Fri03/19/2022, Until Fri03/19/2023 at 2359, Normal 5. Nausea and vomiting, unspecified vomiting type Assessment & Plan: Antiemetic. Vs stable. No concern for acute abdomen. Has poorly controlled gerd- possible gastritis.Restart carafate, prevacid- follow up with GI Orders: - Comprehensive metabolic panel - CBC auto differential - ondansetron (Zofran) 4 MG tablet; Take 1 tablet (4 mg) by mouth every 8 hours as needed for nausea or vomiting for up to 5 days., Starting Fri03/19/2022, Until Fri03/24/2022 at 2359, Normal Follow up in about 1 week (around 03/26/2022) for Recheck. SUBJECTIVE/OBJECTIVE: HPI - Presents as new patient to establish care and for acute problem of COSTELLO/dizziness. Headache fontal, no blurred vision, vertigo sx 5 x yesterday and 3 today, associated n/v. Has not had before. Right ear pain this am, fullness x 7 d or more. No fever or chills, tired. No neck pain. Abdominal pain- chronic worsening- hx of barretts esophagus- was to have ?fundiplication sx howevernever followed up. Reports black stools, adominal pain. Was taking carafate, pepcid but ran out. Last seen GI in 07/2021. Health Maintenance: Review of Systems Constitutional: Positive for fatigue (stayed up d/t headache). Negative for activity change, appetite change and fever. HENT: Positive for ear pain (right). Negative for congestion, postnasal drip, rhinorrhea, sinus pressure, sore throat, tinnitus and voice change. Respiratory: Negative for cough and shortness of breath. Cardiovascular: Negative for chest pain and palpitations. Gastrointestinal: Positive for abdominal pain, nausea and vomiting. Negative for blood in stool, constipation and diarrhea. Black stools. Genitourinary: Negative for difficulty urinating. Musculoskeletal: Negative for neck pain. Neurological: Positive for dizziness. Negative for syncope. Psychiatric/Behavioral: The patient is nervous/anxious. Family History Problem Relation Name Age of Onset Diabetes Mother Heart failure Mother Hypertension Mother Diabetes Father estranged No Known Problems Sister Other (vertigo) Sister No Known Problems Sister No Known Problems Sister No Known Problems Sister No Known Problems Sister No Known Problems Sister No Known Problems Sister No Known Problems Sister Cardiomyopathy Brother Other (ashberger) Son Diabetes Mother's Sister Cancer Mother's Sister No Known Problems Mother's Brother No Known Problems Maternal Grandmother Diabetes Maternal Grandfather Vitals: 03/19/22 1423 BP: (!) 124/90 Pulse: 100 Resp: 20 Temp: 36.6 C (97.9 F) SpO2: 96% Weight: 190 lb 9.6 oz (86.5 kg) Physical Exam Vitals reviewed. Constitutional: General: He is not in acute distress. Appearance: Normal appearance. He is normal weight. He is ill-appearing (mildly). He is not toxic-appearing. HENT: Head: Normocephalic and atraumatic. Comments: Tenderness right side of head, from occiput to hoahaoism area. No redness or swelling noted. Right Ear: Ear canal and external ear normal. Tenderness present. There is no impacted cerumen. Tympanic membrane is erythematous and bulging. Left Ear: Tympanic membrane, ear canal and external ear normal. There is no impacted cerumen. Nose: Nose normal. No congestion or rhinorrhea. Mouth/Throat: Mouth: Mucous membranes are moist. Dentition: Abnormal dentition (poor dentition). Pharynx: Oropharynx is clear. No oropharyngeal exudate or posterior oropharyngeal erythema. Eyes: Conjunctiva/sclera: Conjunctivae normal. Pupils: Pupils are equal, round, and reactive to light. Neck: Trachea: Trachea normal. Cardiovascular: Rate and Rhythm: Normal rate and regular rhythm. Pulses: Normal pulses. Heart sounds: Normal heart sounds. No murmur heard. Pulmonary: Effort: Pulmonary effort is normal. No respiratory distress. Breath sounds: Normal breath sounds. Abdominal: General: Abdomen is flat. Bowel sounds are normal. Palpations: Abdomen is soft. There is no mass. Tenderness: There is generalized abdominal tenderness. There is no right CVA tenderness, left CVA tenderness, guarding or rebound. Musculoskeletal: General: Normal range of motion. Cervical back: Normal range of motion and neck supple. No rigidity or tenderness. No pain with movement, spinous process tenderness or muscular tenderness. Normal range of motion. Lymphadenopathy: Cervical: No cervical adenopathy. Skin: General: Skin is warm and dry. Neurological: General: No focal deficit present. Mental Status: He is alert and oriented to person, place, and time. Psychiatric: Mood and Affect: Mood normal. Behavior: Behavior normal. An electronic signature was used to authenticate this note. JUANCARLOS Armenta CNP 03/19/2022 2:48 PM documented in this [facility]12-04-20[facility] Evaluation + Plan note Diagnostic Tests Pending * Urine Culture 02/03/22 [facility] 12-04-2022 Hospital Discharge instructions Patient Education 02/03/2022 11:56:08 MAURO DENNIS (CUSTOM) Result type:CT Abd/Pelvis w/ IV Contrast Only Result date:February 03, 2022 11:20 EST Result status:Auth (Verified) Result title:CT ABD/PELVIS W/ IV CONTRAST ONLY Performed by:KASHIF MELÉNDEZ MD on February 03, 2022 11:00 EST Cosigned by:KASHIF MELÉNDEZ MD Verified by:KASHIF MELÉNDEZ MD on February 03, 2022 11:20 EST Encounter info:[id number], [facility], Emergency, 02/03/2022 - Contributor system:Xenith * Final Report * [id number] ORIGINAL EXAMINATION: CT OF THE ABDOMEN AND PELVIS WITH UUFKRVUB91/4/2022 11:21 am TECHNIQUE: CT of the abdomen and pelvis was performed with the administration of intravenous contrast. Multiplanar reformatted images are provided for review. Automated exposure control, iterative reconstruction, and/or weight based adjustment of the mA/kV was utilized to reduce the radiation dose to as low as reasonably achievable. COMPARISON: 03/23/2017 HISTORY: ORDERING SYSTEM PROVIDED HISTORY: Reason for Exam: abdominal pain FINDINGS: The included lung bases are clear. There is no visible pleural or pericardial effusion. The heart is normal in size. The liver, spleen, adrenal glands, and pancreas are within normal limits. No filling defects seen in the gallbladder. The kidneys enhance symmetrically. The large and small bowel demonstrate no obstruction. The appendix is normal. No free intraperitoneal fluid or gas is identified. The aorta is normal in caliber. There is no lymphadenopathy. No filling defects seen in the urinary bladder. There is no acute fracture or aggressive osseous lesion. Tiny left inguinal hernia contains fat. IMPRESSION: No inflammatory changes. Interpreted by: Kashif Meléndez MD Preliminary Report By: Kashif Meléndez MD Electronically signed By Kashif Meléndez MD Dictated Date: 02/03/2022 11:22:25 AM Prelim Date: 02/03/2022 11:28:45 AM Sign Date: 02/03/2022 11:28:45 AM Ordering Provider: RAYNE EDGAR IMAGE This document has an image Document Released: 02/17/2006 Document Revised: 02/03/2013 Document Reviewed: 02/18/2014 [employer] Patient Information 2014 [employer] [facility]. This information is not intended to replace advicegiven to you by your health care provider. Make sure you discuss any questions you have with your health care provider. 02/03/2022 10:42:05 Abdominal Pain Abdominal Pain Abdominal pain is pain in the stomach or belly area. Everyone has this pain from time to time. In many cases it goes away on its own. But abdominal pain can sometimes be due to a serious problem, such as appendicitis. So it s important to know when to get help. Causes of abdominal pain There are many possible causes of abdominal pain. Common causes in adults include: Constipation, diarrhea, or gas Stomach acid flowing back up into the esophagus (acid reflux or heartburn) Severe acid reflux, called GERD (gastroesophageal reflux disease) A sore in the lining of the stomach or small intestine (peptic ulcer) Inflammation of the gallbladder, liver, or pancreas Gallstones or kidney stones Appendicitis Intestinal blockage An internal organ pushing through a muscle or other tissue (hernia) Urinary tract infections In women, menstrual cramps, fibroids, ovarian cysts, pelvic inflammatory disease, or endometriosis Inflammation or infection of the intestines, including Crohn's disease and ulcerative colitis Irritable bowel syndrome Diagnosing the cause of abdominal pain Your healthcare provider will give you a physical exam help find the cause of your pain. If needed,you will have tests. Belly pain has many possible causes. So it can be hard to find the reason for your pain. Giving details about your pain can help. Tell your provider where and when you feel the pain, and what makes it better or worse. Also let your provider know if you have other symptoms such as: Fever Tiredness Upset stomach (nausea) Vomiting Changes in bathroom habits Blood in the stool or black, tarry stool Weight loss that you can't explain (involuntary weight loss?) Also report any family history of stomach or intestinal problems, or cancers. Tell your provider about all your alcohol use and drug use. Tell your provider about all medicines you use, including herbs, vitamins, and supplements. Treating abdominal pain Some causes of pain need emergency medical treatment right away. These include appendicitis or a bowel blockage. Other problems can be treated with rest, fluids, or medicines. Your healthcare provider can give you specific instructions for treatment or self-care based on what is causing your pain. If you have vomiting or diarrhea, sip water or other clear fluids. When you are ready to eat solid foods again, start with small amounts of fhmr-mm-ajdzws, low- fat foods. These include apple sauce, toast, or crackers. When to get medical care Call 911 or go to the hospital right away if you: Can t pass stool and are vomiting Are vomiting blood or have bloody diarrhea or black, tarry diarrhea Have chest, neck, or shoulder pain Feel like you might pass out Have pain in your shoulder blades with nausea Have sudden, severe belly pain Have new, severe pain unlike any you have felt before Have a belly that is rigid, hard, and hurts to touch Call your healthcare provider if you have: Pain for more than 5 days Bloating for more than 2 days Diarrhea for more than 5 days A fever of 100.4 F (38 C) or higher, or as directed by your healthcare provider Pain that gets worse Weight loss for no reason Continued lack of appetite Blood in your stool How to prevent abdominal pain Here are some tips to help prevent abdominal pain: Eat smaller amounts of food at each meal. Don't eat greasy, fried, or other high-fat foods. Don't eat foods that give you gas. Exercise regularly. Drink plenty of fluids. To help prevent GERD symptoms: Quit smoking. Reduce alcohol and foods that increase stomach acid. Don't use aspirin or njor-irf-pscsyvl pain and fever medicines, if possible. This includes nonsteroidal anti-inflammatory drugs (NSAIDs). Lose excess weight. Finish eating at least 2 hours before you go to bed or lie down. Raise the head of your bed. 6295-6156 [employer]. [address] [place] [address]. All rights reserved. This information is not intended as a substitute for professional medical care. Always follow yourhealthcare professional's instructions. Follow Up Care 02/03/2022 10:27:07 With:VINCENT JOE MD Address: [address] [address] [phone] When:2-4 days With:Go to emergency room if symptoms worsen Address:Unknown When:2-4 days With:PEEWEE SARGENT DO Address: [address] [facility] [place] [address] [phone] When:2-4 days [facility] 12-04-2022 Note Discharge Instructions Thank you for allowing [facility] to assist you with your healthcare needs. The following is importantdischarge information regarding your hospital visit. Diagnosis from Today's Visit Abdominal pain Abdominal pain What to Do Next Instructions from Your Care Team Take Bentyl as prescribed for pain. Follow-up with your primary care provider. Follow-up with Dr. Iris ROBLES if continued abdominal pain. Return to the emergency department if you experience worsening symptoms or any other care of concern. No qualifying data available. Post Acute Orders No qualifying data available. You Need to Schedule the Following Appointments Follow Up with VINCENT JOE MD When Within 2-4 days Where: [address] [place] [phone] Follow Up with Go to emergency room if symptoms worsen When Within 2-4 days Follow Up with PEEWEE SARGENT DO When Within 2-4 days Where: [address] [facility] [place] [phone] Allergies penicillin Medications Please ask your primary doctor or pharmacist before taking any other medication not listed, including over the counter drugs, herbal medications, vitamins and or supplements as they may interact withyour home medications. What How Much When Why Instructions Last Dose New dicyclomine (dicyclomine 10 mg oral capsule) 1 cap by mouth Four (4) times a day Abdominal pain Duration: 5 Days Printed Prescription Unchanged azithromycin (Zithromax Z-Calos 250 mg oral tablet) Take two (2) tablets day 1-then one (1) tablet by mouth Every day Cough Atypical pneumonia Duration: 5 Days Unchanged benzonatate (Tessalon Perles 100 mg oral capsule) 1 cap by mouth Three (3) times a day as needed for as needed for cough Cough Atypical pneumonia Duration: 7 Days Please take this list to your next doctor s visit. Bring all medications you take, including over the counter medications, herbals and other supplements with you to your doctor s visit. Patients and families are reminded to discard old lists and to update any records with all medication providers or retail pharmacies. Education Materials Result type: CT Abd/Pelvis w/ IV Contrast Only Result date: February 03, 2022 11:20 EST Result status: Auth (Verified) Result title: CT ABD/PELVIS W/ IV CONTRAST ONLY Performed by: KASHIF MELÉNDEZ MD on February 03, 2022 11:00 EST Cosigned by: KASHIF MELÉNDEZ MD Verified by: KASHIF MELÉNDEZ MD on February 03, 2022 11:20 EST Encounter info: [id number], [facility], [facility], 02/03/2022 - Contributor system: [employer] * Final Report * [id number] ORIGINAL EXAMINATION: CT OF THE ABDOMEN AND PELVIS WITH PRUNDAZL04/4/2022 11:21 am TECHNIQUE: CT of the abdomen and pelvis was performed with the administration of intravenous contrast. Multiplanar reformatted images are provided for review. Automated exposure control, iterative reconstruction, and/or weight based adjustment of the mA/kV was utilized to reduce the radiation dose to as low as reasonably achievable. COMPARISON: 03/23/2017 HISTORY: ORDERING SYSTEM PROVIDED HISTORY: Reason for Exam: abdominal pain FINDINGS: The included lung bases are clear. There is no visible pleural or pericardial effusion. The heart is normal in size. The liver, spleen, adrenal glands, and pancreas are within normal limits. No filling defects seen in the gallbladder. The kidneys enhance symmetrically. The large and small bowel demonstrate no obstruction. The appendix is normal. No free intraperitoneal fluid or gas is identified. The aorta is normal in caliber. There is no lymphadenopathy. No filling defects seen in the urinary bladder. There is no acute fracture or aggressive osseous lesion. Tiny left inguinal hernia contains fat. IMPRESSION: No inflammatory changes. Interpreted by: Kashif Meléndez MD Preliminary Report By: Kashif Meléndez MD Electronically signed By Kashif Meléndez MD Dictated Date: 02/03/2022 11:22:25 AM Prelim Date: 02/03/2022 11:28:45 AM Sign Date: 02/03/2022 11:28:45 AM Ordering Provider: RAYNE EDGAR IMAGE This document has an image Document Released: 02/17/2006 Document Revised: 02/03/2013 Document Reviewed: 02/18/2014 ExitCare Patient Information 2015 [employer]. This information is not intended to replace advicegiven to you by your health care provider. Make sure you discuss any questions you have with your health care provider. Abdominal Pain Abdominal pain is pain in the stomach or belly area. Everyone has this pain from time to time. In many cases it goes away on its own. But abdominal pain can sometimes be due to a serious problem, such as appendicitis. So it s important to know when to get help. Causes of abdominal pain There are many possible causes of abdominal pain. Common causes in adults include: Constipation, diarrhea, or gas Stomach acid flowing back up into the esophagus (acid reflux or heartburn) Severe acid reflux, called GERD (gastroesophageal reflux disease) A sore in the lining of the stomach or small intestine (peptic ulcer) Inflammation of the gallbladder, liver, or pancreas Gallstones or kidney stones Appendicitis Intestinal blockage An internal organ pushing through a muscle or other tissue (hernia) Urinary tract infections In women, menstrual cramps, fibroids, ovarian cysts, pelvic inflammatory disease, or endometriosis Inflammation or infection of the intestines, including Crohn's disease and ulcerative colitis Irritable bowel syndrome Diagnosing the cause of abdominal pain Your healthcare provider will give you a physical exam help find the cause of your pain. If needed,you will have tests. Belly pain has many possible causes. So it can be hard to find the reason for your pain. Giving details about your pain can help. Tell your provider where and when you feel the pain, and what makes it better or worse. Also let your provider know if you have other symptoms such as: Fever Tiredness Upset stomach (nausea) Vomiting Changes in bathroom habits Blood in the stool or black, tarry stool Weight loss that you can't explain (involuntary weight loss?) Also report any family history of stomach or intestinal problems, or cancers. Tell your provider about all your alcohol use and drug use. Tell your provider about all medicines you use, including herbs, vitamins, and supplements. Treating abdominal pain Some causes of pain need emergency medical treatment right away. These include appendicitis or a bowel blockage. Other problems can be treated with rest, fluids, or medicines. Your healthcare provider can give you specific instructions for treatment or self-care based on what is causing your pain. If you have vomiting or diarrhea, sip water or other clear fluids. When you are ready to eat solid foods again, start with small amounts of hmsi-ey-ldfccu, low- fat foods. These include apple sauce, toast, or crackers. When to get medical care Call 911 or go to the hospital right away if you: Can t pass stool and are vomiting Are vomiting blood or have bloody diarrhea or black, tarry diarrhea Have chest, neck, or shoulder pain Feel like you might pass out Have pain in your shoulder blades with nausea Have sudden, severe belly pain Have new, severe pain unlike any you have felt before Have a belly that is rigid, hard, and hurts to touch Call your healthcare provider if you have: Pain for more than 5 days Bloating for more than 2 days Diarrhea for more than 5 days A fever of 100.4 F (38 C) or higher, or as directed by your healthcare provider Pain that gets worse Weight loss for no reason Continued lack of appetite Blood in your stool How to prevent abdominal pain Here are some tips to help prevent abdominal pain: Eat smaller amounts of food at each meal. Don't eat greasy, fried, or other high-fat foods. Don't eat foods that give you gas. Exercise regularly. Drink plenty of fluids. To help prevent GERD symptoms: Quit smoking. Reduce alcohol and foods that increase stomach acid. Don't use aspirin or hytj-jfp-jvuvvzg pain and fever medicines, if possible. This includes nonsteroidal anti-inflammatory drugs (NSAIDs). Lose excess weight. Finish eating at least 2 hours before you go to bed or lie down. Raise the head of your bed. 8521-9506 [employer]. [address] [place] [address]. All rights reserved. This information is not intended as a substitute for professional medical care. Always follow yourhealthcare professional's instructions. Additional Information VACCINATE! IT SAVES LIVES! Members of the community who have not yet received the COVID-19 vaccine and would like to receive it can visit one of [facility] vaccine clinics. There are many vaccine clinic locations within the [facility]. For locations and available times, please visit [email or web address]. It is important to note that some COVID mobile vaccine clinics are held outdoors and may be canceled in rainy orstormy conditions. To learn more about pediatric vaccinations (ages 5-11), we invite you to visit the [facility] webpage. [email or web address] learn more about the COVID-19 vaccine, we invite you to visit the [facility] website for a list of frequently asked questions. [email or web address] _[email or web address] [facility] Patient Portal Access Instructions: Stay connected with your healthcare team and access your personal medical information anytime with the [facility] Patient Portal. If you would like a full copy of your medical records please contact the [facility] Medical Records Department Friday through Friday between 8a.m. and 4:30p.m. Please follow the directions below to access the portal: 1.Access the email account you provided upon registration to the [facility].2.Look for an invitation email from [facility].3.Open the email and access the invitation link: Accept Invitation to [email or web address].Fill in the required mireles to create your account. Sign into [email or web address] with your username and password that you created in the above steps to stay up to date. You can then view a summary of results, a summary of your visits, and the ability to download your summaries to your computer or send the information securely to a physician. Remember that your healthcare information is confidential, so carefully consider who you will allow to register on the [email or web address] Patient Portal for access to your information. You can also access the [email or web address] Patient Portal on the [email or web address] leslie. Simply click on Health Records under [employer] and then click on the [employer] logo. HOW TO SAFELY DISPOSE OF PRESCRIPTION MEDICATIONS Please use one of the following methods to safely dispose of your unused medications. 1.Use a drug disposal kit: the drug disposal pouch allows you to safely discard your old and unuseddrugs. Ask your nurse to give you one when you are discharged.2.Visit a local take-back location: Many local pharmacies and police departments have programs that collect old and unwanted prescriptiondrugs. Call your local pharmacy or go to http://Ad.IQ.Tideway/0P6Kj0r to find one close to you.3.Make use of household items: Use cat litter or old coffee grounds to dispose medications if other options arenot available. Mix your drugs with these household products, seal them in an airtight container andthrow it into the garbage. Call [facility]: [phone] to be sure your drugs can be disposed of in this way. Some medicines may require a different approach.4.Never flush your medications down the toilet. IF YOU HAVE BEEN PRESCRIBED AN OPIOIDS FOR PAIN If you have been prescribed an opioid (such as hydrocodone, oxycodone or morphine), it is critical to understand the possible side effects and risks of opioid pain medications. Even when taken as directed, opioids can have several side effects including: Tolerance, meaning you might need to take more of a medication for the same pain relief. Nausea, vomiting and/or constipation. Sleepiness, dizziness, dry mouth, confusion, depression or itching. Physical dependence, meaning you have withdrawal symptoms when a medication is stopped ? this can develop within a few days. KNOW YOUR RESPONSIBILITIES It is important to know exactly how much and how often to take the opioid pain medications you are prescribed. Never take opioids in higher amounts or more often than prescribed. Do not combine opioids with alcohol or other drugs that cause drowsiness, such as benzodiazepines, also known as benzos,including diazepam and alprazolam, muscle relaxants or sleep aids. Never sell or share prescriptionopioids. This is illegal. Store opioids in a secure place and out of reach of others (including children, family, friends and visitors). The last page(s) of this document has been signed and retained as a CHART COPY Signatures Patient Education Materials MAURO EDNNIS (CUSTOM) Abdominal Pain Medication Leaflets My discharge plan and instructions have been reviewed and explained to me and I,STEPHAN ZAMARRIPA understand my current condition and have read and understand these discharge instructions. I have received a written copy of the plan/instructions. If I have questions, I am aware that I should contact my doctor. 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 Multiplanar reformatted images are provided for review. Automated exposure control, iterative reconstruction, and/or weight based adjustment of the mA/kV was utilized to reduce the radiation dose to as low as reasonably achievable. COMPARISON: 03/23/2017 HISTORY: ORDERING SYSTEM PROVIDED HISTORY: Reason for Exam: abdominal pain FINDINGS: The included lung bases are clear. There is no visible pleural or pericardial effusion. The heart is normal in size. The liver, spleen, adrenal glands, and pancreas are within normal limits. No filling defects seen in the gallbladder. The kidneys enhance symmetrically. The large and small bowel demonstrate no obstruction. The appendix is normal. No free intraperitoneal fluid or gas is identified. The aorta is normal in caliber. There is no lymphadenopathy. No filling defects seen in the urinary bladder. There is no acute fracture or aggressive osseous lesion. Tiny left inguinal hernia contains fat. IMPRESSION: No inflammatory changes. Interpreted by: Kashif Meléndez MD Preliminary Report By: Kashif Meléndez MD Electronically signed By Kashif Meléndez MD Dictated Date: 02/03/2022 11:22:25 AM Prelim Date: 02/03/2022 11:28:45 AM Sign Date: 02/03/2022 11:28:45 AM Ordering Provider: [facility]12-04-2022 Note ORIGINAL EXAMINATION: CT OF THE ABDOMEN AND PELVIS WITH UPIRCTHK97/4/2022 11:21 am TECHNIQUE: CT of the abdomen and pelvis was performed with the administration of intravenous contrast. Multiplanar reformatted images are provided for review. Automated exposure control, iterative reconstruction, and/or weight based adjustment of the mA/kV was utilized to reduce the radiation dose to as low as reasonably achievable. COMPARISON: 03/23/2017 HISTORY: ORDERING SYSTEM PROVIDED HISTORY: Reason for Exam: abdominal pain FINDINGS: The included lung bases are clear. There is no visible pleural or pericardial effusion. The heart is normal in size. The liver, spleen, adrenal glands, and pancreas are within normal limits. No filling defects seen in the gallbladder. The kidneys enhance symmetrically. The large and small bowel demonstrate no obstruction. The appendix is normal. No free intraperitoneal fluid or gas is identified. The aorta is normal in caliber. There is no lymphadenopathy. No filling defects seen in the urinary bladder. There is no acute fracture or aggressive osseous lesion. Tiny left inguinal hernia contains fat. IMPRESSION: No inflammatory changes. Interpreted by: Kashif Meléndez MD Preliminary Report By: Kashif Meléndez MD Electronically signed By Kashif Meléndez MD Dictated Date: 02/03/2022 11:22:25 AM Prelim Date: 02/03/2022 11:28:45 AM Sign Date: 02/03/2022 11:28:45 AM Ordering Provider: [facility]05-03-2022 Miscellaneous Notes* Telephone Encounter - Nazanin Godoy RN - 07/03/2021 10:30 AM EDT Thoracic Surgery Consultation - review of records for appointment scheduling [facility] the [facility] [address] [facility] [address] Patient is being referred to Unspecified/First Available ( Tasha Noguera ) by Jennifer Campa for 5 cm Hiatal hernia/ Long segment Navarro's esophagus Outside hospital records scanned / in epic / Care Everywhere Pathology: 06/18/2021 Distal esophagus, biopsy: - Active esophagitis. - Gastric-type mucosa with no significant pathologic abnormality 04/16/2021 Stomach, antrum, biopsy - Gastric antral-type mucosa with mild reactive gastropathy. - Separate fragment of gastric oxyntic-type mucosa with no diagnostic abnormality. JEL/kll 04/18/2021 COMMENT No Helicobacter pylori organisms are identified. Procedures: EGD : 06/18/2021 5 cm hiatal hernia. - LA Grade C reflux esophagitis. - Esophageal mucosal changes suspicious for long-segment Navarro's esophagus. Biopsied. - Erythematous mucosa in the antrum. - Normal duodenal bulb and second portion of the EGD 04/16/2021 5 cm hiatal hernia. - LA Grade C reflux esophagitis. - Esophageal mucosal changes suspicious for long-segment Navarro's esophagus. - Erythematous mucosa in the antrum. Biopsied. - Normal duodenal bulb and second portion of the duodenum. duodenum. Imaging . PET/CT: n/a CT (chest, abd, pelvis): none MRI: n/a UGI: Requested . Cardiopulmonary Testing . PFT's/Six: requested ( current smoker) Cardiac: none Office Notes/Consults Gastroenterology Jennifer Finch PA-C 07/02/2021 Stephan Zamarripa is a 35 year old male here today for Procedure Follow Up (EGD 06/18/21 ) PMHx of GERD, drug abuse Patient tells me that he is miserable. Tells me that he cannot eat and hasn't eaten in two days. Currently taking Prevacid 30 mg BID and Carafate 1 g QID. Vomiting after eating, tells me that it feels like it is fire. Waking him up. Trying to drink milk with no symptoms. Appetite is good. Weight isstable. Bowel movements are regular. No blood in the stool. Stools are dark. Has tried and failed Protonix and Nexium in the past. 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 Esophagitis, [place] grade C -- Patient with two EGD with LA grade C esophagitis. No presence of healing from EGD. Currently on high dose PPI and Carafate with no improvement. -- Will refer to Thoracic surgery for possible reflux surgery. -- Will try him on Prilosec 40 mg BID. Stop Prevacid. Has failed Protonix and Nexium in the past. - CONSULT TO CARDIOTHORACIC SURGERY; Future 2. Acute esophagitis -- Biopsies from EGD on 06/18 showing acute esophagitis. -- Will refer to Thoracic surgery for possible reflux surgery. -- Will try him on Prilosec 40 mg BID. Stop Prevacid. Has failed Protonix and Nexium in the past. - CONSULT TO CARDIOTHORACIC SURGERY; Future 3. Hiatal hernia -- Noted 5 cm hiatal hernia on EGD -- Will refer to Thoracic surgery for possible reflux surgery. -- Will try him on Prilosec 40 mg BID. Stop Prevacid. Has failed Protonix and Nexium in the past. - CONSULT TO CARDIOTHORACIC SURGERY; Future 4. Long-segment Navarro's esophagus -- Both EGD showing ?Long segment Navarro's, negative Biopsies. -- Will refer to Thoracic surgery for possible reflux surgery. -- Will try him on Prilosec 40 mg BID. Stop Prevacid. Has failed Protonix and Nexium in the past. 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 PAST SURGICAL HISTORY Procedure Laterality Date CYST/MOLE REMOVAL 1997 from neck EGD 06/18/2021 EGD 04/16/2021 Social History Tobacco Use Smoking status: Current Every Day Smoker Packs/day: 0.25 Types: Cigarettes Smokeless tobacco: Never Used Vaping Use Vaping Use: current everyday user Substances: Nicotine Substance Use Topics Alcohol use: Yes Comment: occasionally Drug use: Not Currently Pt advised of testing required for work up Films: In [facility] Request for Esophagram , PFT's and consult to thoracic surgery with Tasha Godoy RN, BSN, [facility] Thoracic Nurse Practice Mgr [facility] History of Present illness Narrative* Jennifer Finch PA-C - 07/02/2021 12:54 PM EDT CHIEF COMPLAINT: Patient presents with: Procedure Follow Up: EGD 06/18/21 HPI Stephan Zamarripa is a 35 year old male here today for Procedure Follow Up (EGD 06/18/21 ) PMHx of GERD, drug abuse Patient tells me that he is miserable. Tells me that he cannot eat and hasn't eaten in two days. Currently taking Prevacid 30 mg BID and Carafate 1 g QID. Vomiting after eating, tells me that it feels like it is fire. Waking him up. Trying to drink milk with no symptoms. Appetite is good. Weight isstable. Bowel movements are regular. No blood in the stool. Stools are dark. Has tried and failed Protonix and Nexium in the past. EGD 06/18/2021: Impression: - 5 cm hiatal hernia. - LA Grade C reflux esophagitis. - Esophageal mucosal changes suspicious for long-segment Navarro's esophagus. Biopsied. - Erythematous mucosa in the antrum. - Normal duodenal bulb and second portion of the duodenum. Recommendation: - Patient has a contact number available for emergencies. The signs and symptoms of potential delayed complications were discussed with the patient. Return to normal activities tomorrow. Written discharge instructions were provided to the patient. - Resume previous diet. - Continue present medications. - Await pathology results. - The patient has taken no previous anticoagulant or antiplatelet agents. - in view of non-healing esophagits, hiatal hernia and Navarro's esophagus surgery referel is suggested FINAL DIAGNOSIS Distal esophagus, biopsy: - Active esophagitis. - Gastric-type mucosa with no significant pathologic abnormality. Last OV with me 04/03/2021: Assessment/Plan (K21.9) GERD without esophagitis (primary encounter diagnosis) (R11.10) Chronic vomiting (R13.11) Oral phase dysphagia 1. GERD without esophagitis -- Patient with severe GERD symptoms, ongoing for many years. Notes heartburn with water. Currentlyon Prevacid 30 mg x5 days. Recommended starting this thirty minutes before breakfast on an empty stomach. -- Will start patient on Carafate 1 g QID -- Discussed GERD diet in detail. Handout given -- EGD r/o Navarro's, esophagitis, gastritis, PUD, H.pylori Recommend high protein, high fiber diet. Promotion of salivation through oral lozenges/chewing gum Drink plenty of water Avoid NSAIDs (such as Advil, Ibuprofen, Excedrin, Mobic), tobacco, alcohol, carbonated beverages, caffeine, chocolate, tomato based sauces, spicy/fatty foods, and peppermint Avoid eating less than 3 hours before bed. Elevate the head of the bed 6 inches, or invest in a wedge pillow. Laying on left side with head elevated may help alleviate reflux symptoms. - EGD DIAGNOSTIC 2. Chronic vomiting -- Patient vomiting stomach acid every morning, 2-3x in the morning. -- Start Carafate 1 g QID -- EGD r/o esophagitis, Navarro's, gastritis, PUD, H.pylori - EGD DIAGNOSTIC 3. Oral phase dysphagia -- Notes dysphagia with solid dry and small foods such as meat and corn. Feels like it gets caught in upper esophagus and chest -- Carafate 1 g QID -- EGD +/- dilation r/o esophagitis, Schatzki ring, stricture, Navarro's Current Outpatient Medications Medication Sig lansoprazole (PREVACID) 30 mg capsule Take 1 capsule by mouth twice daily. sucralfate (CARAFATE) 1 gram tablet Take 1 tablet by mouth four times daily. Dissolve in one tablespoon of water No current facility-administered medications for this visit. 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 Gastrointestinal: Positive for abdominal pain and vomiting. Heartburn All other systems reviewed and are negative. PHYSICAL EXAM BP 128/76 Pulse 79 Ht 5' 10 (1.78m) Wt 201 lb (91.2kg) BMI 28.84 kg/(m^2). Physical Exam Constitutional: Appearance: Normal appearance. He is normal weight. HENT: Head: Normocephalic and atraumatic. Nose: Nose normal. Eyes: General: No scleral icterus. Extraocular Movements: Extraocular movements intact. Conjunctiva/sclera: Conjunctivae normal. Pupils: Pupils are equal, round, and reactive to light. Cardiovascular: Rate and Rhythm: Normal rate and regular rhythm. Pulses: Normal pulses. Heart sounds: Normal heart sounds. Pulmonary: Effort: Pulmonary effort is normal. Breath sounds: Normal breath sounds. Abdominal: General: Abdomen is flat. Bowel sounds are normal. Palpations: Abdomen is soft. Tenderness: There is abdominal tenderness (epigatric pain on palpation). Musculoskeletal: General: Normal range of motion. Cervical back: Normal range of motion and neck supple. Skin: General: Skin is warm and dry. Coloration: Skin is not jaundiced. Neurological: General: No focal deficit present. Mental Status: He is alert and oriented to person, place, and time. Psychiatric: Mood and Affect: Mood normal. Behavior: Behavior normal. Thought Content: Thought content normal. Judgment: Judgment normal. 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 Esophagitis, Bisbee grade C -- Patient with two EGD with LA grade C esophagitis. No presence of healing from EGD. Currently on high dose PPI and Carafate with no improvement. -- Will refer to Thoracic surgery for possible reflux surgery. -- Will try him on Prilosec 40 mg BID. Stop Prevacid. Has failed Protonix and Nexium in the past. - CONSULT TO CARDIOTHORACIC SURGERY; Future 2. Acute esophagitis -- Biopsies from EGD on 06/18 showing acute esophagitis. -- Will refer to Thoracic surgery for possible reflux surgery. -- Will try him on Prilosec 40 mg BID. Stop Prevacid. Has failed Protonix and Nexium in the past. - CONSULT TO CARDIOTHORACIC SURGERY; Future 3. Hiatal hernia -- Noted 5 cm hiatal hernia on EGD -- Will refer to Thoracic surgery for possible reflux surgery. -- Will try him on Prilosec 40 mg BID. Stop Prevacid. Has failed Protonix and Nexium in the past. - CONSULT TO CARDIOTHORACIC SURGERY; Future 4. Long-segment Navarro's esophagus -- Both EGD showing ?Long segment Navarro's, negative Biopsies. -- Will refer to Thoracic surgery for possible reflux surgery. -- Will try him on Prilosec 40 mg BID. Stop Prevacid. Has failed Protonix and Nexium in the past. - CONSULT TO CARDIOTHORACIC SURGERY; Future Follow up in office PRN. Recommended to please call office/go to ER if fever, chills, chest pain, SOB, diarrhea, nausea, emesis, worsening abdominal pain, dehydration occurs I spent 25 minutes in the visit, with more than 50% of the total kghm-za-play time of the visit in counseling / coordination of care. I have confirmed and edited as necessary, the PFSH and ROS obtained by others. Jennifer Finch PA-C July 02, 2021 1:16 PM documented in this encounterC[facility]22 Miscellaneous Notes* Telephone Encounter - Jennifer Finch PA-C - 06/22/2021 10:11 AM EDT Attempted to call patient x2 with busy signal and home phone is out of service. EGD biopsies showing ongoing acute esophagitis. Would recommend General surgery evaluation for Cesar at this time. documented in this encounterC[facility]04-18-2022 Nurse Note* Annamarie Bojorquez RN - 06/18/2021 10:[address] Martinez at bedside to speak to patient. Verbalizes understanding. documented in this encounterC[facility]04-18-2022 History and physical note * Grace Martinez MD - 06/18/2021 9:00 AM EDT HISTORY AND PHYSICAL Stephan A Umstead, 35 year old male here for EGD to re-evaluate esophagitis and Navarro's esophagus Current history and physical on file: Yes Is a new History and Physical required for today's visit? No Indication for procedure: Navarro's esophagus and GERD PROCEDURE(S) SCHEDULED FOR: EGD (Esophagogastroduodenoscopy) with or without biopsies, removal of polyps or lesions, dilation (any means), treatment of bleeding ( any means), Barrx treatment of Levy's Esophagus, image tube placement or cryo therapy treatment based on clinical findings. BASELINE BEHAVIOR: Calm BASELINE ORIENTATION: A & O x3 All medications and allergies reviewed: Yes Skin Assessment: Warm dry muscus membranes pink Airway/Respiratory Assessment: Airway: visualization of the uvula- Yes Mouth: opening greater than 2 fingerbreadths- Yes Neck: full range of motion- Yes Breath sounds clear/equal- Yes Cardiac Assessment: Regular rate and rhythm without murmur Abdominal Assessment: Abdomen soft, non-tender, no masses or organomegaly. Sedation Plan: Deep Additional Comments: None Grace Martinez MD documented in this encounterC[facility]03-09-2022 Hospital Discharge instructions Patient Education 05/08/2021 23:13:52 Chest and Lung Problems Chest and Lung Problems A number of problems can affect the lungs and chest. These include masses, infections, airway diseases, and other diseases. Common types of chest and lung problems are listed below. Masses A mass is a lump of abnormal tissue. It can be tissue that's not cancer (benign). Or it can be cancer (malignant). If a mass is found in the lung or chest, the healthcare provider will want to take asample of tissue (biopsy) of it. This tissue sample helps the provider find if the mass is cancer. The mass may need to be removed even if it is not cancer. Infections Infections are illnesses caused by bacteria, viruses, or fungi. Examples of lung infections includetuberculosis and pneumonia. Lung infections can cause fluid to build up in the lungs or chest. Somelung infections are spread from one person to another through the air. Most lung infections can be treated with antibiotics if they are caused by bacteria. Or they may be treated with other medicines. Airway diseases Airway diseases affect the tubes (airways) that carry oxygen and other gases in and out of the lungs. They usually cause the airways to narrow or to become blocked. Examples of airway diseases are asthma and bronchiectasis. Smoking is often the cause of airway diseases. For example, smoking can lead to chronic obstructivepulmonary disease (COPD). COPD refers to a group of diseases that destroy the lungs and make it hard to breathe. COPD includes emphysema and chronic bronchitis. People with airway diseases often say they feel as if they are trying to breathe out through a straw. Other serious diseases Other things can also cause lung disease. These include exposure to asbestos. [id number] [employer]. [address] [place] [address]. All rights reserved. This information is not intended as a substitute for professional medical care. Always follow yourhealthcare professional's instructions. Follow Up Care 05/08/2021 21:25:47 With:PEEWEE SARGENT DO Address: [address] [place] [address] [place] [address]- [phone] When:1-2 days [facility] 03-07-2022 Hospital Discharge instructions* Instructions* Low Marley DO - 05/07/2021 Please take the antibiotics as prescribed. If having worsening symptoms, please contact your doctoror return the emergency department. Otherwise, please follow- up with your doctor later this week aswe discussed. Be sure to drink plenty of water. * Attachments The following attachments cannot be sent through Care Everywhere. * Pneumonia ([place]) documented in this encounterSUMMA Work Phone: [phone] 667-121501-28-2022 NoteHNO ID: [id number] Author: Ebonie Coleman DO Service: ? Author Type: Physician Type: Progress Notes Filed: 04/09/2021 8:26 PM Note Text: [facility] Varun Coleman DO [address] [place] [address] Date of Evaluation: 03/30/2021 Patient Name: Stephan Zamarripa : 1985 Chief Complaint: Patient presents with: Vomiting: in the mornings for years Nursing Intake: There are no exam notes on file for this visit. Subjective Mr. Zamarripa is a 35 year old male who presents with the following complaint(s): The history is provided by the patient. No medical language specialist was used. Vomiting This is a chronic problem. The current episode started more than 1 week ago. The problem occurs 2 to 4 times per day (First thing in the morning ). The problem has not changed since onset.The emesis has an appearance of stomach contents. There has been no fever. Pertinent negatives include no cough and no headaches. GERD He complains of heartburn. He reports no chest pain or no coughing. This is a chronic problem. The current episode started more than 1 year ago. The problem has been rapidly worsening. The heartburn is of severe intensity. The heartburn wakes him from sleep. The symptoms are aggravated by certain foods. Pertinent negatives include no fatigue. He has tried an antacid for the symptoms. The treatment provided no relief. Review of Systems Constitutional: Negative for fatigue and unexpected weight change. HENT: Negative for nosebleeds. Eyes: Negative for redness and visual disturbance. Respiratory: Negative for apnea, cough and shortness of breath. Cardiovascular: Negative for chest pain, palpitations and leg swelling. Gastrointestinal: Positive for heartburn and vomiting. Genitourinary: Negative for hematuria. Neurological: Negative for dizziness, weakness, light-headedness, numbness and headaches. Hematological: Does not bruise/bleed easily. Psychiatric/Behavioral: The patient is not nervous/anxious. 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 PAST SURGICAL HISTORY Procedure Laterality Date - CYST/MOLE REMOVAL 1996 from neck FAMILY HISTORY Problem Relation Age of Onset - Diabetes Mother - Hypertension Mother - Heart disease Mother - No Known Problems Father - Vertigo Sister - Ovarian cancer Sister Social History Tobacco Use - Smoking status: Current Every Day Smoker Packs/day: 0.25 Types: Cigarettes - Smokeless tobacco: Never Used Vaping Use - Vaping Use: current everyday user Substance Use Topics - Alcohol use: Yes Comment: occasionally - Drug use: Not Currently Current Medications lansoprazole (PREVACID) 30 mg capsule Take 1 capsule by mouth once daily. I have confirmed and edited as necessary the past medical, family and social histories, HPI, and ROS obtained by others. Objective BP 120/84 Pulse 69 Temp 97 Ht 5' 10 (1.78m) Wt 200 lb (90.7kg) SpO2 96% BMI 28.70 kg/(m2). Physical Exam Vitals and nursing note reviewed. Constitutional: General: He is not in acute distress. Appearance: Normal appearance. He is well-developed. He is not ill-appearing. HENT: Head: Normocephalic. Right Ear: Tympanic membrane, ear canal and external ear normal. There is no impacted cerumen. Left Ear: Tympanic membrane, ear canal and external ear normal. There is no impacted cerumen. Nose: Nose normal. Mouth/Throat: Mouth: Mucous membranes are moist. Pharynx: Oropharynx is clear. Uvula midline. No oropharyngeal exudate or posterior oropharyngeal erythema. Eyes: General: Lids are normal. Vision grossly intact. Gaze aligned appropriately. No scleral icterus. Right eye: No discharge. Left eye: No discharge. Extraocular Movements: Extraocular movements intact. Conjunctiva/sclera: Conjunctivae normal. Pupils: Pupils are equal, round, and reactive to light. Neck: Thyroid: No thyroid mass, thyromegaly or thyroid tenderness. Vascular: No carotid bruit. Trachea: Trachea and phonation normal. Cardiovascular: Rate and Rhythm: Normal rate and regular rhythm. Pulses: Normal pulses. Heart sounds: Normal heart sounds. Pulmonary: Effort: Pulmonary effort is normal. Breath sounds: Normal breath sounds. Abdominal: General: Abdomen is flat. Bowel sounds are normal. Palpations: Abdomen is soft. Musculoskeletal: General: Normal range of motion. Right shoulder: Normal. Left shoulder: Normal. Cervical back: Normal, full passive range of motion without pain and neck supple. No tenderness. No spinous process tenderness. Thoracic back: Normal. Lumbar back: Normal. Right knee: Normal. Left knee: Normal. Right lower leg: No edema. Left lower leg: No edema. Lymphadenopathy: Cervical: No cervical adenopathy. Sk (more content not included)...[facility]12-13-2021 Hospital Discharge instructions Patient Education 02/12/2021 04:42:39 Viral Syndrome (Adult) Viral Syndrome (Adult) A viral illness may cause a number of symptoms such as fever. Other symptoms depend on the part of the body that the virus affects. If it settles in your nose, throat, and lungs, it may cause cough, sore throat, congestion, runny nose, headache, earache and other ear symptoms, or shortness of breath. If it settles in your stomach and intestinal tract, it may cause nausea, vomiting, cramping, and diarrhea. Sometimes it causes generalized symptoms like aching all over, feeling tired, loss of energy, or loss of appetite. A viral illness usually lasts anywhere from several days to several weeks, but sometimes it lasts longer. In some cases, a more serious infection can look like a viral syndrome in the first few days of the illness. You may need another exam and additional tests to know the difference. Watch for thewarning signs listed below for when to seek medical advice. Home care Follow these guidelines for taking care of yourself at home: If symptoms are severe, rest at home for the first 2 to 3 days. Stay away from cigarette smoke - both your smoke and the smoke from others. You may use xafg-[id number]-gigyvqg acetaminophen or ibuprofen for fever, muscle aching, and headache, unless another medicine was prescribed for this. If you have chronic liver or kidney disease or ever had a stomach ulcer or gastrointestinal bleeding, talk with your healthcare provider before using these medicines. No one who is younger than 18 and ill with a fever should take aspirin. It may cause severe disease or . Your appetite may be poor, so a light diet is fine. Avoid dehydration by drinking 8 to 12, 8-ounce glasses of fluids each day. This may include water; orange juice; lemonade; apple, grape, and cranberry juice; clear fruit drinks; electrolyte replacement and sports drinks; and decaffeinated teas andcoffee. If you have been diagnosed with a kidney disease, ask your healthcare provider how much andwhat types of fluids you should drink to prevent dehydration. If you have kidney disease, drinking too much fluid can cause it build up in the your body and be dangerous to your health. Uhbc-llq-fscfdht remedies won't shorten the length of the illness but may be helpful for symptoms such as cough, sore throat, nasal and sinus congestion, or diarrhea. Don't use decongestants if you have high blood pressure. Follow-up care Follow up with your healthcare provider if you do not improve over the next week. Call 911 Call 911 if any of the following occur: Convulsion Feeling weak, dizzy, or like you are going to faint Chest pain, or more than mild shortness of breath When to seek medical advice Call your healthcare provider right away if any of these occur: Cough with lots of colored sputum (mucus) or blood in your sputum Chest pain, shortness of breath, wheezing, or trouble breathing Severe headache; face, neck, or ear pain Severe, constant pain in the lower right side of your belly (abdominal) Continued vomiting (can t keep liquids down) Frequent diarrhea (more than 5 times a day); blood (red or black color) or mucus in diarrhea Feeling weak, dizzy, or like you are going to faint Extreme thirst Fever of 100.4 F (38 C) or higher, or as directed by your healthcare provider [phone] [employer]. [address] [place] [address], [place] [address]. All rights reserved. This information is not intended as a substitute for professional medical care. Always follow yourhealthcare professional's instructions. Follow Up Care 02/12/2021 04:16:03 With:PEEWEE SARGENT DO Address: [address] [place] [address] [facility] [place] [phone] When:2-4 days [facility] + Plan note No data available for this section [facility] note* Diagnosis Pneumonia due to infectious organism, unspecified laterality, unspecified part of lung- Primary documented in this encounter [facility] Work Phone: Evaluation note* Diagnosis Esophagitis Esophagitis, unspecified documented in this encounter [facility] note* Diagnosis Esophagitis, Bisbee grade C- Primary Acute esophagitis Hiatal hernia Diaphragmatic hernia without mention of obstruction or gangrene Long-segment Navarro's esophagus documented in this encounter [facility] note* Diagnosis Gastroesophageal reflux disease, unspecified whether esophagitis present- Primary Hiatal hernia Diaphragmatic hernia without mention of obstruction or gangrene documented in this encounter [facility] note* Diagnosis Gastroesophageal reflux disease, unspecified whether esophagitis present Hiatal hernia Diaphragmatic hernia without mention of obstruction or gangrene documented in this encounter [facility] note* Diagnosis Gastroesophageal reflux disease, unspecified whether esophagitis present Hiatal hernia Diaphragmatic hernia without mention of obstruction or gangrene documented in this encounter [facility] note* Diagnosis Dysphagia, unspecified type- Primary documented in this encounter [facility] note* Diagnosis Acute otitis media with effusion of right ear- Primary documented in this encounter [facility] note* Diagnosis Neck strain, initial encounter- Primary Acute diffuse otitis externa of right ear documented in this encounter [facility] note* Diagnosis Superficial burn of right forearm, initial encounter- Primary documented in this encounter [facility] note* Diagnosis Partial thickness burn of right forearm, initial encounter- Primary Pes planus of both feet documented in this encounter [facility] note* Diagnosis Dizziness- Primary Dizziness and giddiness Dizziness Dizziness and giddiness documented in this encounter [facility] note* Diagnosis Drug ingestion, accidental or unintentional, initial encounter- Primary documented in this encounter [facility] note* Diagnosis Chest pain, unspecified type- Primary Acute bronchitis, unspecified organism Anxiety Anxiety state, unspecified [facility] Diagnosis Neck strain, initial encounter- Primary Acute diffuse otitis externa of right ear [facility] Diagnosis Possible exposure to STD- Primary Other specified personal history presenting hazards to health Urinary frequency documented in this encounter [facility] note* Diagnosis GERD without esophagitis- Primary Esophageal reflux Navarro's esophagus with dysplasia Non-recurrent acute suppurative otitis media of right ear without spontaneous rupture of tympanic membrane Dizziness Dizziness and giddiness Nausea and vomiting, unspecified vomiting type documented in this encounter [facility] note* Diagnosis Light headed- Primary Dizziness and giddiness documented in this encounter [facility] Discharge instructions* Attachments The following attachments cannot be sent through Care Everywhere. * Skin [place] Discharge Instructions (Tamazight) [facility] Attachments The following attachments cannot be sent through Care Everywhere. * Ear Infections (Otitis Media) in Adults Discharge Instructions (Tamazight) [facility] Attachments The following attachments cannot be sent through Care Everywhere. * Neck Pain Exercises (Tamazight) [facility] Attachments The following attachments cannot be sent through Care Everywhere. * Neck Pain Exercises (Tamazight) [facility] Diagnostic Procedure Only (Routine) - Authorized Specialty Diagnoses / Procedures Referred By Lynne henao Referred To Contact XR IMAGING Diagnoses Gastroesophageal reflux disease, unspecified whether esophagitis present Hiatal hernia Procedures XR ESOPHAGRAM RADIOLOGIC EXAM ESOPHAGUS SINGLE CONTRAST STUDY Tasha Noguera MD [address] [address] Xr Imaging Referral ID Status Reason Start Date Expiration Date Visits Requested Visits Authorized [id number] Authorized Auto-Generat ed Referral 07/03/2021 08/02/2022 1 1 * Outpatient Procedure (Routine) - Authorized Specialty Diagnoses / Procedures Referred By Lynne henao Referred To Contact [facility] Diagnoses Gastroesophageal reflux disease, unspecified whether esophagitis present Hiatal hernia Procedures LUNG DIFFUSION CAPACITY (DLCO) DIFFUSING CAPACITY Tasha Noguera MD [address] [address] [place] [id number] Referral ID Status Reason Start Date Expiration Date Visits Requested Visits Authorized [id number] Authorized Auto-Generat ed Referral 07/03/2021 08/02/2022 1 1 * Outpatient Procedure (Routine) - Authorized Specialty Diagnoses / Procedures Referred By Lynne t Referred To Contact [facility] Diagnoses Gastroesophageal reflux disease, unspecified whether esophagitis present Hiatal hernia Procedures SPIROMETRY WITH DILATOR IF OBSTRUCTED BRNCDILAT RSPSE SPMTRY PRE&POST-BRNCDILAT ADMTasha Velasco MD [address] [place] [address] [place] [id number] Referral ID Status Reason Start Date Expiration Date Visits Requested Visits Authorized [id number] Authorized Auto-Generat ed Referral 07/03/2021 08/02/2022 1 1 [facility] for referral (narrative)* Diagnostic Procedure Only (Routine) - Closed Specialty Diagnoses / Procedures Referred By Lynne henao Referred To Contact XR IMAGING Diagnoses Gastroesophageal reflux disease, unspecified whether esophagitis present Hiatal hernia Procedures XR ESOPHAGRAM RADIOLOGIC EXAM ESOPHAGUS SINGLE CONTRAST STUDY Tasha Noguera MD [address] [place] [address] Xr Imaging Referral ID Status Reason Start Date Expiration Date V isits Requested Visits Authorized [id number] Closed Auto-Generate d Referral 07/03/2021 08/02/2022 1 1 [facility] for visit Narrative* Outpatient Procedure (Routine) - Closed Specialty Diagnoses / Procedures Referred By Lynne henao Referred To Contact [facility] Diagnoses Esophagitis, Bisbee grade C Long-segment Navarro's esophagus Procedures EGD DIAGNOSTIC ESOPHAGOGASTRODUODENOS COPY TRANSORAL DIAGNOSTIC Stef, Jennifer, PA-C [address] [place] [address] [facility] [place] [id number] Referral ID Status Reason Start Date Expiration Date V isits Requested Visits Authorized [id number] Closed Auto-Generate d Referral 04/17/2021 04/17/2022 1 1 [facility] Summary Purpose Family History No Family History Records FoundNo Family History Records FoundNo Family History Records Found No data available for this section No data available for this section No Family History Records FoundNo Family History Records FoundNo Family History Records FoundNo Family History Records FoundNo Family History Records Found No data available for this section No data available for this section No Family History Records FoundNo Family History Records Found Advance Directives No Advanced Directives Records FoundLatest Code Status on File Code Status Date Activated Date Inactivated Comments Full Code 07/10/2023 5:50 PM 07/10/2023 10:05 PM Latest Code Status on File Code Status Date Activated Date Inactivated Comments Full Code 07/10/2023 5:50 PM 07/10/2023 10:05 PM Reason for Referral Specialty Diagnoses / Procedures Referred By Contac t Referred To Contact Diagnoses Dysphagia, unspecified type Procedures CONSULT TO [facility] OFFICE/OUTPATIENT [facility] 60-74 MINUTES Tasha Noguera MD [address] [place] [id number] Barbie [place] MD [address] [place] [id number] Referral ID Status Reason Start Date Expiration Date Visits Requested Visits Authorized [id number] Authorized PCP Requested Referral 06/30/2022 05/31/2023 1 1 Specialty Diagnoses / Procedures Referred By Contac t Referred To Contact Cardiothoracic Surgery Diagnoses Esophagitis, Bisbee grade C Acute esophagitis Hiatal hernia Long-segment Navarro's esophagus Procedures CONSULT TO CARDIOTHORACIC SURGERY Jennifer Finch PA-C [address] [place] [address] Referral ID Status Reason Start Date Expiration Date Visits Requested Visits Authorized [id number] Ref Not Required PCP Requested Referral 07/02/2021 07/02/2022 1 1 Additional Source Comments (unrecognized sect ion and content) No Status Records FoundNo Status Records FoundNo Status Records FoundNo Status Records FoundNo Status Records FoundNo Status Records FoundNo Status Records FoundNo Status Records FoundNo Status Records FoundNo Status Records Found INFORMATION SOURCE (unrecogn ized section and content) DATE CREATED AUTHOR 08/27/2017 [facility] DATE CREATED AUTHOR AUTHOR'S ORGANIZ ATION 04/10/2021 [facility] DATE CREATED AUTHOR AUTHOR'S ORGANIZ ATION 05/11/2021 [facility] DATE CREATED AUTHOR AUTHOR'S ORGANIZ ATION 08/10/2023 [facility] DATE CREATED AUTHOR AUTHOR'S ORGANIZ ATION 08/31/2023 [facility] DATE CREATED AUTHOR AUTHOR'S ORGANIZ ATION 11/05/2023 [facility] DATE CREATED AUTHOR AUTHOR'S ORGANIZ ATION 01/28/2024 [facility] DATE CREATED AUTHOR AUTHOR'S ORGANIZ ATION 06/06/2024 [facility] DATE CREATED AUTHOR AUTHOR'S ORGANIZ ATION 08/14/2024 [facility] DATE CREATED AUTHOR AUTHOR'S ORGANIZ ATION 08/14/2024 [facility] Reason for Visit (unrecogniz ed section and content) Reason Comments Fever Reason Comments Results Reason Comments Procedure Follow Up EGD 06/18/21 Reason Comments Consult Internal : Esophagit is with Barretts esophagus Reason Comments Spirometry Specialty Diagnoses / Procedures Referred By Lynne t Referred To Contact [facility] Diagnoses Gastroesophageal reflux disease, unspecified whether esophagitis present Hiatal hernia Procedures LUNG DIFFUSION CAPACITY (DLCO) DIFFUSING CAPACITY Tasha Noguera MD [address] [place] [address] [facility] [address] [place] [address] Referral ID Status Reason Start Date Expiration Date V isits Requested Visits Authorized [id number] Closed Auto-Generate d Referral 07/03/2021 08/02/2022 1 1 Reason Comments Radio [facility] Main HB6 Specialty Diagnoses / Procedures Referred By Contac t Referred To Contact XR IMAGING Diagnoses Gastroesophageal reflux disease, unspecified whether esophagitis present Hiatal hernia Procedures XR ESOPHAGRAM RADIOLOGIC EXAM ESOPHAGUS SINGLE CONTRAST STUDY Tasha Noguera MD [address] [place] [address] Xr Imaging Referral ID Status Reason Start Date Expiration Date V isits Requested Visits Authorized [id number] Closed Auto-Generate d Referral 07/03/2021 08/02/2022 1 1 Reason Comments Consult Reason Onset Date Comments Ear Fullness 10/28/2022 Reason Comments Earache Right ear started X1 .5 wks ago Reason Comments Neck Pain [place] a pop x2 days ago Reason Onset Date Comments Neck Pain 03/13/2023 Reason Comments Burn Right forearm Reason Comments ER Follow-up [facility] Ed 06/26/23 burn right arm Reason Comments Neck Pain Specialty Diagnoses / Procedures Referred By Contac t Referred To Contact Diagnoses Dizziness Procedures - Subhash Krueger MD [address] [place] [address] [facility] Emergency Dept [address] [place] [address] Referral ID Status Reason Start Date Expiration Date Visits Re quested Visits Authorized [id number] 1 1 Specialty Diagnoses / Procedures Referred By Contac t Referred To Contact Diagnoses Dizziness Procedures - Subhash Krueger MD [address] [place] [address] [facility] Emergency Dept [address] [place] [address] Reason Comments Ingestion Reason Comments Chest Pain 10/10 L-sided CP valerie t radiates into L arm numbness and SOB since 1pm this afternoon. Pt's at states that pt left [facility] with an Acute MS and a partially collapsed lung4 days ago. Pt A+O, answering questions appropriately, 97% on RA. Reason Comments STD Requesting full pane l Reason Comments Results, Lab Reason Comments Headache Vomiting Ordered Prescriptions (unrec ognized section and content) Prescription Sig Dispensed Refills Start Date End Da te amoxicillin-clavulanate (AUGMENTIN XR) 1000-62.5 MG per extended release tablet Take 2 tablets by mouth 2 times daily for 5 days 20 tablet 0 05/07/2021 05/12/2021 doxycycline hyclate (VIBRA-TABS) 100 MG tablet Take 1 tablet by mouth 2 times daily for 7 days 14 tablet 0 05/07/2021 05/14/2021 Scheduled Active and Recently Administ ered Medications (unrecognized section and content) Medication Order 05/05/2021 05/06/2021 05/07/2021 doxycycline hyclate (VIBRAMYCIN) capsule 100 mg (COMPLETED) 100 mg, Oral, ONCE, On Fri05/07/21 at 1840, For 1 dose, This medication can interact with tube feedings (TF)- obtain MD order to manage. Recommend holding TF for 1 h before and 2 h after dose. Take 1 h before or 2 h after dairy, calcium, iron, magnesium, aluminum or zinc. 1846 (Given - Provid er: Sandi Bronson RN) ketorolac (TORADOL) injection 30 mg (COMPLETED) 30 mg, IntraMUSCular, ONCE, On Fri05/07/21 at 1739, For 1 dose, Do not administer for more than 5 days. 1746 (Given - Provid er: Sandi Bronson RN) Scheduled Medication Order 06/24/2023 06/25/2023 06/26/2023 bacitracin ointment (COMPLETED) Topical, Once, On Emelyn 06/26/23 at 1555, For 1 dose 1603 (Given - Provid er: Laverne Miranda LPN - Comment: right arm) Scheduled Medication Order 07/08/2023 07/09/2023 07/10/2023 aspirin chewable tablet 162 mg (COMPLETED) 162 mg, Oral, Once, On Emelyn 07/10/23 at 1535, For 1 dose 1533 (Given - Provid er: Jaqueline Aguirre RN) ketamine injection 10 mg (COMPLETED) 10 mg, IntraVENous, Once, On Emelyn 07/10/23 at 1410, For 1 dose, Give IV doses slowly over 1-3 minutes (max 0.5 mg/kg/min). 1417 (Given - Provid er: Jaqueline Aguirre RN) Lidocaine 4 % patch 1 patch 1 patch, TransDERmal, Administer over 12 Hours, Once, On Emelyn 07/10/23 at 1315, For 1 dose, Apply patch to neck. Patch may remain in place for up to 12 hours in any 24 hour period. 1340 (Medication Leslie lied - Provider: Ame Abdalla RN - Comment: left neck)1953 (Due: Medication Removed - Provider: Automatic Discharge Provider - Comment: Time automatically adjusted from order being discontinued) Lidocaine 4 % patch 1 patch 1 patch, TransDERmal, Administer over 12 Hours, Daily, First dose on Fri07/11/23 at 0900, Apply patch to neck. Patch may remain in place for up to 12 hours in any 24 hour period. nicotine (Nicoderm, Step 1) 21 MG/24HR patch 1 patch 1 patch, TransDERmal, Administer over 24 Hours, Daily, First dose on Emelyn 07/10/23 at 1830, Apply new patch to nonhairy, clean, dry skin on the upper body or upper outer arm. Rotate patch sites. Notify Pharmacy if patient or provider prefers patch to be removed at bedtime and replaced in the morning. 2100 (Canceled Entry - Provider: Automatic Discharge Provider - Comment: Automatically canceled at discontinue of medication order) sodium chloride 0.9 % bolus 500 mL (COMPLETED) 500 mL, IntraVENous, at 500 mL/hr, Administer over 1 Hours, Once, On Emelyn 07/10/23 at 1310, For 1 dose 1340 (New Bag - Prov ider: Ame Abdalla RN)1440 (Stopped - Provider: Jaqueline Aguirre RN) sodium chloride 0.9 % bolus 500 mL (COMPLETED) 500 mL, IntraVENous, at 500 mL/hr, Administer over 1 Hours, Once, On Emelyn 07/10/23 at 1445, For 1 dose 1445 (New Bag - Prov ider: Ame Abdalla RN)1545 (Stopped - Provider: Ame Abdalla RN) Continuous Medication Order 07/08/2023 07/09/2023 07/10/2023 sodium chloride 0.9 % infusion 50 mL/hr, IntraVENous, Continuous, Starting on Fri07/10/23 at 1800 1800 (New Bag - Prov ider: Sheeba Law RN) PRN Medication Order 07/08/2023 07/09/2023 07/10/2023 acetaminophen (Tylenol) suppository 650 mg(Linked Group 1) 650 mg, Rectal, Every 6 hours PRN, mild pain (1-3), fever, For temp greater than 100.4 F (38 C), Starting on Emelyn 07/10/23 at 1746, Administer if oral route cannot be used. Maximum dose of acetaminophen is 4000 mg from all sources in 24 hours. acetaminophen (Tylenol) tablet 650 mg(Linked Group 1) 650 mg, Oral, Every 6 hours PRN, mild pain (1-3), fever, For temp greater than 100.4 F (38 C), Starting on Emelyn 07/10/23 at 1746, Maximum dose of acetaminophen is 4000 mg from all sources in 24 hours. bisacodyl (Dulcolax) suppository 10 mg 10 mg, Rectal, Daily PRN, constipation, Starting on Emelyn 07/10/23 at 1746, 1st line for treatment of constipation - give scheduled if no bowel movement in past 24 hours. cyclobenzaprine (Flexeril) tablet 10 mg 10 mg, Oral, 3 times daily PRN, muscle spasms, Starting on Emelyn 07/10/23 at 1810 ketorolac (Toradol) injection 30 mg 30 mg, IntraVENous, Every 6 hours PRN, moderate pain (4-6), Starting on Emelyn 07/10/23 at 1807, For 5 days ondansetron (Zofran) injection 4 mg(Linked Group 2) 4 mg, IntraVENous, Every 6 hours PRN, nausea, vomiting, Starting on Emelyn 07/10/23 at 1746, 1st Line. Give IV if patient is unable to take orally. If inadequate response within 60 minutes, proceed to next-line agent or contact provider if no further options ordered. ondansetron ODT (Zofran-ODT) disintegrating tablet 4 mg(Linked Group 2) 4 mg, Oral, Every 8 hours PRN, nausea, vomiting, Starting on Emelyn 07/10/23 at 1746, 1st Line. If inadequate response within 60 minutes, proceed to next-line agent or contact provider if no further options ordered. Patient should allow tablet to dissolve on tongue. Do not remove from blister pack until just before administering. Linked Groups Order Group 1: acetaminophen (Tylenol) tablet 650 mgJump to med 650 mg, Oral, Every 6 hours PRN, mild pain (1-3), fever, For temp greater than 100.4 F (38 C), Starting on Emelyn 07/10/23 at 1746, Maximum dose of acetaminophen is 4000 mg from all sources in 24 hours. Or acetaminophen (Tylenol) suppository 650 mgJump to med 650 mg, Rectal, Every 6 hours PRN, mild pain (1-3), fever, For temp greater than 100.4 F (38 C), Starting on Emelyn 07/10/23 at 1746, Administer if oral route cannot be used. Maximum dose of acetaminophen is 4000 mg from all sources in 24 hours. Group 2: ondansetron ODT (Zofran-ODT) disintegrating tablet 4 mgJump to med 4 mg, Oral, Every 8 hours PRN, nausea, vomiting, Starting on Emelyn 07/10/23 at 1746, 1st Line. If inadequate response within 60 minutes, proceed to next-line agent or contact provider if no further options ordered. Patient should allow tablet to dissolve on tongue. Do not remove from blister pack until just before administering. Or ondansetron (Zofran) injection 4 mgJump to med 4 mg, IntraVENous, Every 6 hours PRN, nausea, vomiting, Starting on Emelyn 07/10/23 at 1746, 1st Line. Give IV if patient is unable to take orally. If inadequate response within 60 minutes, proceed to next-line agent or contact provider if no further options ordered. Scheduled Medication Order 07/17/2023 07/18/2023 07/19/2023 ondansetron ODT (Zofran-ODT) disintegrating tablet 4 mg (COMPLETED) 4 mg, Oral, Once, On 07/19/23 at 0205, For 1 dose 0207 (Given - Provid er: Yasmin Aguirre RN) Scheduled Medication Order 08/01/2023 08/02/2023 08/03/2023 aspirin chewable tablet 324 mg (COMPLETED) 324 mg, Oral, Once, On 08/02/23 at 2240, For 1 dose 2240 (Given - Provider: Mike Moyer RN) LORazepam (Ativan) injection 0.5 mg (COMPLETED) 0.5 mg, IntraVENous, Once, On 08/02/23 at 2230, For 1 dose, For IV doses dilute dose with 1ml NS. 2233 (Given - Provider: Mike Moyer RN) Source Comments (unrecognize d section and content) In the event this informatio n is protected by the Federal Confidentiality of Alcohol and Drug Abuse Patient Records regulations: The Federal rules restrict any use of the information to criminally investigate or prosecute any alcohol or drug abuse patient.[facility] the event this information is protected by the Federal Confidentiality of Alcohol and Drug Abuse Patient Records regulations: The Federal rules restrict any use of the information to criminally investigate or prosecute any alcohol or drug abuse patient.[facility] the event this information is protected by the Federal Confidentiality of Alcohol and Drug Abuse Patient Records regulations: The Federal rules restrict any use of the information to criminally investigate or prosecute any alcohol or drug abuse patient.[facility] the event this information is protected by the Federal Confidentiality of Alcohol and Drug Abuse Patient Records regulations: The Federal rules restrict any use of the information to criminally investigate or prosecute any alcohol or drug abuse patient.[facility] the event this information is protected by the Federal Confidentiality of Alcohol and Drug Abuse Patient Records regulations: The Federal rules restrict any use of the information to criminally investigate or prosecute any alcohol or drug abuse patient.[facility] the event this information is protected by the Federal Confidentiality of Alcohol and Drug Abuse Patient Records regulations: The Federal rules restrict any use of the information to criminally investigate or prosecute any alcohol or drug abuse patient.[facility] Hospital[facility] the event this information is protected by the Federal Confidentiality of Alcohol and Drug Abuse Patient Records regulations: The Federal rules restrict any use of the information to criminally investigate or prosecute any alcohol or drug abuse patient.[facility] the event this information is protected by the Federal Confidentiality of Alcohol and Drug Abuse Patient Records regulations: The Federal rules restrict any use of the information to criminally investigate or prosecute any alcohol or drug abuse patient.[facility] Hospital[facility] the event this information is protected by the Federal Confidentiality of Alcohol and Drug Abuse Patient Records regulations: The Federal rules restrict any use of the information to criminally investigate or prosecute any alcohol or drug abuse patient.[facility] Hospital[facility] the event this information is protected by the Federal Confidentiality of Alcohol and Drug Abuse Patient Records regulations: The Federal rules restrict any use of the information to criminally investigate or prosecute any alcohol or drug abuse patient.[facility] Hospital[facility] the event this information is protected by the Federal Confidentiality of Alcohol and Drug Abuse Patient Records regulations: The Federal rules restrict any use of the information to criminally investigate or prosecute any alcohol or drug abuse patient.[facility] Hospital[facility] the event this information is protected by the Federal Confidentiality of Alcohol and Drug Abuse Patient Records regulations: The Federal rules restrict any use of the information to criminally investigate or prosecute any alcohol or drug abuse patient.[facility] Hospital[facility] the event this information is protected by the Federal Confidentiality of Alcohol and Drug Abuse Patient Records regulations: The Federal rules restrict any use of the information to criminally investigate or prosecute any alcohol or drug abuse patient.[facility] Care Teams (unrecognized sec tion and content) Tooth Inspector Relationship Specialty Start Date End Date Ebonie Coleman, DO [address] [place] [address] PCP - General Family Practice 03/30/21 Tooth Inspector Relationship Specialty Start Date End Date Ebonie Coleman DO [address] [place] [id number] PCP - General Family Practice 03/30/21 Tooth Inspector Relationship Specialty Start Date End Date Ebonie Coleman DO [address] [place] [address] PCP - General Family Practice 03/30/21 Tooth Inspector Relationship Specialty Start Date End Date Ebonie Coleman DO [address] [place] [address] PCP - General Family Practice 03/30/21 Tooth Inspector Relationship Specialty Start Date End Date Ebonie Coleman, DO [address] [place] [address] PCP - General Family Practice 03/30/21 Tooth Inspector Relationship Specialty Start Date End Date Ebonie Coleman, DO [address] [place] [address] PCP - General Family Medicine 03/30/21 Tooth Inspector Relationship Specialty Start Date End Date Ebonie Coleman, DO [address] [place] [address] PCP - General Family Medicine 03/30/21 Tooth Inspector Relationship Specialty Start Date End Date Ebonie Coleman, DO [address] [place] [address] PCP - General Family Medicine 03/30/21 Tooth Inspector Relationship Specialty Start Date End Date [place] [address] PCP - General Family Medicine 03/19/22 Tooth Inspector Relationship Specialty Start Date End Date [facility] [place] [address] PCP - General Family Medicine 03/19/22 Tooth Inspector Relationship Specialty Start Date End Date Yobany Castellanos [facility] [place] [address] PCP - General Family Medicine 03/19/22 Tooth Inspector Relationship Specialty Start Date End Date Yobany Castellanos MD [address] [facility] [place] [address] PCP - General Family Medicine 03/19/22 Tooth Inspector Relationship Specialty Start Date End Date Nehal DuronGERALDN - CRAP SHOOTER [address] [facility] [place] [address] PCP - General Nurse Practitioner Family 06/26/23 Tooth Inspector Relationship Specialty Start Date End Date Yobany Castellanos MD [address] [facility] [place] [address] PCP - General Family Medicine 07/01/23 Tooth Inspector Relationship Specialty Start Date End Date Yobany Castellanos MD [address] [facility] [place] [address] PCP - General Family Medicine 07/01/23 Tooth Inspector Relationship Specialty Start Date End Date Yobany Castellanos MD [address] [facility] [place] [address] PCP - General Family Medicine 07/01/23 Tooth Inspector Relationship Specialty Start Date End Date Yobany Castellanos MD [address] [facility] [place] [address] PCP - General Family Medicine 07/01/23 Tooth Inspector Relationship Specialty Start Date End Date Yobany Castellanos MD [facility] [place] [address] PCP - General Family Medicine 07/01/23 Tooth Inspector Relationship Specialty Start Date End Date Yobany Castellanos MD [facility] [place] [address] PCP - General Family Medicine 07/01/23 Tooth Inspector Relationship Specialty Start Date End Date Yobany Castellanos MD [address] [place] [id number] PCP - General Family Medicine 07/01/23 Tooth Inspector Relationship Specialty Start Date End Date Yobany Castellanos MD [address] [place] [id number] PCP - General Family Medicine 03/19/22 Tooth Inspector Relationship Specialty Start Date End Date Ebonie Coleman DO [address] [place] [id number] PCP - General Family Medicine 03/30/21 Tooth Inspector Relationship Specialty Start Date End Date Ebonie Coleman DO [address] [place] [id number] PCP - General Family Medicine 03/30/21 Tooth Inspector Relationship Specialty Start Date End Date Ebonie ColemanardDO [address] [place] [id number] PCP - General Family Medicine 03/30/21 Tooth Inspector Relationship Specialty Start Date End Date Yobany Castellanos MD [address] [place] [id number] PCP - General Family Medicine 03/19/22 Tooth Inspector Relationship Specialty Start Date End Date Ebonie Coleman DO [address] [place] [id number] PCP - General Family Medicine 03/30/21 Care Team (unrecognized sect ion and content) Care Team Personnel Name: Naif Perez Clercharles Ralph PT Position: P3 Scheduling - City Magistrate Advanced Member Role: Other Name: PEEWEE SARGENT DO Position: P4 Physician - Primary Care Member Role: Primary Care Physician Address: Address: [address] [place] [address] [place], [place] [address] Name: RAYNE EDGAR DO Position: ED Physician Member Role: Attending Physician Address: Address: [address] [place] [id number] Care Team Related Persons Name: NORMA DUPONT Name: ANA M MCDOWELL Name: RUDDY PEREZ Name: NORMA PIMENTEL Address: Home [address] [place] [phone] Name: NORMA PIMENTEL Address: Home [address] [place] [phone] Name: NORMA PIMENTEL Address: Home [address] [place] [address] [phone] Name: NORMA PIMENTEL Address: Home [address] [place], [place] [phone] Name: NORMA PIMENTEL Charles Address: Home [address] [place], [place] [phone] Name: NORMA PIMENTEL Address: Home [address] [place] [phone] Name: NORMA PIMENTEL Address: Home [address] [place] [phone] FOR RECORDS PERTAINING TO PATIENTS WHO ARE OR HAVE BEEN ENROLLED IN A CHEMICAL DEPENDENCY/SUBSTANCEABUSE PROGRAM, SOME INFORMATION MAY BE OMITTED. This clinical summary was aggregated from multiple sources. Caution should be exercised in using it in the provision of clinical care. This summary normalizes information from multiple sources, and as a consequence, information in this document may materially change the coding, format and clinical context of patient data. In addition, data may be omitted in some cases. CLINICAL DECISIONS SHOULD BE BASED ON THE PRIMARY CLINICAL RECORDS. [facility]. provides no warranty or guarantee of the accuracy or completeness of information in this document.
[2024-08-18 01:17] LABS: Anion Gap 11 (5-15); BUN 15 mg/dL (4-19); BUN/Creat Ratio 16.9 RATIO (10-20); Calcium,Total 8.8 mg/dL (7.6-11.0); Carbon Dioxide 21.4 mmol/L (21.0-32.0); Chloride 107 mmol/L (98-108); Creatinine, Serum 0.87 mg/dL (0.70-1.20); EST Glomerular Filtration Rate 114 (>60); Estimated Creatinine Clearance 132.01 ml/min (50-250); Glucose 109 mg/dL (70-99); Potassium 3.8 mmol/L (3.3-5.1); Sodium Level 139 mmol/L (133-145); Troponin T High Sensitivity 6 ng/L (<=22)
[2024-08-18] MEDS: Lorazepam 2 MG/ML WCH Syringe 0.5 MG IV (01:25)
[2024-08-18 02:00] VITALS: BP 104/72; PULSE 60; RESP 16; O2SAT 97
--- NOTE | 2024-08-18 02:16 | ED.VIS.CHEST ---
HPI History of Present Illness Chief Complaint: Chest Pain Informant: patient Narrative Narrative: Patient is a 38-year-old male with a history of anxiety and reported history of 2 minor heart attacks presenting for chest pain. He states he developed left shoulder pain that radiates into his neck and then down his arm around 3 or 4 PM. He states when it is bad he gets a pressure in his chest and becomes short of breath. This is the chest pain he is referring to. He states he has had symptoms like this in the past and both times he was seen at [facility]. Once he was told he had a minor heart attack but he was treated with IV Ativan and discharged home. No other time he told me that they wanted transfer to [facility] but his insurance would not cover it and so he went home. I did explain to the patient that this does not sound like a heart attack or how he would care for this. He states his shoulder pain is worse with range of motion of his shoulder. Denies any swelling of his legs. No other complaints or concerns reported at this time. [facility] Medical History Cannabis use disorder Tobacco use GERD (gastroesophageal reflux disease) Home Medications ?Medication ?Instructions ?Recorded ?Last Taken ?Type NK 09/26/23 Unknown History Allergy/AdvReac Type Severity Reaction Status Date / Time Penicillins Allergy Hives Verified 08/17/24 23:37 strawberry Allergy Rash Verified 08/17/24 23:37 tomato Allergy Swelling Verified 08/17/24 23:37 Social History Smoking Status: Current every day smoker tobacco type: cigarettes substance use type: marijuana ROS ROS ED Constitutional Constitutional ED: Denies chills or fever(s) Cardiovascular Cardiovascular: Reports as per HPI and chest pain; Denies palpitations Respiratory/Chest Respiratory/Chest: Reports dyspnea; Denies cough Gastrointestinal Gastrointestinal: Denies abdominal pain Musculoskeletal Musculoskeletal: Reports arthralgias and other Details: left shoulder pain Neurologic Neurologic: Reports headache(s) Psychiatric Psychiatric: Reports anxiety Hematologic/Lymphatic Hematologic/Lymphatic: Denies easy bleeding or easy bruising EXAM Physical Exam Const Vital Signs: 08/17/24 23:32 08/17/24 23:35 08/18/24 00:00 Temperature 98.1 F Temperature Source Temporal Pulse Rate 91 Respiratory Rate 23 H Respiratory Effort Normal Non-Labored Blood Pressure 110/74 Blood Pressure Mean 86 Pulse Ox 97 Oxygen Delivery Method Room Air Room Air 08/18/24 00:32 08/18/24 01:00 08/18/24 02:00 Temperature Temperature Source Pulse Rate 72 67 60 Respiratory Rate 24 H 19 H 16 Respiratory Effort Blood Pressure 128/85 H 119/82 H 104/72 Blood Pressure Mean 99 95 82 Pulse Ox 97 98 97 Oxygen Delivery Method Room Air Room Air 08/18/24 03:00 Temperature Temperature Source Pulse Rate 60 Respiratory Rate 15 Respiratory Effort Blood Pressure 99/66 Blood Pressure Mean 77 Pulse Ox 96 Oxygen Delivery Method Room Air Positive well nourished and well developed General Appearance ED: well developed and NAD HEENT Reports moist mucous membranes Neck supple and no JVD Chest Wall inspection of chest normal and palpation of chest normal Resp normal respiratory effort and clear to auscultation bilaterally Cardio regular rate, regular rhythm and no murmurs Cardio Narrative: 2+ radial DP pulses present GI normal to inspection, nondistended, normoactive bowel sounds, soft to palpation and non-tender Extremity normal to inspection Extremity Narrative: No obvious deformity. No joint effusions. Abduction/flexion of the left shoulder reproduces his shoulder pain. Neuro oriented x3 Sensorium / Orientation: awake and alert Motor Exam: Negative for general weakness Psych mental status grossly normal Mood & Affect: anxious Skin no rashes or lesions noted and no wounds Heart Score History: Slightly/Non-Suspicious ECG: Normal Age: </= 45 years Risk Factors: 1 or 2 Risk Factors Troponin: </= Normal Limit Score: 1 MDM MDM MDM Narrative Medical decision making narrative: Patient evaluated for left shoulder pain with associated chest pressure. He reports history of ACS Pay states is prior tach was given IV Ativan and discharged home. This does not sound consistent with prior ACS. Pain is reproduced with range of motion of the shoulder. His vital signs are largely normal emergency room. Is given dose of IV Ativan in the emergency room. Differential includes ACS, chest wall pain, shoulder strain, symptomatic anemia, pneumonia, pneumothorax. Patient given IV Ativan in the emergency room as he does have associated anxiety. Does feel mildly improved with this. CBC, BMP and delta high-sensitivity troponin are normal. Chest x-ray viewed by myself as well as radiology does not show any acute process. Discussed with patient that I suspect this pain is more muscle skeletal. Suspect it is worsened by possible underlying anxiety. He verbalized understand this. He is encouraged to follow-up outpatient with his primary care doctor for further outpatient cardiac testing and to determine the true etiology of his pain however at this time I do not think he requires admission. He verbalized understanding of this. Is given a work note for tonight as he came from work. Discussed alternate ibuprofen and Tylenol as needed for pain. Discharged home in stable condition. Lab Data Labs: Laboratory Results - last 24 hr 08/17/24 08/18/24 08/18/24 23:40 00:35 02:43 WBC 7.7 RBC 4.82 Hgb 15.1 Hct 42.7 MCV 88.6 MCH 31.3 MCHC 35.4 RDW Std Deviation 42.1 RDW Coeff of Betty 13.0 Plt Count 198 MPV 9.8 Immature Gran % (Auto) 0.400 Neut % (Auto) 60.7 Lymph % (Auto) 24.7 Redwood % (Auto) 7.8 Eos % (Auto) 5.8 H Baso % (Auto) 0.6 Absolute Neuts (auto) 4.7 Absolute Lymphs (auto) 1.91 Nucleated RBC % 0 Sodium Cancelled 139 Potassium Cancelled 3.8 Chloride Cancelled 107 Carbon Dioxide Cancelled 21.4 Anion Gap Cancelled 11 BUN Cancelled 15 Creatinine Cancelled 0.87 Estim Creat Clear Calc Cancelled 132.01 Est GFR (MDRD) Non-Af Cancelled 114 BUN/Creatinine Ratio Cancelled 16.9 Glucose Cancelled 109 H Calcium Cancelled 8.8 Troponin T High Sens Cancelled 6 Troponin T Hi Sens 2 Hr 7 Radiography Diagnostic Testing: Clinical Impression(s) from Imaging Studies Chest X-Ray 08/17/24 00:15 IMPRESSION: No radiographic evidence of an acute abnormality. Reading Location: [place] [address] Rhythm Strip Rhythm Strip: Sinus Rhythm Rate: 85 Ectopy: None EKG Initial EKG: Attestation: I personally reviewed and interpreted this EKG as follows: Interpretation: Sinus Rhythm Comments: Normal sinus rhythm at a rate of 85 bpm Normal axis Normal intervals Normal ST segment Discharge Plan Triage Chief Complaint: Chest Pain ED Provider: Godman,Odette Dx/Rx/DC Orders Clinical Impression: Chest pain of uncertain etiology, Acute pain of left shoulder Instructions: ED Chest Pain, Noncardiac Prescriptions: No Action NK Stand Alone Forms: Work / School Excuse Primary Care Provider: Care Physician,No Primary Referrals: Care Physician,No Primary [Primary Care Provider] - Rubin Romero, [employer] [[facility]] - Activity Restrictions/Additional Instructions: Your workup today was very reassuring. Workup was not suggestive of acute heart attack, acute cardiac process, pneumonia or blood clot in the lungs. I suspect at this time the pain is more likely muscle skeletal associated with your shoulder pain. Please follow-up with primary care doctor. I do recommend outpatient cardiac testing. Return if you have a progression or worsening of your symptoms. Alternate ibuprofen and Tylenol as needed for discomfort. Print Language: Cymro Disposition Disposition: Home, Self Care
[2024-08-18 03:00] VITALS: BP 99/66; PULSE 60; RESP 15; O2SAT 96
[2024-08-18 03:46] LABS: Troponin T High Sens 2 HR 7 ng/L (<=22)
[2024-08-18 04:00] VITALS: BP 116/78; PULSE 88; RESP 16; TEMP 36.8; O2SAT 100
== END 2024-08-18 04:47 | disposition home or self-care (01) ==
PROVIDERS: Emergency Provider Emergency Medicine; Visit Provider Emergency Medicine
DX: R07.9 Chest pain, unspecified (principal); F41.9 Anxiety disorder, unspecified; M25.512 Pain in left shoulder; I25.2 Old myocardial infarction; F17.210 Nicotine dependence, cigarettes, uncomplicated
CPT/HCPCS: 71046; 80048; 84484; 85025; 93005; 96374; 99285; A4216

== ENCOUNTER 2024-11-03 11:39 | Emergency (ER) | payer OTHER, SELFPAY ==
[2024-11-03] VITALS (8 sets, daily range): BP systolic 102–137; BP diastolic 64–94; PULSE 55–76; RESP 12–20; TEMP 36.6–36.7; O2SAT 95–98; BMI 27.4
--- NOTE | 2024-11-03 12:16 | EKG12_ITS ---
Test Reason : ARRYTH Blood Pressure : */* mmHG Vent. Rate : 56 BPM Atrial Rate : 56 BPM P-R Int : 170 ms QRS Dur : 118 ms QT Int : 406 ms P-R-T Axes : 20 44 32 degrees QTcB Int : 391 ms Sinus bradycardia Incomplete right bundle branch block Borderline ECG Confirmed by Domenic Ceja ([id number]), editorial specialist JUANPABLO BENOIT ([id number]) on 11/05/2024 6:41:04 AM Referred By: Confirmed By: Domenic Ceja
[2024-11-03 12:37] LABS: Hematocrit 46.8 % (40-54); Hemoglobin 16.3 g/dL (13.0-16.5); Immature Granulocytes Count 0.020 X10^3/uL (0.0-0.0); Mean Corp Hgb Conc 34.8 g/dL (32-36); Mean Corpuscular Volume 91.4 fL (80-94); Mean Platelet Vol. 9.7 fl (6.2-12.0); NRBC Flagged by Analyzer 0 % (0-5); Platelet Count 223 K/mm3 (150-450); RBC Distribution Width CV 13.0 % (11.6-14.6); RBC Distribution Width SD 43.7 fl (35.1-43.9); Red Blood Count 5.12 M/mm3 (4.6-6.2); White Blood Count 5.8 K/mm3 (4.4-11.0)
[2024-11-03 13:01] LABS: Anion Gap 12 (5-15); BUN 14 mg/dL (4-19); BUN/Creat Ratio 15.7 RATIO (10-20); Calcium,Total 9.4 mg/dL (7.6-11.0); Carbon Dioxide 23.1 mmol/L (21.0-32.0); Chloride 105 mmol/L (98-108); Estimated Creatinine Clearance 111.14 ml/min (50-250); Glucose 115 mg/dL (70-99); Potassium 4.0 mmol/L (3.3-5.1)
[2024-11-03 13:06] LABS: Barbiturate Urine NEGATIVE (< 200 ng/mL); Benzodiazepine Urine NEGATIVE (< 200 ng/mL); PCP Urine NEGATIVE (< 25 ng/mL); THC Urine PRESUMPTIVE POSITIVE (< 50 ng/mL)
[2024-11-03 13:35] LABS: Alcohol, Blood (Medical)-Serum < 10.1 mg/dL (<=10.0)
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
[2024-11-03 13:53] LABS: Acetaminophen (Tylenol) Level < 5.0 ug/mL (8.0-19.0); Salicylate < 0.5 mg/dL (2.8-20.0)
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
--- NOTE | 2024-11-03 18:22 | PCA ---
PT ACCEPTED AT [facility] UN[facility] DR. BAIRD [address]N [phone] [facility]
--- NOTE | 2024-11-03 18:23 | CM.ED ---
Social Work Patient was referred to [facility], C-side unit, admitting is Dr. Martinez. N2N [phone] Option 3. [place] slip faxed. Patient notified of accepting facility. No further needs identified at this time. Kari Batista, FOOD BEVERAGE ATTENDANT, FUR DRY CLEANER HAND
[2024-11-03] MEDS: Nicotine (PBKC) 21 MG Patch TD (18:59)
== END 2024-11-03 20:26 ==
PROVIDERS: Emergency Provider Student in an Organized Health Care Education/Training Program; Visit Provider Student in an Organized Health Care Education/Training Program
DX: T43.222A Poisoning by selective serotonin reuptake inhibitors, intentional self-harm, initial encounter (principal); T45.0X2A Poisoning by antiallergic and antiemetic drugs, intentional self-harm, initial encounter; F32.A Depression, unspecified; Z79.899 Other long term (current) drug therapy; F17.210 Nicotine dependence, cigarettes, uncomplicated; F41.9 Anxiety disorder, unspecified
CPT/HCPCS: 80048; 80143; 80179; 80307; 82077; 85025; 93005; 99285; A4216